=== PATIENT | male | born 1965 ===

== ENCOUNTER 2020-07-20 08:52 | Emergency (ER) | payer OTHER, SELFPAY ==
[2020-07-20 09:01] VITALS: BP 151/71; PULSE 101; RESP 20; TEMP 36.9; O2SAT 97; BMI 28.8
--- NOTE | 2020-07-20 09:21 | CT_ITS ---
EXAMINATION: CT ABDOMEN AND PELVIS WITHOUT CONTRAST CLINICAL INFORMATION: Hematuria. COMPARISON: None TECHNIQUE: Multidetector volumetric imaging was performed from the superior aspect of the liver through the pubic symphysis. Sagittal and coronal reformatted images were obtained on the technologist's workstation. This CT examination was performed using dose optimization techniques as appropriate, variously including the following: *Automated exposure control *Adjustment of mA and/or kV according to patient size (this includes techniques or standardized protocols for targeted exams where dose is matched to indication/reason for exam; i.e. extremities or head) *Use of iterative reconstruction technique DLP: 584 mGy-cm FINDINGS: LUNG BASES: There is patchy ill-defined density seen in left lung base likely atelectasis the heart size is normal. Suspect small hiatal hernia. LIVER, GALLBLADDER, AND BILIARY TREE: The liver is normal in size, shape, and attenuation. Linear calcification is seen in the right hepatic lobe. No focal hepatic lesion or biliary ductal dilatation is present. The gallbladder is unremarkable with no evidence of radiopaque gallstones, gallbladder wall thickening, or obvious pericholecystic inflammatory changes. PANCREAS: Unremarkable. SPLEEN: Unremarkable. ADRENAL GLANDS: Unremarkable. KIDNEYS AND URETERS: The kidneys are normal in size, shape, and attenuation. There is a 7 mm nonobstructive radiopaque calculi lower pole calyx right kidney. There is a tumor punctate calculi upper pole calyx right kidney. No caliectasis or hydronephrosis seen on either side. There are vascular calcifications in renal hilum bilaterally. Mild bilateral perinephric stranding is noted. BLADDER: There is a high attenuation dependent, likely hemorrhage best visualized on axial image 68/3 and sagittal image 55/103. There is no bladder wall thickening. In absence of IV contrast a mass cannot be excluded. However no obvious mass seen on this exam GASTROINTESTINAL TRACT: There is scattered stool, diverticuli and gas seen throughout the colon without any diverticulitis or colonic distention. The small bowel loops unremarkable. Appendix is not visualized with certainty. The stomach is nondistended and appears unremarkable. ABDOMINAL WALL: There are bilateral prominent inguinal hernia containing fat right greater than left. No significant hernia is appreciated. LYMPH NODES: Normal. VASCULAR: Unremarkable. PELVIC VISCERA: There is no pelvic mass, abnormal lymph nodes. OSSEOUS STRUCTURES: Unremarkable. CT/CT abdomen pelvis wo con IMPRESSION: Nonobstructive 7 mm radiopaque calculi lower pole calyx right kidney. No hydronephrosis on either side. Likely hemorrhage in the dependent portion of the bladder. No bladder wall thickening or obvious mass seen. A bladder mass cannot be excluded. Consider cystoscopy.
[2020-07-20 09:36] LABS: MANUAL DIFF FLAG NO
[2020-07-20 09:41] LABS: Basophils Absolute Auto 0.1 X10*3/uL (0.0-0.2); Basophils Percent Auto 0.9 % (0-2); Eosinophils Absolute Auto 0.1 X10*3/uL (0.0-0.4); Eosinophils Percent Auto 1.7 % (0-4); Hematocrit 43.3 % (42-52); Hemoglobin 13.7 g/dl (14.0-18.0); Imm Gran Abs Auto 0.04 X10*3/uL (0.00-0.03); Imm Gran Pct Auto 0.5 % (0.0-0.4); Lymphocytes Absolute Auto 2.2 X10*3/uL (1.2-4.9); Lymphocytes Percent Auto 27.9 % (20-40); Mean Corpuscular HGB Conc 31.6 g/dl (31.0-36.0); Mean Corpuscular Hemoglobin 25.7 pg (27.0-33.0); Mean Corpuscular Volume 81.2 fL (80-98); Mean Platelet Volume 10.1 fL (9.4-12.4); Monocytes Absolute Auto 0.6 X10*3/uL (0.1-1.2); Monocytes Percent Auto 7.3 % (2-11); Neutrophils Absolute Auto 4.8 X10*3/uL (2.0-8.3); Neutrophils Percent Auto 61.7 % (45-73); Platelet Count 408 X10*3/uL (160-400); Red Blood Count 5.33 X10*6/uL (4.60-5.80); White Blood Count 7.8 X10*3/uL (4.8-10.8)
[2020-07-20 09:44] LABS: Glucose Urine UA 250 MG/DL (NEG); Leukocyte Esterase Urine NEG (NEG); Nitrite Urine NEG (NEG); Specific Gravity - Urine >= 1.030 (1.005-1.025); Urine Blood 3+ (NEG); Urine Ketones NEG (NEG); Urine Protein 2+ MG/DL (NEG-TRACE)
[2020-07-20 09:45] LABS: INTERNATIONAL NORM RATIO 1.2 (0.9-1.1); Prothrombin Time 14.3 SEC (10.8-13.0)
[2020-07-20 09:49] LABS: Appearance Urine CLOUDY; Color Urine AMBER
[2020-07-20 09:56] LABS: WBC Urine 0 /HPF (0-4)
[2020-07-20 09:57] LABS: Amorphous Sediment Urine 3+ /LPF; Squamous Epithelial Cell Urine TRACE /LPF
[2020-07-20 10:01] LABS: Magnesium 1.7 mg/dL (1.6-2.6)
[2020-07-20 10:02] LABS: Alanine Aminotransferase 13 U/L (0-40); Albumin Level 4.4 g/dL (3.5-5.0); Alkaline Phosphatase 75 U/L (39-117); Anion Gap 14 (12-20); Aspartate Amino Transferase 15 U/L (5-37); Bilirubin Direct < 0.2 mg/dL (0.0-0.5); Bilirubin Total 0.3 mg/dL (0.0-1.0); Blood Urea Nitrogen 10 mg/dL (9-16); Calcium 9.2 mg/dL (8.4-10.2); Carbon Dioxide 21 mmol/L (22-29); Chloride 100 mmol/L (96-108); Creatinine Clr Calc Pharmacy 87.5; Estimated Glomerular Filt Rate > 60; Glucose Random 210 mg/dL (60-115); Potassium 5.1 mmol/l (3.3-5.1); Sodium 130 mmol/L (135-145); Total Protein 7.6 g/dL (6.5-8.0)
[2020-07-20] MEDS: 0.9 % Sodium Chloride 1,000 ML 999 ML IVCONT (11:05)
[2020-07-20 12:26] VITALS: BP 113/63; PULSE 100; RESP 18; TEMP 36.8; O2SAT 97
--- NOTE | 2020-07-20 12:26 | ED.MALEGU ---
HPI - Male Genitourinary General Chief complaint: Urogenital-Male Stated complaint: blood in urine Time Seen by Provider: 07/20/20 09:15 Source: patient Mode of arrival: ambulatory Limitations: no limitations History of Present Illness HPI Narrative: 54yoM c PMHx of Myocardial infarction, CVA, hypertension, hyperlipidemia and diabetes presenting to the ED with complaints of hematuria cristopher colored urine since Saturday has been improving. Denies any other associated symptoms related to this. Related Data Previous Rx's Medication Instructions Recorded isosorbide mononitrate 30 mg 30 mg PO DAILY 90 Days #90 tab 07/14/20 tablet,extended release 24 hr Allergies Allergy/AdvReac Type Severity Reaction Status Date / Time No Known Allergies Allergy Unverified 05/12/20 15:47 [No Known Allergies*] Review of Systems Review of Systems: Constitutional : No Weight loss, No Fever, No Chills, No Night Sweats, No Fatigue, No Malaise Cardiovascular : No Chest Pain, No SOB= Respiratory : No Cough, No Sputum Gastrointestinal : No Nausea, No Vomiting, No Diarrhea, No abdominal Pain, No Hematochezia, No Melena Genitourinary : No Dysuria, No Urinary Frequency, + Hematuria,No Urinary Incontinence, No Urgency, No Flank Pain Musculoskeletal : No joint pain, No Myalgias, No Joint Swelling Skin : No Skin Lesions, No rash Neuro : No Weakness, No Numbness, No Paresthesias, No Loss of Consciousness, NoDizziness, No Headache Psych : No Social Issues, Heme/Lymph: No Bruising, No Bleeding,No Lymphadenopathy Endocrine : No Polyuria, No Polydipsia, No Temperature Intolerance Yes all other systems are reviewed and are negative FORMERLY [facility] Past Medical History Attestation statement: The following information was validated with the patient. Medical History CVA (cerebral vascular accident) Diabetes mellitus, type 2 Hypercholesteremia Hypertension Myocardial infarction Surgical History H/O coronary artery bypass surgery Social History Social History Smoked in Last 30 Days: No Use of substances other than those prescribed or required for medical reasons: No Advance Directives: No Advance Directives Information Provided: No Physical Exam Vital Signs: Vital Signs: Last Vital Signs Temp 98.5 F 07/20/20 09:01 Pulse 101 H 07/20/20 09:01 Resp 20 07/20/20 09:01 BP 151/71 H 07/20/20 09:01 Pulse Ox 97 07/20/20 09:01 Body Mass Index 28.8 vital signs have been reviewed as normal and appeared to be correct. Blood pressure normal. Heart rate normal. Respiration rate normal. Temperature normal. Oxygen saturation normal. Appearance: Alert. Oriented X3. No acute distress. Head: Normal external exam. Normocephalic. Eyes: PERRLA. EOMI. Conjunctiva and sclera normal. Eyelids normal. ENT: Pharynx normal. Uvula midline. Moist mucous membranes. No trismus noted. No drooling noted. No muffled voice noted. Neck: Normal inspection. Neck supple. FROM. No adenopathy. Thyroid Normal. No meningeal signs. No neck mass noted. CVS: Normal heart rate and rhythm. Heart sound normal. No murmurs noted. Pulses normal throughout. Respiratory: No respiratory distress. Painless inspiration. Breath sounds normal. No wheezes/rales/rhonchi noted. Chest nontender. No accessory muscle usage noted or decreased air movement noted. Abdomen: Soft and nontender. Bowel sounds normal in all 4 quadrants. No distention noted. No organomegaly noted. No visible injury noted. Back: No CVA tenderness. Full range of motion noted. Skin: Skin warm and dry. Normal skin color. Normal skin turgor. No rashes/lesions/lacerations noted. Extremities: Extremities exhibit normal range of motion. Extremities nontender. Neuro: Oriented X 3. No motor deficit. No sensory deficit. Reflexes normal. Course Course Course Narrative: - 54yoM c PMHx of Myocardial infarction, CVA, hypertension, hyperlipidemia and diabetes presenting to the ED with complaints of hematuria cristopher colored urine since Saturday has been improving. Denies any other associated symptoms related to this - Labs obtained and sodium at 130. Otherwise all other labs are within normal limits. UA revealed cristopher colored urine with blood in the urine otherwise no evidence of UTI. All other labs are within normal limits. CT scan of abdomen and pelvis without contrast revealed Nonobstructive 7 mm radiopaque calculi lower pole calyx right kidney. No hydronephrosis on either side. Likely hemorrhage in the dependent portion of the bladder. No bladder wall thickening or obvious mass seen. A bladder mass cannot be excluded. Consider cystoscopy. - therefore consulted with Dr. Jefferson the urologist and he recommended outpatient follow-up. No Vaughan to be placed at this time due to patient's urine is cristopher colored and he is able to urinate on his own without any difficulties. Therefore patient will be discharged at this time after 1 L of IV fluids was given and instructions to follow up with Urology and to return if he is unable to urinate or worsening symptoms. Patient understands agrees with this plan. MDM - Male Genitourinary Medical Records Attestation: I reviewed the patient's medical records. Lab Data Attestation: I reviewed the patient's lab results. Result diagrams: 07/20/20 09:33 07/20/20 09:33 Labs: Lab Results 07/20/20 07/20/20 07/20/20 Range/Units 09:16 09:33 09:33 WBC 7.8 (4.8-10.8) X10*3/uL RBC 5.33 (4.60-5.80) X10*6/uL Hgb 13.7 L (14.0-18.0) g/dl Hct 43.3 (42-52) % MCV 81.2 (80-98) fL MCH 25.7 L (27.0-33.0) pg MCHC 31.6 (31.0-36.0) g/dl RDW 15.0 (11.0-16.0) % Plt Count 408 H (160-400) X10*3/uL MPV 10.1 (9.4-12.4) fL Immature Gran % (Auto) 0.5 H (0.0-0.4) % Neut % (Auto) 61.7 (45-73) % Lymph % (Auto) 27.9 (20-40) % [place] % (Auto) 7.3 (2-11) % Eos % (Auto) 1.7 (0-4) % Baso % (Auto) 0.9 (0-2) % Lymph # (Auto) 2.2 (1.2-4.9) X10*3/uL [place] # (Auto) 0.6 (0.1-1.2) X10*3/uL Eos # (Auto) 0.1 (0.0-0.4) X10*3/uL Baso # (Auto) 0.1 (0.0-0.2) X10*3/uL Abs Immat Gran (auto) 0.04 H (0.00-0.03) X10*3/uL Absolute Neuts (auto) 4.8 (2.0-8.3) X10*3/uL Absolute Nucleated RBC 0.000 (0.0-0.012) X10*3/uL Nucleated RBC % (auto) 0.0 (0.0-0.2) /100WBC PT 14.3 H (10.8-13.0) SEC INR 1.2 H (0.9-1.1) Sodium (135-145) mmol/L Potassium (3.3-5.1) mmol/l Chloride (96-108) mmol/L Carbon Dioxide (22-29) mmol/L Anion Gap (12-20) BUN (9-16) mg/dL Creatinine (0.5-1.4) mg/dL Estim Creat Clear Calc Estimated GFR Random Glucose (60-115) mg/dL Calcium (8.4-10.2) mg/dL Magnesium (1.6-2.6) mg/dL Total Bilirubin (0.0-1.0) mg/dL Direct Bilirubin (0.0-0.5) mg/dL AST (5-37) U/L ALT (0-40) U/L Alkaline Phosphatase (39-117) U/L Total Protein (6.5-8.0) g/dL Albumin (3.5-5.0) g/dL Urine Color CRISTOPHER Urine Appearance CLOUDY Urine pH 5.0 (5.0-8.0) Ur Specific [place] >= 1.030 H (1.005-1.025) Urine Protein 2+ H (NEG-TRACE) MG/DL Urine Glucose (UA) 250 H (NEG) MG/DL Urine Ketones NEG (NEG) MG/DL Urine Blood 3+ H (NEG) Urine Nitrite NEG (NEG) Ur Leukocyte Esterase NEG (NEG) Urine RBC 76-150 H (0) /HPF Urine WBC 0 (0-4) /HPF Ur Squamous Epith Cells TRACE /LPF Amorphous Sediment 3+ /LPF Urine Bacteria NONE /LPF 07/20/20 07/20/20 Range/Units 09:33 09:33 WBC (4.8-10.8) X10*3/uL RBC (4.60-5.80) X10*6/uL Hgb (14.0-18.0) g/dl Hct (42-52) % MCV (80-98) fL MCH (27.0-33.0) pg MCHC (31.0-36.0) g/dl RDW (11.0-16.0) % Plt Count (160-400) X10*3/uL MPV (9.4-12.4) fL Immature Gran % (Auto) (0.0-0.4) % Neut % (Auto) (45-73) % Lymph % (Auto) (20-40) % [place] % (Auto) (2-11) % Eos % (Auto) (0-4) % Baso % (Auto) (0-2) % Lymph # (Auto) (1.2-4.9) X10*3/uL [place] # (Auto) (0.1-1.2) X10*3/uL Eos # (Auto) (0.0-0.4) X10*3/uL Baso # (Auto) (0.0-0.2) X10*3/uL Abs Immat Gran (auto) (0.00-0.03) X10*3/uL Absolute Neuts (auto) (2.0-8.3) X10*3/uL Absolute Nucleated RBC (0.0-0.012) X10*3/uL Nucleated RBC % (auto) (0.0-0.2) /100WBC PT (10.8-13.0) SEC INR (0.9-1.1) Sodium 130 L (135-145) mmol/L Potassium 5.1 (3.3-5.1) mmol/l Chloride 100 (96-108) mmol/L Carbon Dioxide 21 L (22-29) mmol/L Anion Gap 14 (12-20) BUN 10 (9-16) mg/dL Creatinine 0.91 (0.5-1.4) mg/dL Estim Creat Clear Calc 87.5 Estimated GFR > 60 Random Glucose 210 H (60-115) mg/dL Calcium 9.2 (8.4-10.2) mg/dL Magnesium 1.7 (1.6-2.6) mg/dL Total Bilirubin 0.3 (0.0-1.0) mg/dL Direct Bilirubin < 0.2 (0.0-0.5) mg/dL AST 15 (5-37) U/L ALT 13 (0-40) U/L Alkaline Phosphatase 75 (39-117) U/L Total Protein 7.6 (6.5-8.0) g/dL Albumin 4.4 (3.5-5.0) g/dL Urine Color Urine Appearance Urine pH (5.0-8.0) Ur Specific [place] (1.005-1.025) Urine Protein (NEG-TRACE) MG/DL Urine Glucose (UA) (NEG) MG/DL Urine Ketones (NEG) MG/DL Urine Blood (NEG) Urine Nitrite (NEG) Ur Leukocyte Esterase (NEG) Urine RBC (0) /HPF Urine WBC (0-4) /HPF Ur Squamous Epith Cells /LPF Amorphous Sediment /LPF Urine Bacteria /LPF Imaging Data CT scan - abdomen: Attestation: I personally reviewed and interpreted this imaging study as follows: Radiologist's impression: Nonobstructive 7 mm radiopaque calculi lower pole calyx right kidney. No hydronephrosis on either side. Likely hemorrhage in the dependent portion of the bladder. No bladder wall thickening or obvious mass seen. A bladder mass cannot be excluded. Consider cystoscopy. Discharge Plan Discharge Clinical Impression: Hematuria, Hyponatremia Patient Disposition: Home, Self-Care Instructions: Hyponatremia (ED), Hematuria (ED) Prescriptions: No Action isosorbide mononitrate 30 mg tablet extended release 24 hr 30 mg PO DAILY 90 Days Qty: 90 RF: 1 Referrals: Alirio Luther III, MD [Physician] - 2 days ( for hematuria) Print Language: Bolivian
--- NOTE | 2020-07-20 12:28 | PC.NURSE ---
patient a&ox3, patient ambulating with steady gait with cane, iv fluids completed, vss, pt wanting to discharge and asking for iv to be removed, will speak with provider.
== END 2020-07-20 13:00 | disposition home or self-care (01) ==
PROVIDERS: Physician Assistant Medical; Emergency Provider Internal Medicine; PCP Internal Medicine
DX: R31.9 Hematuria, unspecified (principal); E87.1 Hypo-osmolality and hyponatremia; I10 Essential (primary) hypertension; Z79.899 Other long term (current) drug therapy
CPT/HCPCS: 36415; 74176; 80048; 80076; 81001; 83735; 85025; 85610; 96360; 99284

== ENCOUNTER → 2020-07-25 09:30 | Outpatient (REF) | payer OTHER, SELFPAY ==
--- NOTE | 2020-07-25 09:30 | CA_ITS ---
Transthoracic Echocardiogram Patient (Last, First, Middle): Cam Vera, Gender: Male Date of : 1965 Age: 54 Procedure Date: 07/25/2020 Procedure Type: Transthoracic Echocardiogram Location: OP Height: 165.1 cm Weight: 78.47 kg BSA: 1.86 m2 Heart Rate: bpm BP: 134 / 80 mmHg Certified Pediatric Nurse Practitioner: INOCENCIO Referring MD: Moses Grove MD Ski Patrol: Roman Escobedo MD Symptoms: I25.5 ISCHEMIC CARDIOMYOPATHY Study Quality: Fair ECG Rhythm: Sinus Conclusions: - 1. Moderate LV systolic dysfunction with RWMA c/w ischemic cardiomyopathy with impaired relaxation pattern 2.Normal cardiac valvular Doppler 3. Normal RVSP 4. No pericardial effusion Findings Left Ventricle Normal left ventricular cavity size. There is normal left ventricular wall thickness. The left ventricular systolic function is moderately decreased. The visually estimated ejection fraction is between 35-40%. There is evidence of regional wall motion abnormalities. Spectral Doppler is indicative of an impaired relaxation filling pattern. E/E prime ratio is between 8 and 15 consistent with indeterminate filling pressures. Wall Motion Rest Echo Findings The inferoseptal wall, the basal inferior, mid inferior, and mid anteroseptal segments are akinetic. All other scored wall segments showed normal motion. Right Ventricle Normal right ventricular cavity size and systolic function. Atria The left atrium is likely dilated. There is no evidence of interatrial shunt. The right atrium is normal in size. Aortic Valve Normal aortic valve structure and function. There is no aortic valve stenosis. There is mild aortic valve regurgitation. Mitral Valve There is mild anterior and posterior mitral leaflet thickening. There is mild mitral annular calcification. There is trace mitral valve regurgitation. There is no mitral valve stenosis. Pulmonic Valve The pulmonic valve was not well visualized. Tricuspid Valve Likely normal tricuspid valve structure and function. There is mild tricuspid valve regurgitation. The right ventricular systolic pressure is normal. Normal right atrial pressure. There is no evidence of pulmonary hypertension. Great Vessels All visible segments of the aorta are normal in size. The pulmonary artery was not well visualized. Venous The inferior vena cava is normal in size and collapses greater than 50% with inspiration. Pericardium/Pleural There is no evidence of pericardial effusion. Prior Study Comparison Significant changes compared to prior study dated: 10/28/2019. Moderate LV systolic dysfunction with new RWMA noted Measurements 2D Linear Measurements IVSd: 1.05 0.6-0.9/0.6-1.0 cm LVIDd: 5.40 3.9-5.3/4.2-5.9 cm LVIDd Index: 2.90 2.4-3.2/2.2-3.1 cm/m2 LVIDs: 4.16 2.0-3.6 cm LVPWd: 1.06 0.7-1.1 cm LA Diam: 4.00 2.7-3.8/3.0-4.0 cm LAIDs Index: 2.15 1.5-2.3 cm/m2 LV Mass: 276.74 67-162/88-224 g LV Mass Index: 148.79 43-95/49-115 g/m2 LVOT Diam: 2.00 3.0+(-)1.3 cm 2D Systolic Function EF 4C: 39.90 >55% EF 2C: 36.00 >55% EF BiP: 38.20 >55% Mitral Valve MV Pk E: 0.92 MV PK A: 1.20 MV Decel Time: 92.00 E/A: 0.80 E'Lateral: 9.28 E'Medial: 8.03 E/E' Med: 11.50 E/E' Lat: 9.90 PHT: 27.00 MVA PHT: 8.15 Decel [place]: 10.07 Aortic Valve AoV Pk Bruno: 1.57 AoV Mn Bruno: 1.23 AoV VTI: 0.34 AoV Pk Grad: 10.00 Aov Mn Grad: 7.00 BILL Cont.VTI: 1.64 LVOT LVOT Pk Bruno: 0.90 LVOT Mn Bruno: 0.65 LVOT VTI: 0.18 LVOT Pk Grad: 3.00 LVOT Mn Grad: 2.00 LVOT Diam: 2.00 LVOT Area: 3.14 Diastolic Function MV Pk E: 0.92 MV Pk A: 1.20 E/A: 0.80 E'Medial: 8.03 E/E' Med: 11.50 E' Laterial: 9.28 E/E' Lat: 9.90 Tricuspid Valve TR Pk Bruno: 2.11 TR Pk Grad: 18.00 RA Press: 3.00 RVSP: 31.00 Pulmonary Valve PV Pk Bruno: 0.99 Peak PV Grad: 4.00 Updated in Other Vendor System with Status of Final Roman Escobedo MD electronically signed on 07/26/2020 12:44:51 PM with status of Final
== END ==
LOC: HO.CARD 09:30
PROVIDERS: PCP Internal Medicine; Visit Provider Internal Medicine
DX: I25.5 Ischemic cardiomyopathy (principal)
CPT/HCPCS: 93306

== ENCOUNTER 2020-08-02 08:50 | Outpatient (REF) | payer OTHER, SELFPAY ==
[2020-08-02 14:16] LABS: Urine Cytology See Pathology rpt
== END 2020-08-02 08:51 | disposition home or self-care (01) ==
LOC: HO.LNP 08:50
PROVIDERS: PCP Internal Medicine; Visit Provider Urology
DX: R31.29 Other microscopic hematuria (principal); R35.1 Nocturia; N32.0 Bladder-neck obstruction
CPT/HCPCS: 81002; 88112; 99202

== ENCOUNTER → 2020-08-10 08:58 | Outpatient (BNVA) | payer OTHER, SELFPAY | PROVIDERS: PCP Internal Medicine; Visit Provider Internal Medicine | DX: I25.10 Atherosclerotic heart disease of native coronary artery without angina pectoris (principal); I25.5 Ischemic cardiomyopathy; I48.0 Paroxysmal atrial fibrillation; I63.9 Cerebral infarction, unspecified; E78.5 Hyperlipidemia, unspecified | CPT/HCPCS: 99212 ==

== ENCOUNTER 2020-08-30 08:28 | Outpatient (REF) | payer OTHER, SELFPAY ==
[2020-08-30 11:21] LABS: Prostate Specific Antigen 9.18 ng/mL (<0.05-4.0)
== END 2020-08-30 08:29 | disposition home or self-care (01) ==
LOC: HO.10HDL 08:28
PROVIDERS: Visit Provider Urology
DX: N32.0 Bladder-neck obstruction (principal); Z12.5 Encounter for screening for malignant neoplasm of prostate
CPT/HCPCS: 36415; 84153

== ENCOUNTER → 2020-09-07 08:52 | Outpatient (BNVA) | payer OTHER, SELFPAY | PROVIDERS: PCP Internal Medicine; Visit Provider Urology | DX: N40.1 Benign prostatic hyperplasia with lower urinary tract symptoms (principal); N13.8 Other obstructive and reflux uropathy; R97.20 Elevated prostate specific antigen [PSA] | CPT/HCPCS: 52000; 81002; 99212 ==

== ENCOUNTER → 2020-10-27 09:19 | Outpatient (REF) | payer OTHER, SELFPAY ==
--- NOTE | 2020-10-27 09:22 | CA_ITS ---
Transthoracic Echocardiogram Patient (Last, First, Middle): Cam Vera, Gender: Male Date of : 1965 Age: 54 Procedure Date: 10/27/2020 Procedure Type: Transthoracic Echocardiogram Location: OP Height: 165.1 cm Weight: 83.01 kg BSA: 1.90 m2 Heart Rate: bpm BP: 144 / 75 mmHg Director Of Critical Care: KIRAN Referring MD: Moses Grove MD Symptoms: I25.5 - Ischemic cardiomyopathy Study Quality: Fair ECG Rhythm: Sinus Conclusions: - The left ventricular systolic function is moderately decreased. The visually estimated ejection fraction is between 35-40%. - The mid inferior and mid inferoseptal segments are akinetic. Findings Left Ventricle Normal left ventricular cavity size. There is normal left ventricular wall thickness. The left ventricular systolic function is moderately decreased. The visually estimated ejection fraction is between 35-40%. There is evidence of regional wall motion abnormalities. There is moderate global hypokinesis. E/E prime ratio is >15, consistent with elevated filling pressures. Evidence suggests grade I (mild) diastolic dysfunction. Wall Motion Rest Echo Findings The mid inferior and mid inferoseptal segments are akinetic. Right Ventricle Normal right ventricular cavity size. There is mildly decreased right ventricular systolic function. Tricuspid Valve Normal tricuspid valve structure. Venous The inferior vena cava is normal in size and collapses greater than 50% with inspiration. Prior Study Comparison No significant change compared to prior study dated: 07/25/2020. Measurements 2D Linear Measurements IVSd: 0.76 0.6-0.9/0.6-1.0 cm LVIDd: 5.14 3.9-5.3/4.2-5.9 cm LVIDd Index: 2.71 2.4-3.2/2.2-3.1 cm/m2 LVIDs: 4.08 2.0-3.6 cm LVPWd: 1.27 0.7-1.1 cm LV Mass: 242.60 67-162/88-224 g LV Mass Index: 127.68 43-95/49-115 g/m2 2D Systolic Function EF 4C: 44.00 >55% EF 2C: 44.60 >55% EF BiP: 43.60 >55% Mitral Valve MV Pk E: 1.07 MV PK A: 1.22 MV Decel Time: 151.00 E/A: 0.90 E'Lateral: 6.96 E'Medial: 5.87 E/E' Med: 18.20 E/E' Lat: 15.40 PHT: 44.00 MVA PHT: 5.00 Decel [place]: 7.08 Diastolic Function MV Pk E: 1.07 MV Pk A: 1.22 E/A: 0.90 E'Medial: 5.87 E/E' Med: 18.20 E' Laterial: 6.96 E/E' Lat: 15.40 Tricuspid Valve TR Pk Bruno: 2.69 TR Pk Grad: 29.00 RA Press: 3.00 RVSP: 32.00 Updated in Other Vendor System with Status of Final Moses Grove MD electronically signed on 10/29/2020 11:46:27 AM with status of Final
== END ==
LOC: HO.CARD 09:19
PROVIDERS: PCP Internal Medicine; Visit Provider Internal Medicine
DX: I25.5 Ischemic cardiomyopathy (principal)
CPT/HCPCS: 93308

== ENCOUNTER 2020-11-21 10:35 | Outpatient (REF) | payer OTHER, SELFPAY ==
[2020-11-21 12:37] LABS: Alanine Aminotransferase 23 U/L (0-40); Albumin Level 4.9 g/dL (3.5-5.0); Alkaline Phosphatase 67 U/L (39-117); Aspartate Amino Transferase 17 U/L (5-37); Bilirubin Direct 0.2 mg/dL (0.0-0.5); Bilirubin Total 0.3 mg/dL (0.0-1.0); Cholesterol 163 mg/dL; HDL Cholesterol 39 mg/dL; LDL Cholesterol Calculated 93 mg/dl; Total Protein 8.2 g/dL (6.5-8.0); Triglycerides 159 mg/dL
== END 2020-11-21 10:36 | disposition home or self-care (01) ==
LOC: HO.LAB 10:35
PROVIDERS: PCP Internal Medicine; Visit Provider Internal Medicine
DX: I25.10 Atherosclerotic heart disease of native coronary artery without angina pectoris (principal); I25.5 Ischemic cardiomyopathy; I48.0 Paroxysmal atrial fibrillation; E78.5 Hyperlipidemia, unspecified; Z79.899 Other long term (current) drug therapy
CPT/HCPCS: 36415; 80061; 80076; 99212

== ENCOUNTER 2020-12-28 07:52 | Inpatient (IN) | payer OTHER, SELFPAY ==
[2020-12-28] VITALS (8 sets, daily range): BP systolic 107–153; BP diastolic 40–89; PULSE 78–128; RESP 16–23; TEMP 35.9–36.9; O2SAT 95–100; BMI 29.3
--- NOTE | ~2020-12-28 | XR_ITS ---
EXAMINATION: XR CHEST CLINICAL INFORMATION: Chest pain COMPARISON: Previous chest x-ray most recent March 2020 TECHNIQUE: Frontal view of the chest was obtained. FINDINGS: The cardiac silhouette does not appear enlarged. There are new post-CABG changes. Hilar and mediastinal contours are unremarkable. The lungs are clear. There is no pleural effusion or pneumothorax. There are degenerative changes of the spine. XR/XR chest 1V IMPRESSION: Post-CABG changes. No evidence for acute disease in the chest.
--- NOTE | 2020-12-28 08:03 | ED.CHESTPAIN ---
HPI - Chest Pain General Chief Complaint: Chest Pain Stated Complaint: chest pain Time Seen by Provider: 12/28/20 08:03 Source: patient Mode of arrival: ambulatory Limitations: no limitations History of Present Illness HPI narrative: patient came to the ED because he is having a harder time breathing MD complaint: chest pain Pertinent past history: coronary artery disease, prior MT and CABG Onset (ago): week(s) Timing of current episode: episodic Prior episodes: Yes Onset: during exertion Pain location: left chest Severity: moderate Quality: heaviness Exacerbating factors: exertion Risk Factors Coronary artery disease risk factors: diabetes, hyperlipidemia, hypertension and family history of CAD before age 50 Related Data Home Medications Medication Instructions Recorded Confirmed clopidogrel 75 mg tablet 75 mg PO DAILY 08/02/20 12/28/20 fenofibrate 54 mg tablet 54 mg PO DAILY 08/02/20 12/28/20 insulin glargine 100 unit/mL (3 22 unit SUBCUT BEDTIME 08/02/20 12/28/20 mL) subcutaneous pen lancets 28 gauge #100 ea 08/02/20 11/21/20 lisinopril 30 mg tablet 30 mg PO DAILY 08/02/20 12/28/20 metoprolol succinate 25 mg 25 mg PO DAILY 08/02/20 12/28/20 tablet,extended release 24 hr omega-3 fatty acids-fish oil 340 1 cap PO TID 08/02/20 12/28/20 mg-1,000 mg capsule aspirin 81 mg tablet,delayed 81 mg PO DAILY 08/10/20 12/28/20 release metformin 1,000 mg tablet 1,000 mg PO BID 11/21/20 12/28/20 atorvastatin 80 mg PO BEDTIME 12/28/20 12/28/20 furosemide 40 mg PO DAILY 12/28/20 12/28/20 insulin lispro [Admelog SoloStar 2 unit SUBCUT DAILY 12/28/20 12/28/20 U-100 Insulin] insulin lispro [Admelog SoloStar 4 unit SUBCUT DAILY@1200 12/28/20 12/28/20 U-100 Insulin] insulin lispro [Admelog SoloStar 6 unit SUBCUT DAILY@1800 12/28/20 12/28/20 U-100 Insulin] Previous Rx's Medication Instructions Recorded isosorbide mononitrate 30 mg 30 mg PO DAILY 90 Days #90 tab 07/14/20 tablet,extended release 24 hr finasteride 5 mg tablet 5 mg PO DAILY 90 Days #90 tab 08/02/20 tamsulosin 0.4 mg capsule 0.4 mg PO DAILY #90 cap 09/07/20 Allergies Allergy/AdvReac Type Severity Reaction Status Date / Time No Known Allergies Allergy Verified 11/21/20 10:46 [No Known Allergies*] Review of Systems Constitutional: Constitutional: Reports no additional constitutional complaints Eyes: Eyes: Reports no additional eye complaints ENT: Denies dizziness Cardiovascular: Cardiovascular: Reports no additional cardiovascular complaints Respiratory: Respiratory: Reports as per HPI Gastrointestinal: Gastrointestinal: Reports no additional gastrointestinal complaints Musculoskeletal: Musculoskeletal: Reports no additional musculoskeletal complaints Integumentary/Breasts: Skin/Breast: Denies rash Neurologic: Reports system reviewed and no additional complaints, except as documented, Denies dizziness and Denies Sensory deficit (Neuro) Psychiatric: Psychiatric: Denies anxiety [facility] Past Medical History Medical History Atherosclerotic cardiovascular disease CVA (cerebral vascular accident) Diabetes mellitus, type 2 Hypercholesteremia Hypertension Ischemic cardiomyopathy Myocardial infarction PAF (paroxysmal atrial fibrillation) Surgical History H/O coronary artery bypass surgery (~04/27/20) Family History Family History Father No problems noted. Mother No problems noted. Social History Social History Smoking Status: Former smoker Use of substances other than those prescribed or required for medical reasons: No Advance Directives: No Advance Directives Information Provided: No Physical Exam Vital Signs: Vital Signs: Last Vital Signs Temp 98.4 F 12/28/20 13:20 Pulse 86 12/28/20 15:11 Resp 16 12/28/20 15:11 BP 107/57 L 12/28/20 15:11 Pulse Ox 98 12/28/20 15:11 Body Mass Index 29.3 Const: Other: male looking older than stated age Nutritional Appearance: average body habitus Orientation/consciousness: oriented to person and patient oriented x3 Limitations: no limitations HENMT: Head: Yes normal to inspection Ears: external ears normal General nose exam: Normal external nose present Mouth: Normal oral and palatal mucosa present and oropharynx normal Throat: Yes posterior oropharynx normal Eyes: General: appearance normal, both eyes and all related structures Neck: Other: supple Neck: Yes normal visual inspection Chest: Chest palpation & inspection: normal inspection of the chest Resp: Auscultation: clear to auscultation bilaterally Cardio: Other: 3/6 NIKA Jugular venous distension: no JVD Rate: tachycardic Rhythm: regular rhythm Heart sounds: S1 normal heart sound present and S2 normal heart sound present GI: Inspection: Yes normal to inspection Palpation (GI): Soft to palpation, nontender and No hepatosplenomegaly present Auscultation: normal bowel sounds : General: Yes no CVA tenderness Back/Spine/Pelvis: Back: no CVA tenderness Skin: General skin exam: no rashes or lesions noted Neuro: Other: old right hemiparesis General: oriented to person and patient oriented x3 Cranial nerves: Yes CN's II-XII intact bilaterally Sensory Exam: No Sensory deficit (Neuro) Extrem: General: Yes normal to inspection Psych: Appearance: grossly normal Course Course Course Narrative: Discussed with Dr. Grove Reevaluation(s) Reevaluation #1: Because of tachycardia, Dr. Grove would like patient admitted MDM - Chest Pain MDM Narrative Medical decision making narrative: patient with new LBBB since his bypass in March, rhythm slowed down with lopressor, troponin is flat dicussed with Dr. Lakeshia sandhu Lab Data Result diagrams: 12/28/20 08:32 12/28/20 08:32 Labs: Lab Results 12/28/20 12/28/20 12/28/20 Range/Units 08:32 08:32 08:32 WBC 7.6 (4.8-10.8) X10*3/uL RBC 5.21 (4.60-5.80) X10*6/uL Hgb 14.9 (14.0-18.0) g/dl Hct 44.0 (42-52) % MCV 84.5 (80-98) fL MCH 28.6 (27.0-33.0) pg MCHC 33.9 (31.0-36.0) g/dl RDW 12.4 (11.0-16.0) % Plt Count 360 (160-400) X10*3/uL MPV 11.1 (9.4-12.4) fL Immature Gran % (Auto) 0.4 (0.0-0.4) % Neut % (Auto) 59.2 (45-73) % Lymph % (Auto) 32.4 (20-40) % [place] % (Auto) 6.3 (2-11) % Eos % (Auto) 0.9 (0-4) % Baso % (Auto) 0.8 (0-2) % Lymph # (Auto) 2.5 (1.2-4.9) X10*3/uL [place] # (Auto) 0.5 (0.1-1.2) X10*3/uL Eos # (Auto) 0.1 (0.0-0.4) X10*3/uL Baso # (Auto) 0.1 (0.0-0.2) X10*3/uL Abs Immat Gran (auto) 0.03 (0.00-0.03) X10*3/uL Absolute Neuts (auto) 4.5 (2.0-8.3) X10*3/uL Absolute Nucleated RBC 0.000 (0.0-0.012) X10*3/uL Nucleated RBC % (auto) 0.0 (0.0-0.2) /100WBC Sodium 133 L (135-145) mmol/L Potassium 4.5 (3.3-5.1) mmol/L Chloride 99 (96-108) mmol/L Carbon Dioxide 22 (22-29) mmol/L Anion Gap 17 (12-20) BUN 22 H D (9-16) mg/dL Creatinine 1.03 (0.5-1.4) mg/dL Estim Creat Clear Calc 77.1 Estimated GFR > 60 Random Glucose 183 H (60-115) mg/dL Calcium 9.7 (8.4-10.2) mg/dL Troponin I High Sens 30.0 (<3.5-35.0) ng/L B-Natriuretic Peptide 59 (<100) pg/mL 12/28/20 Range/Units 12:17 WBC (4.8-10.8) X10*3/uL RBC (4.60-5.80) X10*6/uL Hgb (14.0-18.0) g/dl Hct (42-52) % MCV (80-98) fL MCH (27.0-33.0) pg MCHC (31.0-36.0) g/dl RDW (11.0-16.0) % Plt Count (160-400) X10*3/uL MPV (9.4-12.4) fL Immature Gran % (Auto) (0.0-0.4) % Neut % (Auto) (45-73) % Lymph % (Auto) (20-40) % [place] % (Auto) (2-11) % Eos % (Auto) (0-4) % Baso % (Auto) (0-2) % Lymph # (Auto) (1.2-4.9) X10*3/uL [place] # (Auto) (0.1-1.2) X10*3/uL Eos # (Auto) (0.0-0.4) X10*3/uL Baso # (Auto) (0.0-0.2) X10*3/uL Abs Immat Gran (auto) (0.00-0.03) X10*3/uL Absolute Neuts (auto) (2.0-8.3) X10*3/uL Absolute Nucleated RBC (0.0-0.012) X10*3/uL Nucleated RBC % (auto) (0.0-0.2) /100WBC Sodium (135-145) mmol/L Potassium (3.3-5.1) mmol/L Chloride (96-108) mmol/L Carbon Dioxide (22-29) mmol/L Anion Gap (12-20) BUN (9-16) mg/dL Creatinine (0.5-1.4) mg/dL Estim Creat Clear Calc Estimated GFR Random Glucose (60-115) mg/dL Calcium (8.4-10.2) mg/dL Troponin I High Sens 32.8 (<3.5-35.0) ng/L B-Natriuretic Peptide (<100) pg/mL ECG Data ECG #1: Attestation: I personally reviewed and interpreted this ECG as follows: Interpretation: sinus tachycardia, LBBB, no acute changes ECG #2: Attestation: I personally reviewed and interpreted this ECG as follows: Interpretation: sinus 92, LBBB no new ischemia Critical Care Time Critical Care Time Attestation: I spent 40 minutes of critical care, with interventions, assessments, speaking to patient, consultants, and family. Discharge Plan Discharge Clinical Impression: Ischemic cardiomyopathy, Atrial tachycardia, paroxysmal Patient Disposition: Admitted As Inpatient
--- NOTE | 2020-12-28 08:12 | ECG_ITS ---
Test Reason : CHEST PAIN Blood Pressure : / mmHG Vent. Rate : 121 BPM Atrial Rate : 121 BPM P-R Int : 166 ms QRS Dur : 158 ms QT Int : 304 ms P-R-T Axes : 052 030 224 degrees QTc Int : 431 ms Sinus tachycardia Possible Left atrial enlargement Left bundle branch block Abnormal ECG When compared with ECG of 22-APR-2020 09:42, Left bundle branch block is now Present Referred By: Marcelo Quick Electronically Signed By:JUJU WAYNE
[2020-12-28 08:38] LABS: MANUAL DIFF FLAG NO
[2020-12-28 08:41] LABS: Basophils Absolute Auto 0.1 X10*3/uL (0.0-0.2); Basophils Percent Auto 0.8 % (0-2); Eosinophils Absolute Auto 0.1 X10*3/uL (0.0-0.4); Eosinophils Percent Auto 0.9 % (0-4); Hemoglobin 14.9 g/dl (14.0-18.0); Imm Gran Abs Auto 0.03 X10*3/uL (0.00-0.03); Imm Gran Pct Auto 0.4 % (0.0-0.4); Lymphocytes Absolute Auto 2.5 X10*3/uL (1.2-4.9); Lymphocytes Percent Auto 32.4 % (20-40); Mean Corpuscular HGB Conc 33.9 g/dl (31.0-36.0); Mean Corpuscular Hemoglobin 28.6 pg (27.0-33.0); Mean Corpuscular Volume 84.5 fL (80-98); Mean Platelet Volume 11.1 fL (9.4-12.4); Monocytes Absolute Auto 0.5 X10*3/uL (0.1-1.2); Monocytes Percent Auto 6.3 % (2-11); Neutrophils Absolute Auto 4.5 X10*3/uL (2.0-8.3); Neutrophils Percent Auto 59.2 % (45-73); Platelet Count 360 X10*3/uL (160-400); Red Blood Count 5.21 X10*6/uL (4.60-5.80); Red Cell Distribution Width 12.4 % (11.0-16.0); White Blood Count 7.6 X10*3/uL (4.8-10.8)
[2020-12-28] MEDS: Nitroglycerin 2 % Oint 1 GM Packet 1 INCH TRANSDERMA (08:51)
[2020-12-28] MEDS: Metoprolol Tartrate 5 MG/5 ML VIAL IVPUSH ×2 (08:52→12:00)
[2020-12-28 09:04] LABS: Anion Gap 17 (12-20); Blood Urea Nitrogen 22 mg/dL (9-16); Calcium 9.7 mg/dL (8.4-10.2); Carbon Dioxide 22 mmol/L (22-29); Chloride 99 mmol/L (96-108); Creatinine Clr Calc Pharmacy 77.1; Estimated Glomerular Filt Rate > 60; Glucose Random 183 mg/dL (60-115); Potassium 4.5 mmol/L (3.3-5.1); Sodium 133 mmol/L (135-145)
[2020-12-28 09:12] LABS: B Type Natriuretic Peptide 59 pg/mL (<100)
--- NOTE | 2020-12-28 10:16 | ECG_ITS ---
Test Reason : REPEAT Blood Pressure : / mmHG Vent. Rate : 092 BPM Atrial Rate : 092 BPM P-R Int : 186 ms QRS Dur : 170 ms QT Int : 412 ms P-R-T Axes : 049 016 207 degrees QTc Int : 509 ms Normal sinus rhythm Left bundle branch block Abnormal ECG When compared with ECG of 28-DEC-2020 08:09, No significant change was found Referred By: Marcelo Quick Electronically Signed By:JUJU WAYNE
[2020-12-28 13:01] LABS: Troponin-I High Sensitivity 32.8 ng/L (<3.5-35.0)
--- NOTE | 2020-12-28 15:16 | PC.NURSE ---
PT REPORTS CP NOW MOSTLY , RATED AT 1 OR 2. SLIGHTLY SOB, PTS BASELINE. SKIN COLOUR [place] FOR ETHNICITY, WARM. PT IS AWARE OF PLAN FOR ADMISSION, TO BE SEEN BY CARDIOLOGY TOMORROW.
[2020-12-28 16:34] LABS: IDNOW Serial# 08D9AD1C
[2020-12-28 16:35] LABS: COVID-19 Test Negative (Negative)
--- NOTE | 2020-12-28 17:19 | HP_ITS ---
DATE OF SERVICE: 12/28/2020 CHIEF COMPLAINT: Chest pain. HISTORY OF PRESENT ILLNESS: This is a 55-year-old gentleman with past medical history significant for coronary artery disease, status post CABG with severe ischemic cardiomyopathy. His EF improved from 20% to 25% to the most recent echocardiogram, October of 2020 showing improvement to 35% to 40% with global hypokinesis. The patient also has history of right-sided hemiparesis due to prior stroke. The patient presented to [facility] today due to symptoms of chest pain. The patient is a very poor historian who complains of chest pain that last couple of hours, can occur any time while he was sitting or sometimes after doing activity. The pain is associated with shortness of breath. No sweating. The pain resolves by itself. Denies any heavy lifting, pushing, or pulling. He felt that his chest pain is similar to his prior chest pain therefore came to the emergency room. In the ER, he was noticed to have sinus tachycardia with new left bundle-branch block. The patient was treated in the emergency room with metoprolol 5 mg IV push x2 and transdermal nitroglycerin. The patient's tachycardia improved. EKG shows left bundle-branch block with sinus rhythm. The patient's 2 sets of troponin remains flat. BNP is 59. As per patient, he is compliant with his home medication and has follow up with his gear coding machine operator Dr. Grove on a regular basis. His last followup was November 21. Due to multiple vascular risk factors the patient is being admitted to [facility] for close monitoring and treatment. PAST MEDICAL HISTORY: Significant for 1. Atherosclerotic cardiovascular disease, status post recent cardiac cath with severe multivessel disease, status post CABG. 2. History of ischemic cardiomyopathy, current EF 35% to 40% with wall motion abnormalities. 3. History of paroxysmal atrial fibrillation, not on anticoagulation. 4. History of CVA with residual right hemiparesis. 5. History of hyperlipidemia. SOCIAL HISTORY: The patient is a former smoker, quit 2-3 years ago. Denies alcohol abuse or illicit drug use. Previously was abusing cocaine. The patient lives alone and has a right foot orthosis for ambulation. FAMILY HISTORY: Parents are . Father of questionable throat cancer. Mother had lung problems. ALLERGIES: HE HAS NO KNOWN DRUG ALLERGIES. MEDICATION: He is on aspirin 81 mg daily, Lipitor 80 mg at bedtime, Plavix 75 mg daily, Duloxetine 60 mg daily, fenofibrate 54 mg daily, finasteride 5 mg daily, Lantus insulin, insulin lispro dosage unknown, isosorbide 30 mg daily, lisinopril 30 mg daily, metformin 1000 b.i.d., metoprolol 25 daily, omega-3 fatty acid, Flomax 0.4 mg daily. Med reconciliation needs to be done. PHYSICAL EXAMINATION: GENERAL: The patient is resting comfortably, does not appear to be in acute distress, complaining of persistent left upper chest close to shoulder discomfort. NECK: Supple. No JVD. LUNGS: Clear to auscultation bilaterally. HEART: Regular rate and rhythm. There is tenderness to palpation, left upper chest when patient's left arm is stretched. There is no redness or swelling noted. ABDOMEN: Soft, nontender. Bowel sounds are audible. EXTREMITIES: Without clubbing, cyanosis, or edema. The patient has right upper hand contraction deformity and weakness. Also weakness of the right lower extremity. PSYCH: Appropriate affect. LABORATORY DATA: Showed a hemoglobin 14.9, hematocrit 44, platelet of 360. Sodium 133, BUN 22; creatinine of 1, blood sugar 183. Troponin 30, repeat troponin 32.8. BNP 59. Chest x-ray showed no evidence of acute disease in the chest. Post-CABG changes were noted. Next, EKG showed left bundle branch block. ASSESSMENT AND PLAN: This is a 55-year-old gentleman with multiple medical issues, history of coronary artery disease, status post CABG; ischemic cardiomyopathy, EF 35% to 40%; status post cerebrovascular accident with right residual weakness, presented to [facility] due to intermittent chest discomfort. The patient's chest pain is atypical, but due to multiple risk factors and prior history of coronary artery disease will admit for continued monitoring and treatment. PROBLEM LIST: 1. Chest pain. persistent mild reproducible chest pain, at present he is hemodynamically stable with normal troponin and BNP,likley musculoskeletal chest pain, will continue home medications including metoprolol, statins, aspirin and Plavix. We will obtain Cardiology consultation. The patient recently had an echo in October. Therefore, hold off on repeat echo study. 2. History of diabetes mellitus. Blood sugars are 183,will place him on diabetic diet and continue home medication. 3. History of hyperlipidemia. Continue Lipitor and follow lipid profile. 4. Code status; full code. 5. Deep vein thrombosis prophylaxis. will be placed on Lovenox. In regard to chronic other medical issues including cerebrovascular accident patient will be continued on all home medications. MD LORRI Horton/ALEXIA / [phone] MTDD
[2020-12-28] MEDS: 0.9 % Sodium Chloride Flush 3 ML SYRINGE IVFLUSH ×2 (17:21→23:13)
[2020-12-28] MEDS: Enoxaparin Sodium 40 MG/0.4 ML SYRINGE SUBCUT (17:28)
--- NOTE | 2020-12-28 18:00 | CA_ITS ---
Transthoracic Echocardiogram Patient (Last, First, Middle): Cam Vera, Gender: Male Date of : 1965 Age: 55 Procedure Date: 12/28/2020 Procedure Type: Transthoracic Echocardiogram Location: ER Height: 165.1 cm Weight: 79.83 kg BSA: 1.87 m2 Heart Rate: bpm BP: 107 / 52 mmHg [place] Mixer Operator: Referring MD: Moses Grove MD Symptoms: LBBB, chest pain Study Quality: Fair ECG Rhythm: Sinus Conclusions: - The left ventricular systolic function is severely decreased. The visually estimated ejection fraction is between 25-30%. Findings Left Ventricle Normal left ventricular cavity size. There is mildly increased left ventricular wall thickness. The left ventricular systolic function is severely decreased. The visually estimated ejection fraction is between 25 30%. There is severe global hypokinesis. There is paradoxical septal motion consistent with a left bundle branch block. Wall Motion Rest Echo Findings The basal inferior and mid inferior segments are akinetic. Right Ventricle Normal right ventricular cavity size and systolic function. Venous The inferior vena cava is normal in size and collapses greater than 50% with inspiration. Prior Study Comparison Changes noted compared to prior study dated: 10/27/2020. LVEF is lower than prior study, but due to image quality, difficult to compare. Measurements 2D Linear Measurements IVSd: 1.24 0.6-0.9/0.6-1.0 cm LVIDd: 4.58 3.9-5.3/4.2-5.9 cm LVIDd Index: 2.45 2.4-3.2/2.2-3.1 cm/m2 LVIDs: 3.99 2.0-3.6 cm LVPWd: 1.25 0.7-1.1 cm LV Mass: 267.61 67-162/88-224 g LV Mass Index: 143.11 43-95/49-115 g/m2 2D Systolic Function EF 4C: 23.00 >55% EF 2C: 29.40 >55% EF BiP: 22.40 >55% Mitral Valve MV Pk E: 0.86 MV PK A: 1.16 MV Decel Time: 144.00 E/A: 0.70 E'Lateral: 9.86 E'Medial: 6.00 E/E' Med: 14.30 E/E' Lat: 8.70 PHT: 42.00 MVA PHT: 5.24 Decel Garrett: 5.95 Diastolic Function MV Pk E: 0.86 MV Pk A: 1.16 E/A: 0.70 E'Medial: 6.00 E/E' Med: 14.30 E' Laterial: 9.86 E/E' Lat: 8.70 Tricuspid Valve TR Pk Bruno: 2.34 TR Pk Grad: 22.00 Updated in Other Vendor System with Status of Final Moses Grove MD electronically signed on 12/28/2020 4:23:53 PM with status of Final
[2020-12-28 20:53] LABS: Glucose, Whole Blood 185 mg/dL (60-115)
[2020-12-28] MEDS: Insulin Glargine,Hum.rec.anlog 100 UNIT/ML 10 ML VIAL 22 UNIT SUBCUT (21:40)
[2020-12-28] MEDS: Insulin Lispro 100 UNIT/ML 3 ML VIAL SUBCUT (21:40)
[2020-12-28] MEDS: Atorvastatin Calcium 80 MG TABLET PO (21:40)
[2020-12-29 03:24] VITALS: BP 114/59; PULSE 77; RESP 18; TEMP 36.6; O2SAT 97
[2020-12-29 07:23] LABS: Glucose, Whole Blood 114 mg/dL (60-115)
[2020-12-29 07:35] VITALS: BP 126/68; PULSE 94; RESP 20; TEMP 36.2; O2SAT 97
[2020-12-29] MEDS: 0.9 % Sodium Chloride Flush 3 ML SYRINGE IVFLUSH ×2 (09:17→15:55)
[2020-12-29] MEDS: Finasteride 5 MG TABLET PO (09:17)
[2020-12-29] MEDS: Insulin Lispro 100 UNIT/ML 3 ML VIAL SUBCUT ×3 (09:17→12:00)
[2020-12-29 09:18] VITALS: BP 126/68; PULSE 99
[2020-12-29] MEDS: Fenofibrate 54 MG TABLET PO (09:18)
[2020-12-29] MEDS: Isosorbide Mononitrate 30 MG TAB.ER.24H PO (09:18)
[2020-12-29] MEDS: lisinopriL 10 MG TABLET 30 MG PO (09:18)
[2020-12-29] MEDS: Metoprolol Succinate ER 25 MG TAB.ER.24H PO (09:18)
[2020-12-29] MEDS: Clopidogrel Bisulfate 75 MG TABLET PO (09:19)
[2020-12-29] MEDS: Furosemide 40 MG TABLET PO (09:19)
[2020-12-29] MEDS: Tamsulosin HCL 0.4 MG CAPSULE PO (09:19)
[2020-12-29] MEDS: Aspirin Enteric Coated 81 MG TABLET.DR PO (09:19)
[2020-12-29 10:26] LABS: D Dimer < 200 NG/ML
--- NOTE | 2020-12-29 10:46 | PM.CNCAR ---
History of Present Illness History of Present Illness Date of Service: 12/29/20 Consult reason: chest pain Chief complaint: chest pain Narrative: This is a cardiology consultation regarding chest pain and cardiomyopathy. Patient is known to me and generally seen in our office. He states that for the last 3 weeks also, he has been having a discomfort in the left chest. He points to the upper part of the left chest. Intermittent pain that comes and goes with no specific reason. Overall, difficult to assess what this is. When he came to the ER yesterday, he was quite tachycardic in the 120s. Today, he continues to be in sinus tachycardia in 100-110/minute rates. Otherwise, he is not describing clear anginal-type its years but rather random pains for the last several weeks. He is also feeling short of breath with activity that could be a bit more chronic. Otherwise no dizzy spells or syncopal episodes. No infection type symptoms. Review of Systems Review of Systems: Yes all other systems are reviewed and are negative Cardiovascular: Cardiovascular: Reports as per HPI, Reports no additional cardiovascular complaints, Denies acrocyanosis, Denies cool extremities, Denies painful fingertips, Reports chest pain, Reports chest pain at rest, Denies diaphoresis, Denies syncope, Denies irregular heart rhythm, Denies claudication, Denies leg edema, Denies lightheadedness, Denies palpitations and Reports dyspnea Respiratory: Respiratory: Reports dyspnea Neurologic: Denies syncope Endocrine: Endocrine: Denies palpitations PMFSH Past Medical History Medical History Atherosclerotic cardiovascular disease CVA (cerebral vascular accident) Diabetes mellitus, type 2 Hypercholesteremia Hypertension Ischemic cardiomyopathy Myocardial infarction PAF (paroxysmal atrial fibrillation) Family History Family History Father No problems noted. Mother No problems noted. Surgical History Surgical History H/O coronary artery bypass surgery (~04/27/20) Social History Social History Household Members: None Housing: Apartment Smoking Status: Former smoker Meds Allergies Allergy/AdvReac Type Severity Reaction Status Date / Time No Known Allergies Allergy Verified 11/21/20 10:46 [No Known Allergies*] Active Medications: Current Medications Generic Name Dose Route Start Last Admin Trade Name Rom PRN Reason Stop Dose Admin Acetaminophen 650 mg 12/28/20 14:30 Acetaminophen 325 Mg Tablet PO Q6H PRN Pain, Mild (Pain Scale 1-3) Aspirin 81 mg 12/29/20 09:00 12/29/20 09:19 Aspirin Enteric Coated 81 Mg Tablet.Dr PO 81 mg DAILY PRABHA Administration Atorvastatin Calcium 80 mg 12/28/20 21:00 12/28/20 21:40 Atorvastatin Calcium 80 Mg Tablet PO 80 mg BEDTIME PRABHA Administration Clopidogrel Bisulfate 75 mg 12/29/20 09:00 12/29/20 09:19 Clopidogrel Bisulfate 75 Mg Tablet PO 75 mg DAILY PRABHA Administration Enoxaparin Sodium 40 mg 12/28/20 14:30 12/28/20 17:28 Enoxaparin Sodium 40 Mg/0.4 Ml Syringe SUBCUT 40 mg Q24H PRABHA Administration Fenofibrate 54 mg 12/29/20 09:00 12/29/20 09:18 Fenofibrate 54 Mg Tablet PO 54 mg DAILY PRABHA Administration Finasteride 5 mg 12/29/20 09:00 12/29/20 09:17 Finasteride 5 Mg Tablet PO 5 mg DAILY PRABHA Administration Furosemide 40 mg 12/29/20 09:00 12/29/20 09:19 Furosemide 40 Mg Tablet PO 40 mg DAILY [facility] Administration Protocol Insulin Glargine 22 unit 12/28/20 21:00 12/28/20 21:40 Insulin Glargine,Hum.Rec.Anlog 100 Unit/Ml 10 Ml Vial SUBCUT 22 unit BEDTIME [facility] Administration Insulin Human Lispro 0 unit 12/28/20 21:00 12/29/20 07:26 Insulin Lispro 100 Unit/Ml 3 Ml Vial SUBCUT Not Given QIDACHS [facility] Protocol Insulin Human Lispro 2 unit 12/29/20 09:00 12/29/20 09:17 Insulin Lispro 100 Unit/Ml 3 Ml Vial SUBCUT 2 unit DAILY PRABHA Administration Insulin Human Lispro 6 unit 12/29/20 18:00 Insulin Lispro 100 Unit/Ml 3 Ml Vial SUBCUT DAILY@1800 [facility] Insulin Human Lispro 4 unit 12/29/20 12:00 Insulin Lispro 100 Unit/Ml 3 Ml Vial SUBCUT DAILY@1200 [facility] Isosorbide Mononitrate 30 mg 12/29/20 09:00 12/29/20 09:18 Isosorbide Mononitrate 30 Mg Tab.Er.24h PO 30 mg DAILY [facility] Administration Protocol Lisinopril 30 mg 12/29/20 09:00 12/29/20 09:18 Lisinopril 10 Mg Tablet PO 30 mg DAILY [facility] Administration Protocol Metoprolol Succinate 25 mg 12/29/20 09:00 12/29/20 09:18 Metoprolol Succinate Er 25 Mg Tab.Er.24h PO 25 mg DAILY [facility] Administration Protocol Ondansetron HCl 4 mg 12/28/20 14:30 Ondansetron Hcl 4 Mg/2 Ml Vial IVPUSH Q8H PRN Nausea and Vomiting Sodium Chloride 3 ml 12/28/20 16:00 12/29/20 09:17 0.9 % Sodium Chloride Flush 3 Ml Syringe IVFLUSH 3 ml QSHIFT [facility] Administration Tamsulosin HCl 0.4 mg 12/29/20 09:00 12/29/20 09:19 Tamsulosin Hcl 0.4 Mg Capsule PO 0.4 mg DAILY [facility] Administration Home Medications Medication Instructions Recorded Confirmed Last Taken Type clopidogrel 75 mg tablet 75 mg PO DAILY 08/02/20 12/28/20 Unknown History fenofibrate 54 mg tablet 54 mg PO DAILY 08/02/20 12/28/20 Unknown History insulin glargine 100 unit/mL (3 22 unit SUBCUT BEDTIME 08/02/20 12/28/20 Unknown History mL) subcutaneous pen lancets 28 gauge #100 ea 08/02/20 11/21/20 Unknown History lisinopril 30 mg tablet 30 mg PO DAILY 08/02/20 12/28/20 Unknown History metoprolol succinate 25 mg 25 mg PO DAILY 08/02/20 12/28/20 Unknown History tablet,extended release 24 hr omega-3 fatty acids-fish oil 340 1 cap PO TID 08/02/20 12/28/20 Unknown History mg-1,000 mg capsule aspirin 81 mg tablet,delayed 81 mg PO DAILY 08/10/20 12/28/20 Unknown History release metformin 1,000 mg tablet 1,000 mg PO BID 11/21/20 12/28/20 Unknown History atorvastatin 80 mg PO BEDTIME 12/28/20 12/28/20 Unknown History furosemide 40 mg PO DAILY 12/28/20 12/28/20 Unknown History insulin lispro [Admelog SoloStar 2 unit SUBCUT DAILY 12/28/20 12/28/20 Unknown History U-100 Insulin] insulin lispro [Admelog SoloStar 4 unit SUBCUT DAILY@1200 12/28/20 12/28/20 Unknown History U-100 Insulin] insulin lispro [Admelog SoloStar 6 unit SUBCUT DAILY@1800 12/28/20 12/28/20 Unknown History U-100 Insulin] Physical Exam Vital Signs: Vital Signs: Last Vital Signs Temp 97.2 F 12/29/20 07:35 Pulse 99 12/29/20 09:18 Resp 20 12/29/20 07:35 BP 126/68 12/29/20 09:18 Pulse Ox 97 12/29/20 07:35 Body Mass Index 29.3 Const: General: cooperative, comfortable and no acute distress Orientation/consciousness: patient oriented x3 HENMT: Other: Unremarkable Neck: Neck: Yes normal visual inspection Chest: Chest palpation & inspection: normal inspection of the chest Resp: Auscultation: clear to auscultation bilaterally, no crackles and no wheezes Cardio: Jugular venous distension: no JVD Palpation: normal PMI Heart sounds: S1 normal heart sound present, S2 normal heart sound present, Gallop heart sound present S3 gallop, no murmurs and no rubs GI: Palpation (GI): Soft to palpation Back/Spine/Pelvis: Other: unremarkable Skin: General skin exam: no rashes or lesions noted Neuro: General: patient oriented x3 Extrem: General: Yes no clubbing, cyanosis or edema Psych: Mental Status: mental status grossly normal Results Labs and Meds Result diagrams: 12/28/20 08:32 12/28/20 08:32 Lab results: Laboratory Results - last 24 hr 12/28/20 12/28/20 12/28/20 12:17 16:08 20:43 D-Dimer POC Glucose 185 H Troponin I High Sens 32.8 COVID-19 ([facility]) Negative COVID-19 Clin Com See Note 12/29/20 12/29/20 07:09 09:54 D-Dimer < 200 POC Glucose 114 Troponin I High Sens COVID-19 ([facility]) COVID-19 Clin Com ECG Attestation: I personally reviewed and interpreted this ECG as follows: Interpretation: Admission EKG shows sinus tachycardia with a left bundle-branch block pattern which is new, as he previously had a right bundle-branch block pattern. Assessment and Plan (1) Precordial chest pain: Status: Acute (2) Ischemic cardiomyopathy: Status: Acute (3) Atherosclerotic cardiovascular disease: Status: Acute (4) Status post coronary artery bypass graft: Status: Acute (5) LBBB (left bundle branch block): Status: Acute Patient with known ischemic cardiomyopathy presenting with chest pain which is atypical for the last 3 weeks or so and new left bundle-branch block pattern on the EKG. Previous EKGs had shown right bundle-branch block. Troponins are in the high normal range. Cardiac BNP is 59. On auscultation, he seems to have a gallop but not clear if that is reverse split from the left bundle. His COVID test is negative. No other major lab abnormalities. D-dimer is also negative. In the repeat echocardiogram, LVEF is lower than previous study but due to image quality, very difficult to compare accurately. It is reasonable to pursue diagnostic catheterization in this gentleman to ensure there is no issue with his bypass grafts. Discussed about this with the patient and he understands and agrees. Hence we will transfer him to [facility] for further care. May remain on current medical therapy at this time.
[2020-12-29 11:06] LABS: Glucose, Whole Blood 221 mg/dL (60-115)
--- NOTE | 2020-12-29 11:10 | MHC.CM.PN ---
CM met with patient who reports he lives alone, amb with a cane and has 29 hrs of [employer] services. Patient does not have a HCP and declines filling one out after education given. Discussed discharge plan, patient will be transferred acutely to [facility] via BLS transport for further cardiac work up. CM will continue to follow for discharge needs.
[2020-12-29 11:15] VITALS: BP 106/57; PULSE 100; RESP 20; TEMP 36.4; O2SAT 97
--- NOTE | 2020-12-29 11:24 | PM.DS ---
DS: Providers Provider Date of Service: 12/29/20 Date of admission: 12/28/20 14:54 Primary care physician: Chika Padilla DO Consults: 12/29/20 08:40 Consult to Cardiology Routine Consulting Provider: Moses Grove Reason for consultation: chest pain Has provider been notified: Yes DS: Diagnosis Discharge Diagnosis (1) Precordial chest pain: Status: Acute (2) Ischemic cardiomyopathy: Status: Acute (3) Atherosclerotic cardiovascular disease: Status: Acute (4) Status post coronary artery bypass graft: Status: Acute (5) LBBB (left bundle branch block): Status: Acute DS: Medications Discharge Medications Home Medications: Home Medications Medication Instructions Recorded Confirmed clopidogrel 75 mg tablet 75 mg PO DAILY 08/02/20 12/28/20 fenofibrate 54 mg tablet 54 mg PO DAILY 08/02/20 12/28/20 insulin glargine 100 unit/mL (3 22 unit SUBCUT BEDTIME 08/02/20 12/28/20 mL) subcutaneous pen lancets 28 gauge #100 ea 08/02/20 11/21/20 lisinopril 30 mg tablet 30 mg PO DAILY 08/02/20 12/28/20 metoprolol succinate 25 mg 25 mg PO DAILY 08/02/20 12/28/20 tablet,extended release 24 hr omega-3 fatty acids-fish oil 340 1 cap PO TID 08/02/20 12/28/20 mg-1,000 mg capsule aspirin 81 mg tablet,delayed 81 mg PO DAILY 08/10/20 12/28/20 release atorvastatin 80 mg PO BEDTIME 12/28/20 12/28/20 furosemide 40 mg PO DAILY 12/28/20 12/28/20 insulin lispro [Admelog SoloStar 2 unit SUBCUT DAILY 12/28/20 12/28/20 U-100 Insulin] insulin lispro [Admelog SoloStar 4 unit SUBCUT DAILY@1200 12/28/20 12/28/20 U-100 Insulin] insulin lispro [Admelog SoloStar 6 unit SUBCUT DAILY@1800 12/28/20 12/28/20 U-100 Insulin] Previous Rx's Medication Instructions Recorded isosorbide mononitrate 30 mg 30 mg PO DAILY 90 Days #90 tab 07/14/20 tablet,extended release 24 hr finasteride 5 mg tablet 5 mg PO DAILY 90 Days #90 tab 08/02/20 tamsulosin 0.4 mg capsule 0.4 mg PO DAILY #90 cap 09/07/20 DS: Summary Hospital Course Hospital Course: History of presenting illness 55-year-old gentleman with past medical history significant for coronary artery disease, status post CABG with severe ischemic cardiomyopathy, EF improved from 20% to 25% to the most recent echocardiogram, October of 2020 showing improvement to 35% to 40% with global hypokinesis. 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 The patient presented to [facility] today due to symptoms of chest pain. The patient is a very poor historian who complains of chest pain that last couple of hours, can occur any time while resting or sometimes with activity, pain is associated with shortness of breath, No sweating,pain resolves by itself. Denies any heavy lifting, pushing, or pulling. He felt that his chest pain is similar to his prior chest pain therefore came to the emergency room. In the ER, he was noticed to have sinus tachycardia with left bundle-branch block. The patient was treated in the emergency room with metoprolol 5 mg IV push x2 and transdermal nitroglycerin, tachycardia improved. EKG shows left bundle-branch block with sinus rhythm.The patient's 2 sets of troponin remains flat but elevated, BNP is 59. due to patient, heis compliant with his home medication and has follow up with his cardiologistDr. Grove on a regular basis. His last followup was November 21. Due to multiple vascular risk factors the patient is being admitted to [facility] for close monitoring and treatment. Past medical history 1. Atherosclerotic cardiovascular disease, status post recent cardiac cath with severe multivessel disease, status post CABG. 2. History of ischemic cardiomyopathy, current EF 35% to 40% with wall motion abnormalities. 3. History of paroxysmal atrial fibrillation, not on anticoagulation. 4. History of CVA with residual right hemiparesis. 5. History of hyperlipidemia. Hospital course Patient admitted with Chest pain of 2-3 weeks duration, that is atypical,reproducible chest pain,but have new left bundle-branch block on the EKG. Previous EKGs had shown right bundle-branch block. Troponins are in the high normal range, BNP is 59. D-dimer is negative, repeat echocardiogram,showed LVEF is lower than previous study but due to image quality, very difficult to compare accurately Case discussed with Cardiology they recommend to pursue diagnostic catheterization to ensure there is no issue with his bypass grafts therefore he is being transferred to [facility] for cardiac catheterization, will continue all home medication, will hold metformin, patient currently is hemodynamically stable Diabetes mellitus. Blood sugars are stable will continue home medication except for metformin that is held due to further procedures History of hyperlipidemia. Continue Lipitor and follow lipid profile. Time Spent with Patient Time attestation: Total time spent providing and/or coordinating discharge services: Discharge coordination time: Greater than 30 minutes Physical Exam Vital Signs: Vital Signs: Last Vital Signs Temp 97.5 F 12/29/20 11:15 Pulse 100 12/29/20 11:15 Resp 20 12/29/20 11:15 BP 106/57 L 12/29/20 11:15 Pulse Ox 97 12/29/20 11:15 Body Mass Index 29.3 General resting comfortably in no acute distress. Neck no JVD. CVS regular rate rhythm, no murmur,S3 gallop Respiratory lungs clear to auscultation, no respiratory distress, no wheeze, no rhonchi. Gastrointestinal abdomen soft, nontender, bowel sounds audible, no guarding , no rigidity. Extremities no edema. Neuro right hemiparesis with contraction deformity right hand, speech clear. Skin no rash Psych appropriate DS: Data Data Completed and Pending Labs on day of discharge: Laboratory Results - last 24 hr 12/28/20 12/28/20 12/28/20 12:17 16:08 20:43 D-Dimer POC Glucose 185 H Troponin I High Sens 32.8 COVID-19 ([facility]) Negative COVID-19 Clin Com See Note 12/29/20 12/29/20 12/29/20 07:09 09:54 11:00 D-Dimer < 200 POC Glucose 114 221 H Troponin I High Sens COVID-19 ([facility]) COVID-19 Clin Com Discharge Plan Discharge Patient Disposition: Xfer Acute Care Hospital Discharge Diagnosis: Chest pain New left bundle branch block Referrals: Chika Dupree DO [Primary Care Provider] - 1 Week Discharge Medications: Continued isosorbide mononitrate 30 mg tablet extended release 24 hr 30 mg PO DAILY 90 Days Qty: 90 RF: 1 tamsulosin 0.4 mg capsule 0.4 mg PO DAILY Qty: 90 RF: 2 furosemide 40 mg tablet 40 mg PO DAILY RF: 0 atorvastatin 80 mg tablet 80 mg PO BEDTIME RF: 0 insulin lispro [Admelog SoloStar U-100 Insulin] 100 unit/mL Insulin Pen 2 unit SUBCUT DAILY RF: 0 insulin lispro [Admelog SoloStar U-100 Insulin] 100 unit/mL insulin pen 6 unit subcut DAILY@1800 RF: 0 insulin lispro [Admelog SoloStar U-100 Insulin] 100 unit/mL insulin pen 4 unit subcut DAILY@1200 RF: 0 aspirin 81 mg tablet,delayed release (DR/EC) 81 mg PO DAILY RF: 0 insulin glargine 100 unit/mL (3 mL) insulin pen 22 unit subcut BEDTIME RF: 0 omega-3 fatty acids-fish oil 340-1,000 mg capsule 1 cap PO TID RF: 0 clopidogrel 75 mg tablet 75 mg PO DAILY RF: 0 fenofibrate 54 mg tablet 54 mg PO DAILY RF: 0 metoprolol succinate 25 mg tablet extended release 24 hr 25 mg PO DAILY RF: 0 lisinopril 30 mg tablet 30 mg PO DAILY RF: 0 finasteride 5 mg tablet 5 mg PO DAILY 90 Days Qty: 90 RF: 1 Discontinued metformin 1,000 mg tablet 1,000 mg PO BID RF: 0 No Action (DME) lancets 28 gauge misc See Rx Instructions ea topical DIRECTED Qty: 100 RF: 0 Discharge Orders: Discharge Order (Routine); Ordered 12/29/20 Ordered By: Cheryl Camara Diet: diabetic diet and low fat, low cholesterol Activity on Discharge: bedrest Stand Alone Forms: Patient Portal Discharge page Care Plan Goals: Transferred to [facility] for cardiac catheterization Health Concerns: Recurrent chest pain Plan of Treatment: Close outpatient follow-up with Cardiology and primary care physician Assessment: As per discharge summary
--- NOTE | 2020-12-29 11:29 | MHC.CM.PN ---
Patient will be transferred to [facility] via BLS transport.
[2020-12-29 15:28] VITALS: BP 108/52; PULSE 88; RESP 20; TEMP 36.8; O2SAT 97
[2020-12-29 15:48] LABS: Glucose, Whole Blood 117 mg/dL (60-115)
[2020-12-29] MEDS: Enoxaparin Sodium 40 MG/0.4 ML SYRINGE SUBCUT (15:54)
== END 2020-12-29 19:30 | disposition short-term general hospital (02) | DRG 198 ==
LOC: HO.ED 13:31 → HO.EDOVER 14:58 → HO.IMC 17:18
PROVIDERS: Admitting Provider Hospitalist; Emergency Provider Emergency Medicine; PCP Internal Medicine; Visit Provider Hospitalist
DX: R07.2 Precordial pain (principal); I25.10 Atherosclerotic heart disease of native coronary artery without angina pectoris; I69.951 Hemiplegia and hemiparesis following unspecified cerebrovascular disease affecting right dominant side; I44.7 Left bundle-branch block, unspecified; Z95.1 Presence of aortocoronary bypass graft; E78.5 Hyperlipidemia, unspecified; I25.2 Old myocardial infarction; Z20.822 Contact with and (suspected) exposure to COVID-19; Z79.02 Long term (current) use of antithrombotics/antiplatelets; E11.9 Type 2 diabetes mellitus without complications; I25.5 Ischemic cardiomyopathy; Z79.4 Long term (current) use of insulin; Z87.891 Personal history of nicotine dependence; Z79.82 Long term (current) use of aspirin; Z79.899 Other long term (current) drug therapy
CPT/HCPCS: 36415; 71045; 80048; 82947; 83880; 84484; 85025; 85379; 87635; 93005; 93308; 96374; 96375; 99285; 99291; J1650

== ENCOUNTER → 2021-01-05 12:30 | Outpatient (BNVA) | payer OTHER, SELFPAY | PROVIDERS: PCP Internal Medicine; Referring Provider Internal Medicine; Visit Provider Internal Medicine | DX: I25.10 Atherosclerotic heart disease of native coronary artery without angina pectoris (principal); I25.5 Ischemic cardiomyopathy; I48.0 Paroxysmal atrial fibrillation; I63.89 Other cerebral infarction; E78.5 Hyperlipidemia, unspecified; I44.7 Left bundle-branch block, unspecified | CPT/HCPCS: 99212 ==

== ENCOUNTER 2021-02-18 10:12 | Emergency (ER) | payer OTHER, SELFPAY ==
--- NOTE | ~2021-02-18 | XR_ITS ---
EXAMINATION: XR CHEST CLINICAL INFORMATION: Chest pain COMPARISON: Chest 12/28/2020 TECHNIQUE: 2 views of the chest were obtained. FINDINGS: The lungs are well-expanded and clear. The heart size and pulmonary vascularity is normal. There are median sternotomy sutures from previous intervention. No gross bony abnormality seen. XR/XR chest 2V IMPRESSION: Unremarkable chest exam.
[2021-02-18 10:13] VITALS: BP 156/72; PULSE 135; RESP 18; TEMP 36.8; O2SAT 96; BMI 30.7
--- NOTE | 2021-02-18 10:28 | ECG_ITS ---
Test Reason : CP Blood Pressure : / mmHG Vent. Rate : 117 BPM Atrial Rate : 117 BPM P-R Int : 172 ms QRS Dur : 166 ms QT Int : 370 ms P-R-T Axes : 055 023 201 degrees QTc Int : 516 ms Sinus tachycardia Possible Left atrial enlargement Left bundle branch block Abnormal ECG When compared with ECG of 28-DEC-2020 12:07, No significant change was found Referred By: Dorothea Barboza Electronically Signed By:Juancarlos Rojo
--- NOTE | 2021-02-18 10:29 | ED_ITS ---
HPI - Chest Pain General Chief Complaint: Chest Pain Stated Complaint: chest pain Time Seen by Provider: 02/18/21 10:16 Source: patient Mode of arrival: ambulatory Limitations: no limitations History of Present Illness HPI narrative: 55-year-old male with a past medical history of arthrosclerotic cardiovascular disease, NV with CABG currently on Plavix, ischemic cardiomyopathy, paroxysmal atrial tachycardia, LBBB, HTN, HLD, DM, CVA with right-sided residual weakness and BPH with urinary obstruction/LUTS presenting to the ED with complaints of left-sided chest pain that he felt was muscular in nature that has been constant for over a month with associated shortness of breath and palpitations. Reports the pain is worse with movement of the left shoulder this is why he thought it was muscular. Denies any dizziness, lightheadedness, changes in vision, jaw pain, nausea/vomiting, radiation of the chest pain, dyspnea on exertion, orthopnea, back pain, paresthesias, abdominal pain, lower extremity edema or any other symptoms complaints or concerns at this time. MD complaint: chest pain Pertinent past history: prior NV and CABG Onset (ago): month(s) (Over a month) Timing of current episode: constant and still present Prior episodes: Yes Onset: other (Does not recall) Pain location: left chest Pain radiation: none Severity: moderate Quality: aching (Reports he thought it was muscular) Relieving factors: nothing Exacerbating factors: movement (Movement of the left shoulder joint) Associated symptoms: dyspnea and palpitations Treatment prior to arrival: none Risk Factors Coronary artery disease risk factors: diabetes, hyperlipidemia and hypertension Thoracic aortic dissection risk factors: none Related Data Home Medications Medication Instructions Recorded Confirmed clopidogrel 75 mg tablet 75 mg PO DAILY 08/02/20 01/05/21 fenofibrate 54 mg tablet 54 mg PO DAILY 08/02/20 01/05/21 insulin glargine 100 unit/mL (3 22 unit SUBCUT BEDTIME 08/02/20 01/05/21 mL) subcutaneous pen lancets 28 gauge #100 ea 08/02/20 01/05/21 lisinopril 30 mg tablet 30 mg PO DAILY 08/02/20 01/05/21 metoprolol succinate 25 mg 25 mg PO DAILY 08/02/20 01/05/21 tablet,extended release 24 hr omega-3 fatty acids-fish oil 340 1 cap PO TID 08/02/20 01/05/21 mg-1,000 mg capsule aspirin 81 mg tablet,delayed 81 mg PO DAILY 08/10/20 01/05/21 release atorvastatin 80 mg PO BEDTIME 12/28/20 01/05/21 furosemide 40 mg PO DAILY 12/28/20 01/05/21 insulin lispro [Admelog SoloStar 2 unit SUBCUT DAILY 12/28/20 01/05/21 U-100 Insulin] insulin lispro [Admelog SoloStar 4 unit SUBCUT DAILY@1200 12/28/20 01/05/21 U-100 Insulin] insulin lispro [Admelog SoloStar 6 unit SUBCUT DAILY@1800 12/28/20 01/05/21 U-100 Insulin] Previous Rx's Medication Instructions Recorded isosorbide mononitrate 30 mg 30 mg PO DAILY 90 Days #90 tab 07/14/20 tablet,extended release 24 hr finasteride 5 mg tablet 5 mg PO DAILY 90 Days #90 tab 08/02/20 tamsulosin 0.4 mg capsule 0.4 mg PO DAILY #90 cap 09/07/20 acetaminophen [Tylenol Extra 1,000 mg PO QID PRN #14 tab 02/18/21 Strength] diazepam [Valium] 5 mg PO TID PRN #14 tab 02/18/21 lidocaine HCl [Aspercreme 1 appl TOPICAL BID PRN #120 g 02/18/21 (lidocaine HCl)] Allergies Allergy/AdvReac Type Severity Reaction Status Date / Time No Known Allergies Allergy Verified 01/05/21 12:45 [No Known Allergies*] Review of Systems Review of Systems: Constitutional : No Weight loss, No Fever, No Chills, No Night Sweats, No Fatigue, No Malaise ENT/Mouth : No Hearing loss, No Ear Pain, No Nasal Congestion, No Sinus Pain, No Hoarseness, No sore throat, No Rhinorrhea, No Swallowing Difficulty Eyes: No Eye Pain, No Swelling, No Redness, No Foreign Body, No Discharge, No Vision Changes Cardiovascular : Positive Chest Pain, Positive SOB, Positive palpitations, no Dyspnea on Exertion, No Orthopnea, No Edema, No extremity swelling Respiratory : No Cough, No Sputum, No Wheezing Gastrointestinal : No Nausea, No Vomiting, No Diarrhea, No abdominal Pain, No Hematochezia, No Melena Genitourinary : No irregular bleeding, No Dysuria, No Urinary Frequency, No Hematuria, No Urinary Incontinence, No Urgency, No Flank Pain, No Urinary Flow Changes, No Hesitancy Musculoskeletal : No joint pain, No Myalgias, No Joint Swelling Skin : No Skin Lesions, No rash Neuro : No Weakness, No Numbness, No Paresthesias, No Loss of Consciousness, No Dizziness, No Headache Psych : No Anxiety/Panic, No Depression, No SI/HI/AH/VH Heme/Lymph: No Bruising, No Bleeding,No Lymphadenopathy Endocrine : No Polyuria, No Polydipsia, No Temperature Intolerance Yes all other systems are reviewed and are negative [facility] Past Medical History Attestation statement: The following information was validated with the patient. Medical History Atherosclerotic cardiovascular disease CVA (cerebral vascular accident) Diabetes mellitus, type 2 Hypercholesteremia Hypertension Ischemic cardiomyopathy Myocardial infarction PAF (paroxysmal atrial fibrillation) Surgical History H/O coronary artery bypass surgery (~04/27/20) Family History Family History Father No problems noted. Mother No problems noted. Social History Social History Household Members: None Housing: Apartment Do you presently have visiting nurse or other home services: Yes ([employer] daily) Advance Directives: No Advance Directives Information Provided: Yes service: No Current occupational status: unemployed Physical Exam Vital Signs: Vital Signs: Last Vital Signs Temp 98.5 F 02/18/21 13:43 Pulse 97 02/18/21 13:43 Resp 20 02/18/21 13:43 BP 102/57 L 02/18/21 13:43 Pulse Ox 97 02/18/21 13:43 Body Mass Index 30.7 vital signs have been reviewed as normal and appeared to be correct. Blood pressure hypertensive 156/72. Heart rate tachycardic 135. Respiration rate normal. Temperature normal. Oxygen saturation normal. Appearance: Alert. Oriented X3. No acute distress. Head: Normal external exam. Normocephalic. Atraumatic. Eyes: PERRLA. EOMI. Conjunctiva and sclera normal. Eyelids normal. ENT: Pharynx normal. Uvula midline. Moist mucous membranes. Neck: Normal inspection. Neck supple. FROM. No adenopathy. Thyroid Normal. No meningeal signs. No neck mass noted. CVS: Normal heart rate and rhythm. Heart sound normal. Pulses normal throughout. No murmurs/rales/gallops. Respiratory: No respiratory distress. Painless inspiration. Breath sounds normal. No wheezes/rales/rhonchi noted. Chest nontender. No accessory muscle usage noted or decreased air movement noted. Abdomen: Soft and nontender. Bowel sounds normal in all 4 quadrants. No distention noted. No organomegaly noted. No visible injury noted. Back: No CVA tenderness. Full range of motion noted. No rashes/lesion/induration/fluctuance or signs of infection noted. Skin: Skin warm and dry. Normal skin color. Normal skin turgor. No rashes/lesions/lacerations noted. Extremities: No lower extremity edema. No calf tenderness noted. Extremities exhibit normal range of motion. Extremities nontender. Neuro: Oriented X 3. Patient has baseline right-sided residual weakness otherwise no other acute motor deficit. No sensory deficit. Reflexes normal. Gait at baseline for patient. No new focal neuro deficits noted. Vascular: + radial pulses/+ 2 distal pedal pulses/+2 dorsalis pedis b/l. Normal cap refill. No cyanosis noted to upper extremity nails and lower extremity toes nails. Course Course Course Narrative: 10:30am - 55-year-old male with a past medical history of arthrosclerotic cardiovascular disease, NV with CABG currently on Plavix, ischemic cardiomyopathy, paroxysmal atrial tachycardia, LBBB, HTN, HLD, DM, CVA with right-sided residual weakness and BPH with urinary obstruction/LUTS presenting to the ED with complaints of left-sided chest pain that he felt was muscular in nature that has been constant for over a month with associated shortness of breath and palpitations. Reports the pain is worse with movement of the left shoulder this is why he thought it was muscular. Plan: Labs, CXR, EKG and re-evaluate Reevaluation(s) Reevaluation #1: - labs returned patient D-dimer negative. Sodium 133. random glucose 169. Magnesium 1.2. Troponin negative delta started at 37.9 3 hours later 47.3 this is why this is negative delta. All other labs including TSH level within normal limits. UA within normal limits no evidence of UTI. Chest x-ray within normal limits no acute processes were noted. EKG was sinus tachycardia with left bundle branch block which is similar when compared to prior EKGs no acute ischemic changes were noted. - Patient was given 2 g of IV magnesium to replace the low magnesium level. Patient reports moderate symptomatic relief after the Tylenol and Valium. Therefore patient most likely muscular strain. Will DC home with symptomatic treatment instructions return if any new or worsening symptoms to follow up with primary care provider. Patient understands agrees with this plan. Time: 14:56 MDM - Chest Pain Medical Records Data Attestation: I reviewed the patient's medical records. Lab Data Attestation: I reviewed the patient's lab results. Result diagrams: 02/18/21 10:44 02/18/21 12:11 Labs: Lab Results 02/18/21 02/18/21 02/18/21 Range/Units 10:26 10:44 10:44 WBC 8.1 (4.8-10.8) X10*3/uL RBC 5.16 (4.60-5.80) X10*6/uL Hgb 14.6 (14.0-18.0) g/dl Hct 44.1 (42-52) % MCV 85.5 (80-98) fL MCH 28.3 (27.0-33.0) pg MCHC 33.1 (31.0-36.0) g/dl RDW 13.2 (11.0-16.0) % Plt Count 370 (160-400) X10*3/uL MPV 10.8 (9.4-12.4) fL Immature Gran % (Auto) 0.4 (0.0-0.4) % Neut % (Auto) 60.7 (45-73) % Lymph % (Auto) 32.3 (20-40) % [place] % (Auto) 5.4 (2-11) % Eos % (Auto) 0.6 (0-4) % Baso % (Auto) 0.6 (0-2) % Lymph # (Auto) 2.6 (1.2-4.9) X10*3/uL [place] # (Auto) 0.4 (0.1-1.2) X10*3/uL Eos # (Auto) 0.1 (0.0-0.4) X10*3/uL Baso # (Auto) 0.1 (0.0-0.2) X10*3/uL Abs Immat Gran (auto) 0.03 (0.00-0.03) X10*3/uL Absolute Neuts (auto) 4.9 (2.0-8.3) X10*3/uL Absolute Nucleated RBC 0.000 (0.0-0.012) X10*3/uL Nucleated RBC % (auto) 0.0 (0.0-0.2) /100WBC PT 14.5 H (10.8-13.0) SEC INR 1.2 H (0.9-1.1) D-Dimer < 200 NG/ML Sodium (135-145) mmol/L Potassium (3.3-5.1) mmol/L Chloride (96-108) mmol/L Carbon Dioxide (22-29) mmol/L Anion Gap (12-20) BUN (9-16) mg/dL Creatinine (0.5-1.4) mg/dL Estim Creat Clear Calc Estimated GFR POC Glucose 188 H (60-115) mg/dL Random Glucose (60-115) mg/dL Calcium (8.4-10.2) mg/dL Magnesium (1.6-2.6) mg/dL Total Bilirubin (0.0-1.0) mg/dL AST (5-37) U/L ALT (0-40) U/L Alkaline Phosphatase (39-117) U/L Troponin I High Sens (<3.5-35.0) ng/L B-Natriuretic Peptide (<100) pg/mL Total Protein (6.5-8.0) g/dL Albumin (3.5-5.0) g/dL TSH (0.32-4.0) uIU/mL Urine Color Urine Appearance Urine pH (5.0-8.0) Ur Specific [place] (1.005-1.025) Urine Protein (NEG-TRACE) MG/DL Urine Glucose (UA) (NEG) MG/DL Urine Ketones (NEG) MG/DL Urine Blood (NEG) Urine Nitrite (NEG) Ur Leukocyte Esterase (NEG) Urine RBC (0) /HPF Urine WBC (0-4) /HPF Ur Squamous Epith Cells /LPF Urine Bacteria /LPF 02/18/21 02/18/21 02/18/21 Range/Units 10:44 11:02 12:11 WBC (4.8-10.8) X10*3/uL RBC (4.60-5.80) X10*6/uL Hgb (14.0-18.0) g/dl Hct (42-52) % MCV (80-98) fL MCH (27.0-33.0) pg MCHC (31.0-36.0) g/dl RDW (11.0-16.0) % Plt Count (160-400) X10*3/uL MPV (9.4-12.4) fL Immature Gran % (Auto) (0.0-0.4) % Neut % (Auto) (45-73) % Lymph % (Auto) (20-40) % [place] % (Auto) (2-11) % Eos % (Auto) (0-4) % Baso % (Auto) (0-2) % Lymph # (Auto) (1.2-4.9) X10*3/uL [place] # (Auto) (0.1-1.2) X10*3/uL Eos # (Auto) (0.0-0.4) X10*3/uL Baso # (Auto) (0.0-0.2) X10*3/uL Abs Immat Gran (auto) (0.00-0.03) X10*3/uL Absolute Neuts (auto) (2.0-8.3) X10*3/uL Absolute Nucleated RBC (0.0-0.012) X10*3/uL Nucleated RBC % (auto) (0.0-0.2) /100WBC PT (10.8-13.0) SEC INR (0.9-1.1) D-Dimer NG/ML Sodium 133 L (135-145) mmol/L Potassium 4.7 (3.3-5.1) mmol/L Chloride 101 (96-108) mmol/L Carbon Dioxide 19 L (22-29) mmol/L Anion Gap 18 (12-20) BUN 13 (9-16) mg/dL Creatinine 0.95 (0.5-1.4) mg/dL Estim Creat Clear Calc 85.5 Estimated GFR > 60 POC Glucose (60-115) mg/dL Random Glucose 169 H (60-115) mg/dL Calcium 9.8 (8.4-10.2) mg/dL Magnesium 1.2 L* (1.6-2.6) mg/dL Total Bilirubin 0.5 (0.0-1.0) mg/dL AST 19 (5-37) U/L ALT 18 (0-40) U/L Alkaline Phosphatase 54 (39-117) U/L Troponin I High Sens 37.9 H* (<3.5-35.0) ng/L B-Natriuretic Peptide 77 (<100) pg/mL Total Protein 7.7 (6.5-8.0) g/dL Albumin 4.7 (3.5-5.0) g/dL TSH 0.54 (0.32-4.0) uIU/mL Urine Color STRAW Urine Appearance CLEAR Urine pH 5.5 (5.0-8.0) Ur Specific [place] 1.010 (1.005-1.025) Urine Protein NEG (NEG-TRACE) MG/DL Urine Glucose (UA) NEG (NEG) MG/DL Urine Ketones NEG (NEG) MG/DL Urine Blood TRACE (NEG) Urine Nitrite NEG (NEG) Ur Leukocyte Esterase NEG (NEG) Urine RBC 0-2 (0) /HPF Urine WBC 0 (0-4) /HPF Ur Squamous Epith Cells TRACE /LPF Urine Bacteria NONE /LPF 02/18/21 Range/Units 13:35 WBC (4.8-10.8) X10*3/uL RBC (4.60-5.80) X10*6/uL Hgb (14.0-18.0) g/dl Hct (42-52) % MCV (80-98) fL MCH (27.0-33.0) pg MCHC (31.0-36.0) g/dl RDW (11.0-16.0) % Plt Count (160-400) X10*3/uL MPV (9.4-12.4) fL Immature Gran % (Auto) (0.0-0.4) % Neut % (Auto) (45-73) % Lymph % (Auto) (20-40) % [place] % (Auto) (2-11) % Eos % (Auto) (0-4) % Baso % (Auto) (0-2) % Lymph # (Auto) (1.2-4.9) X10*3/uL [place] # (Auto) (0.1-1.2) X10*3/uL Eos # (Auto) (0.0-0.4) X10*3/uL Baso # (Auto) (0.0-0.2) X10*3/uL Abs Immat Gran (auto) (0.00-0.03) X10*3/uL Absolute Neuts (auto) (2.0-8.3) X10*3/uL Absolute Nucleated RBC (0.0-0.012) X10*3/uL Nucleated RBC % (auto) (0.0-0.2) /100WBC PT (10.8-13.0) SEC INR (0.9-1.1) D-Dimer NG/ML Sodium (135-145) mmol/L Potassium (3.3-5.1) mmol/L Chloride (96-108) mmol/L Carbon Dioxide (22-29) mmol/L Anion Gap (12-20) BUN (9-16) mg/dL Creatinine (0.5-1.4) mg/dL Estim Creat Clear Calc Estimated GFR POC Glucose (60-115) mg/dL Random Glucose (60-115) mg/dL Calcium (8.4-10.2) mg/dL Magnesium (1.6-2.6) mg/dL Total Bilirubin (0.0-1.0) mg/dL AST (5-37) U/L ALT (0-40) U/L Alkaline Phosphatase (39-117) U/L Troponin I High Sens 47.3 H* (<3.5-35.0) ng/L B-Natriuretic Peptide (<100) pg/mL Total Protein (6.5-8.0) g/dL Albumin (3.5-5.0) g/dL TSH (0.32-4.0) uIU/mL Urine Color Urine Appearance Urine pH (5.0-8.0) Ur Specific [place] (1.005-1.025) Urine Protein (NEG-TRACE) MG/DL Urine Glucose (UA) (NEG) MG/DL Urine Ketones (NEG) MG/DL Urine Blood (NEG) Urine Nitrite (NEG) Ur Leukocyte Esterase (NEG) Urine RBC (0) /HPF Urine WBC (0-4) /HPF Ur Squamous Epith Cells /LPF Urine Bacteria /LPF Imaging Data Chest x-ray: Attestation: I personally reviewed and interpreted this imaging study as follows: Radiologist's impression: FINDINGS: The lungs are well-expanded and clear. The heart size and pulmonary vascularity is normal. There are median sternotomy sutures from previous intervention. No gross bony abnormality seen. XR/XR chest 2V IMPRESSION: Unremarkable chest exam. ECG Data ECG #1: Attestation: I personally reviewed and interpreted this ECG as follows: ECG interpretation date: 02/18/21 ECG interpretation time: 10:23 Interpretation: Sinus tachycardia with with ventricular rate of 117 with left atrial enlargement with left bundle branch block similar when compared to prior EKGs on 12/28/2020 no acute ischemic changes are noted today Critical Care Time Critical Care Time Critical Care Time: Yes Total Critical Care Time: 60 Attestation: I personally attest to this time spent taking care of the patient Discharge Plan Discharge Clinical Impression: Atypical chest pain, Chest wall muscle strain Patient Disposition: Home, Self-Care Instructions: Muscle Strain (ED) Prescriptions: New acetaminophen [Tylenol Extra Strength] 500 mg tablet 1,000 mg PO QID PRN (Reason: fever or pain) Qty: 14 RF: 0 diazepam [Valium] 5 mg tablet 5 mg PO TID PRN (Reason: muscle spasm) Qty: 14 RF: 0 lidocaine HCl [Aspercreme (lidocaine HCl)] 4 % cream 1 appl topical BID PRN (Reason: pain) Qty: 120 RF: 0 No Action isosorbide mononitrate 30 mg tablet extended release 24 hr 30 mg PO DAILY 90 Days Qty: 90 RF: 1 tamsulosin 0.4 mg capsule 0.4 mg PO DAILY Qty: 90 RF: 2 furosemide 40 mg tablet 40 mg PO DAILY RF: 0 atorvastatin 80 mg tablet 80 mg PO BEDTIME RF: 0 insulin lispro [Admelog SoloStar U-100 Insulin] 100 unit/mL Insulin Pen 2 unit SUBCUT DAILY RF: 0 insulin lispro [Admelog SoloStar U-100 Insulin] 100 unit/mL insulin pen 6 unit subcut DAILY@1800 RF: 0 insulin lispro [Admelog SoloStar U-100 Insulin] 100 unit/mL insulin pen 4 unit subcut DAILY@1200 RF: 0 aspirin 81 mg tablet,delayed release (DR/EC) 81 mg PO DAILY RF: 0 insulin glargine 100 unit/mL (3 mL) insulin pen 22 unit subcut BEDTIME RF: 0 omega-3 fatty acids-fish oil 340-1,000 mg capsule 1 cap PO TID RF: 0 (DME) lancets 28 gauge misc See Rx Instructions ea topical DIRECTED Qty: 100 RF: 0 clopidogrel 75 mg tablet 75 mg PO DAILY RF: 0 fenofibrate 54 mg tablet 54 mg PO DAILY RF: 0 metoprolol succinate 25 mg tablet extended release 24 hr 25 mg PO DAILY RF: 0 lisinopril 30 mg tablet 30 mg PO DAILY RF: 0 finasteride 5 mg tablet 5 mg PO DAILY 90 Days Qty: 90 RF: 1 Referrals: Chika Dupree DO [Primary Care Provider] - 2 days Print Language: Kiswahili
[2021-02-18 10:31] LABS: Glucose, Whole Blood 188 mg/dL (60-115)
[2021-02-18 11:04] VITALS: BP 124/62; PULSE 107; RESP 16; TEMP 37.1; O2SAT 97
[2021-02-18 11:09] LABS: MANUAL DIFF FLAG NO
[2021-02-18 11:09] LABS: Appearance Urine CLEAR; Color Urine STRAW; Glucose Urine UA NEG (NEG); Leukocyte Esterase Urine NEG (NEG); Nitrite Urine NEG (NEG); PH 5.5 (5.0-8.0); Urine Blood TRACE (NEG); Urine Ketones NEG (NEG); Urine Protein NEG (NEG-TRACE)
[2021-02-18 11:10] LABS: Basophils Absolute Auto 0.1 X10*3/uL (0.0-0.2); Basophils Percent Auto 0.6 % (0-2); Eosinophils Absolute Auto 0.1 X10*3/uL (0.0-0.4); Eosinophils Percent Auto 0.6 % (0-4); Hematocrit 44.1 % (42-52); Hemoglobin 14.6 g/dl (14.0-18.0); Imm Gran Abs Auto 0.03 X10*3/uL (0.00-0.03); Imm Gran Pct Auto 0.4 % (0.0-0.4); Lymphocytes Absolute Auto 2.6 X10*3/uL (1.2-4.9); Lymphocytes Percent Auto 32.3 % (20-40); Mean Corpuscular HGB Conc 33.1 g/dl (31.0-36.0); Mean Corpuscular Hemoglobin 28.3 pg (27.0-33.0); Mean Corpuscular Volume 85.5 fL (80-98); Mean Platelet Volume 10.8 fL (9.4-12.4); Monocytes Absolute Auto 0.4 X10*3/uL (0.1-1.2); Monocytes Percent Auto 5.4 % (2-11); Neutrophils Absolute Auto 4.9 X10*3/uL (2.0-8.3); Neutrophils Percent Auto 60.7 % (45-73); Platelet Count 370 X10*3/uL (160-400); Red Blood Count 5.16 X10*6/uL (4.60-5.80); Red Cell Distribution Width 13.2 % (11.0-16.0); White Blood Count 8.1 X10*3/uL (4.8-10.8)
[2021-02-18 11:16] LABS: INTERNATIONAL NORM RATIO 1.2 (0.9-1.1); Prothrombin Time 14.5 SEC (10.8-13.0)
[2021-02-18 11:18] LABS: RBC Urine 0-2 /HPF (0); Squamous Epithelial Cell Urine TRACE /LPF; WBC Urine 0 /HPF (0-4)
[2021-02-18 11:19] LABS: D Dimer < 200 NG/ML
[2021-02-18 11:51] LABS: B Type Natriuretic Peptide 77 pg/mL (<100)
[2021-02-18 12:00] LABS: Troponin-I High Sensitivity 37.9 ng/L (<3.5-35.0)
[2021-02-18 12:03] VITALS: BP 95/57; PULSE 103; RESP 18; TEMP 36.9; O2SAT 97
[2021-02-18] MEDS: diazePAM 5 MG TABLET PO (12:03)
[2021-02-18] MEDS: Acetaminophen 325 MG TABLET 650 MG PO (12:03)
[2021-02-18 13:43] VITALS: BP 102/57; PULSE 97; RESP 20; TEMP 36.9; O2SAT 97
[2021-02-18 13:47] LABS: Alanine Aminotransferase 18 U/L (0-40); Albumin Level 4.7 g/dL (3.5-5.0); Alkaline Phosphatase 54 U/L (39-117); Anion Gap 18 (12-20); Aspartate Amino Transferase 19 U/L (5-37); Bilirubin Total 0.5 mg/dL (0.0-1.0); Blood Urea Nitrogen 13 mg/dL (9-16); Calcium 9.8 mg/dL (8.4-10.2); Carbon Dioxide 19 mmol/L (22-29); Chloride 101 mmol/L (96-108); Creatinine Clr Calc Pharmacy 85.5; Estimated Glomerular Filt Rate > 60; Glucose Random 169 mg/dL (60-115); Magnesium 1.2 mg/dL (1.6-2.6); Potassium 4.7 mmol/L (3.3-5.1); Sodium 133 mmol/L (135-145); Total Protein 7.7 g/dL (6.5-8.0)
[2021-02-18] MEDS: Magnesium Sulfate/H2O 2 GM/50 ML PIGGYBACK IV (13:58)
[2021-02-18 14:15] LABS: Troponin-I High Sensitivity 47.3 ng/L (<3.5-35.0)
[2021-02-18 14:55] LABS: TSH reflex Free T4 0.54 uIU/mL (0.32-4.0)
== END 2021-02-18 15:30 | disposition home or self-care (01) ==
PROVIDERS: Physician Assistant Medical; Emergency Provider Emergency Medicine; PCP Internal Medicine
DX: S29.011A Strain of muscle and tendon of front wall of thorax, initial encounter (principal); I25.10 Atherosclerotic heart disease of native coronary artery without angina pectoris; I25.5 Ischemic cardiomyopathy; I44.7 Left bundle-branch block, unspecified; I47.1 Supraventricular tachycardia; E11.9 Type 2 diabetes mellitus without complications; I25.2 Old myocardial infarction; Z79.02 Long term (current) use of antithrombotics/antiplatelets; Z79.4 Long term (current) use of insulin; Z79.899 Other long term (current) drug therapy; Z86.73 Personal history of transient ischemic attack (TIA), and cerebral infarction without residual deficits; Z95.1 Presence of aortocoronary bypass graft; X58.XXXA Exposure to other specified factors, initial encounter; Y93.9 Activity, unspecified; Y92.9 Unspecified place or not applicable; Y99.9 Unspecified external cause status
CPT/HCPCS: 36415; 71046; 80053; 81001; 82947; 83735; 83880; 84443; 84484; 85025; 85379; 85610; 93005; 96365; 96366; 99284; 99285; J3475

== ENCOUNTER 2021-03-11 12:25 | Emergency (ER) | payer OTHER, SELFPAY ==
--- NOTE | ~2021-03-11 | XR_ITS ---
EXAMINATION: XR CHEST CLINICAL INFORMATION: Chest pain COMPARISON: 02/18/2021 TECHNIQUE: Frontal view of the chest was obtained. FINDINGS: Normal symmetric lung volumes. No parenchymal consolidation. No pleural effusion. No pneumothorax. Cardiomediastinal silhouette and pulmonary vascularity are within normal limits. The aorta is atherosclerotic. No acute osseous abnormalities. XR/XR chest 1V IMPRESSION: No acute findings
--- NOTE | ~2021-03-11 | CT_ITS ---
EXAMINATION: CT ANGIOGRAM OF THE CHEST WITH AND WITHOUT CONTRAST (CT PULMONARY ANGIOGRAM FOR PE) CLINICAL INFORMATION: Tachycardia. Elevated d-dimer. Evaluate for pulmonary embolism. COMPARISON: Multiple priors, most recent chest radiograph done earlier the same day. TECHNIQUE: Prior to contrast administration, noncontrast localization images were obtained. Subsequently, multidetector volumetric imaging was performed from the thoracic inlet to below the diaphragms following the administration of 95 mL Omnipaque 350 intravenous contrast. No contrast reaction reported Sagittal, coronal, and MIP oblique sagittal reformatted images were obtained on the CT workstation, uploaded to PACS, and reviewed. This CT examination was performed using dose optimization techniques as appropriate, variously including the following: *Automated exposure control *Adjustment of mA and/or kV according to patient size (this includes techniques or standardized protocols for targeted exams where dose is matched to indication/reason for exam; i.e. extremities or head) *Use of iterative reconstruction technique Total exam dose-length product 911 mGy-cm FINDINGS: QUALITY OF STUDY/CONTRAST BOLUS: Satisfactory. PULMONARY ARTERIES: No central or segmental pulmonary emboli. THORACIC AORTA: No thoracic aortic dilatation or dissection. Scattered atherosclerotic calcifications. LUNG: Right lower lobe subpleural 0.5 cm nodule (axial image [id number]). Small bilateral calcified granulomas. No large pulmonary mass or confluent airspace consolidation. PLEURA: No pleural effusion or pneumothorax. MEDIASTINUM: Postsurgical changes consistent with prior CABG. No cardiomegaly. No pericardial effusion. No significant superior mediastinal or hilar lymphadenopathy. Partially visualized and unremarkable thyroid. No evidence of septal bowing or right heart strain. CHEST WALL/AXILLA: No axillary or internal mammary lymphadenopathy. OSSEOUS STRUCTURES: No acute or suspicious osseous abnormality. UPPER ABDOMEN: Unremarkable. No reflux of contrast into the hepatic veins to suggest elevated right heart pressures. CT/CT angio chest PE protocol IMPRESSION: 1. No central or segmental pulmonary embolism. 2. Subpleural 0.5 cm nodule along the right major fissure. Additional small calcified granulomas. According to the UPDATED 2017 Fleischner Society recommendations, the advised follow-up imaging for solid nodules < 6 mm is: LOW RISK PATIENT: No routine follow-up. HIGH RISK PATIENT: Optional CT at 12 months. 3. No large pulmonary mass or confluent airspace consolidation. 4. No significant lymphadenopathy. VTE: negative
[2021-03-11 12:27] VITALS: BP 172/71; PULSE 113; RESP 15; TEMP 37.5; O2SAT 98; BMI 29.9
--- NOTE | 2021-03-11 12:48 | ED_ITS ---
HPI - Chest Pain General Chief Complaint: Chest Pain Stated Complaint: Chest Pain/muscle spasm Time Seen by Provider: 03/11/21 12:44 Source: patient and old records reviewed Mode of arrival: ambulatory Limitations: no limitations History of Present Illness MD complaint: chest pain and other (rash on chest) Pertinent past history: coronary artery disease Onset (ago): week(s) (2) Timing of current episode: constant Prior episodes: Yes Onset: during rest Pain location: left chest Pain radiation: none Severity: moderate Quality: other (painful and itching patch of skin) Relieving factors: nothing Exacerbating factors: nothing Context: other (rash on skin) Treatment prior to arrival: aspirin Related Data Home Medications Medication Instructions Recorded Confirmed clopidogrel 75 mg tablet 75 mg PO DAILY 08/02/20 01/05/21 fenofibrate 54 mg tablet 54 mg PO DAILY 08/02/20 01/05/21 insulin glargine 100 unit/mL (3 22 unit SUBCUT BEDTIME 08/02/20 01/05/21 mL) subcutaneous pen lancets 28 gauge #100 ea 08/02/20 01/05/21 lisinopril 30 mg tablet 30 mg PO DAILY 08/02/20 01/05/21 metoprolol succinate 25 mg 25 mg PO DAILY 08/02/20 01/05/21 tablet,extended release 24 hr omega-3 fatty acids-fish oil 340 1 cap PO TID 08/02/20 01/05/21 mg-1,000 mg capsule aspirin 81 mg tablet,delayed 81 mg PO DAILY 08/10/20 01/05/21 release atorvastatin 80 mg PO BEDTIME 12/28/20 01/05/21 furosemide 40 mg PO DAILY 12/28/20 01/05/21 insulin lispro [Admelog SoloStar 2 unit SUBCUT DAILY 12/28/20 01/05/21 U-100 Insulin] insulin lispro [Admelog SoloStar 4 unit SUBCUT DAILY@1200 12/28/20 01/05/21 U-100 Insulin] insulin lispro [Admelog SoloStar 6 unit SUBCUT DAILY@1800 12/28/20 01/05/21 U-100 Insulin] Previous Rx's Medication Instructions Recorded isosorbide mononitrate 30 mg 30 mg PO DAILY 90 Days #90 tab 07/14/20 tablet,extended release 24 hr finasteride 5 mg tablet 5 mg PO DAILY 90 Days #90 tab 08/02/20 tamsulosin 0.4 mg capsule 0.4 mg PO DAILY #90 cap 09/07/20 acetaminophen [Tylenol Extra 1,000 mg PO QID PRN #14 tab 02/18/21 Strength] diazepam [Valium] 5 mg PO TID PRN #14 tab 02/18/21 lidocaine HCl [Aspercreme 1 appl TOPICAL BID PRN #120 g 02/18/21 (lidocaine HCl)] betamethasone dipropionate 1 appl TOPICAL BID 10 Days #15 g 03/11/21 Allergies Allergy/AdvReac Type Severity Reaction Status Date / Time No Known Allergies Allergy Verified 03/11/21 12:27 [No Known Allergies*] Review of Systems Review of Systems: Constitutional : No Weight loss, No Fever, No Chills ENT/Mouth : No sore throat, No Rhinorrhea Eyes: No Eye Pain, No Swelling Cardiovascular : pos Chest Pain, no SOB, no Dyspnea on Exertion, No Orthopnea, No Edema, No Palpitations Respiratory : No Cough, No Sputum Gastrointestinal : no Nausea, No Vomiting, No Diarrhea, No abdominal Pain, No Hematochezia, No Melena Genitourinary : No Dysuria, No Urinary Frequency Musculoskeletal : No joint pain, No Myalgias, No Joint Swelling Skin : No Skin Lesions, pos rash Neuro : No Weakness, No Numbness, No Dizziness, No Headache Psych : No Anxiety/Panic, No Depression Heme/Lymph: No Bruising, No Lymphadenopathy Endocrine : No Polyuria, No Polydipsia All other systems reviewed and are negative [facility] Past Medical History Attestation statement: The following information was validated with the patient. Medical History Atherosclerotic cardiovascular disease CVA (cerebral vascular accident) Diabetes mellitus, type 2 Hypercholesteremia Hypertension Ischemic cardiomyopathy Myocardial infarction PAF (paroxysmal atrial fibrillation) Surgical History H/O coronary artery bypass surgery (~04/27/20) Family History Family History Father No problems noted. Mother No problems noted. Social History Social History (Updated 03/11/21 @ 13:42 by Margarita Melgoza DO) Household Members: None Housing: Apartment Do you presently have visiting nurse or other home services: Yes ([employer] daily) Alcohol intake: current Alcohol intake frequency: 0-2 drinks per day Patient Tobacco Use Status: Former Tobacco user Use of substances other than those prescribed or required for medical reasons: No Advance Directives: No Advance Directives Information Provided: Yes service: No Current occupational status: unemployed Physical Exam Vital Signs: Vital Signs: Last Vital Signs Temp 99.5 F 03/11/21 12:27 Pulse 104 H 03/11/21 14:43 Resp 20 03/11/21 14:43 BP 140/72 H 03/11/21 14:43 Pulse Ox 96 03/11/21 14:43 Body Mass Index 29.9 Appearance: Alert. Oriented X3. No acute distress. Eyes: Pupils equal, round and reactive to light. ENT: Pharynx normal. Neck: Normal inspection. Neck supple. CVS: tachycardic heart rate and rhythm. Pulses normal. Chest: ttp along L chest - no vesicles noted flat red patch that is scaly with some excoration centrally no signs of cellulitis no abscess or fluctuance felt Respiratory: No respiratory distress. Breath sounds normal. Abdomen: Soft and nontender. Skin: Skin warm and dry. Normal skin color. Normal skin turgor. Extremities: No lower extremity edema. No calf ttp Neuro: Oriented X 3. No motor deficit. No sensory deficit. 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, PAF on aspirin and plavix comes in with c/o L chest rash that is pruritic causing him pleuritic chest pain at this time will need labs, troponin x 1, CXR, betamethasone for treatment - has hx of psoriasis in the past, seems atypical for ACS/PE Lab Data Result diagrams: 03/11/21 13:17 03/11/21 13:17 Labs: Lab Results 03/11/21 03/11/21 03/11/21 Range/Units 13:17 13:17 13:17 WBC 7.8 (4.8-10.8) X10*3/uL RBC 4.68 (4.60-5.80) X10*6/uL Hgb 13.3 L (14.0-18.0) g/dl Hct 40.4 L (42-52) % MCV 86.3 (80-98) fL MCH 28.4 (27.0-33.0) pg MCHC 32.9 (31.0-36.0) g/dl RDW 13.2 (11.0-16.0) % Plt Count 392 (160-400) X10*3/uL MPV 10.7 (9.4-12.4) fL Immature Gran % (Auto) 0.3 (0.0-0.4) % Neut % (Auto) 62.9 (45-73) % Lymph % (Auto) 30.2 (20-40) % [place] % (Auto) 4.9 (2-11) % Eos % (Auto) 0.8 (0-4) % Baso % (Auto) 0.9 (0-2) % Lymph # (Auto) 2.4 (1.2-4.9) X10*3/uL [place] # (Auto) 0.4 (0.1-1.2) X10*3/uL Eos # (Auto) 0.1 (0.0-0.4) X10*3/uL Baso # (Auto) 0.1 (0.0-0.2) X10*3/uL Abs Immat Gran (auto) 0.02 (0.00-0.03) X10*3/uL Absolute Neuts (auto) 4.9 (2.0-8.3) X10*3/uL Absolute Nucleated RBC 0.000 (0.0-0.012) X10*3/uL Nucleated RBC % (auto) 0.0 (0.0-0.2) /100WBC PT 14.4 H (9.9-13.0) SEC INR 1.3 H (0.9-1.1) APTT 34.0 (24.1-38.0) SEC D-Dimer 254 NG/ML Sodium Cancelled Potassium Cancelled Chloride Cancelled Carbon Dioxide Cancelled Anion Gap Cancelled BUN Cancelled Creatinine Cancelled Estim Creat Clear Calc Cancelled Estimated GFR Cancelled Random Glucose Cancelled Calcium Cancelled Magnesium (1.6-2.6) mg/dL Total Bilirubin (0.0-1.0) mg/dL Direct Bilirubin (0.0-0.5) mg/dL AST (5-37) U/L ALT (0-40) U/L Alkaline Phosphatase (39-117) U/L Troponin I High Sens (<3.5-35.0) ng/L Total Protein (6.5-8.0) g/dL Albumin (3.5-5.0) g/dL Lipase (8-78) U/L 03/11/21 03/11/21 Range/Units 13:17 13:17 WBC (4.8-10.8) X10*3/uL RBC (4.60-5.80) X10*6/uL Hgb (14.0-18.0) g/dl Hct (42-52) % MCV (80-98) fL MCH (27.0-33.0) pg MCHC (31.0-36.0) g/dl RDW (11.0-16.0) % Plt Count (160-400) X10*3/uL MPV (9.4-12.4) fL Immature Gran % (Auto) (0.0-0.4) % Neut % (Auto) (45-73) % Lymph % (Auto) (20-40) % [place] % (Auto) (2-11) % Eos % (Auto) (0-4) % Baso % (Auto) (0-2) % Lymph # (Auto) (1.2-4.9) X10*3/uL [place] # (Auto) (0.1-1.2) X10*3/uL Eos # (Auto) (0.0-0.4) X10*3/uL Baso # (Auto) (0.0-0.2) X10*3/uL Abs Immat Gran (auto) (0.00-0.03) X10*3/uL Absolute Neuts (auto) (2.0-8.3) X10*3/uL Absolute Nucleated RBC (0.0-0.012) X10*3/uL Nucleated RBC % (auto) (0.0-0.2) /100WBC PT (9.9-13.0) SEC INR (0.9-1.1) APTT (24.1-38.0) SEC D-Dimer NG/ML Sodium 135 Potassium 4.7 Chloride 100 Carbon Dioxide 24 Anion Gap 16 BUN 19 H Creatinine 1.38 Estim Creat Clear Calc 58.1 Estimated GFR 53 Random Glucose 194 H Calcium 10.6 H D Magnesium 1.4 L* (1.6-2.6) mg/dL Total Bilirubin 0.8 (0.0-1.0) mg/dL Direct Bilirubin 0.3 (0.0-0.5) mg/dL AST 17 (5-37) U/L ALT 17 (0-40) U/L Alkaline Phosphatase 49 (39-117) U/L Troponin I High Sens 20.8 D (<3.5-35.0) ng/L Total Protein 8.4 H (6.5-8.0) g/dL Albumin 5.0 (3.5-5.0) g/dL Lipase 34 (8-78) U/L ECG Data ECG #1: Attestation: I personally reviewed and interpreted this ECG as follows: ECG interpretation date: 03/11/21 ECG interpretation time: 13:39 Interpretation: Rate: 104 Rhythm: sinus tachycardia with 1st degree AVB [place]: left LVH Normal P waves. 1st degree AVB. Normal QRS complex. ST T wave : no MOISES, inverted in I and aVLF (LVH) qTC: normal prior studies: no acute ischemia The study has been interpreted contemporaneously by me. . Discharge Plan Discharge Clinical Impression: Atypical chest pain, Psoriasis Instructions: Chest Pain (ED), Psoriasis (ED) Additional Instructions: return to ED for any worsening symptoms or concerns Prescriptions: New betamethasone dipropionate 0.05 % ointment 1 appl topical BID 10 Days Qty: 15 RF: 0 No Action isosorbide mononitrate 30 mg tablet extended release 24 hr 30 mg PO DAILY 90 Days Qty: 90 RF: 1 tamsulosin 0.4 mg capsule 0.4 mg PO DAILY Qty: 90 RF: 2 furosemide 40 mg tablet 40 mg PO DAILY RF: 0 atorvastatin 80 mg tablet 80 mg PO BEDTIME RF: 0 insulin lispro [Admelog SoloStar U-100 Insulin] 100 unit/mL Insulin Pen 2 unit SUBCUT DAILY RF: 0 insulin lispro [Admelog SoloStar U-100 Insulin] 100 unit/mL insulin pen 6 unit subcut DAILY@1800 RF: 0 insulin lispro [Admelog SoloStar U-100 Insulin] 100 unit/mL insulin pen 4 unit subcut DAILY@1200 RF: 0 acetaminophen [Tylenol Extra Strength] 500 mg tablet 1,000 mg PO QID PRN (Reason: fever or pain) Qty: 14 RF: 0 diazepam [Valium] 5 mg tablet 5 mg PO TID PRN (Reason: muscle spasm) Qty: 14 RF: 0 lidocaine HCl [Aspercreme (lidocaine HCl)] 4 % cream 1 appl topical BID PRN (Reason: pain) Qty: 120 RF: 0 aspirin 81 mg tablet,delayed release (DR/EC) 81 mg PO DAILY RF: 0 insulin glargine 100 unit/mL (3 mL) insulin pen 22 unit subcut BEDTIME RF: 0 omega-3 fatty acids-fish oil 340-1,000 mg capsule 1 cap PO TID RF: 0 (DME) lancets 28 gauge misc See Rx Instructions ea topical DIRECTED Qty: 100 RF: 0 clopidogrel 75 mg tablet 75 mg PO DAILY RF: 0 fenofibrate 54 mg tablet 54 mg PO DAILY RF: 0 metoprolol succinate 25 mg tablet extended release 24 hr 25 mg PO DAILY RF: 0 lisinopril 30 mg tablet 30 mg PO DAILY RF: 0 finasteride 5 mg tablet 5 mg PO DAILY 90 Days Qty: 90 RF: 1 Referrals: Physician,Unknown [Primary Care Provider] - 2 days
--- NOTE | 2021-03-11 13:19 | ECG_ITS ---
Test Reason : CHEST PAIN Blood Pressure : / mmHG Vent. Rate : 104 BPM Atrial Rate : 104 BPM P-R Int : 212 ms QRS Dur : 092 ms QT Int : 326 ms P-R-T Axes : 051 -42 089 degrees QTc Int : 428 ms Sinus tachycardia with 1st degree A-V block Left axis deviation Left ventricular hypertrophy with repolarization abnormality Inferior infarct , age undetermined Abnormal ECG When compared with ECG of 18-FEB-2021 10:23, SC interval has increased Left bundle branch block is no longer Present Inferior infarct is now Present Referred By: Margarita Melgoza Electronically Signed By:Juancarlos Rojo
[2021-03-11 13:23] LABS: Basophils Absolute Auto 0.1 X10*3/uL (0.0-0.2); Basophils Percent Auto 0.9 % (0-2); Eosinophils Absolute Auto 0.1 X10*3/uL (0.0-0.4); Eosinophils Percent Auto 0.8 % (0-4); Hematocrit 40.4 % (42-52); Hemoglobin 13.3 g/dl (14.0-18.0); Imm Gran Abs Auto 0.02 X10*3/uL (0.00-0.03); Imm Gran Pct Auto 0.3 % (0.0-0.4); Lymphocytes Absolute Auto 2.4 X10*3/uL (1.2-4.9); Lymphocytes Percent Auto 30.2 % (20-40); MANUAL DIFF FLAG NO; Mean Corpuscular HGB Conc 32.9 g/dl (31.0-36.0); Mean Corpuscular Hemoglobin 28.4 pg (27.0-33.0); Mean Corpuscular Volume 86.3 fL (80-98); Mean Platelet Volume 10.7 fL (9.4-12.4); Monocytes Absolute Auto 0.4 X10*3/uL (0.1-1.2); Monocytes Percent Auto 4.9 % (2-11); Neutrophils Absolute Auto 4.9 X10*3/uL (2.0-8.3); Neutrophils Percent Auto 62.9 % (45-73); Platelet Count 392 X10*3/uL (160-400); Red Blood Count 4.68 X10*6/uL (4.60-5.80); Red Cell Distribution Width 13.2 % (11.0-16.0); White Blood Count 7.8 X10*3/uL (4.8-10.8)
[2021-03-11 13:36] LABS: INTERNATIONAL NORM RATIO 1.3 (0.9-1.1); Prothrombin Time 14.4 SEC (9.9-13.0)
[2021-03-11 13:48] LABS: Troponin-I High Sensitivity 20.8 ng/L (<3.5-35.0)
[2021-03-11 14:17] LABS: Alanine Aminotransferase 17 U/L (0-40); Alkaline Phosphatase 49 U/L (39-117); Anion Gap 16 (12-20); Aspartate Amino Transferase 17 U/L (5-37); Bilirubin Direct 0.3 mg/dL (0.0-0.5); Bilirubin Total 0.8 mg/dL (0.0-1.0); Blood Urea Nitrogen 19 mg/dL (9-16); Calcium 10.6 mg/dL (8.4-10.2); Carbon Dioxide 24 mmol/L (22-29); Chloride 100 mmol/L (96-108); Creatinine Clr Calc Pharmacy 58.1; Estimated Glomerular Filt Rate 53; Glucose Random 194 mg/dL (60-115); Lipase 34 U/L (8-78); Magnesium 1.4 mg/dL (1.6-2.6); Potassium 4.7 mmol/L (3.3-5.1); Sodium 135 mmol/L (135-145); Total Protein 8.4 g/dL (6.5-8.0)
[2021-03-11 14:30] LABS: D Dimer 254 NG/ML
[2021-03-11 14:43] VITALS: BP 140/72; PULSE 104; RESP 20; O2SAT 96
[2021-03-11] MEDS: Acetaminophen 325 MG TABLET 650 MG PO (14:51)
[2021-03-11] MEDS: Magnesium Sulfate/H2O 2 GM/50 ML PIGGYBACK IV (14:51)
[2021-03-11] MEDS: iohexoL 350 MG/ML 100 ML INFUS..BTL IV (16:37)
[2021-03-11 17:15] VITALS: BP 102/63; PULSE 96; RESP 21
== END 2021-03-11 18:51 | disposition home or self-care (01) ==
PROVIDERS: Emergency Provider Emergency Medicine
DX: R07.89 Other chest pain (principal); L40.9 Psoriasis, unspecified; I10 Essential (primary) hypertension; E11.9 Type 2 diabetes mellitus without complications; I48.0 Paroxysmal atrial fibrillation; Z86.73 Personal history of transient ischemic attack (TIA), and cerebral infarction without residual deficits; I25.2 Old myocardial infarction; Z79.4 Long term (current) use of insulin; Z79.82 Long term (current) use of aspirin; Z79.899 Other long term (current) drug therapy
CPT/HCPCS: 36415; 71045; 71275; 80048; 80076; 83690; 83735; 84484; 85025; 85379; 85610; 85730; 93005; 96365; 96366; 99285; J3475; Q9967

== ENCOUNTER 2021-03-14 08:18 | Emergency (ER) | payer OTHER, SELFPAY ==
--- NOTE | ~2021-03-14 | XR_ITS ---
EXAMINATION: XR CHEST CLINICAL INFORMATION: Chest pain, arm pain. COMPARISON: Chest radiographs 03/11/2021, 02/18/2021; CTA chest 03/11/2021. TECHNIQUE: 2 views of the chest were obtained. FINDINGS: There are postsurgical changes with mediastinal clips and sternotomy wires. The heart is normal in size. The vascularity is normal. The lungs are clear. There is no vascular congestion, pneumothorax, infiltrate, or effusion. No pleural reaction. The costophrenic sulci are clear. The hilar and mediastinal contours are unremarkable. No visible acute bony abnormality. XR/XR chest 2V IMPRESSION: Unremarkable examination.
[2021-03-14 08:27] VITALS: BP 153/65; PULSE 109; RESP 18; TEMP 36.6; O2SAT 98; BMI 28.9
--- NOTE | 2021-03-14 08:48 | ECG_ITS ---
Test Reason : CHEST PAIN Blood Pressure : / mmHG Vent. Rate : 099 BPM Atrial Rate : 099 BPM P-R Int : 212 ms QRS Dur : 122 ms QT Int : 358 ms P-R-T Axes : 058 -23 166 degrees QTc Int : 459 ms Sinus rhythm with 1st degree A-V block Left ventricular hypertrophy with QRS widening and repolarization abnormality Abnormal ECG When compared with ECG of 11-MAR-2021 12:39, QRS duration has increased Criteria for Inferior infarct are no longer Present ST no longer elevated in Inferior leads T wave inversion more evident in Lateral leads Referred By: Kindra Lindsey Electronically Signed By:DEE LOVE MD
[2021-03-14 08:53] VITALS: BP 120/60; PULSE 107; RESP 17; TEMP 36.9; O2SAT 97
[2021-03-14 09:10] LABS: MANUAL DIFF FLAG NO
[2021-03-14 09:14] LABS: Basophils Absolute Auto 0.1 X10*3/uL (0.0-0.2); Basophils Percent Auto 0.7 % (0-2); Eosinophils Absolute Auto 0.1 X10*3/uL (0.0-0.4); Eosinophils Percent Auto 1.3 % (0-4); Hematocrit 40.5 % (42-52); Hemoglobin 13.5 g/dl (14.0-18.0); Imm Gran Abs Auto 0.02 X10*3/uL (0.00-0.03); Imm Gran Pct Auto 0.3 % (0.0-0.4); Lymphocytes Absolute Auto 1.9 X10*3/uL (1.2-4.9); Mean Corpuscular HGB Conc 33.3 g/dl (31.0-36.0); Mean Corpuscular Hemoglobin 28.5 pg (27.0-33.0); Mean Corpuscular Volume 85.6 fL (80-98); Mean Platelet Volume 10.8 fL (9.4-12.4); Monocytes Absolute Auto 0.4 X10*3/uL (0.1-1.2); Monocytes Percent Auto 5.1 % (2-11); Neutrophils Absolute Auto 5.1 X10*3/uL (2.0-8.3); Neutrophils Percent Auto 67.6 % (45-73); Platelet Count 366 X10*3/uL (160-400); Red Blood Count 4.73 X10*6/uL (4.60-5.80); Red Cell Distribution Width 13.2 % (11.0-16.0); White Blood Count 7.5 X10*3/uL (4.8-10.8)
--- NOTE | 2021-03-14 09:21 | ED_ITS ---
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 Seen here on March 11 and had cardiac workup including CTA which was negative for PE. He tells me he has had continued rash although it is less painful and itchy using the betamethasone topical. He is also complaining of upper back discomfort bilaterally and right shoulder pain. He is unable to explain to me how long the symptoms have been occurring. He denies any shortness of breath, cough, fevers, chills, leg swelling or pain. He tells me he feels like he needs to stay in the hospital because it was too difficult to care for himself at home at this point. Related Data Home Medications Medication Instructions Recorded Confirmed clopidogrel 75 mg tablet 75 mg PO DAILY 08/02/20 03/14/21 fenofibrate 54 mg tablet 54 mg PO DAILY 08/02/20 03/14/21 insulin glargine 100 unit/mL (3 22 unit SUBCUT BEDTIME 08/02/20 03/14/21 mL) subcutaneous pen lancets 28 gauge #100 ea 08/02/20 01/05/21 lisinopril 30 mg tablet 30 mg PO DAILY 08/02/20 03/14/21 metoprolol succinate 25 mg 25 mg PO DAILY 08/02/20 03/14/21 tablet,extended release 24 hr omega-3 fatty acids-fish oil 340 1 cap PO TID 08/02/20 03/14/21 mg-1,000 mg capsule aspirin 81 mg tablet,delayed 81 mg PO DAILY 08/10/20 03/14/21 release furosemide 40 mg PO DAILY 12/28/20 03/14/21 insulin lispro [Admelog SoloStar 2 unit SUBCUT DAILY 12/28/20 03/14/21 U-100 Insulin] insulin lispro [Admelog SoloStar 4 unit SUBCUT DAILY@1200 12/28/20 03/14/21 U-100 Insulin] insulin lispro [Admelog SoloStar 6 unit SUBCUT DAILY@1800 12/28/20 03/14/21 U-100 Insulin] atorvastatin 20 mg PO DAILY 03/14/21 03/14/21 metformin 1 tab PO BID 03/14/21 03/14/21 Previous Rx's Medication Instructions Recorded isosorbide mononitrate 30 mg 30 mg PO DAILY 90 Days #90 tab 07/14/20 tablet,extended release 24 hr finasteride 5 mg tablet 5 mg PO DAILY 90 Days #90 tab 08/02/20 tamsulosin 0.4 mg capsule 0.4 mg PO DAILY #90 cap 09/07/20 acetaminophen [Tylenol Extra 1,000 mg PO QID PRN #14 tab 02/18/21 Strength] lidocaine HCl [Aspercreme 1 appl TOPICAL BID PRN #120 g 02/18/21 (lidocaine HCl)] cyclobenzaprine 5 mg PO TID PRN #8 tab 03/14/21 Allergies Allergy/AdvReac Type Severity Reaction Status Date / Time No Known Allergies Allergy Verified 03/11/21 12:27 [No Known Allergies*] Review of Systems Review of Systems: Yes all other systems are reviewed and are negative Constitutional: Constitutional: Reports no additional constitutional complaints, Denies body ache(s), Denies chills, Denies fever(s), Denies headache(s) and Denies weakness Eyes: Eyes: Reports no additional eye complaints and Denies change in vision ENT: Reports system reviewed and no additional complaints, except as documented, Denies dizziness, Denies headache(s), Denies nasal congestion, Denies nasal discharge and Denies neck pain Cardiovascular: Cardiovascular: Reports no additional cardiovascular compla ints, Denies chest pain, Denies leg edema and Denies dyspnea Respiratory: Respiratory: Reports no additional respiratory complaints, Denies cough and Denies dyspnea Gastrointestinal: Gastrointestinal: Reports no additional gastrointestinal complaints, Denies abdominal pain, Denies diarrhea, Denies nausea and Denies vomiting Genitourinary: Genitourinary: Denies urinary incontinence Musculoskeletal: Musculoskeletal: Reports no additional musculoskeletal complaints, Reports back pain, Denies arthralgias, Denies joint swelling, Denies neck pain, Denies numbness and Denies tingling Integumentary/Breasts: Skin/Breast: Reports system reviewed and no additional complaints, except as docu and Reports rash Neurologic: Reports system reviewed and no additional complaints, except as documented, Denies Abnormal speech present, Denies dizziness, Denies headache(s), Denies numbness, Denies tingling and Denies weakness PMFSH Past Medical History Attestation statement: The following information was validated with the patient. Source: old records reviewed and nursing notes reviewed Medical History Atherosclerotic cardiovascular disease CVA (cerebral vascular accident) Diabetes mellitus, type 2 Hypercholesteremia Hypertension Ischemic cardiomyopathy Myocardial infarction PAF (paroxysmal atrial fibrillation) Surgical History H/O coronary artery bypass surgery (~04/27/20) Family History Family History Father No problems noted. Mother No problems noted. Social History Social History Household Members: None Housing: Apartment Do you presently have visiting nurse or other home services: Yes ([employer]GER daily) Alcohol intake: never Patient Tobacco Use Status: Former Tobacco user service: No Current occupational status: unemployed Physical Exam Vital Signs: Vital Signs: Last Vital Signs Temp 98.7 F 03/14/21 12:32 Pulse 92 03/14/21 13:28 Resp 20 03/14/21 12:32 BP 123/66 03/14/21 13:28 Pulse Ox 99 03/14/21 13:28 Body Mass Index 28.9 Const: General: cooperative, healthy appearing, comfortable and no acute distress Orientation/consciousness: patient oriented x3 Limitations: no limitations HENMT: Head: Yes normal to inspection Ears: hearing grossly normal bilaterally General nose exam: Normal external nose present Face and sinus: Yes normal facial exam Mouth: Normal oral and palatal mucosa present Throat: Yes posterior oropharynx normal Eyes: General: appearance normal, both eyes and all related structures Pupils: Equal, round and reactive pupils present Neck: Neck: Yes normal visual inspection Chest: Other: ttp along L chest - no vesicles noted flat red patch that is scaly with some excoration centrally no signs of cellulitis no abscess or fluctuance felt Chest palpation & inspection: normal inspection of the chest Resp: Effort & Inspection: normal respiratory effort Auscultation: clear to auscultation bilaterally Cardio: Rate: regular rate Rhythm: regular rhythm Peripheral pulses: Peripheral pulses 2+ throughout GI: Inspection: Yes normal to inspection Palpation (GI): Soft to palpation and nontender Auscultation: normal bowel sounds Back/Spine/Pelvis: Thoracic/Lumbar Spine: thoracic and lumbar spine normal to inspection Skin: General skin exam: no rashes or lesions noted Neuro: Other: Right sided weakness at baseline General: patient oriented x3 and normal sensation to monofilament Cranial nerves: Yes Equal, round and reactive pupils present Cognition (Neuro): normal cognition Speech: No Abnormal speech present Extrem: General: Yes normal to inspection, Yes no pedal edema and Yes no calf tenderness Course Course Course Narrative: 55-year-old male here with complaints of some upper back pain, right shoulder discomfort, continued left-sided itching and painful rash. His primary concern however is that he needs more assistance at home and is requesting admission to the hospital. Of note, workup including cardiac workup and CT a on March 11 all negative with presentation that is similar to today. Will check EKG, chest x-ray, labs. If all normal will involve Case Management and Physical therapy. 0945-mild GUNJAN. Troponin mildly elevated but likely chronic. Atypical chest juan n less likely ACS. Will give normal saline bolus and re-check troponin/bmp post fluids. 1145-Patient requesting additional services at home. Will place PT consult, involve CM. Repeat labs show improved BMP, troponin delta. 1430-patient cleared by Physical therapy. He did not want a wait to speak to case management will follow-up with him via phone. Reviewed worrisome signs and symptoms of when to return to the emergency department. Comfortable discharge home. 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 Lab Data Lab results reviewed: Yes I reviewed the patient's lab results. Result diagrams: 03/14/21 09:06 03/14/21 11:21 Labs: Lab Results 03/14/21 03/14/21 03/14/21 Range/Units 09:06 09:06 09:06 WBC 7.5 (4.8-10.8) X10*3/uL RBC 4.73 (4.60-5.80) X10*6/uL Hgb 13.5 L (14.0-18.0) g/dl Hct 40.5 L (42-52) % MCV 85.6 (80-98) fL MCH 28.5 (27.0-33.0) pg MCHC 33.3 (31.0-36.0) g/dl RDW 13.2 (11.0-16.0) % Plt Count 366 (160-400) X10*3/uL MPV 10.8 (9.4-12.4) fL Immature Gran % (Auto) 0.3 (0.0-0.4) % Neut % (Auto) 67.6 (45-73) % Lymph % (Auto) 25.0 (20-40) % [place] % (Auto) 5.1 (2-11) % Eos % (Auto) 1.3 (0-4) % Baso % (Auto) 0.7 (0-2) % Lymph # (Auto) 1.9 (1.2-4.9) X10*3/uL [place] # (Auto) 0.4 (0.1-1.2) X10*3/uL Eos # (Auto) 0.1 (0.0-0.4) X10*3/uL Baso # (Auto) 0.1 (0.0-0.2) X10*3/uL Abs Immat Gran (auto) 0.02 (0.00-0.03) X10*3/uL Absolute Neuts (auto) 5.1 (2.0-8.3) X10*3/uL Absolute Nucleated RBC 0.000 (0.0-0.012) X10*3/uL Nucleated RBC % (auto) 0.0 (0.0-0.2) /100WBC Sodium 135 (135-145) mmol/L Potassium 4.7 (3.3-5.1) mmol/L Chloride 100 (96-108) mmol/L Carbon Dioxide 23 (22-29) mmol/L Anion Gap 17 (12-20) BUN 31 H D (9-16) mg/dL Creatinine 1.52 H (0.5-1.4) mg/dL Estim Creat Clear Calc 51.9 Estimated GFR 48 Random Glucose 233 H (60-115) mg/dL Calcium 9.9 D (8.4-10.2) mg/dL Troponin I High Sens 20.8 (<3.5-35.0) ng/L Urine Color Urine Appearance Urine pH (5.0-8.0) Ur Specific [place] (1.005-1.025) Urine Protein (NEG-TRACE) MG/DL Urine Glucose (UA) (NEG) MG/DL Urine Ketones (NEG) MG/DL Urine Blood (NEG) Urine Nitrite (NEG) Ur Leukocyte Esterase (NEG) 03/14/21 03/14/21 03/14/21 Range/Units 09:56 11:21 11:21 WBC (4.8-10.8) X10*3/uL RBC (4.60-5.80) X10*6/uL Hgb (14.0-18.0) g/dl Hct (42-52) % MCV (80-98) fL MCH (27.0-33.0) pg MCHC (31.0-36.0) g/dl RDW (11.0-16.0) % Plt Count (160-400) X10*3/uL MPV (9.4-12.4) fL Immature Gran % (Auto) (0.0-0.4) % Neut % (Auto) (45-73) % Lymph % (Auto) (20-40) % [place] % (Auto) (2-11) % Eos % (Auto) (0-4) % Baso % (Auto) (0-2) % Lymph # (Auto) (1.2-4.9) X10*3/uL [place] # (Auto) (0.1-1.2) X10*3/uL Eos # (Auto) (0.0-0.4) X10*3/uL Baso # (Auto) (0.0-0.2) X10*3/uL Abs Immat Gran (auto) (0.00-0.03) X10*3/uL Absolute Neuts (auto) (2.0-8.3) X10*3/uL Absolute Nucleated RBC (0.0-0.012) X10*3/uL Nucleated RBC % (auto) (0.0-0.2) /100WBC Sodium 135 (135-145) mmol/L Potassium 4.5 (3.3-5.1) mmol/L Chloride 105 (96-108) mmol/L Carbon Dioxide 22 (22-29) mmol/L Anion Gap 13 (12-20) BUN 28 H (9-16) mg/dL Creatinine 1.37 (0.5-1.4) mg/dL Estim Creat Clear Calc 57.6 Estimated GFR 54 Random Glucose 146 H D (60-115) mg/dL Calcium 9.2 D (8.4-10.2) mg/dL Troponin I High Sens 23.9 (<3.5-35.0) ng/L Urine Color STRAW Urine Appearance CLEAR Urine pH 6.0 (5.0-8.0) Ur Specific [place] <= 1.005 (1.005-1.025) Urine Protein NEG (NEG-TRACE) MG/DL Urine Glucose (UA) 100 H (NEG) MG/DL Urine Ketones NEG (NEG) MG/DL Urine Blood NEG (NEG) Urine Nitrite NEG (NEG) Ur Leukocyte Esterase NEG (NEG) Imaging Data Chest x-ray: Attestation: I personally reviewed and interpreted this imaging study as follows: Radiologist's impression: FINDINGS: There are postsurgical changes with mediastinal clips and sternotomy wires. The heart is normal in size. The vascularity is normal. The lungs are clear. There is no vascular congestion, pneumothorax, infiltrate, or effusion. No pleural reaction. The costophrenic sulci are clear. The hilar and mediastinal contours are unremarkable. No visible acute bony abnormality. XR/XR chest 2V IMPRESSION: Unremarkable examination. ECG Data Attestation: I personally reviewed and interpreted this ECG as follows: Interpretation: Sinus rhythm with rate of 99, normal IN, left bundle branch block, normal QTC. EKG unchanged from previous 03/11/2021 Discharge Plan Discharge Clinical Impression: Chest wall pain Patient Disposition: Home, Self-Care Instructions: Chest Wall Pain (ED) Additional Instructions: Continue your topical medication to the rash on your chest Follow-up with your primary care doctor for multiple complaints The case management team will follow up with you via phone Prescriptions: New cyclobenzaprine 5 mg tablet 5 mg PO TID PRN (Reason: muscle spasm) Qty: 8 RF: 0 No Action isosorbide mononitrate 30 mg tablet extended release 24 hr 30 mg PO DAILY 90 Days Qty: 90 RF: 1 tamsulosin 0.4 mg capsule 0.4 mg PO DAILY Qty: 90 RF: 2 furosemide 40 mg tablet 40 mg PO DAILY RF: 0 insulin lispro [Admelog SoloStar U-100 Insulin] 100 unit/mL Insulin Pen 2 unit SUBCUT DAILY RF: 0 insulin lispro [Admelog SoloStar U-100 Insulin] 100 unit/mL insulin pen 6 unit subcut DAILY@1800 RF: 0 insulin lispro [Admelog SoloStar U-100 Insulin] 100 unit/mL insulin pen 4 unit subcut DAILY@1200 RF: 0 acetaminophen [Tylenol Extra Strength] 500 mg tablet 1,000 mg PO QID PRN (Reason: fever or pain) Qty: 14 RF: 0 lidocaine HCl [Aspercreme (lidocaine HCl)] 4 % cream 1 appl topical BID PRN (Reason: pain) Qty: 120 RF: 0 atorvastatin 20 mg tablet 20 mg PO DAILY RF: 0 metformin 1,000 mg tablet 1 tab PO BID RF: 0 aspirin 81 mg tablet,delayed release (DR/EC) 81 mg PO DAILY RF: 0 insulin glargine 100 unit/mL (3 mL) insulin pen 22 unit subcut BEDTIME RF: 0 omega-3 fatty acids-fish oil 340-1,000 mg capsule 1 cap PO TID RF: 0 (DME) lancets 28 gauge misc See Rx Instructions ea topical DIRECTED Qty: 100 RF: 0 clopidogrel 75 mg tablet 75 mg PO DAILY RF: 0 fenofibrate 54 mg tablet 54 mg PO DAILY RF: 0 metoprolol succinate 25 mg tablet extended release 24 hr 25 mg PO DAILY RF: 0 lisinopril 30 mg tablet 30 mg PO DAILY RF: 0 finasteride 5 mg tablet 5 mg PO DAILY 90 Days Qty: 90 RF: 1 Referrals: Chika Dupree DO [Primary Care Provider] - 2 days Interventions: ED Discharge Assessment Last Done: 03/14/21 14:41 Discharge Date/Time: 03/14/21 14:41
[2021-03-14 09:38] LABS: Anion Gap 17 (12-20); Blood Urea Nitrogen 31 mg/dL (9-16); Calcium 9.9 mg/dL (8.4-10.2); Carbon Dioxide 23 mmol/L (22-29); Chloride 100 mmol/L (96-108); Creatinine Clr Calc Pharmacy 51.9; Estimated Glomerular Filt Rate 48; Glucose Random 233 mg/dL (60-115); Potassium 4.7 mmol/L (3.3-5.1); Sodium 135 mmol/L (135-145)
[2021-03-14 09:44] LABS: Troponin-I High Sensitivity 20.8 ng/L (<3.5-35.0)
[2021-03-14] MEDS: Acetaminophen 325 MG TABLET 650 MG PO (09:47)
[2021-03-14] MEDS: Cyclobenzaprine HCl 10 MG TABLET PO (09:47)
[2021-03-14] MEDS: 0.9 % Sodium Chloride 1,000 ML 999 ML IV (09:54)
--- NOTE | 2021-03-14 09:55 | PC.NURSE ---
IV inserted. IVF administered. Plan for repeat labs after IVF. Pt aware of plan. Pharmacist in room to obtain a med-rec. Urine sample sent to lab.
[2021-03-14 10:03] LABS: Glucose Urine UA 100 MG/DL (NEG); Leukocyte Esterase Urine NEG (NEG); Nitrite Urine NEG (NEG); Specific Gravity - Urine <= 1.005 (1.005-1.025); Urine Blood NEG (NEG); Urine Ketones NEG (NEG); Urine Protein NEG (NEG-TRACE)
[2021-03-14 10:04] LABS: Appearance Urine CLEAR; Color Urine STRAW
--- NOTE | 2021-03-14 10:13 | PHA.MEDREC ---
Pharmacy Consult ? Medication Reconciliation Pharmacy has completed the medication reconciliation. There are no remarkaable issues for provider's attention. Patient reports he did not take metformin this morning because his BG was 80. Isabell Alvarez, PharmD
[2021-03-14 11:13] VITALS: BP 115/61; PULSE 85; RESP 19; TEMP 36.8; O2SAT 99
[2021-03-14 11:51] LABS: Anion Gap 13 (12-20); Blood Urea Nitrogen 28 mg/dL (9-16); Calcium 9.2 mg/dL (8.4-10.2); Carbon Dioxide 22 mmol/L (22-29); Chloride 105 mmol/L (96-108); Creatinine Clr Calc Pharmacy 57.6; Estimated Glomerular Filt Rate 54; Glucose Random 146 mg/dL (60-115); Potassium 4.5 mmol/L (3.3-5.1); Sodium 135 mmol/L (135-145)
[2021-03-14 11:53] LABS: Troponin-I High Sensitivity 23.9 ng/L (<3.5-35.0)
[2021-03-14 12:32] VITALS: BP 123/66; PULSE 92; RESP 20; TEMP 37.1; O2SAT 99
[2021-03-14 13:28] VITALS: BP 123/66; PULSE 92; O2SAT 99
--- NOTE | 2021-03-14 14:15 | PC.NURSE ---
Pt met w/ PT- cleared. Pt does not want to wait for case management eval in ED, plan per cm and [employer] picker to discharge home and cm f/u via phone.
== END 2021-03-14 14:41 | disposition home or self-care (01) ==
PROVIDERS: Nurse Practitioner Family; Emergency Provider Emergency Medicine; PCP Internal Medicine
DX: R07.89 Other chest pain (principal); R21 Rash and other nonspecific skin eruption; R53.1 Weakness; I48.0 Paroxysmal atrial fibrillation; I10 Essential (primary) hypertension; E11.9 Type 2 diabetes mellitus without complications; E78.00 Pure hypercholesterolemia, unspecified; I25.2 Old myocardial infarction; Z86.73 Personal history of transient ischemic attack (TIA), and cerebral infarction without residual deficits; Z79.4 Long term (current) use of insulin; Z79.82 Long term (current) use of aspirin; Z79.02 Long term (current) use of antithrombotics/antiplatelets; Z79.899 Other long term (current) drug therapy
CPT/HCPCS: 36415; 71046; 80048; 81003; 84484; 85025; 93005; 96360; 97161; 99285

== ENCOUNTER 2021-03-16 11:12 | Emergency (ER) | payer OTHER, SELFPAY ==
--- NOTE | 2021-03-16 | ECG_ITS ---
Test Reason : REPEAT Blood Pressure : / mmHG Vent. Rate : 106 BPM Atrial Rate : 106 BPM P-R Int : 210 ms QRS Dur : 130 ms QT Int : 352 ms P-R-T Axes : 048 -24 164 degrees QTc Int : 467 ms Sinus tachycardia with 1st degree A-V block Left ventricular hypertrophy with QRS widening and repolarization abnormality Cannot rule out Inferior infarct , age undetermined Abnormal ECG When compared with ECG of 16-MAR-2021 11:46, No significant change was found Referred By: Cathie Bell Electronically Signed By:DEE LOVE MD
--- NOTE | ~2021-03-16 | CT_ITS ---
EXAMINATION: CT HEAD WITHOUT CONTRAST (STROKE PROTOCOL) CLINICAL INFORMATION: Stroke protocol. COMPARISON: CT brain 12/06/2017 TECHNIQUE: Contiguous axial imaging was performed from the skull base to vertex without intravenous administration of contrast. This CT examination was performed using dose optimization techniques as appropriate, variously including the following: *Automated exposure control *Adjustment of mA and/or kV according to patient size (this includes techniques or standardized protocols for targeted exams where dose is matched to indication/reason for exam; i.e. extremities or head) *Use of iterative reconstruction technique DLP: 708 mGy-cm FINDINGS: There is no intracranial hemorrhage, hematoma, or extra-axial fluid collection. There is no acute infarction in evolution. There is lack infarction left basal ganglia. The ventricles are normal in size. There is no hydrocephalus, edema, or mass effect. The ferrera-white matter differentiation appears symmetric. There is no acute infarct or mass lesion. The calvarium appears intact. There is no pneumocephalus or orbital emphysema. The visualized sinuses and middle ears and mastoid air cells show no significant mucosal thickening. There are no air-fluid levels. CT/CT head for stroke IMPRESSION: No acute intracranial process seen. Lacunar infarction left basal ganglia. No change from 12/23/2017. 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 This critical result was discussed with Dr. Bell at 12:04 hours on 03/16/2021. It was ascertained that the content and urgency of the report was understood at the time of direct communication.
[2021-03-16 11:18] VITALS: BP 160/61; PULSE 120; RESP 18; TEMP 36.7; O2SAT 99; BMI 29.9
--- NOTE | 2021-03-16 11:28 | ECG_ITS ---
Test Reason : WEAKNESS Blood Pressure : / mmHG Vent. Rate : 106 BPM Atrial Rate : 106 BPM P-R Int : 210 ms QRS Dur : 126 ms QT Int : 352 ms P-R-T Axes : 049 -24 160 degrees QTc Int : 467 ms Sinus tachycardia with 1st degree A-V block Possible Left atrial enlargement Left ventricular hypertrophy with QRS widening and repolarization abnormality Abnormal ECG When compared with ECG of 14-MAR-2021 08:59, No significant change was found Referred By: Cathie Bell Electronically Signed By:DEE LOVE MD
--- NOTE | 2021-03-16 11:30 | ED.WEAKNESS ---
HPI - Weakness General Chief complaint: Weakness Stated complaint: ?stroke Time Seen by Provider: 03/16/21 11:27 History of Present Illness HPI Narrative: Patient is 55 years old history of diabetes, coronary artery disease, hypertension, high cholesterol, status post bypass history of left bundle-branch block history of CVA with right-sided weakness. Patient presented today with having increasing weakness to the right side. More than usual patient usually walks with a cane on the right side he is still able to do the same. Patient has a facial droop on the right. Last time he was noted to be normal was midnight last night. No coughing or congestion or upper respiratory symptoms. No fever no chills. No chest pain. Somewhat weak. No diaphoresis. Patient from home. Related Data Home Medications Medication Instructions Recorded Confirmed clopidogrel 75 mg tablet 75 mg PO DAILY 08/02/20 03/14/21 fenofibrate 54 mg tablet 54 mg PO DAILY 08/02/20 03/14/21 insulin glargine 100 unit/mL (3 22 unit SUBCUT BEDTIME 08/02/20 03/14/21 mL) subcutaneous pen lancets 28 gauge #100 ea 08/02/20 01/05/21 lisinopril 30 mg tablet 30 mg PO DAILY 08/02/20 03/14/21 metoprolol succinate 25 mg 25 mg PO DAILY 08/02/20 03/14/21 tablet,extended release 24 hr omega-3 fatty acids-fish oil 340 1 cap PO TID 08/02/20 03/14/21 mg-1,000 mg capsule aspirin 81 mg tablet,delayed 81 mg PO DAILY 08/10/20 03/14/21 release furosemide 40 mg PO DAILY 12/28/20 03/14/21 insulin lispro [Admelog SoloStar 2 unit SUBCUT DAILY 12/28/20 03/14/21 U-100 Insulin] insulin lispro [Admelog SoloStar 4 unit SUBCUT DAILY@1200 12/28/20 03/14/21 U-100 Insulin] insulin lispro [Admelog SoloStar 6 unit SUBCUT DAILY@1800 12/28/20 03/14/21 U-100 Insulin] atorvastatin 20 mg PO DAILY 03/14/21 03/14/21 metformin 1 tab PO BID 03/14/21 03/14/21 Previous Rx's Medication Instructions Recorded isosorbide mononitrate 30 mg 30 mg PO DAILY 90 Days #90 tab 07/14/20 tablet,extended release 24 hr finasteride 5 mg tablet 5 mg PO DAILY 90 Days #90 tab 08/02/20 tamsulosin 0.4 mg capsule 0.4 mg PO DAILY #90 cap 09/07/20 acetaminophen [Tylenol Extra 1,000 mg PO QID PRN #14 tab 02/18/21 Strength] lidocaine HCl [Aspercreme 1 appl TOPICAL BID PRN #120 g 02/18/21 (lidocaine HCl)] cyclobenzaprine 5 mg PO TID PRN #8 tab 03/14/21 Allergies Allergy/AdvReac Type Severity Reaction Status Date / Time No Known Allergies Allergy Verified 03/11/21 12:27 [No Known Allergies*] Review of Systems Review of Systems: Constitutional: No Weight loss, No Fever, No Chills, No Night Sweats, No Fatigue, No Malaise ENT/Mouth: No Hearing loss, No Ear Pain, No Nasal Congestion, No Sinus Pain, No Hoarseness, No sore throat, No Rhinorrhea, No Swallowing Difficulty Eyes: No Eye Pain, No Swelling, No Redness, No Foreign Body, No Discharge, No Vision Changes Cardiovascular: No Chest Pain, No SOB, No Dyspnea on Exertion, No Orthopnea, No Edema, No Palpitations Respiratory: No Cough, No Sputum, No Wheezing, No Smoke Exposure, No Dyspnea Gastrointestinal: No Nausea, No Vomiting, No Diarrhea, No Constipation, No abdominal Pain, No Hematochezia, No Melena Genitourinary: no irregular bleeding, No Dysuria, No Urinary Frequency, No Hematuria, No Urinary Incontinence, No Urgency, No Flank Pain, No Urinary Flow Changes, No Hesitancy Musculoskeletal: No joint pain, No Myalgias, No Joint Swelling Skin: No Skin Lesions, No rash Neuro: Positive Weakness, No Numbness, No Paresthesias, No Loss of Consciousness, No Dizziness, No Headache Psych: No Anxiety/Panic, No Depression, No SI/HI/AH/VH, No Social Issues, Heme/Lymph: No Bruising, No Bleeding,No Lymphadenopathy Endocrine: No Polyuria, No Polydipsia, No Temperature Intolerance [facility] Past Medical History Attestation statement: The following information was validated with the patient. Medical History Atherosclerotic cardiovascular disease CVA (cerebral vascular accident) Diabetes mellitus, type 2 Hypercholesteremia Hypertension Ischemic cardiomyopathy Myocardial infarction PAF (paroxysmal atrial fibrillation) Surgical History H/O coronary artery bypass surgery (~04/27/20) Family History Family History Father No problems noted. Mother No problems noted. Social History Social History Household Members: None Housing: Apartment Do you presently have visiting nurse or other home services: Yes ([employer] daily) Alcohol intake: never Patient Tobacco Use Status: Former Tobacco user Advance Directives: No Advance Directives Information Provided: Yes service: No Current occupational status: unemployed Physical Exam Vital Signs: Vital Signs: Last Vital Signs Temp 98.0 F 03/16/21 11:18 Pulse 107 H 03/16/21 12:11 Resp 17 03/16/21 12:11 BP 109/67 03/16/21 12:11 Pulse Ox 96 03/16/21 12:11 Body Mass Index 29.9 Appearance: Alert. Oriented X3. No acute distress. Eyes: Pupils equal, round and reactive to light. ENT: Pharynx normal. Neck: Normal inspection. Neck supple. No lymph nodes noted. No crepitus CVS: Normal heart rate and rhythm. Pulses normal. Normal S1 and S2 Respiratory: No respiratory distress. Breath sounds normal. No Wheezing. No rales Abdomen: Soft and nontender. No rigidity. No distention. good BS x4 Skin: Skin warm and dry. Normal skin color. Normal skin turgor. Extremities: No lower extremity edema. Positive right upper and lower extremity weakness. Positive right-sided facial weakness. No Lacerations. No Rash Neuro: Oriented X 3. No motor deficit. No sensory deficit. Moving all extermities. No slurred speech NIH Stroke Scale Internal: Initial- Upon Arrival Level of Consciousness: Alert Level of Consciousness Questions: Answers both questions correctly Level of Consciousness Commands: Performs both tasks correctly Best Gaze: Normal Visual: No visual loss Facial Palsy: Partial paralysis Motor Arm (Right): Some effort against gravity Motor Arm (Left): No drift Motor Leg (Right): Some effort against gravity Motor Leg (Left): No drift Limb Ataxia: Absent Sensory: Normal Best Language: No aphasia Dysarthia: Normal Extinction and Inattention: No abnormality Score: 6 MDM - Weakness MDM Narrative Medical decision making narrative: Patient's electrolytes are unremarkable. Troponins negative. EKG showed a sinus tachycardia with first-degree AV block. LVH unchanged from previous. Patient's urine not infected white count normal. CT scan of the head was no bleeding. Will discharge patient home. Symptoms exactly same as prior. Patient ambulated with cane which is baseline. In stable condition. Medical Records Attestation: I reviewed the patient's medical records. Lab Data Result diagrams: 03/16/21 11:34 03/16/21 11:34 Labs: Lab Results 03/16/21 03/16/21 03/16/21 Range/Units 11:34 11:34 11:34 WBC 7.7 (4.8-10.8) X10*3/uL RBC 4.74 (4.60-5.80) X10*6/uL Hgb 13.2 L (14.0-18.0) g/dl Hct 40.2 L (42-52) % MCV 84.8 (80-98) fL MCH 27.8 (27.0-33.0) pg MCHC 32.8 (31.0-36.0) g/dl RDW 13.0 (11.0-16.0) % Plt Count 384 (160-400) X10*3/uL MPV 10.6 (9.4-12.4) fL Immature Gran % (Auto) 0.3 (0.0-0.4) % Neut % (Auto) 57.9 (45-73) % Lymph % (Auto) 34.8 (20-40) % [place] % (Auto) 5.4 (2-11) % Eos % (Auto) 1.0 (0-4) % Baso % (Auto) 0.6 (0-2) % Lymph # (Auto) 2.7 (1.2-4.9) X10*3/uL Amite # (Auto) 0.4 (0.1-1.2) X10*3/uL Eos # (Auto) 0.1 (0.0-0.4) X10*3/uL Baso # (Auto) 0.1 (0.0-0.2) X10*3/uL Abs Immat Gran (auto) 0.02 (0.00-0.03) X10*3/uL Absolute Neuts (auto) 4.5 (2.0-8.3) X10*3/uL Absolute Nucleated RBC 0.000 (0.0-0.012) X10*3/uL Nucleated RBC % (auto) 0.0 (0.0-0.2) /100WBC Sodium 131 L (135-145) mmol/L Potassium 4.2 (3.3-5.1) mmol/L Chloride 100 (96-108) mmol/L Carbon Dioxide 21 L (22-29) mmol/L Anion Gap 14 (12-20) BUN 19 H (9-16) mg/dL Creatinine 1.21 (0.5-1.4) mg/dL Estim Creat Clear Calc 66.2 Estimated GFR > 60 Random Glucose 180 H (60-115) mg/dL Calcium 10.2 D (8.4-10.2) mg/dL Total Bilirubin 0.4 (0.0-1.0) mg/dL Direct Bilirubin 0.2 (0.0-0.5) mg/dL AST 16 (5-37) U/L ALT 15 (0-40) U/L Alkaline Phosphatase 45 (39-117) U/L Troponin I High Sens (<3.5-35.0) ng/L Total Protein 8.0 (6.5-8.0) g/dL Albumin 4.9 (3.5-5.0) g/dL Urine Color Urine Appearance Urine pH (5.0-8.0) Ur Specific [place] (1.005-1.025) Urine Protein (NEG-TRACE) MG/DL Urine Glucose (UA) (NEG) MG/DL Urine Ketones (NEG) MG/DL Urine Blood (NEG) Urine Nitrite (NEG) Ur Leukocyte Esterase (NEG) Urine RBC (0) /HPF Urine WBC (0-4) /HPF Ur Squamous Epith Cells /LPF Urine Bacteria /LPF 03/16/21 03/16/21 Range/Units 12:04 12:04 WBC (4.8-10.8) X10*3/uL RBC (4.60-5.80) X10*6/uL Hgb (14.0-18.0) g/dl Hct (42-52) % MCV (80-98) fL MCH (27.0-33.0) pg MCHC (31.0-36.0) g/dl RDW (11.0-16.0) % Plt Count (160-400) X10*3/uL MPV (9.4-12.4) fL Immature Gran % (Auto) (0.0-0.4) % Neut % (Auto) (45-73) % Lymph % (Auto) (20-40) % [place] % (Auto) (2-11) % Eos % (Auto) (0-4) % Baso % (Auto) (0-2) % Lymph # (Auto) (1.2-4.9) X10*3/uL [place] # (Auto) (0.1-1.2) X10*3/uL Eos # (Auto) (0.0-0.4) X10*3/uL Baso # (Auto) (0.0-0.2) X10*3/uL Abs Immat Gran (auto) (0.00-0.03) X10*3/uL Absolute Neuts (auto) (2.0-8.3) X10*3/uL Absolute Nucleated RBC (0.0-0.012) X10*3/uL Nucleated RBC % (auto) (0.0-0.2) /100WBC Sodium (135-145) mmol/L Potassium (3.3-5.1) mmol/L Chloride (96-108) mmol/L Carbon Dioxide (22-29) mmol/L Anion Gap (12-20) BUN (9-16) mg/dL Creatinine (0.5-1.4) mg/dL Estim Creat Clear Calc Estimated GFR Random Glucose (60-115) mg/dL Calcium (8.4-10.2) mg/dL Total Bilirubin (0.0-1.0) mg/dL Direct Bilirubin (0.0-0.5) mg/dL AST (5-37) U/L ALT (0-40) U/L Alkaline Phosphatase (39-117) U/L Troponin I High Sens 17.2 (<3.5-35.0) ng/L Total Protein (6.5-8.0) g/dL Albumin (3.5-5.0) g/dL Urine Color STRAW Urine Appearance CLEAR Urine pH 5.5 (5.0-8.0) Ur Specific [place] 1.010 (1.005-1.025) Urine Protein NEG (NEG-TRACE) MG/DL Urine Glucose (UA) 100 H (NEG) MG/DL Urine Ketones NEG (NEG) MG/DL Urine Blood TRACE (NEG) Urine Nitrite NEG (NEG) Ur Leukocyte Esterase NEG (NEG) Urine RBC 0-2 (0) /HPF Urine WBC 0 (0-4) /HPF Ur Squamous Epith Cells NONE /LPF Urine Bacteria NONE /LPF Discharge Plan Discharge Clinical Impression: CVA (cerebral vascular accident) Patient Disposition: Home, Self-Care Instructions: Ischemic Stroke (DC) Prescriptions: No Action isosorbide mononitrate 30 mg tablet extended release 24 hr 30 mg PO DAILY 90 Days Qty: 90 RF: 1 tamsulosin 0.4 mg capsule 0.4 mg PO DAILY Qty: 90 RF: 2 furosemide 40 mg tablet 40 mg PO DAILY RF: 0 insulin lispro [Admelog SoloStar U-100 Insulin] 100 unit/mL Insulin Pen 2 unit SUBCUT DAILY RF: 0 insulin lispro [Admelog SoloStar U-100 Insulin] 100 unit/mL insulin pen 6 unit subcut DAILY@1800 RF: 0 insulin lispro [Admelog SoloStar U-100 Insulin] 100 unit/mL insulin pen 4 unit subcut DAILY@1200 RF: 0 acetaminophen [Tylenol Extra Strength] 500 mg tablet 1,000 mg PO QID PRN (Reason: fever or pain) Qty: 14 RF: 0 lidocaine HCl [Aspercreme (lidocaine HCl)] 4 % cream 1 appl topical BID PRN (Reason: pain) Qty: 120 RF: 0 atorvastatin 20 mg tablet 20 mg PO DAILY RF: 0 metformin 1,000 mg tablet 1 tab PO BID RF: 0 cyclobenzaprine 5 mg tablet 5 mg PO TID PRN (Reason: muscle spasm) Qty: 8 RF: 0 aspirin 81 mg tablet,delayed release (DR/EC) 81 mg PO DAILY RF: 0 insulin glargine 100 unit/mL (3 mL) insulin pen 22 unit subcut BEDTIME RF: 0 omega-3 fatty acids-fish oil 340-1,000 mg capsule 1 cap PO TID RF: 0 (DME) lancets 28 gauge misc See Rx Instructions ea topical DIRECTED Qty: 100 RF: 0 clopidogrel 75 mg tablet 75 mg PO DAILY RF: 0 fenofibrate 54 mg tablet 54 mg PO DAILY RF: 0 metoprolol succinate 25 mg tablet extended release 24 hr 25 mg PO DAILY RF: 0 lisinopril 30 mg tablet 30 mg PO DAILY RF: 0 finasteride 5 mg tablet 5 mg PO DAILY 90 Days Qty: 90 RF: 1 Referrals: Physician,Unknown [Primary Care Provider] - 2 days
[2021-03-16 11:39] LABS: MANUAL DIFF FLAG NO
[2021-03-16 11:43] LABS: Basophils Absolute Auto 0.1 X10*3/uL (0.0-0.2); Basophils Percent Auto 0.6 % (0-2); Eosinophils Absolute Auto 0.1 X10*3/uL (0.0-0.4); Hematocrit 40.2 % (42-52); Hemoglobin 13.2 g/dl (14.0-18.0); Imm Gran Abs Auto 0.02 X10*3/uL (0.00-0.03); Imm Gran Pct Auto 0.3 % (0.0-0.4); Lymphocytes Absolute Auto 2.7 X10*3/uL (1.2-4.9); Lymphocytes Percent Auto 34.8 % (20-40); Mean Corpuscular HGB Conc 32.8 g/dl (31.0-36.0); Mean Corpuscular Hemoglobin 27.8 pg (27.0-33.0); Mean Corpuscular Volume 84.8 fL (80-98); Mean Platelet Volume 10.6 fL (9.4-12.4); Monocytes Absolute Auto 0.4 X10*3/uL (0.1-1.2); Monocytes Percent Auto 5.4 % (2-11); Neutrophils Absolute Auto 4.5 X10*3/uL (2.0-8.3); Neutrophils Percent Auto 57.9 % (45-73); Platelet Count 384 X10*3/uL (160-400); Red Blood Count 4.74 X10*6/uL (4.60-5.80); White Blood Count 7.7 X10*3/uL (4.8-10.8)
[2021-03-16 12:11] VITALS: BP 109/67; PULSE 107; RESP 17; O2SAT 96
[2021-03-16 12:12] LABS: Alanine Aminotransferase 15 U/L (0-40); Albumin Level 4.9 g/dL (3.5-5.0); Alkaline Phosphatase 45 U/L (39-117); Anion Gap 14 (12-20); Aspartate Amino Transferase 16 U/L (5-37); Bilirubin Direct 0.2 mg/dL (0.0-0.5); Bilirubin Total 0.4 mg/dL (0.0-1.0); Blood Urea Nitrogen 19 mg/dL (9-16); Calcium 10.2 mg/dL (8.4-10.2); Carbon Dioxide 21 mmol/L (22-29); Chloride 100 mmol/L (96-108); Creatinine Clr Calc Pharmacy 66.2; Estimated Glomerular Filt Rate > 60; Glucose Random 180 mg/dL (60-115); Potassium 4.2 mmol/L (3.3-5.1); Sodium 131 mmol/L (135-145)
[2021-03-16 12:16] LABS: Appearance Urine CLEAR; Color Urine STRAW; Glucose Urine UA 100 MG/DL (NEG); Leukocyte Esterase Urine NEG (NEG); Nitrite Urine NEG (NEG); PH 5.5 (5.0-8.0); Urine Blood TRACE (NEG); Urine Ketones NEG (NEG); Urine Protein NEG (NEG-TRACE)
[2021-03-16 12:23] LABS: RBC Urine 0-2 /HPF (0); WBC Urine 0 /HPF (0-4)
[2021-03-16 12:41] LABS: Troponin-I High Sensitivity 17.2 ng/L (<3.5-35.0)
[2021-03-16 13:17] VITALS: BP 96/42; PULSE 110; RESP 18; O2SAT 99
[2021-03-16 13:21] LABS: Glucose, Whole Blood 187 mg/dL (60-115)
== END 2021-03-16 13:33 | disposition home or self-care (01) ==
PROVIDERS: Emergency Provider Emergency Medicine Emergency Medical Services
DX: I69.351 Hemiplegia and hemiparesis following cerebral infarction affecting right dominant side (principal); I25.2 Old myocardial infarction; R29.706 NIHSS score 6; R00.0 Tachycardia, unspecified; I44.0 Atrioventricular block, first degree; E11.9 Type 2 diabetes mellitus without complications; I10 Essential (primary) hypertension; E78.00 Pure hypercholesterolemia, unspecified; I48.0 Paroxysmal atrial fibrillation; I25.10 Atherosclerotic heart disease of native coronary artery without angina pectoris; I25.5 Ischemic cardiomyopathy; Z95.1 Presence of aortocoronary bypass graft; Z79.4 Long term (current) use of insulin; Z79.82 Long term (current) use of aspirin; Z79.02 Long term (current) use of antithrombotics/antiplatelets; Z87.891 Personal history of nicotine dependence
CPT/HCPCS: 36415; 70450; 80048; 80076; 81001; 82947; 84484; 85025; 93005; 99284

== ENCOUNTER 2021-03-18 16:43 | Emergency (ER) | payer OTHER, SELFPAY ==
--- NOTE | ~2021-03-18 | XR_ITS ---
EXAMINATION: XR CHEST CLINICAL INFORMATION: Chest pain COMPARISON: 03/14/2021 TECHNIQUE: Frontal view of the chest was obtained. FINDINGS: Again seen are changes of median sternotomy. No other significant abnormality is noted involving the heart, lungs, mediastinum, bony thorax or soft tissues. XR/XR chest 1V IMPRESSION: No acute intrathoracic disease
[2021-03-18 16:50] VITALS: BP 107/55; PULSE 104; RESP 18; TEMP 36.8; O2SAT 98; BMI 28.6
--- NOTE | 2021-03-18 16:51 | ECG_ITS ---
Test Reason : CHEST PAIN Blood Pressure : / mmHG Vent. Rate : 103 BPM Atrial Rate : 103 BPM P-R Int : 186 ms QRS Dur : 118 ms QT Int : 352 ms P-R-T Axes : 055 -19 166 degrees QTc Int : 461 ms Sinus tachycardia Left ventricular hypertrophy with QRS widening and repolarization abnormality Abnormal ECG When compared with ECG of 16-MAR-2021 12:14, No significant change was found Referred By: Margarita Melgoza Electronically Signed By:DEE LOVE MD
--- NOTE | 2021-03-18 16:53 | ED.CHESTPAIN ---
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, PAF on aspirin and plavix comes in with c/o pleuritic chest pain and anxiety - had cath on 12/30 medical management, had CTA negative for PE on 03/11 - he has had this chest pain x 3 months with negative workup states he always has it but symptoms became worse at 11am - ASA with EMS, takes nitro without relief at home, feels he has anxiety and it is not controlled at this time MD complaint: chest pain Pertinent past history: coronary artery disease, prior MN and CABG Onset (ago): month(s) (3) Timing of current episode: constant Prior episodes: Yes Onset: during rest Pain location: substernal, left chest and right chest Pain radiation: right arm and left arm Severity: moderate Quality: sharp Relieving factors: nothing Exacerbating factors: inspiration, palpation, movement and stress Associated symptoms: dyspnea Treatment prior to arrival: aspirin and nitroglycerin Related Data Home Medications Medication Instructions Recorded Confirmed clopidogrel 75 mg tablet 75 mg PO DAILY 08/02/20 03/14/21 fenofibrate 54 mg tablet 54 mg PO DAILY 08/02/20 03/14/21 insulin glargine 100 unit/mL (3 22 unit SUBCUT BEDTIME 08/02/20 03/14/21 mL) subcutaneous pen lancets 28 gauge #100 ea 08/02/20 01/05/21 lisinopril 30 mg tablet 30 mg PO DAILY 08/02/20 03/14/21 metoprolol succinate 25 mg 25 mg PO DAILY 08/02/20 03/14/21 tablet,extended release 24 hr omega-3 fatty acids-fish oil 340 1 cap PO TID 08/02/20 03/14/21 mg-1,000 mg capsule aspirin 81 mg tablet,delayed 81 mg PO DAILY 08/10/20 03/14/21 release furosemide 40 mg PO DAILY 12/28/20 03/14/21 insulin lispro [Admelog SoloStar 2 unit SUBCUT DAILY 12/28/20 03/14/21 U-100 Insulin] insulin lispro [Admelog SoloStar 4 unit SUBCUT DAILY@1200 12/28/20 03/14/21 U-100 Insulin] insulin lispro [Admelog SoloStar 6 unit SUBCUT DAILY@1800 12/28/20 03/14/21 U-100 Insulin] atorvastatin 20 mg PO DAILY 03/14/21 03/14/21 metformin 1 tab PO BID 03/14/21 03/14/21 Previous Rx's Medication Instructions Recorded isosorbide mononitrate 30 mg 30 mg PO DAILY 90 Days #90 tab 07/14/20 tablet,extended release 24 hr finasteride 5 mg tablet 5 mg PO DAILY 90 Days #90 tab 08/02/20 tamsulosin 0.4 mg capsule 0.4 mg PO DAILY #90 cap 09/07/20 acetaminophen [Tylenol Extra 1,000 mg PO QID PRN #14 tab 02/18/21 Strength] lidocaine HCl [Aspercreme 1 appl TOPICAL BID PRN #120 g 02/18/21 (lidocaine HCl)] cyclobenzaprine 5 mg PO TID PRN #8 tab 03/14/21 lorazepam [Ativan] 0.5 mg PO DAILY PRN #10 tab 03/18/21 Allergies Allergy/AdvReac Type Severity Reaction Status Date / Time No Known Allergies Allergy Verified 03/11/21 12:27 [No Known Allergies*] Review of Systems Review of Systems: Constitutional : No Weight loss, No Fever, No Chills ENT/Mouth : No sore throat, No Rhinorrhea Eyes: No Eye Pain, No Swelling Cardiovascular : pos Chest Pain, pos SOB, no Dyspnea on Exertion, No Orthopnea, No Edema, No Palpitations Respiratory : No Cough, No Sputum Gastrointestinal : no Nausea, No Vomiting, No Diarrhea, No abdominal Pain, No Hematochezia, No Melena Genitourinary : No Dysuria, No Urinary Frequency Musculoskeletal : No joint pain, No Myalgias, No Joint Swelling Skin : No Skin Lesions, No rash Neuro : No Weakness, No Numbness, No Dizziness, No Headache Psych : pos Anxiety/Panic, No Depression Heme/Lymph: No Bruising, No Lymphadenopathy Endocrine : No Polyuria, No Polydipsia All other systems reviewed and are negative PMFSH Past Medical History Attestation statement: The following information was validated with the patient. Medical History Atherosclerotic cardiovascular disease CVA (cerebral vascular accident) Diabetes mellitus, type 2 Hypercholesteremia Hypertension Ischemic cardiomyopathy Myocardial infarction PAF (paroxysmal atrial fibrillation) Surgical History H/O coronary artery bypass surgery (~04/27/20) Family History Family History Father No problems noted. Mother No problems noted. Social History Social History Household Members: None Housing: Apartment Do you presently have visiting nurse or other home services: Yes ([employer] daily) Alcohol intake: never Patient Tobacco Use Status: Former Tobacco user Use of substances other than those prescribed or required for medical reasons: No Advance Directives: Yes Advance Directives on File: Yes Advance Directives Date on File: 03/14/21 service: No Current occupational status: unemployed Physical Exam Vital Signs: Vital Signs: Last Vital Signs Temp 98.3 F 03/18/21 16:50 Pulse 92 03/18/21 19:58 Resp 16 03/18/21 19:58 BP 95/39 L 03/18/21 19:58 Pulse Ox 99 03/18/21 19:58 Body Mass Index 28.6 Appearance: Alert. Oriented X3. Anxious mild acute distress. Eyes: Pupils equal, round and reactive to light. ENT: Pharynx normal. Neck: Normal inspection. Neck supple. CVS: tachcyardic heart rate and rhythm. Pulses normal. Chest: ttp along entire chest that reproduces pain Respiratory: No respiratory distress. Breath sounds normal. Abdomen: Soft and nontender. Skin: Skin warm and dry. Normal skin color. Normal skin turgor. Extremities: No lower extremity edema. No calf ttp Neuro: Oriented X 3. Residual chronic R sided weakness No sensory deficit. 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 Seems atypical for ACS and pain x 3 months on and off with negative PE workup and has been tachycardic on those visits as well, negative dissection workup 7 days ago. Lab Data Result diagrams: 03/18/21 17:24 03/18/21 17:24 Labs: Lab Results 03/18/21 03/18/21 03/18/21 Range/Units 17:24 17:24 17:24 WBC 11.0 H (4.8-10.8) X10*3/uL RBC 4.78 (4.60-5.80) X10*6/uL Hgb 13.5 L (14.0-18.0) g/dl Hct 40.8 L (42-52) % MCV 85.4 (80-98) fL MCH 28.2 (27.0-33.0) pg MCHC 33.1 (31.0-36.0) g/dl RDW 13.2 (11.0-16.0) % Plt Count 392 (160-400) X10*3/uL MPV 10.5 (9.4-12.4) fL Immature Gran % (Auto) 0.5 H (0.0-0.4) % Neut % (Auto) 58.7 (45-73) % Lymph % (Auto) 33.5 (20-40) % [place] % (Auto) 5.4 (2-11) % Eos % (Auto) 1.4 (0-4) % Baso % (Auto) 0.5 (0-2) % Lymph # (Auto) 3.7 (1.2-4.9) X10*3/uL [place] # (Auto) 0.6 (0.1-1.2) X10*3/uL Eos # (Auto) 0.2 (0.0-0.4) X10*3/uL Baso # (Auto) 0.1 (0.0-0.2) X10*3/uL Abs Immat Gran (auto) 0.05 H (0.00-0.03) X10*3/uL Absolute Neuts (auto) 6.5 (2.0-8.3) X10*3/uL Absolute Nucleated RBC 0.000 (0.0-0.012) X10*3/uL Nucleated RBC % (auto) 0.0 (0.0-0.2) /100WBC Sodium 134 L (135-145) mmol/L Potassium 4.6 (3.3-5.1) mmol/L Chloride 100 (96-108) mmol/L Carbon Dioxide 22 (22-29) mmol/L Anion Gap 17 (12-20) BUN 24 H (9-16) mg/dL Creatinine 1.31 (0.5-1.4) mg/dL Estim Creat Clear Calc 59.9 Estimated GFR 56 Random Glucose 112 D (60-115) mg/dL Calcium 10.6 H (8.4-10.2) mg/dL Magnesium 1.4 L* (1.6-2.6) mg/dL Troponin I High Sens 25.3 (<3.5-35.0) ng/L Lipase 42 (8-78) U/L 03/18/21 03/18/21 Range/Units 18:17 19:26 WBC (4.8-10.8) X10*3/uL RBC (4.60-5.80) X10*6/uL Hgb (14.0-18.0) g/dl Hct (42-52) % MCV (80-98) fL MCH (27.0-33.0) pg MCHC (31.0-36.0) g/dl RDW (11.0-16.0) % Plt Count (160-400) X10*3/uL MPV (9.4-12.4) fL Immature Gran % (Auto) (0.0-0.4) % Neut % (Auto) (45-73) % Lymph % (Auto) (20-40) % [place] % (Auto) (2-11) % Eos % (Auto) (0-4) % Baso % (Auto) (0-2) % Lymph # (Auto) (1.2-4.9) X10*3/uL [place] # (Auto) (0.1-1.2) X10*3/uL Eos # (Auto) (0.0-0.4) X10*3/uL Baso # (Auto) (0.0-0.2) X10*3/uL Abs Immat Gran (auto) (0.00-0.03) X10*3/uL Absolute Neuts (auto) (2.0-8.3) X10*3/uL Absolute Nucleated RBC (0.0-0.012) X10*3/uL Nucleated RBC % (auto) (0.0-0.2) /100WBC Sodium (135-145) mmol/L Potassium (3.3-5.1) mmol/L Chloride (96-108) mmol/L Carbon Dioxide (22-29) mmol/L Anion Gap (12-20) BUN (9-16) mg/dL Creatinine (0.5-1.4) mg/dL Estim Creat Clear Calc Estimated GFR Random Glucose (60-115) mg/dL Calcium (8.4-10.2) mg/dL Magnesium (1.6-2.6) mg/dL Troponin I High Sens 26.1 28.1 (<3.5-35.0) ng/L Lipase (8-78) U/L ECG Data ECG #1: Attestation: I personally reviewed and interpreted this ECG as follows: ECG interpretation date: 03/18/21 Interpretation: Rate: 103 Rhythm: sinus tachycardia with 1st degree AVB [place]: left Normal P waves. Normal TRISTEN. wide QRS complex ST T wave : inverted 1 and aVL, ST depressions II V5-V6 qTC: normal prior studies: no acute ischemia no changes from prior The study has been interpreted contemporaneously by me. . Discharge Plan Discharge Clinical Impression: Atypical chest pain, Hypomagnesemia Patient Disposition: Home, Self-Care Instructions: Chest Pain (ED), Hypomagnesemia (ED) Additional Instructions: return to ED for any worsening symptoms or concerns Prescriptions: New lorazepam [Ativan] 0.5 mg tablet 0.5 mg PO DAILY PRN (Reason: anxiety) Qty: 10 RF: 0 No Action isosorbide mononitrate 30 mg tablet extended release 24 hr 30 mg PO DAILY 90 Days Qty: 90 RF: 1 tamsulosin 0.4 mg capsule 0.4 mg PO DAILY Qty: 90 RF: 2 furosemide 40 mg tablet 40 mg PO DAILY RF: 0 insulin lispro [Admelog SoloStar U-100 Insulin] 100 unit/mL Insulin Pen 2 unit SUBCUT DAILY RF: 0 insulin lispro [Admelog SoloStar U-100 Insulin] 100 unit/mL insulin pen 6 unit subcut DAILY@1800 RF: 0 insulin lispro [Admelog SoloStar U-100 Insulin] 100 unit/mL insulin pen 4 unit subcut DAILY@1200 RF: 0 acetaminophen [Tylenol Extra Strength] 500 mg tablet 1,000 mg PO QID PRN (Reason: fever or pain) Qty: 14 RF: 0 lidocaine HCl [Aspercreme (lidocaine HCl)] 4 % cream 1 appl topical BID PRN (Reason: pain) Qty: 120 RF: 0 atorvastatin 20 mg tablet 20 mg PO DAILY RF: 0 metformin 1,000 mg tablet 1 tab PO BID RF: 0 cyclobenzaprine 5 mg tablet 5 mg PO TID PRN (Reason: muscle spasm) Qty: 8 RF: 0 aspirin 81 mg tablet,delayed release (DR/EC) 81 mg PO DAILY RF: 0 insulin glargine 100 unit/mL (3 mL) insulin pen 22 unit subcut BEDTIME RF: 0 omega-3 fatty acids-fish oil 340-1,000 mg capsule 1 cap PO TID RF: 0 (DME) lancets 28 gauge misc See Rx Instructions ea topical DIRECTED Qty: 100 RF: 0 clopidogrel 75 mg tablet 75 mg PO DAILY RF: 0 fenofibrate 54 mg tablet 54 mg PO DAILY RF: 0 metoprolol succinate 25 mg tablet extended release 24 hr 25 mg PO DAILY RF: 0 lisinopril 30 mg tablet 30 mg PO DAILY RF: 0 finasteride 5 mg tablet 5 mg PO DAILY 90 Days Qty: 90 RF: 1 Referrals: Physician,Unknown [Primary Care Provider] - 2 days Print Language: English
[2021-03-18 17:30] LABS: Basophils Absolute Auto 0.1 X10*3/uL (0.0-0.2); Basophils Percent Auto 0.5 % (0-2); Eosinophils Absolute Auto 0.2 X10*3/uL (0.0-0.4); Eosinophils Percent Auto 1.4 % (0-4); Hematocrit 40.8 % (42-52); Hemoglobin 13.5 g/dl (14.0-18.0); Imm Gran Abs Auto 0.05 X10*3/uL (0.00-0.03); Imm Gran Pct Auto 0.5 % (0.0-0.4); Lymphocytes Absolute Auto 3.7 X10*3/uL (1.2-4.9); Lymphocytes Percent Auto 33.5 % (20-40); MANUAL DIFF FLAG NO; Mean Corpuscular HGB Conc 33.1 g/dl (31.0-36.0); Mean Corpuscular Hemoglobin 28.2 pg (27.0-33.0); Mean Corpuscular Volume 85.4 fL (80-98); Mean Platelet Volume 10.5 fL (9.4-12.4); Monocytes Absolute Auto 0.6 X10*3/uL (0.1-1.2); Monocytes Percent Auto 5.4 % (2-11); Neutrophils Absolute Auto 6.5 X10*3/uL (2.0-8.3); Neutrophils Percent Auto 58.7 % (45-73); Platelet Count 392 X10*3/uL (160-400); Red Blood Count 4.78 X10*6/uL (4.60-5.80); Red Cell Distribution Width 13.2 % (11.0-16.0)
[2021-03-18 18:07] LABS: Anion Gap 17 (12-20); Blood Urea Nitrogen 24 mg/dL (9-16); Calcium 10.6 mg/dL (8.4-10.2); Carbon Dioxide 22 mmol/L (22-29); Chloride 100 mmol/L (96-108); Creatinine Clr Calc Pharmacy 59.9; Estimated Glomerular Filt Rate 56; Glucose Random 112 mg/dL (60-115); Lipase 42 U/L (8-78); Magnesium 1.4 mg/dL (1.6-2.6); Potassium 4.6 mmol/L (3.3-5.1); Sodium 134 mmol/L (135-145)
[2021-03-18 18:10] LABS: Troponin-I High Sensitivity 25.3 ng/L (<3.5-35.0)
[2021-03-18] MEDS: Magnesium Sulfate/H2O 2 GM/50 ML PIGGYBACK IV (18:28)
[2021-03-18 18:34] VITALS: PULSE 94
[2021-03-18 19:03] LABS: Troponin-I High Sensitivity 26.1 ng/L (<3.5-35.0)
[2021-03-18 19:58] VITALS: BP 95/39; PULSE 92; RESP 16; O2SAT 99
[2021-03-18 20:13] LABS: Troponin-I High Sensitivity 28.1 ng/L (<3.5-35.0)
[2021-03-18 20:43] VITALS: BP 112/60
[2021-03-18 20:49] VITALS: BP 112/60; PULSE 94; RESP 16; O2SAT 99
== END 2021-03-18 21:35 | disposition home or self-care (01) ==
PROVIDERS: Emergency Provider Emergency Medicine
DX: R07.89 Other chest pain (principal); E83.42 Hypomagnesemia; E11.9 Type 2 diabetes mellitus without complications; I10 Essential (primary) hypertension; E78.5 Hyperlipidemia, unspecified; I48.0 Paroxysmal atrial fibrillation; Z86.73 Personal history of transient ischemic attack (TIA), and cerebral infarction without residual deficits; Z95.1 Presence of aortocoronary bypass graft; Z79.01 Long term (current) use of anticoagulants; Z79.82 Long term (current) use of aspirin; Z79.4 Long term (current) use of insulin; Z79.899 Other long term (current) drug therapy
CPT/HCPCS: 36415; 71045; 80048; 83690; 83735; 84484; 85025; 93005; 96365; 96366; 99285; J3475

== ENCOUNTER → 2021-03-27 10:09 | Outpatient (REF) | payer OTHER, SELFPAY ==
--- NOTE | 2021-03-27 10:35 | CA_ITS ---
Transthoracic Echocardiogram Patient (Last, First, Middle): Cam Vera, Gender: Male Date of : 1965 Age: 55 Procedure Date: 03/27/2021 Procedure Type: Transthoracic Echocardiogram Location: OP Height: 165.1 cm Weight: 79.38 kg BSA: 1.87 m2 Heart Rate: bpm BP: 110 / 50 mmHg [facility] Coordinator: ANITA Calvillo MD: [place] MD Symptoms: I25.5 - Ischemic cardiomyopathy Study Quality: Fair ECG Rhythm: Sinus Conclusions: - The left ventricular systolic function is moderately decreased. The calculated ejection fraction is 34% by biplane method. There is evidence of regional wall motion abnormalities. Findings Procedure Information The patient receives contrast. Left Ventricle Normal left ventricular cavity size. The left ventricular systolic function is moderately decreased. The calculated ejection fraction is 34% by biplane method. There is evidence of regional wall motion abnormalities. Wall Motion Rest Echo Findings The basal inferior, mid inferior, apical septum, mid inferoseptal, mid anteroseptal, and mid inferolateral segments are akinetic. Prior Study Comparison No significant change compared to prior study dated: 12/28/2020. Measurements 2D Linear Measurements LVIDd: 5.69 3.9-5.3/4.2-5.9 cm LVIDd Index: 3.04 2.4-3.2/2.2-3.1 cm/m2 LVIDs: 5.43 2.0-3.6 cm LVPWd: 0.75 0.7-1.1 cm 2D Systolic Function EF 4C: 21.60 >55% EF 2C: 42.10 >55% EF BiP: 33.60 >55% Mitral Valve MV Pk E: 0.78 MV PK A: 1.13 MV Decel Time: 139.00 E/A: 0.70 E'Lateral: 12.60 E'Medial: 5.11 E/E' Med: 15.30 E/E' Lat: 6.20 Diastolic Function MV Pk E: 0.78 MV Pk A: 1.13 E/A: 0.70 E'Medial: 5.11 E/E' Med: 15.30 E' Laterial: 12.60 E/E' Lat: 6.20 Updated in Other Vendor System with Status of Final [place] MD electronically signed on 03/28/2021 12:33:44 PM with status of Final
== END ==
LOC: HO.CARD 10:09
PROVIDERS: PCP Internal Medicine; Visit Provider Internal Medicine
DX: I25.5 Ischemic cardiomyopathy (principal)
CPT/HCPCS: 93308; Q9957

== ENCOUNTER 2021-04-01 10:24 | Emergency (ER) | payer OTHER, SELFPAY ==
--- NOTE | 2021-04-01 | ECG_ITS ---
Test Reason : CP Blood Pressure : / mmHG Vent. Rate : 100 BPM Atrial Rate : 100 BPM P-R Int : 194 ms QRS Dur : 096 ms QT Int : 338 ms P-R-T Axes : 048 -58 076 degrees QTc Int : 436 ms Normal sinus rhythm Left axis deviation Left ventricular hypertrophy with repolarization abnormality Possible Lateral infarct , age undetermined Inferior-posterior infarct , age undetermined Abnormal ECG When compared with ECG of 18-MAR-2021 16:57, criteria for inferior and lateral infarct present. Referred By: Generic ED Physician Electronically Signed By:Juancarlos Rojo
[2021-04-01 10:32] VITALS: BP 141/74; PULSE 106; RESP 18; TEMP 36.3; O2SAT 99; BMI 29.1
--- NOTE | 2021-04-01 11:05 | ED_ITS ---
HPI - General Adult General Chief complaint: General Medical Stated complaint: Dental Pain; Chest Pain Time Seen by Provider: 04/01/21 10:52 Source: patient Mode of arrival: ambulatory Limitations: no limitations History of Present Illness HPI narrative: 55-year-old male who presents emergency department for evaluation of chest pain. The patient states that he has been having intermittent chest pain for the past 3 months. He points to his left anterior chest when asked to localize the pain. The pain is a sharp pain which she states is 8 out 10 at its worst. The pain is associated with nausea but no vomiting. He denies lightheadedness, dizziness, radiation of the pain to his neck, jaw, arms, nausea or diaphoresis associated with the chest pain. The patient states he has been in the emergency department multiple times over the past several months and they have not been able to determine the cause was pain. In reviewing the patient's ER visit, was last seen on 03/18/2021 with a negative workup. The patient was seen on 03/11/2021 with a negative CTA pulmonary angiogram. Related Data Home Medications Medication Instructions Recorded Confirmed clopidogrel 75 mg tablet 75 mg PO DAILY 08/02/20 03/14/21 fenofibrate 54 mg tablet 54 mg PO DAILY 08/02/20 03/14/21 insulin glargine 100 unit/mL (3 22 unit SUBCUT BEDTIME 08/02/20 03/14/21 mL) subcutaneous pen lancets 28 gauge #100 ea 08/02/20 01/05/21 lisinopril 30 mg tablet 30 mg PO DAILY 08/02/20 03/14/21 metoprolol succinate 25 mg 25 mg PO DAILY 08/02/20 03/14/21 tablet,extended release 24 hr omega-3 fatty acids-fish oil 340 1 cap PO TID 08/02/20 03/14/21 mg-1,000 mg capsule aspirin 81 mg tablet,delayed 81 mg PO DAILY 08/10/20 03/14/21 release furosemide 40 mg tablet 40 mg PO DAILY 12/28/20 03/14/21 insulin lispro 100 unit/mL 2 unit SUBCUT DAILY 12/28/20 03/14/21 subcutaneous pen (Admelog SoloStar U-100 Insulin lispro) insulin lispro 100 unit/mL 4 unit SUBCUT DAILY@1200 12/28/20 03/14/21 subcutaneous pen (Admelog SoloStar U-100 Insulin lispro) insulin lispro 100 unit/mL 6 unit SUBCUT DAILY@1800 12/28/20 03/14/21 subcutaneous pen (Admelog SoloStar U-100 Insulin lispro) atorvastatin 20 mg tablet 20 mg PO DAILY 03/14/21 03/14/21 metformin 1,000 mg tablet 1 tab PO BID 03/14/21 03/14/21 Previous Rx's Medication Instructions Recorded isosorbide mononitrate 30 mg 30 mg PO DAILY 90 Days #90 tab 07/14/20 tablet,extended release 24 hr finasteride 5 mg tablet 5 mg PO DAILY 90 Days #90 tab 08/02/20 tamsulosin 0.4 mg capsule 0.4 mg PO DAILY #90 cap 09/07/20 acetaminophen 500 mg tablet 1,000 mg PO QID PRN #14 tab 02/18/21 (Tylenol Extra Strength) lidocaine HCl 4 % topical cream 1 appl TOPICAL BID PRN #120 g 02/18/21 (Aspercreme (lidocaine HCl)) cyclobenzaprine 5 mg tablet 5 mg PO TID PRN #8 tab 03/14/21 lorazepam 0.5 mg tablet (Ativan) 0.5 mg PO DAILY PRN #10 tab 03/18/21 penicillin V potassium 500 mg 500 mg PO QID 7 Days #28 tab 04/01/21 tablet Allergies Allergy/AdvReac Type Severity Reaction Status Date / Time No Known Allergies Allergy Verified 03/11/21 12:27 [No Known Allergies*] Review of Systems Review of Systems: Yes all other systems are reviewed and are negative Neurologic: Reports Abnormal speech present [facility] Past Medical History [facility] Narrative: Social history: The patient denies tobacco, alcohol and drug use. Medical History Atherosclerotic cardiovascular disease CVA (cerebral vascular accident) Diabetes mellitus, type 2 Hypercholesteremia Hypertension Ischemic cardiomyopathy Myocardial infarction PAF (paroxysmal atrial fibrillation) Surgical History H/O coronary artery bypass surgery (~04/27/20) Family History Family History Father No problems noted. Mother No problems noted. Social History Social History Household Members: None Housing: Apartment Do you presently have visiting nurse or other home services: Yes ([employer] daily) Alcohol intake: never Patient Tobacco Use Status: Former Tobacco user Advance Directives: Yes Advance Directives on File: Yes Advance Directives Date on File: 03/14/21 service: No Current occupational status: unemployed Physical Exam Vital Signs: Vital Signs: Last Vital Signs Temp 97.3 F 04/01/21 10:32 Pulse 106 H 04/01/21 10:32 Resp 18 04/01/21 10:32 BP 141/74 H 04/01/21 10:32 Pulse Ox 99 04/01/21 10:32 Body Mass Index 29.1 Const: General: cooperative and healthy appearing Orientation/consciousness: oriented to person and oriented to place Limitations: no limitations HENMT: Head: Yes normal to inspection, Yes normocephalic and Yes atraumatic Ears: external ears normal General nose exam: Normal external nose present Face and sinus: Yes normal facial exam Mouth: Normal oral and palatal mucosa present Throat: Yes posterior oropharynx normal Eyes: Periorbital: periorbital findings normal Eyelids: Yes eyelids normal Conjunctivae: conjunctivae normal Sclerae: sclerae normal Corneas: corneas normal Pupils: Equal, round and reactive pupils present Direct Ophthalmoscopy: normal light reflex Neck: Neck: Yes full ROM, Yes no lymphadenopathy, Yes no meningeal signs, Yes trachea midline and Yes supple Chest: Chest palpation & inspection: normal inspection of the chest and tenderness (Left pectoralis muscle) Resp: Effort & Inspection: normal respiratory effort and able to speak in complete sentences Auscultation: clear to auscultation bilaterally Cardio: Rate: regular rate Rhythm: regular rhythm Heart sounds: S1 normal heart sound present, S2 normal heart sound present and no murmurs GI: Inspection: Yes normal to inspection Palpation (GI): Soft to palpation, nontender, no guarding, not rigid and No hepatosplenomegaly present : General: Yes no CVA tenderness Back/Spine/Pelvis: Back: no CVA tenderness Cervical Spine: normal cervical lordosis Thoracic/Lumbar Spine: thoracic and lumbar spine normal to inspection Skin: Lesions: no lesions Rashes: no rashes Wounds: no wounds Neuro: General: oriented to person, oriented to place and no meningeal signs Cranial nerves: Yes Equal, round and reactive pupils present Cognition (Neuro): normal cognition Speech: Abnormal speech present Motor exam (neuro): 5/5 motor strength present throughout Extrem: General: Yes normal to inspection and Yes full ROM Psych: Appearance: well kempt Mental Status: mental status grossly normal Speech and movement: Normal speech and movement present Affect: normal affect Attitude: cooperative Thought process: Normal thought process present Thought content: Normal thought content present Course Course Course Narrative: 55-year-old male who presents emergency department for evaluation of left-sided chest pain x3 months. This is the patient's 3rd ED visit in 1 month for similar pain with negative workups on the previous visits. Patient's physical examination did reveal left-sided chest wall tenderness. Given his history, I will do a cardiac workup on him to include EKG and laboratory evaluation. Patient was given Tylenol for his pain. 1408: The patient's laboratory evaluation did reveal a detectable but not elevated troponin of 19.5. The patient has had similar elevations in the past. Patient's 12 EKG was unremarkable. The patient did have significant left-sided chest tenderness aspect that his pain is caused by musculoskeletal pain. Was advised to take Tylenol for the pain. The patient is complaining of gum pain, he may have gingivitis therefore he will be started on penicillin 500 mg 4 times a day for 7 days. The patient was given verbal and printed instructions prior to discharge. The patient was advised to follow-up with his PCP in 2 days and to return to the emergency department if his symptoms get worse or if he develops any new symptoms that are concerning to him. Medical Decision Making Lab Data Result diagrams: 04/01/21 11:37 04/01/21 11:37 Labs: Lab Results 04/01/21 04/01/21 04/01/21 Range/Units 11:37 11:37 11:37 WBC 7.2 (4.8-10.8) X10*3/uL RBC 4.60 (4.60-5.80) X10*6/uL Hgb 13.3 L (14.0-18.0) g/dl Hct 39.7 L (42-52) % MCV 86.3 (80-98) fL MCH 28.9 (27.0-33.0) pg MCHC 33.5 (31.0-36.0) g/dl RDW 13.1 (11.0-16.0) % Plt Count 350 (160-400) X10*3/uL MPV 10.7 (9.4-12.4) fL Immature Gran % (Auto) 0.4 (0.0-0.4) % Neut % (Auto) 67.1 (45-73) % Lymph % (Auto) 26.7 (20-40) % [place] % (Auto) 4.6 (2-11) % Eos % (Auto) 0.6 (0-4) % Baso % (Auto) 0.6 (0-2) % Lymph # (Auto) 1.9 (1.2-4.9) X10*3/uL [place] # (Auto) 0.3 (0.1-1.2) X10*3/uL Eos # (Auto) 0.0 (0.0-0.4) X10*3/uL Baso # (Auto) 0.0 (0.0-0.2) X10*3/uL Abs Immat Gran (auto) 0.03 (0.00-0.03) X10*3/uL Absolute Neuts (auto) 4.8 (2.0-8.3) X10*3/uL Absolute Nucleated RBC 0.000 (0.0-0.012) X10*3/uL Nucleated RBC % (auto) 0.0 (0.0-0.2) /100WBC Sodium 133 L (135-145) mmol/L Potassium 4.6 (3.3-5.1) mmol/L Chloride 100 (96-108) mmol/L Carbon Dioxide 22 (22-29) mmol/L Anion Gap 16 (12-20) BUN 16 (9-16) mg/dL Creatinine 1.13 (0.5-1.4) mg/dL Estim Creat Clear Calc 70.0 Estimated GFR > 60 Random Glucose 182 H D (60-115) mg/dL Calcium 10.3 H (8.4-10.2) mg/dL Total Bilirubin 0.7 (0.0-1.0) mg/dL AST 16 (5-37) U/L ALT 17 (0-40) U/L Alkaline Phosphatase 42 (39-117) U/L Troponin I High Sens 19.5 (<3.5-35.0) ng/L Total Protein 7.7 (6.5-8.0) g/dL Albumin 4.7 (3.5-5.0) g/dL ECG Data Interpretation: 1040: Sinus tachycardia with a rate of 100, normal WA interval 194 milliseconds, normal QRS and QTC interval. Q-waves in 2, [address] segment elevation, no ST segment depression. No PACs, no PVCs. Discharge Plan Discharge Clinical Impression: Acute chest wall pain, Acute gingivitis Patient Disposition: Home, Self-Care Instructions: Gingivitis (ED), Costochondritis (ED) Additional Instructions: Your blood work was normal. Your chest pain is most likely caused by inflammation of the muscles and joints of your chest. Take Tylenol (acetaminophen) 500 mg pills, 2 pills every 4 to 6 hours as needed for pain. You may have an infection of your gums (gingivitis) that is causing your mouth pain. Take penicillin 500 mg pills, 1 pill 4 times a day for 7 days. Follow-up with your doctor in 2 days. Please return to the emergency department if your symptoms get worse or if you develop any symptoms that are concerning to you. Prescriptions: New penicillin V potassium 500 mg tablet 500 mg PO QID 7 Days Qty: 28 RF: 0 No Action isosorbide mononitrate 30 mg tablet extended release 24 hr 30 mg PO DAILY 90 Days Qty: 90 RF: 1 tamsulosin 0.4 mg capsule 0.4 mg PO DAILY Qty: 90 RF: 2 furosemide 40 mg tablet 40 mg PO DAILY RF: 0 insulin lispro [Admelog SoloStar U-100 Insulin] 100 unit/mL Insulin Pen 2 unit SUBCUT DAILY RF: 0 insulin lispro [Admelog SoloStar U-100 Insulin] 100 unit/mL insulin pen 6 unit subcut DAILY@1800 RF: 0 insulin lispro [Admelog SoloStar U-100 Insulin] 100 unit/mL insulin pen 4 unit subcut DAILY@1200 RF: 0 acetaminophen [Tylenol Extra Strength] 500 mg tablet 1,000 mg PO QID PRN (Reason: fever or pain) Qty: 14 RF: 0 lidocaine HCl [Aspercreme (lidocaine HCl)] 4 % cream 1 appl topical BID PRN (Reason: pain) Qty: 120 RF: 0 atorvastatin 20 mg tablet 20 mg PO DAILY RF: 0 metformin 1,000 mg tablet 1 tab PO BID RF: 0 cyclobenzaprine 5 mg tablet 5 mg PO TID PRN (Reason: muscle spasm) Qty: 8 RF: 0 lorazepam [Ativan] 0.5 mg tablet 0.5 mg PO DAILY PRN (Reason: anxiety) Qty: 10 RF: 0 aspirin 81 mg tablet,delayed release (DR/EC) 81 mg PO DAILY RF: 0 insulin glargine 100 unit/mL (3 mL) insulin pen 22 unit subcut BEDTIME RF: 0 omega-3 fatty acids-fish oil 340-1,000 mg capsule 1 cap PO TID RF: 0 (DME) lancets 28 gauge misc See Rx Instructions ea topical DIRECTED Qty: 100 RF: 0 clopidogrel 75 mg tablet 75 mg PO DAILY RF: 0 fenofibrate 54 mg tablet 54 mg PO DAILY RF: 0 metoprolol succinate 25 mg tablet extended release 24 hr 25 mg PO DAILY RF: 0 lisinopril 30 mg tablet 30 mg PO DAILY RF: 0 finasteride 5 mg tablet 5 mg PO DAILY 90 Days Qty: 90 RF: 1
[2021-04-01] MEDS: Acetaminophen 325 MG TABLET 975 MG PO (11:31)
[2021-04-01 11:44] LABS: MANUAL DIFF FLAG NO
[2021-04-01 11:47] LABS: Basophils Percent Auto 0.6 % (0-2); Eosinophils Percent Auto 0.6 % (0-4); Hematocrit 39.7 % (42-52); Hemoglobin 13.3 g/dl (14.0-18.0); Imm Gran Abs Auto 0.03 X10*3/uL (0.00-0.03); Imm Gran Pct Auto 0.4 % (0.0-0.4); Lymphocytes Absolute Auto 1.9 X10*3/uL (1.2-4.9); Lymphocytes Percent Auto 26.7 % (20-40); Mean Corpuscular HGB Conc 33.5 g/dl (31.0-36.0); Mean Corpuscular Hemoglobin 28.9 pg (27.0-33.0); Mean Corpuscular Volume 86.3 fL (80-98); Mean Platelet Volume 10.7 fL (9.4-12.4); Monocytes Absolute Auto 0.3 X10*3/uL (0.1-1.2); Monocytes Percent Auto 4.6 % (2-11); Neutrophils Absolute Auto 4.8 X10*3/uL (2.0-8.3); Neutrophils Percent Auto 67.1 % (45-73); Platelet Count 350 X10*3/uL (160-400); Red Cell Distribution Width 13.1 % (11.0-16.0); White Blood Count 7.2 X10*3/uL (4.8-10.8)
[2021-04-01 12:12] LABS: Alanine Aminotransferase 17 U/L (0-40); Albumin Level 4.7 g/dL (3.5-5.0); Alkaline Phosphatase 42 U/L (39-117); Anion Gap 16 (12-20); Aspartate Amino Transferase 16 U/L (5-37); Bilirubin Total 0.7 mg/dL (0.0-1.0); Blood Urea Nitrogen 16 mg/dL (9-16); Calcium 10.3 mg/dL (8.4-10.2); Carbon Dioxide 22 mmol/L (22-29); Chloride 100 mmol/L (96-108); Estimated Glomerular Filt Rate > 60; Glucose Random 182 mg/dL (60-115); Potassium 4.6 mmol/L (3.3-5.1); Sodium 133 mmol/L (135-145); Total Protein 7.7 g/dL (6.5-8.0)
[2021-04-01 12:16] LABS: Troponin-I High Sensitivity 19.5 ng/L (<3.5-35.0)
== END 2021-04-01 14:46 | disposition home or self-care (01) ==
PROVIDERS: Emergency Provider Emergency Medicine Emergency Medical Services
DX: R07.89 Other chest pain (principal); K05.00 Acute gingivitis, plaque induced; R00.0 Tachycardia, unspecified
CPT/HCPCS: 36415; 80053; 84484; 85025; 93005; 99284

== ENCOUNTER 2021-04-11 08:19 | Emergency (ER) | payer OTHER, SELFPAY ==
[2021-04-11 08:38] VITALS: BP 149/62; PULSE 88; RESP 16; TEMP 36.7; O2SAT 97; BMI 28.9
--- NOTE | 2021-04-11 09:46 | ED_ITS ---
HPI - General Adult General Chief complaint: Dental/Oral Stated complaint: sore throat Time Seen by Provider: 04/11/21 09:32 Source: patient Mode of arrival: ambulatory Limitations: no limitations History of Present Illness HPI narrative: Patient presents to ED for sore throat and tongeu pain with tingling. Patient denies any slurred speech, facial droop, itchy sensation in throat, coughing, fever, chest pain, paralysis of extremities, loss of vision, or chills. Related Data Home Medications Medication Instructions Recorded Confirmed clopidogrel 75 mg tablet 75 mg PO DAILY 08/02/20 03/14/21 fenofibrate 54 mg tablet 54 mg PO DAILY 08/02/20 03/14/21 insulin glargine 100 unit/mL (3 22 unit SUBCUT BEDTIME 08/02/20 03/14/21 mL) subcutaneous pen lancets 28 gauge #100 ea 08/02/20 01/05/21 lisinopril 30 mg tablet 30 mg PO DAILY 08/02/20 03/14/21 metoprolol succinate 25 mg 25 mg PO DAILY 08/02/20 03/14/21 tablet,extended release 24 hr omega-3 fatty acids-fish oil 340 1 cap PO TID 08/02/20 03/14/21 mg-1,000 mg capsule aspirin 81 mg tablet,delayed 81 mg PO DAILY 08/10/20 03/14/21 release furosemide 40 mg tablet 40 mg PO DAILY 12/28/20 03/14/21 insulin lispro 100 unit/mL 2 unit SUBCUT DAILY 12/28/20 03/14/21 subcutaneous pen (Admelog SoloStar U-100 Insulin lispro) insulin lispro 100 unit/mL 4 unit SUBCUT DAILY@1200 12/28/20 03/14/21 subcutaneous pen (Admelog SoloStar U-100 Insulin lispro) insulin lispro 100 unit/mL 6 unit SUBCUT DAILY@1800 12/28/20 03/14/21 subcutaneous pen (Admelog SoloStar U-100 Insulin lispro) atorvastatin 20 mg tablet 20 mg PO DAILY 03/14/21 03/14/21 metformin 1,000 mg tablet 1 tab PO BID 03/14/21 03/14/21 Previous Rx's Medication Instructions Recorded isosorbide mononitrate 30 mg 30 mg PO DAILY 90 Days #90 tab 07/14/20 tablet,extended release 24 hr finasteride 5 mg tablet 5 mg PO DAILY 90 Days #90 tab 08/02/20 tamsulosin 0.4 mg capsule 0.4 mg PO DAILY #90 cap 09/07/20 acetaminophen 500 mg tablet 1,000 mg PO QID PRN #14 tab 02/18/21 (Tylenol Extra Strength) lidocaine HCl 4 % topical cream 1 appl TOPICAL BID PRN #120 g 02/18/21 (Aspercreme (lidocaine HCl)) cyclobenzaprine 5 mg tablet 5 mg PO TID PRN #8 tab 03/14/21 lorazepam 0.5 mg tablet (Ativan) 0.5 mg PO DAILY PRN #10 tab 03/18/21 penicillin V potassium 500 mg 500 mg PO QID 7 Days #28 tab 04/01/21 tablet Allergies Allergy/AdvReac Type Severity Reaction Status Date / Time No Known Allergies Allergy Verified 03/11/21 12:27 [No Known Allergies*] Review of Systems Review of Systems: Yes all other systems are reviewed and are negative Constitutional: Constitutional: Reports as per HPI and Reports no additional constitutional complaints Eyes: Eyes: Reports as per HPI and Reports no additional eye complaints ENT: Reports system reviewed and no additional complaints, except as documented, Reports as per HPI and Reports sore throat Cardiovascular: Cardiovascular: Reports as per HPI and Reports no additional cardiovascular complaints Respiratory: Respiratory: Reports as per HPI and Reports no additional respiratory complaints Gastrointestinal: Gastrointestinal: Reports as per HPI and Reports no additional gastrointestinal complaints Musculoskeletal: Musculoskeletal: Reports no additional musculoskeletal complaints and Reports as per HPI Neurologic: Reports system reviewed and no additional complaints, except as documented and Reports as per HPI Psychiatric: Psychiatric: Reports no additional psychiatric complaints and Reports as per HPI [facility] Past Medical History Medical History Atherosclerotic cardiovascular disease CVA (cerebral vascular accident) Diabetes mellitus, type 2 Hypercholesteremia Hypertension Ischemic cardiomyopathy Myocardial infarction PAF (paroxysmal atrial fibrillation) Surgical History H/O coronary artery bypass surgery (~04/27/20) Family History Family History Father No problems noted. Mother No problems noted. Social History Social History Household Members: None Housing: Apartment Do you presently have visiting nurse or other home services: Yes ([employer] daily) Alcohol intake: current Alcohol intake frequency: a few times a month Patient Tobacco Use Status: Former Tobacco user Use of substances other than those prescribed or required for medical reasons: Yes Substance Use Type: Crack/Cocaine Advance Directives: Yes Advance Directives on File: Yes Advance Directives Date on File: 03/14/21 service: No Current occupational status: unemployed Physical Exam Vital Signs: Vital Signs: Last Vital Signs Temp 98.1 F 04/11/21 08:38 Pulse 82 04/11/21 11:02 Resp 16 04/11/21 08:38 BP 131/61 04/11/21 11:02 Pulse Ox 100 04/11/21 11:02 Body Mass Index 28.9 Const: General: cooperative, healthy appearing, comfortable, no acute distress, well developed, alert, awake and Physically active Orientation/consciousness: patient oriented x3 HENMT: Other: Patient has complete movement of tongue with feeling. Negative for tongue swelling, lip swelling, or uvula swelling. Head: Yes normal to inspection, Yes No palpable skull fracture present, Yes normocephalic and Yes atraumatic Throat: Yes posterior oropharynx normal, Yes tonsils normal and Yes uvula midline Eyes: General: appearance normal, both eyes and all related structures Neck: Neck: Yes normal visual inspection, Yes full ROM, Yes no lymphadenopathy, Yes no meningeal signs, Yes trachea midline, Yes supple and No tender Chest: Chest palpation & inspection: normal inspection of the chest Resp: Effort & Inspection: normal respiratory effort and able to speak in complete sentences Auscultation: clear to auscultation bilaterally Cardio: Jugular venous distension: no JVD Heart sounds: S1 normal heart sound present and S2 normal heart sound present GI: Inspection: Yes normal to inspection Palpation (GI): Soft to palpation, not firm, nontender, no guarding and not rigid : General: No CVA tenderness and Yes no CVA tenderness Back/Spine/Pelvis: Back: no CVA tenderness, No CVA tenderness and No back tenderness Skin: General skin exam: no rashes or lesions noted and elasticity normal Neuro: Other: Patient has chronic right-sided arm weakness and right leg weakness from stroke in 2012. Patient states right-sided weakness is dizzy him and has not worsened. Negative for facial droop. Negative for slurred speech. [id number] rapid eye movement intact. negative rhomberg General: patient oriented x3, gait normal, no meningeal signs and CN's II-XI intact bilaterally Cranial nerves: Yes CN's II-XII intact bilaterally Extrem: General: Yes normal to inspection and Yes full ROM Psych: Appearance: grossly normal, well kempt and not disheveled Course Course Course Narrative: Patient will have COVID swab and strep test Reevaluation(s) Reevaluation #1: Strep and covid swab came back negative. patient not in any resipatory distress. Patient is not drooling or have hoarse. patient is not having any itchenss, rash, or swelling of oral cavity to indicate allergic/anyphylaxis reaction. Not suspecting stroke. patient is not having cranial deficits or new neuro deficits. Diagnosis pharyngitis. Patient informed to stop taking lisinopril due to it being an teddy inhibitor. Time: 11:11 Medical Decision Making MDM Narrative Medical decision making narrative: Pharyngitis Lab Data Labs: Lab Results 04/11/21 04/11/21 Range/Units 09:47 09:47 COVID-19 ([facility]I) Negative (Negative) COVID-19 Clin Com See Note S. pyogenes GrpA [place] Negative (Negative) Discharge Plan Discharge Clinical Impression: Pharyngitis Patient Disposition: Home, Self-Care Instructions: Pharyngitis (ED) Additional Instructions: Patient return to the ED for swelling of tongue/lips/uvual, sensation of throat closing, fever, chills, hoarse voice, drooling, chest pain, shorntess of breath, or any other concerning symptoms. You can take motrin, alleve, or tyelnol for pain relief. Please follow up with PCP. Prescriptions: No Action isosorbide mononitrate 30 mg tablet extended release 24 hr 30 mg PO DAILY 90 Days Qty: 90 RF: 1 tamsulosin 0.4 mg capsule 0.4 mg PO DAILY Qty: 90 RF: 2 furosemide 40 mg tablet 40 mg PO DAILY RF: 0 insulin lispro [Admelog SoloStar U-100 Insulin] 100 unit/mL Insulin Pen 2 unit SUBCUT DAILY RF: 0 insulin lispro [Admelog SoloStar U-100 Insulin] 100 unit/mL insulin pen 6 unit subcut DAILY@1800 RF: 0 insulin lispro [Admelog SoloStar U-100 Insulin] 100 unit/mL insulin pen 4 unit subcut DAILY@1200 RF: 0 acetaminophen [Tylenol Extra Strength] 500 mg tablet 1,000 mg PO QID PRN (Reason: fever or pain) Qty: 14 RF: 0 lidocaine HCl [Aspercreme (lidocaine HCl)] 4 % cream 1 appl topical BID PRN (Reason: pain) Qty: 120 RF: 0 atorvastatin 20 mg tablet 20 mg PO DAILY RF: 0 metformin 1,000 mg tablet 1 tab PO BID RF: 0 cyclobenzaprine 5 mg tablet 5 mg PO TID PRN (Reason: muscle spasm) Qty: 8 RF: 0 penicillin V potassium 500 mg tablet 500 mg PO QID 7 Days Qty: 28 RF: 0 lorazepam [Ativan] 0.5 mg tablet 0.5 mg PO DAILY PRN (Reason: anxiety) Qty: 10 RF: 0 aspirin 81 mg tablet,delayed release (DR/EC) 81 mg PO DAILY RF: 0 insulin glargine 100 unit/mL (3 mL) insulin pen 22 unit subcut BEDTIME RF: 0 omega-3 fatty acids-fish oil 340-1,000 mg capsule 1 cap PO TID RF: 0 (DME) lancets 28 gauge misc See Rx Instructions ea topical DIRECTED Qty: 100 RF: 0 clopidogrel 75 mg tablet 75 mg PO DAILY RF: 0 fenofibrate 54 mg tablet 54 mg PO DAILY RF: 0 metoprolol succinate 25 mg tablet extended release 24 hr 25 mg PO DAILY RF: 0 lisinopril 30 mg tablet 30 mg PO DAILY RF: 0 finasteride 5 mg tablet 5 mg PO DAILY 90 Days Qty: 90 RF: 1 Referrals: Ruben Velazquez [Physician] - 2 days (Sore throat, throat pain) Interventions: ED Discharge Assessment Last Done: 04/11/21 11:52 Discharge Date/Time: 04/11/21 11:52 Print Language: Dominican
[2021-04-11 10:11] LABS: IDNOW Serial# 08D9AD1C; Strep A Nucleic Acid Negative (Negative)
[2021-04-11 10:12] LABS: COVID-19 Test Negative (Negative)
[2021-04-11 11:02] VITALS: BP 131/61; PULSE 82; O2SAT 100
== END 2021-04-11 11:52 | disposition home or self-care (01) ==
PROVIDERS: Physician Assistant; Emergency Provider Internal Medicine; PCP Internal Medicine
DX: J02.9 Acute pharyngitis, unspecified (principal); Z20.822 Contact with and (suspected) exposure to COVID-19; E11.9 Type 2 diabetes mellitus without complications; I10 Essential (primary) hypertension; E78.00 Pure hypercholesterolemia, unspecified; I48.0 Paroxysmal atrial fibrillation; Z86.73 Personal history of transient ischemic attack (TIA), and cerebral infarction without residual deficits; Z95.1 Presence of aortocoronary bypass graft; Z79.4 Long term (current) use of insulin; Z79.899 Other long term (current) drug therapy; Z79.82 Long term (current) use of aspirin; Z79.02 Long term (current) use of antithrombotics/antiplatelets
CPT/HCPCS: 36415; 87635; 87651; 99283; 99284

== ENCOUNTER 2021-05-02 07:35 | Emergency (ER) | payer OTHER, SELFPAY ==
--- NOTE | 2021-05-02 | ECG_ITS ---
Test Reason : CHEST PAIN Blood Pressure : / mmHG Vent. Rate : 089 BPM Atrial Rate : 089 BPM P-R Int : 200 ms QRS Dur : 140 ms QT Int : 382 ms P-R-T Axes : 048 -79 061 degrees QTc Int : 464 ms Normal sinus rhythm Left axis deviation Right bundle branch block Left ventricular hypertrophy with repolarization abnormality Possible Lateral infarct (cited on or before 01-APR-2021) Inferior infarct (cited on or before 01-APR-2021) Abnormal ECG When compared with ECG of 01-APR-2021 10:40, Right bundle branch block is now Present Questionable change in initial forces of Lateral leads Questionable change in initial forces of Posterior leads Referred By: Generic ED Physician Electronically Signed By:FORREST YAN
--- NOTE | ~2021-05-02 | XR_ITS ---
EXAMINATION: XR CHEST CLINICAL INFORMATION: Chest pain COMPARISON: Chest radiographs 03/18/2021, 03/14/2021 TECHNIQUE: Frontal view of the chest was obtained. FINDINGS: There has been prior median sternotomy. The heart is normal in size. The vascularity is normal. There is no pneumothorax, vascular congestion, infiltrate, or effusion. The hilar and mediastinal contours are unremarkable. No visible acute bony abnormality. XR/XR chest 1V IMPRESSION: Unremarkable examination.
[2021-05-02 08:24] VITALS: BP 149/68; PULSE 94; RESP 18; TEMP 36.6; O2SAT 98; BMI 28.6
[2021-05-02 09:24] LABS: MANUAL DIFF FLAG NO
[2021-05-02 09:26] LABS: Basophils Absolute Auto 0.1 X10*3/uL (0.0-0.2); Basophils Percent Auto 0.5 % (0-2); Eosinophils Absolute Auto 0.1 X10*3/uL (0.0-0.4); Eosinophils Percent Auto 0.6 % (0-4); Hematocrit 42.4 % (42-52); Hemoglobin 14.3 g/dl (14.0-18.0); Imm Gran Abs Auto 0.06 X10*3/uL (0.00-0.03); Imm Gran Pct Auto 0.6 % (0.0-0.4); Lymphocytes Absolute Auto 2.6 X10*3/uL (1.2-4.9); Lymphocytes Percent Auto 26.7 % (20-40); Mean Corpuscular HGB Conc 33.7 g/dl (31.0-36.0); Mean Corpuscular Hemoglobin 29.4 pg (27.0-33.0); Mean Corpuscular Volume 87.2 fL (80-98); Mean Platelet Volume 10.3 fL (9.4-12.4); Monocytes Absolute Auto 0.5 X10*3/uL (0.1-1.2); Monocytes Percent Auto 4.9 % (2-11); Neutrophils Absolute Auto 6.4 X10*3/uL (2.0-8.3); Neutrophils Percent Auto 66.7 % (45-73); Platelet Count 379 X10*3/uL (160-400); Red Blood Count 4.86 X10*6/uL (4.60-5.80); Red Cell Distribution Width 13.2 % (11.0-16.0); White Blood Count 9.6 X10*3/uL (4.8-10.8)
--- NOTE | 2021-05-02 09:45 | ED.CHESTPAIN ---
HPI - Chest Pain General Chief Complaint: Chest Pain Stated Complaint: chest pain Time Seen by Provider: 05/02/21 09:14 Source: patient Mode of arrival: ambulatory Limitations: no limitations History of Present Illness HPI narrative: Patient presents to the ED for left-sided chest pain that has been occurring for more than 3 months. Patient has presented to the ED multiple times for similar presentation. Patient states he missed his recent cardiology appointment is and is rescheduled for May. Patient denies any fever, chills, coughing up blood, swelling of lower extremities, recent long travel, surgery, shortness of breath or any chest trauma. MD complaint: chest pain Related Data Home Medications Medication Instructions Recorded Confirmed clopidogrel 75 mg tablet 75 mg PO DAILY 08/02/20 03/14/21 fenofibrate 54 mg tablet 54 mg PO DAILY 08/02/20 03/14/21 insulin glargine 100 unit/mL (3 22 unit SUBCUT BEDTIME 08/02/20 03/14/21 mL) subcutaneous pen lancets 28 gauge #100 ea 08/02/20 01/05/21 lisinopril 30 mg tablet 30 mg PO DAILY 08/02/20 03/14/21 metoprolol succinate 25 mg 25 mg PO DAILY 08/02/20 03/14/21 tablet,extended release 24 hr omega-3 fatty acids-fish oil 340 1 cap PO TID 08/02/20 03/14/21 mg-1,000 mg capsule aspirin 81 mg tablet,delayed 81 mg PO DAILY 08/10/20 03/14/21 release furosemide 40 mg tablet 40 mg PO DAILY 12/28/20 03/14/21 insulin lispro 100 unit/mL 2 unit SUBCUT DAILY 12/28/20 03/14/21 subcutaneous pen (Admelog SoloStar U-100 Insulin lispro) insulin lispro 100 unit/mL 4 unit SUBCUT DAILY@1200 12/28/20 03/14/21 subcutaneous pen (Admelog SoloStar U-100 Insulin lispro) insulin lispro 100 unit/mL 6 unit SUBCUT DAILY@1800 12/28/20 03/14/21 subcutaneous pen (Admelog SoloStar U-100 Insulin lispro) atorvastatin 20 mg tablet 20 mg PO DAILY 03/14/21 03/14/21 metformin 1,000 mg tablet 1 tab PO BID 03/14/21 03/14/21 Previous Rx's Medication Instructions Recorded isosorbide mononitrate 30 mg 30 mg PO DAILY 90 Days #90 tab 07/14/20 tablet,extended release 24 hr finasteride 5 mg tablet 5 mg PO DAILY 90 Days #90 tab 08/02/20 tamsulosin 0.4 mg capsule 0.4 mg PO DAILY #90 cap 09/07/20 acetaminophen 500 mg tablet 1,000 mg PO QID PRN #14 tab 02/18/21 (Tylenol Extra Strength) lidocaine HCl 4 % topical cream 1 appl TOPICAL BID PRN #120 g 02/18/21 (Aspercreme (lidocaine HCl)) cyclobenzaprine 5 mg tablet 5 mg PO TID PRN #8 tab 03/14/21 lorazepam 0.5 mg tablet (Ativan) 0.5 mg PO DAILY PRN #10 tab 03/18/21 penicillin V potassium 500 mg 500 mg PO QID 7 Days #28 tab 04/01/21 tablet hydroxyzine HCl 25 mg tablet 25 mg PO TID PRN #24 tab 05/02/21 Allergies Allergy/AdvReac Type Severity Reaction Status Date / Time No Known Allergies Allergy Verified 03/11/21 12:27 [No Known Allergies*] Review of Systems Review of Systems: Yes all other systems are reviewed and are negative Constitutional: Constitutional: Reports as per HPI and Reports no additional constitutional complaints Eyes: Eyes: Reports as per HPI and Reports no additional eye complaints ENT: Reports system reviewed and no additional complaints, except as documented and Reports as per HPI Cardiovascular: Cardiovascular: Reports as per HPI, Reports no additional cardiovascular complaints, Reports chest pain (More than 3 months) and Denies dyspnea Respiratory: Respiratory: Reports as per HPI, Reports no additional respiratory complaints and Denies dyspnea Gastrointestinal: Gastrointestinal: Reports as per HPI and Reports no additional gastrointestinal complaints Musculoskeletal: Musculoskeletal: Reports no additional musculoskeletal complaints and Reports as per HPI Neurologic: Reports system reviewed and no additional complaints, except as documented and Reports as per HPI Psychiatric: Psychiatric: Reports no additional psychiatric complaints and Reports as per HPI [facility] Past Medical History Medical History Atherosclerotic cardiovascular disease CVA (cerebral vascular accident) Diabetes mellitus, type 2 Hypercholesteremia Hypertension Ischemic cardiomyopathy Myocardial infarction PAF (paroxysmal atrial fibrillation) Surgical History H/O coronary artery bypass surgery (~04/27/20) Family History Family History Father No problems noted. Mother No problems noted. Social History Social History Household Members: None Housing: Apartment Do you presently have visiting nurse or other home services: Yes ([employer] daily) Alcohol intake: never Patient Tobacco Use Status: Former Tobacco user Use of substances other than those prescribed or required for medical reasons: No Substance Use Type: Crack/Cocaine Advance Directives: Yes Advance Directives on File: Yes Advance Directives Date on File: 03/14/21 service: No Current occupational status: unemployed Physical Exam Vital Signs: Vital Signs: Last Vital Signs Temp 97.9 F 05/02/21 08:24 Pulse 100 05/02/21 12:49 Resp 16 05/02/21 12:49 BP 106/61 05/02/21 12:49 Pulse Ox 98 05/02/21 12:49 Body Mass Index 28.6 Const: General: cooperative, healthy appearing, comfortable, no acute distress, well developed, alert, awake and Physically active Orientation/consciousness: patient oriented x3 HENMT: Head: Yes normal to inspection, Yes No palpable skull fracture present, Yes normocephalic, Yes atraumatic and No abrasion Eyes: General: appearance normal, both eyes and all related structures Neck: Neck: Yes normal visual inspection, Yes full ROM, Yes no lymphadenopathy, Yes no meningeal signs, Yes trachea midline, Yes supple and No tender Chest: Chest palpation & inspection: normal inspection of the chest Chest/axillae images: 1. Positive for left chest wall tenderness on palpation. Negative for rash Resp: Effort & Inspection: normal respiratory effort and able to speak in complete sentences Auscultation: clear to auscultation bilaterally Cardio: Jugular venous distension: no JVD Heart sounds: S1 normal heart sound present and S2 normal heart sound present GI: Inspection: Yes normal to inspection and No abdominal wall ecchymosis Palpation (GI): Soft to palpation, not firm, nontender, no guarding and not rigid : General: No CVA tenderness and Yes no CVA tenderness Back/Spine/Pelvis: Back: no CVA tenderness, No CVA tenderness, No mass, No erythema, No warmth, No sacral edema, No ecchymosis and No back tenderness Skin: General skin exam: no rashes or lesions noted and elasticity normal Neuro: General: patient oriented x3, gait normal, no meningeal signs and CN's II-XI intact bilaterally Cranial nerves: Yes CN's II-XII intact bilaterally Extrem: Other: Lower extremities negative for any swelling, pitting edema, or calf tenderness. General: Yes normal to inspection and Yes full ROM Psych: Appearance: grossly normal, well kempt and not disheveled Course Course Course Narrative: Due to past medical history patient will have a cardiac evaluation. Blood pressure monitor systolic of 111 will hold off on nitro. Will give aspirin and low-dose morphine. Reevaluation(s) Reevaluation #1: Patient initial troponin came back 26. Chest x-ray came back negative for pneumonia. BNP negative. COVID swab came back negative. D-dimer less than 230, which makes d-dimernegative. Wells criteria is 0. Patient had negative chest CTA for dissection or PE in February. Patient states chest pain resolved after given morphine and aspirin. Patient was not given nitro due to soft systolic. Return for 2nd troponin will consult Dr. Grove, Cardiology. Time: 09:20 Reevaluation #2: Patient's 2nd troponin came back negative. Presently patient is asymptomatic. Case was discussed with his gallery or museum guide Dr. Grove and he was informed patient's history, physical exam, and diagnostics. He was also given copy of patient EKG and lab reports. He was aware patient's heart score is a 4 and recommend patient to be discharged and will have early outpatient follow-up. Patient would like some anti anxiety medication. Time: 13:57 MDM - Chest Pain MDM Narrative Medical decision making narrative: Atypical chest pain Lab Data Result diagrams: 05/02/21 09:20 05/02/21 09:20 Labs: Lab Results 05/02/21 05/02/21 05/02/21 Range/Units 09:20 09:20 09:20 WBC 9.6 (4.8-10.8) X10*3/uL RBC 4.86 (4.60-5.80) X10*6/uL Hgb 14.3 (14.0-18.0) g/dl Hct 42.4 (42-52) % MCV 87.2 (80-98) fL MCH 29.4 (27.0-33.0) pg MCHC 33.7 (31.0-36.0) g/dl RDW 13.2 (11.0-16.0) % Plt Count 379 (160-400) X10*3/uL MPV 10.3 (9.4-12.4) fL Immature Gran % (Auto) 0.6 H (0.0-0.4) % Neut % (Auto) 66.7 (45-73) % Lymph % (Auto) 26.7 (20-40) % [place] % (Auto) 4.9 (2-11) % Eos % (Auto) 0.6 (0-4) % Baso % (Auto) 0.5 (0-2) % Lymph # (Auto) 2.6 (1.2-4.9) X10*3/uL [place] # (Auto) 0.5 (0.1-1.2) X10*3/uL Eos # (Auto) 0.1 (0.0-0.4) X10*3/uL Baso # (Auto) 0.1 (0.0-0.2) X10*3/uL Abs Immat Gran (auto) 0.06 H (0.00-0.03) X10*3/uL Absolute Neuts (auto) 6.4 (2.0-8.3) X10*3/uL Absolute Nucleated RBC 0.000 (0.0-0.012) X10*3/uL Nucleated RBC % (auto) 0.0 (0.0-0.2) /100WBC PT (9.9-13.0) SEC INR (0.9-1.1) APTT (24.1-38.0) SEC D-Dimer NG/ML Sodium 136 (135-145) mmol/L Potassium 4.7 (3.3-5.1) mmol/L Chloride 101 (96-108) mmol/L Carbon Dioxide 25 (22-29) mmol/L Anion Gap 15 (12-20) BUN 17 H (9-16) mg/dL Creatinine 1.14 (0.5-1.4) mg/dL Estim Creat Clear Calc 68.8 Estimated GFR > 60 Random Glucose 117 H D (60-115) mg/dL Calcium 10.5 H (8.4-10.2) mg/dL Troponin I High Sens 26.3 (<3.5-35.0) ng/L B-Natriuretic Peptide 46 (<100) pg/mL COVID-19 ([facility]) (Negative) COVID-19 Clin Com 05/02/21 05/02/21 05/02/21 Range/Units 09:56 09:59 09:59 WBC (4.8-10.8) X10*3/uL RBC (4.60-5.80) X10*6/uL Hgb (14.0-18.0) g/dl Hct (42-52) % MCV (80-98) fL MCH (27.0-33.0) pg MCHC (31.0-36.0) g/dl RDW (11.0-16.0) % Plt Count (160-400) X10*3/uL MPV (9.4-12.4) fL Immature Gran % (Auto) (0.0-0.4) % Neut % (Auto) (45-73) % Lymph % (Auto) (20-40) % [place] % (Auto) (2-11) % Eos % (Auto) (0-4) % Baso % (Auto) (0-2) % Lymph # (Auto) (1.2-4.9) X10*3/uL [place] # (Auto) (0.1-1.2) X10*3/uL Eos # (Auto) (0.0-0.4) X10*3/uL Baso # (Auto) (0.0-0.2) X10*3/uL Abs Immat Gran (auto) (0.00-0.03) X10*3/uL Absolute Neuts (auto) (2.0-8.3) X10*3/uL Absolute Nucleated RBC (0.0-0.012) X10*3/uL Nucleated RBC % (auto) (0.0-0.2) /100WBC PT 13.5 H (9.9-13.0) SEC INR 1.2 H (0.9-1.1) APTT 32.4 (24.1-38.0) SEC D-Dimer 222 NG/ML Sodium (135-145) mmol/L Potassium (3.3-5.1) mmol/L Chloride (96-108) mmol/L Carbon Dioxide (22-29) mmol/L Anion Gap (12-20) BUN (9-16) mg/dL Creatinine (0.5-1.4) mg/dL Estim Creat Clear Calc Estimated GFR Random Glucose (60-115) mg/dL Calcium (8.4-10.2) mg/dL Troponin I High Sens (<3.5-35.0) ng/L B-Natriuretic Peptide (<100) pg/mL COVID-19 ([facility]) Negative (Negative) COVID-19 Clin Com See Note 05/02/21 Range/Units 12:06 WBC (4.8-10.8) X10*3/uL RBC (4.60-5.80) X10*6/uL Hgb (14.0-18.0) g/dl Hct (42-52) % MCV (80-98) fL MCH (27.0-33.0) pg MCHC (31.0-36.0) g/dl RDW (11.0-16.0) % Plt Count (160-400) X10*3/uL MPV (9.4-12.4) fL Immature Gran % (Auto) (0.0-0.4) % Neut % (Auto) (45-73) % Lymph % (Auto) (20-40) % [place] % (Auto) (2-11) % Eos % (Auto) (0-4) % Baso % (Auto) (0-2) % Lymph # (Auto) (1.2-4.9) X10*3/uL [place] # (Auto) (0.1-1.2) X10*3/uL Eos # (Auto) (0.0-0.4) X10*3/uL Baso # (Auto) (0.0-0.2) X10*3/uL Abs Immat Gran (auto) (0.00-0.03) X10*3/uL Absolute Neuts (auto) (2.0-8.3) X10*3/uL Absolute Nucleated RBC (0.0-0.012) X10*3/uL Nucleated RBC % (auto) (0.0-0.2) /100WBC PT (9.9-13.0) SEC INR (0.9-1.1) APTT (24.1-38.0) SEC D-Dimer NG/ML Sodium (135-145) mmol/L Potassium (3.3-5.1) mmol/L Chloride (96-108) mmol/L Carbon Dioxide (22-29) mmol/L Anion Gap (12-20) BUN (9-16) mg/dL Creatinine (0.5-1.4) mg/dL Estim Creat Clear Calc Estimated GFR Random Glucose (60-115) mg/dL Calcium (8.4-10.2) mg/dL Troponin I High Sens 18.7 (<3.5-35.0) ng/L B-Natriuretic Peptide (<100) pg/mL COVID-19 ([facility]) (Negative) COVID-19 Clin Com ECG Data ECG #1: Interpretation: Normal sinus rhythm. Right bundle branch block. Ventricular rate 89. Pr interval 200. QRS 140. QTC 464. Negative STEMI Discharge Plan Discharge Clinical Impression: Atypical chest pain Patient Disposition: Home, Self-Care Instructions: Chest Pain (ED) Additional Instructions: Return to the ED immediately for worsening chest pain, shortness of breath, swelling of lower extremities, calf pain, coughing up blood, fever, chills, weakness, dizziness, diaphoresis, or any other concerning symptoms. Prescriptions: New hydroxyzine HCl 25 mg tablet 25 mg PO TID PRN (Reason: anixety) Qty: 24 RF: 0 No Action isosorbide mononitrate 30 mg tablet extended release 24 hr 30 mg PO DAILY 90 Days Qty: 90 RF: 1 tamsulosin 0.4 mg capsule 0.4 mg PO DAILY Qty: 90 RF: 2 furosemide 40 mg tablet 40 mg PO DAILY RF: 0 insulin lispro [Admelog SoloStar U-100 Insulin] 100 unit/mL Insulin Pen 2 unit SUBCUT DAILY RF: 0 insulin lispro [Admelog SoloStar U-100 Insulin] 100 unit/mL insulin pen 6 unit subcut DAILY@1800 RF: 0 insulin lispro [Admelog SoloStar U-100 Insulin] 100 unit/mL insulin pen 4 unit subcut DAILY@1200 RF: 0 acetaminophen [Tylenol Extra Strength] 500 mg tablet 1,000 mg PO QID PRN (Reason: fever or pain) Qty: 14 RF: 0 lidocaine HCl [Aspercreme (lidocaine HCl)] 4 % cream 1 appl topical BID PRN (Reason: pain) Qty: 120 RF: 0 atorvastatin 20 mg tablet 20 mg PO DAILY RF: 0 metformin 1,000 mg tablet 1 tab PO BID RF: 0 cyclobenzaprine 5 mg tablet 5 mg PO TID PRN (Reason: muscle spasm) Qty: 8 RF: 0 penicillin V potassium 500 mg tablet 500 mg PO QID 7 Days Qty: 28 RF: 0 lorazepam [Ativan] 0.5 mg tablet 0.5 mg PO DAILY PRN (Reason: anxiety) Qty: 10 RF: 0 aspirin 81 mg tablet,delayed release (DR/EC) 81 mg PO DAILY RF: 0 insulin glargine 100 unit/mL (3 mL) insulin pen 22 unit subcut BEDTIME RF: 0 omega-3 fatty acids-fish oil 340-1,000 mg capsule 1 cap PO TID RF: 0 (DME) lancets 28 gauge misc See Rx Instructions ea topical DIRECTED Qty: 100 RF: 0 clopidogrel 75 mg tablet 75 mg PO DAILY RF: 0 fenofibrate 54 mg tablet 54 mg PO DAILY RF: 0 metoprolol succinate 25 mg tablet extended release 24 hr 25 mg PO DAILY RF: 0 lisinopril 30 mg tablet 30 mg PO DAILY RF: 0 finasteride 5 mg tablet 5 mg PO DAILY 90 Days Qty: 90 RF: 1 Referrals: Moses Grove MD [Physician] - 2 days (atypical chronic chest pain for 3 months) Print Language: [place]
[2021-05-02 09:46] LABS: Anion Gap 15 (12-20); Blood Urea Nitrogen 17 mg/dL (9-16); Calcium 10.5 mg/dL (8.4-10.2); Carbon Dioxide 25 mmol/L (22-29); Chloride 101 mmol/L (96-108); Creatinine Clr Calc Pharmacy 68.8; Estimated Glomerular Filt Rate > 60; Glucose Random 117 mg/dL (60-115); Potassium 4.7 mmol/L (3.3-5.1); Sodium 136 mmol/L (135-145)
[2021-05-02 09:48] LABS: Troponin-I High Sensitivity 26.3 ng/L (<3.5-35.0)
[2021-05-02 09:55] LABS: B Type Natriuretic Peptide 46 pg/mL (<100)
[2021-05-02 10:06] VITALS: BP 121/60; PULSE 85; RESP 13; O2SAT 98
[2021-05-02] MEDS: Aspirin Enteric Coated 325 MG TABLET.DR PO (10:07)
[2021-05-02 10:08] VITALS: RESP 13
[2021-05-02] MEDS: Morphine Sulfate 2 MG/ML CARTRIDGE IVPUSH (10:08)
[2021-05-02 10:14] LABS: INTERNATIONAL NORM RATIO 1.2 (0.9-1.1); Prothrombin Time 13.5 SEC (9.9-13.0)
[2021-05-02 10:17] LABS: D Dimer 222 NG/ML; Partial Thromboplastin Time 32.4 SEC (24.1-38.0)
[2021-05-02 10:22] LABS: COVID-19 Test Negative (Negative)
[2021-05-02 10:53] VITALS: BP 108/56; PULSE 87; RESP 16; O2SAT 98
[2021-05-02 10:54] VITALS: BP 108/56; PULSE 87; RESP 165
[2021-05-02 12:32] LABS: Troponin-I High Sensitivity 18.7 ng/L (<3.5-35.0)
[2021-05-02 12:49] VITALS: BP 106/61; PULSE 100; RESP 16; O2SAT 98
--- NOTE | 2021-05-02 12:49 | PC.NURSE ---
SITTING ON EDGE OF STRETCHER, EATING LUNCH. AWAITING TROP LEVEL
== END 2021-05-02 14:21 | disposition home or self-care (01) ==
PROVIDERS: Physician Assistant; Emergency Provider Emergency Medicine; PCP Internal Medicine
DX: R07.89 Other chest pain (principal); Z20.822 Contact with and (suspected) exposure to COVID-19; I48.0 Paroxysmal atrial fibrillation; I10 Essential (primary) hypertension; E78.00 Pure hypercholesterolemia, unspecified; E11.9 Type 2 diabetes mellitus without complications; Z86.73 Personal history of transient ischemic attack (TIA), and cerebral infarction without residual deficits; Z95.1 Presence of aortocoronary bypass graft; Z79.4 Long term (current) use of insulin; Z79.82 Long term (current) use of aspirin; Z79.899 Other long term (current) drug therapy; Z79.02 Long term (current) use of antithrombotics/antiplatelets
CPT/HCPCS: 36415; 71045; 80048; 83880; 84484; 85025; 85379; 85610; 85730; 87635; 93005; 96374; 99284; J2270

== ENCOUNTER → 2021-05-09 07:55 | Outpatient (BNVA) | payer OTHER, SELFPAY | PROVIDERS: PCP Internal Medicine; Visit Provider Internal Medicine | DX: I25.10 Atherosclerotic heart disease of native coronary artery without angina pectoris (principal); I25.5 Ischemic cardiomyopathy; I48.0 Paroxysmal atrial fibrillation; I63.9 Cerebral infarction, unspecified; E78.5 Hyperlipidemia, unspecified | CPT/HCPCS: 99212 ==

== ENCOUNTER 2021-05-29 07:39 | Emergency (ER) | payer OTHER, SELFPAY ==
--- NOTE | ~2021-05-29 | CT_ITS ---
EXAMINATION: CT ABDOMEN AND PELVIS WITHOUT CONTRAST CLINICAL INFORMATION: Urinary retention COMPARISON: Previous CT of the abdomen and pelvis June 2020 TECHNIQUE: Multidetector volumetric imaging was performed from the superior aspect of the liver through the pubic symphysis. Sagittal and coronal reformatted images were obtained on the technologist's workstation. This CT examination was performed using dose optimization techniques as appropriate, variously including the following: *Automated exposure control *Adjustment of mA and/or kV according to patient size (this includes techniques or standardized protocols for targeted exams where dose is matched to indication/reason for exam; i.e. extremities or head) *Use of iterative reconstruction technique DLP: 588 mGy-cm FINDINGS: LUNG BASES: There is a 3 mm calcified left lower lobe nodule axial image 14 series 4. The lung bases are otherwise clear. LIVER, GALLBLADDER, AND BILIARY TREE: There is a linear calcification in the right lobe the liver that is stable. The liver is otherwise unremarkable. No focal liver lesion or biliary duct dilatation. The gallbladder is unremarkable with no evidence of radiopaque gallstones, gallbladder wall thickening, or obvious pericholecystic inflammatory changes. PANCREAS: Unremarkable. SPLEEN: Unremarkable. ADRENAL GLANDS: Unremarkable. KIDNEYS AND URETERS: There is a 5 x 7 mm stone in the midpole of the right kidney. There is question of a 3 mm stone versus vascular calcification in the upper pole of the right kidney. No hydronephrosis, ureteral dilatation or ureteral stone is seen. BLADDER: There is abnormal soft tissue at the base of the bladder. It is uncertain whether there this is related to the prostate gland or could represent a bladder lesion. The prostate gland is slightly enlarged and protrudes into the base of the bladder. Bladder does not appear distended. The bladder wall does not appear thickened. GASTROINTESTINAL TRACT: There is diverticulosis of the colon. The small and large bowel is otherwise unremarkable. The stomach is unremarkable. The appendix is not seen. ABDOMINAL WALL: There is a right inguinal hernia containing fat. LYMPH NODES: Normal. VASCULAR: There is evidence of atherosclerotic disease. No aneurysm is seen. PELVIC VISCERA: The prostate gland is slightly enlarged and measures 4 x 4 centimeters in AP and transverse dimension. The prostate gland protrudes into the base of the bladder. OSSEOUS STRUCTURES: There are mild degenerative changes of the spine. CT/CT abdomen pelvis wo con IMPRESSION: Abnormal soft tissue at the base of the bladder. It is uncertain whether this is related to the prostate gland. The prostate gland is slightly enlarged and protrudes into the base of the bladder. Right renal stones. No hydronephrosis. Diverticulosis of the colon.
[2021-05-29 07:49] VITALS: BP 162/32; PULSE 52; RESP 16; TEMP 35.8; O2SAT 97; BMI 28.6
--- NOTE | 2021-05-29 08:16 | ED_ITS ---
HPI - Male Genitourinary General Chief complaint: Urogenital-Male Stated complaint: difficulty urinating Time Seen by Provider: 05/29/21 08:16 Source: patient Mode of arrival: ambulatory Limitations: no limitations History of Present Illness Complaint: other (urinary retention and hesistancy) Onset (ago): day(s) (2) Duration: intermittent Severity: mild Quality: dull Relieving factors: urination Exacerbating factors: urination Context: other (hx of BPH) Associated symptoms: Reports other (notes he can't sleep because he feels like he has to pee then cannot completely empty) Related Data Home Medications Medication Instructions Recorded Confirmed clopidogrel 75 mg tablet 75 mg PO DAILY 08/02/20 05/09/21 fenofibrate 54 mg tablet 54 mg PO DAILY 08/02/20 05/09/21 insulin glargine 100 unit/mL (3 22 unit SUBCUT BEDTIME 08/02/20 05/09/21 mL) subcutaneous pen lancets 28 gauge #100 ea 08/02/20 05/09/21 lisinopril 30 mg tablet 30 mg PO DAILY 08/02/20 05/09/21 metoprolol succinate 25 mg 25 mg PO DAILY 08/02/20 05/09/21 tablet,extended release 24 hr omega-3 fatty acids-fish oil 340 1 cap PO TID 08/02/20 05/09/21 mg-1,000 mg capsule aspirin 81 mg tablet,delayed 81 mg PO DAILY 08/10/20 05/09/21 release furosemide 40 mg tablet 40 mg PO DAILY 12/28/20 05/09/21 insulin lispro 100 unit/mL 2 unit SUBCUT DAILY 12/28/20 05/09/21 subcutaneous pen (Admelog SoloStar U-100 Insulin lispro) insulin lispro 100 unit/mL 4 unit SUBCUT DAILY@1200 12/28/20 05/09/21 subcutaneous pen (Admelog SoloStar U-100 Insulin lispro) insulin lispro 100 unit/mL 6 unit SUBCUT DAILY@1800 12/28/20 05/09/21 subcutaneous pen (Admelog SoloStar U-100 Insulin lispro) metformin 1,000 mg tablet 1 tab PO BID 03/14/21 05/09/21 Previous Rx's Medication Instructions Recorded isosorbide mononitrate 30 mg 30 mg PO DAILY 90 Days #90 tab 07/14/20 tablet,extended release 24 hr finasteride 5 mg tablet 5 mg PO DAILY 90 Days #90 tab 08/02/20 tamsulosin 0.4 mg capsule 0.4 mg PO DAILY #90 cap 09/07/20 acetaminophen 500 mg tablet 1,000 mg PO QID PRN #14 tab 02/18/21 (Tylenol Extra Strength) lidocaine HCl 4 % topical cream 1 appl TOPICAL BID PRN #120 g 02/18/21 (Aspercreme (lidocaine HCl)) cyclobenzaprine 5 mg tablet 5 mg PO TID PRN #8 tab 03/14/21 lorazepam 0.5 mg tablet (Ativan) 0.5 mg PO DAILY PRN #10 tab 03/18/21 hydroxyzine HCl 25 mg tablet 25 mg PO TID PRN #24 tab 05/02/21 atorvastatin 80 mg tablet 80 mg PO DAILY 90 Days #90 tab 05/15/21 lorazepam 1 mg tablet (Ativan) 1 mg PO BEDTIME PRN #3 tab 05/29/21 phenazopyridine 100 mg tablet 100 mg PO TID PRN #6 tab 05/29/21 (Pyridium) Allergies Allergy/AdvReac Type Severity Reaction Status Date / Time No Known Allergies Allergy Verified 05/09/21 08:28 [No Known Allergies*] Review of Systems Review of Systems: Constitutional : No Weight loss, No Fever, No Chills, No Fatigue, No Malaise ENT/Mouth : No sore throat, No Rhinorrhea Eyes: No Eye Pain, No Swelling, No Redness Cardiovascular : No Chest Pain, No SOB, No Dyspnea on Exertion, No Orthopnea, No Edema, No Palpitations Respiratory : No Cough, No Sputum, No Wheezing Gastrointestinal : No Nausea, No Vomiting, No Diarrhea, No Constipation, No abdominal Pain, No Hematochezia, No Melena Genitourinary : No Dysuria, No Urinary Frequency, No Hematuria, pos hesitancy, pos retention Musculoskeletal : No joint pain, No Myalgias, No Joint Swelling Skin : No Skin Lesions, No rash Neuro : No Weakness, No Numbness, No Dizziness, No Headache All other systems reviewed and are negative PMFSH Past Medical History Attestation statement: The following information was validated with the patient. Medical History Atherosclerotic cardiovascular disease CVA (cerebral vascular accident) Diabetes mellitus, type 2 Hypercholesteremia Hypertension Ischemic cardiomyopathy Myocardial infarction PAF (paroxysmal atrial fibrillation) Surgical History H/O coronary artery bypass surgery (~04/27/20) Family History Family History Father No problems noted. Mother No problems noted. Social History Social History Household Members: None Housing: Apartment Do you presently have visiting nurse or other home services: Yes ([employer] daily) Alcohol intake: never Patient Tobacco Use Status: Former Tobacco user Use of substances other than those prescribed or required for medical reasons: No Substance Use Type: Crack/Cocaine Advance Directives: Yes Advance Directives on File: Yes Advance Directives Date on File: 03/14/21 service: No Current occupational status: unemployed Physical Exam Vital Signs: Vital Signs: Last Vital Signs Temp 98.8 F 05/29/21 09:42 Pulse 52 05/29/21 12:53 Resp 18 05/29/21 12:53 BP 124/38 L 05/29/21 13:08 Pulse Ox 97 05/29/21 12:53 Body Mass Index 28.6 Appearance: Alert. Oriented X3. No acute distress. Eyes: Pupils equal, round and reactive to light. ENT: Pharynx normal. Neck: Normal inspection. Neck supple. CVS: Normal heart rate and rhythm. Pulses normal. Respiratory: No respiratory distress. Breath sounds normal. Abdomen: Soft and nontender. : 285 in bladder on arrival Skin: Skin warm and dry. Normal skin color. Normal skin turgor. Extremities: No lower extremity edema. No calf ttp Neuro: Oriented X 3. baseline R sided hemiparesis. No sensory deficit. Course Course Course Narrative: IVF ordered but review of EMR shows chronically elevated lactic acidosis likely due to metformin use, repeat BMP for NA ordered as well, IVF ordered, CT scan for obstruction ordered lactic acidosis likely due to medications and not infection or severe sepsis 1035am patient reports drinking a half case of polan [employer]me water bottles yesterday to help him pee this is likely the cause of his low Na (fluids started after repeat testing at 125) - his baseline is low 130 and he is at 127 asymptomatic, no UTI, will start on pyridium and he is requesting a sleep aid for tonight lactic acidosis improved MDM - Male Genitourinary MDM Narrative Medical decision making narrative: 55 yo mle with hx of BPH, PAF, CABG, HTN, HLD, DM, CVA with R sided hemiparesis comes in with c/o urinary hesitancy, incomplete emptying since Saturday denies any other symptoms - at this time will obtain labs, UA and PVR. dispo per results and findings. Lab Data Result diagrams: 05/29/21 09:09 05/29/21 12:39 Labs: Lab Results 05/29/21 05/29/21 05/29/21 Range/Units 09:09 09:09 09:09 WBC 10.9 H (4.8-10.8) X10*3/uL RBC 4.45 L (4.60-5.80) X10*6/uL Hgb 13.1 L (14.0-18.0) g/dl Hct 37.7 L (42-52) % MCV 84.7 (80-98) fL MCH 29.4 (27.0-33.0) pg MCHC 34.7 (31.0-36.0) g/dl RDW 12.8 (11.0-16.0) % Plt Count 383 (160-400) X10*3/uL MPV 10.6 (9.4-12.4) fL Immature Gran % (Auto) 0.6 H (0.0-0.4) % Neut % (Auto) 72.4 (45-73) % Lymph % (Auto) 18.9 L (20-40) % [place] % (Auto) 7.7 (2-11) % Eos % (Auto) 0.2 (0-4) % Baso % (Auto) 0.2 (0-2) % Lymph # (Auto) 2.1 (1.2-4.9) X10*3/uL [place] # (Auto) 0.8 (0.1-1.2) X10*3/uL Eos # (Auto) 0.0 (0.0-0.4) X10*3/uL Baso # (Auto) 0.0 (0.0-0.2) X10*3/uL Abs Immat Gran (auto) 0.07 H (0.00-0.03) X10*3/uL Absolute Neuts (auto) 7.9 (2.0-8.3) X10*3/uL Absolute Nucleated RBC 0.000 (0.0-0.012) X10*3/uL Nucleated RBC % (auto) 0.0 (0.0-0.2) /100WBC VBG pH (7.32-7.43) VBG pCO2 mmHg VBG pO2 mmHg VBG HCO3 (22-26) mmol/L VBG O2 Saturation % VBG Base Excess mmol/L Sodium 123 L (135-145) mmol/L Potassium 4.4 (3.3-5.1) mmol/L Chloride 91 L (96-108) mmol/L Carbon Dioxide 14 L (22-29) mmol/L Anion Gap 22 H (12-20) BUN 8 L D (9-16) mg/dL Creatinine 0.94 (0.5-1.4) mg/dL Estim Creat Clear Calc 83.5 Estimated GFR > 60 Random Glucose 170 H D (60-115) mg/dL Lactic Acid (0.5-2.0) mmol/L Lactic Acid Fup @ 2Hr (0.5-2.0) mmol/L Calcium 9.8 D (8.4-10.2) mg/dL Urine Color Urine Appearance Urine pH (5.0-8.0) Ur Specific [place] (1.005-1.025) Urine Protein (NEG-TRACE) MG/DL Urine Glucose (UA) (NEG) MG/DL Urine Ketones (NEG) MG/DL Urine Blood (NEG) Urine Nitrite (NEG) Ur Leukocyte Esterase (NEG) Urine RBC (0) /HPF Urine WBC (0-4) /HPF Ur Squamous Epith Cells /LPF Urine Bacteria /LPF Urine Mucus /LPF Ethyl Alcohol mg/dL Chlam trachomat DNA PCR NOT DETECTED (Not Detect.) N.gonorrhoeae DNA (PCR) NOT DETECTED (Not Detect.) 05/29/21 05/29/21 05/29/21 Range/Units 09:40 10:02 10:02 WBC (4.8-10.8) X10*3/uL RBC (4.60-5.80) X10*6/uL Hgb (14.0-18.0) g/dl Hct (42-52) % MCV (80-98) fL MCH (27.0-33.0) pg MCHC (31.0-36.0) g/dl RDW (11.0-16.0) % Plt Count (160-400) X10*3/uL MPV (9.4-12.4) fL Immature Gran % (Auto) (0.0-0.4) % Neut % (Auto) (45-73) % Lymph % (Auto) (20-40) % [place] % (Auto) (2-11) % Eos % (Auto) (0-4) % Baso % (Auto) (0-2) % Lymph # (Auto) (1.2-4.9) X10*3/uL [place] # (Auto) (0.1-1.2) X10*3/uL Eos # (Auto) (0.0-0.4) X10*3/uL Baso # (Auto) (0.0-0.2) X10*3/uL Abs Immat Gran (auto) (0.00-0.03) X10*3/uL Absolute Neuts (auto) (2.0-8.3) X10*3/uL Absolute Nucleated RBC (0.0-0.012) X10*3/uL Nucleated RBC % (auto) (0.0-0.2) /100WBC VBG pH (7.32-7.43) VBG pCO2 mmHg VBG pO2 mmHg VBG HCO3 (22-26) mmol/L VBG O2 Saturation % VBG Base Excess mmol/L Sodium 125 L (135-145) mmol/L Potassium 4.4 (3.3-5.1) mmol/L Chloride 91 L (96-108) mmol/L Carbon Dioxide 19 L (22-29) mmol/L Anion Gap 19 (12-20) BUN 8 L (9-16) mg/dL Creatinine 0.91 (0.5-1.4) mg/dL Estim Creat Clear Calc 86.2 Estimated GFR > 60 Random Glucose 146 H (60-115) mg/dL Lactic Acid 4.1 H* (0.5-2.0) mmol/L Lactic Acid Fup @ 2Hr (0.5-2.0) mmol/L Calcium 9.5 (8.4-10.2) mg/dL Urine Color YELLOW Urine Appearance HAZY Urine pH 6.0 (5.0-8.0) Ur Specific [place] <= 1.005 (1.005-1.025) Urine Protein NEG (NEG-TRACE) MG/DL Urine Glucose (UA) NEG (NEG) MG/DL Urine Ketones NEG (NEG) MG/DL Urine Blood NEG (NEG) Urine Nitrite NEG (NEG) Ur Leukocyte Esterase NEG (NEG) Urine RBC 0-2 (0) /HPF Urine WBC 0-2 (0-4) /HPF Ur Squamous Epith Cells 1+ /LPF Urine Bacteria NONE /LPF Urine Mucus 1+ /LPF Ethyl Alcohol mg/dL Chlam trachomat DNA PCR (Not Detect.) N.gonorrhoeae DNA (PCR) (Not Detect.) 05/29/21 05/29/21 05/29/21 Range/Units 10:02 10:12 12:39 WBC (4.8-10.8) X10*3/uL RBC (4.60-5.80) X10*6/uL Hgb (14.0-18.0) g/dl Hct (42-52) % MCV (80-98) fL MCH (27.0-33.0) pg MCHC (31.0-36.0) g/dl RDW (11.0-16.0) % Plt Count (160-400) X10*3/uL MPV (9.4-12.4) fL Immature Gran % (Auto) (0.0-0.4) % Neut % (Auto) (45-73) % Lymph % (Auto) (20-40) % [place] % (Auto) (2-11) % Eos % (Auto) (0-4) % Baso % (Auto) (0-2) % Lymph # (Auto) (1.2-4.9) X10*3/uL [place] # (Auto) (0.1-1.2) X10*3/uL Eos # (Auto) (0.0-0.4) X10*3/uL Baso # (Auto) (0.0-0.2) X10*3/uL Abs Immat Gran (auto) (0.00-0.03) X10*3/uL Absolute Neuts (auto) (2.0-8.3) X10*3/uL Absolute Nucleated RBC (0.0-0.012) X10*3/uL Nucleated RBC % (auto) (0.0-0.2) /100WBC VBG pH 7.35 (7.32-7.43) VBG pCO2 33 mmHg VBG pO2 56 mmHg VBG HCO3 18 L (22-26) mmol/L VBG O2 Saturation 80.0 % VBG Base Excess -5.9 mmol/L Sodium 127 L (135-145) mmol/L Potassium 4.5 (3.3-5.1) mmol/L Chloride 95 L (96-108) mmol/L Carbon Dioxide 21 L (22-29) mmol/L Anion Gap 16 (12-20) BUN 8 L (9-16) mg/dL Creatinine 0.85 (0.5-1.4) mg/dL Estim Creat Clear Calc 92.3 Estimated GFR > 60 Random Glucose 116 H (60-115) mg/dL Lactic Acid (0.5-2.0) mmol/L Lactic Acid Fup @ 2Hr (0.5-2.0) mmol/L Calcium 8.9 D (8.4-10.2) mg/dL Urine Color Urine Appearance Urine pH (5.0-8.0) Ur Specific [place] (1.005-1.025) Urine Protein (NEG-TRACE) MG/DL Urine Glucose (UA) (NEG) MG/DL Urine Ketones (NEG) MG/DL Urine Blood (NEG) Urine Nitrite (NEG) Ur Leukocyte Esterase (NEG) Urine RBC (0) /HPF Urine WBC (0-4) /HPF Ur Squamous Epith Cells /LPF Urine Bacteria /LPF Urine Mucus /LPF Ethyl Alcohol < 10 mg/dL Chlam trachomat DNA PCR (Not Detect.) N.gonorrhoeae DNA (PCR) (Not Detect.) 05/29/21 Range/Units 12:39 WBC (4.8-10.8) X10*3/uL RBC (4.60-5.80) X10*6/uL Hgb (14.0-18.0) g/dl Hct (42-52) % MCV (80-98) fL MCH (27.0-33.0) pg MCHC (31.0-36.0) g/dl RDW (11.0-16.0) % Plt Count (160-400) X10*3/uL MPV (9.4-12.4) fL Immature Gran % (Auto) (0.0-0.4) % Neut % (Auto) (45-73) % Lymph % (Auto) (20-40) % [place] % (Auto) (2-11) % Eos % (Auto) (0-4) % Baso % (Auto) (0-2) % Lymph # (Auto) (1.2-4.9) X10*3/uL [place] # (Auto) (0.1-1.2) X10*3/uL Eos # (Auto) (0.0-0.4) X10*3/uL Baso # (Auto) (0.0-0.2) X10*3/uL Abs Immat Gran (auto) (0.00-0.03) X10*3/uL Absolute Neuts (auto) (2.0-8.3) X10*3/uL Absolute Nucleated RBC (0.0-0.012) X10*3/uL Nucleated RBC % (auto) (0.0-0.2) /100WBC VBG pH (7.32-7.43) VBG pCO2 mmHg VBG pO2 mmHg VBG HCO3 (22-26) mmol/L VBG O2 Saturation % VBG Base Excess mmol/L Sodium (135-145) mmol/L Potassium (3.3-5.1) mmol/L Chloride (96-108) mmol/L Carbon Dioxide (22-29) mmol/L Anion Gap (12-20) BUN (9-16) mg/dL Creatinine (0.5-1.4) mg/dL Estim Creat Clear Calc Estimated GFR Random Glucose (60-115) mg/dL Lactic Acid (0.5-2.0) mmol/L Lactic Acid Fup @ 2Hr 2.4 H* (0.5-2.0) mmol/L Calcium (8.4-10.2) mg/dL Urine Color Urine Appearance Urine pH (5.0-8.0) Ur Specific [place] (1.005-1.025) Urine Protein (NEG-TRACE) MG/DL Urine Glucose (UA) (NEG) MG/DL Urine Ketones (NEG) MG/DL Urine Blood (NEG) Urine Nitrite (NEG) Ur Leukocyte Esterase (NEG) Urine RBC (0) /HPF Urine WBC (0-4) /HPF Ur Squamous Epith Cells /LPF Urine Bacteria /LPF Urine Mucus /LPF Ethyl Alcohol mg/dL Chlam trachomat DNA PCR (Not Detect.) N.gonorrhoeae DNA (PCR) (Not Detect.) Discharge Plan Discharge Clinical Impression: Lower urinary obstructive symptom, Acute hyponatremia, BPH w urinary obs/LUTS Patient Disposition: Home, Self-Care Instructions: Enlarged Prostate (BPH) (ED), Hyponatremia (ED) Additional Instructions: no more than 40 ounces of water a day repeat sodium level in 2 days with your doctor please stop consuming so much water see your urologist Prescriptions: New phenazopyridine [Pyridium] 100 mg tablet 100 mg PO TID PRN (Reason: pain) Qty: 6 RF: 0 lorazepam [Ativan] 1 mg tablet 1 mg PO BEDTIME PRN (Reason: sleep) Qty: 3 RF: 0 No Action isosorbide mononitrate 30 mg tablet extended release 24 hr 30 mg PO DAILY 90 Days Qty: 90 RF: 1 tamsulosin 0.4 mg capsule 0.4 mg PO DAILY Qty: 90 RF: 2 atorvastatin 80 mg tablet 80 mg PO DAILY 90 Days Qty: 90 RF: 1 furosemide 40 mg tablet 40 mg PO DAILY RF: 0 insulin lispro [Admelog SoloStar U-100 Insulin] 100 unit/mL Insulin Pen 2 unit SUBCUT DAILY RF: 0 insulin lispro [Admelog SoloStar U-100 Insulin] 100 unit/mL insulin pen 6 unit subcut DAILY@1800 RF: 0 insulin lispro [Admelog SoloStar U-100 Insulin] 100 unit/mL insulin pen 4 unit subcut DAILY@1200 RF: 0 acetaminophen [Tylenol Extra Strength] 500 mg tablet 1,000 mg PO QID PRN (Reason: fever or pain) Qty: 14 RF: 0 lidocaine HCl [Aspercreme (lidocaine HCl)] 4 % cream 1 appl topical BID PRN (Reason: pain) Qty: 120 RF: 0 metformin 1,000 mg tablet 1 tab PO BID RF: 0 cyclobenzaprine 5 mg tablet 5 mg PO TID PRN (Reason: muscle spasm) Qty: 8 RF: 0 hydroxyzine HCl 25 mg tablet 25 mg PO TID PRN (Reason: anixety) Qty: 24 RF: 0 lorazepam [Ativan] 0.5 mg tablet 0.5 mg PO DAILY PRN (Reason: anxiety) Qty: 10 RF: 0 aspirin 81 mg tablet,delayed release (DR/EC) 81 mg PO DAILY RF: 0 insulin glargine 100 unit/mL (3 mL) insulin pen 22 unit subcut BEDTIME RF: 0 omega-3 fatty acids-fish oil 340-1,000 mg capsule 1 cap PO TID RF: 0 (DME) lancets 28 gauge misc See Rx Instructions ea topical DIRECTED Qty: 100 RF: 0 clopidogrel 75 mg tablet 75 mg PO DAILY RF: 0 fenofibrate 54 mg tablet 54 mg PO DAILY RF: 0 metoprolol succinate 25 mg tablet extended release 24 hr 25 mg PO DAILY RF: 0 lisinopril 30 mg tablet 30 mg PO DAILY RF: 0 finasteride 5 mg tablet 5 mg PO DAILY 90 Days Qty: 90 RF: 1
--- NOTE | 2021-05-29 08:37 | PC.NURSE ---
pt alert and oriented, skin appropriate for ethnicity, respirations even and unlabored, pt reports having difficulty urinating, no pain at this time.
[2021-05-29 09:16] LABS: MANUAL DIFF FLAG NO
[2021-05-29 09:18] LABS: Basophils Percent Auto 0.2 % (0-2); Eosinophils Percent Auto 0.2 % (0-4); Hematocrit 37.7 % (42-52); Hemoglobin 13.1 g/dl (14.0-18.0); Imm Gran Abs Auto 0.07 X10*3/uL (0.00-0.03); Imm Gran Pct Auto 0.6 % (0.0-0.4); Lymphocytes Absolute Auto 2.1 X10*3/uL (1.2-4.9); Lymphocytes Percent Auto 18.9 % (20-40); Mean Corpuscular HGB Conc 34.7 g/dl (31.0-36.0); Mean Corpuscular Hemoglobin 29.4 pg (27.0-33.0); Mean Corpuscular Volume 84.7 fL (80-98); Mean Platelet Volume 10.6 fL (9.4-12.4); Monocytes Absolute Auto 0.8 X10*3/uL (0.1-1.2); Monocytes Percent Auto 7.7 % (2-11); Neutrophils Absolute Auto 7.9 X10*3/uL (2.0-8.3); Neutrophils Percent Auto 72.4 % (45-73); Platelet Count 383 X10*3/uL (160-400); Red Blood Count 4.45 X10*6/uL (4.60-5.80); Red Cell Distribution Width 12.8 % (11.0-16.0); White Blood Count 10.9 X10*3/uL (4.8-10.8)
[2021-05-29 09:39] LABS: Anion Gap 22 (12-20); Blood Urea Nitrogen 8 mg/dL (9-16); Calcium 9.8 mg/dL (8.4-10.2); Carbon Dioxide 14 mmol/L (22-29); Chloride 91 mmol/L (96-108); Creatinine Clr Calc Pharmacy 83.5; Estimated Glomerular Filt Rate > 60; Glucose Random 170 mg/dL (60-115); Potassium 4.4 mmol/L (3.3-5.1); Sodium 123 mmol/L (135-145)
[2021-05-29 09:42] VITALS: BP 130/28; PULSE 46; RESP 18; TEMP 37.1; O2SAT 98
[2021-05-29 09:52] LABS: Appearance Urine HAZY; Color Urine YELLOW; Glucose Urine UA NEG (NEG); Leukocyte Esterase Urine NEG (NEG); Nitrite Urine NEG (NEG); Specific Gravity - Urine <= 1.005 (1.005-1.025); Urine Blood NEG (NEG); Urine Ketones NEG (NEG); Urine Protein NEG (NEG-TRACE)
[2021-05-29 09:58] LABS: Mucus Urine 1+ /LPF; RBC Urine 0-2 /HPF (0); Squamous Epithelial Cell Urine 1+ /LPF; WBC Urine 0-2 /HPF (0-4)
[2021-05-29 10:16] LABS: VBG Base Excess -5.9 mmol/L; VBG HCO3 18 mmol/L (22-26); VBG pCO2 33 mmHg; VBG pH 7.35 (7.32-7.43); VBG pO2 56 mmHg
[2021-05-29 10:16] LABS: Venous Blood Gas Refer to POC result
[2021-05-29 10:30] LABS: Ethanol < 10 mg/dL; Lactic Acid 4.1 mmol/L (0.5-2.0)
[2021-05-29 10:33] LABS: Anion Gap 19 (12-20); Blood Urea Nitrogen 8 mg/dL (9-16); Calcium 9.5 mg/dL (8.4-10.2); Carbon Dioxide 19 mmol/L (22-29); Chloride 91 mmol/L (96-108); Creatinine Clr Calc Pharmacy 86.2; Estimated Glomerular Filt Rate > 60; Glucose Random 146 mg/dL (60-115); Potassium 4.4 mmol/L (3.3-5.1); Sodium 125 mmol/L (135-145)
[2021-05-29 11:07] VITALS: BP 101/31; PULSE 45
[2021-05-29] MEDS: 0.9 % Sodium Chloride 1,000 ML 999 ML IV (11:16)
[2021-05-29 12:01] LABS: CT PCR NOT DETECTED (Not Detect.); NG PCR NOT DETECTED (Not Detect.)
[2021-05-29 12:09] LABS: Reflex Lactate? Lactic Acid Added
[2021-05-29 12:53] VITALS: BP 119/33; PULSE 52; RESP 18; O2SAT 97
--- NOTE | 2021-05-29 12:53 | PC.NURSE ---
pt resting in the stretcher, respirations even and unlabored, pt voided 500cc of yellow urine but still reports like he needs to void more but not able to due so
[2021-05-29 13:02] LABS: ~Lactic Acid-LAB USE ONLY 2.4 mmol/L (0.5-2.0)
[2021-05-29 13:08] VITALS: BP 124/38
[2021-05-29 13:08] LABS: Anion Gap 16 (12-20); Blood Urea Nitrogen 8 mg/dL (9-16); Calcium 8.9 mg/dL (8.4-10.2); Carbon Dioxide 21 mmol/L (22-29); Chloride 95 mmol/L (96-108); Creatinine Clr Calc Pharmacy 92.3; Estimated Glomerular Filt Rate > 60; Glucose Random 116 mg/dL (60-115); Potassium 4.5 mmol/L (3.3-5.1); Sodium 127 mmol/L (135-145)
[2021-05-29 13:32] VITALS: BP 122/48
[2021-05-29 14:45] LABS: Reflex Lactate? 2 Y
== END 2021-05-29 14:08 | disposition home or self-care (01) ==
PROVIDERS: Emergency Provider Emergency Medicine; PCP Internal Medicine
DX: N40.1 Benign prostatic hyperplasia with lower urinary tract symptoms (principal); R33.9 Retention of urine, unspecified; E87.1 Hypo-osmolality and hyponatremia; Z79.899 Other long term (current) drug therapy; F14.90 Cocaine use, unspecified, uncomplicated; Z87.891 Personal history of nicotine dependence
CPT/HCPCS: 36415; 51798; 74176; 80048; 81001; 82077; 82803; 83605; 85025; 87040; 87491; 87591; 96360; 99284; 99285

== ENCOUNTER 2021-05-31 08:37 | Outpatient (REF) | payer OTHER, SELFPAY ==
[2021-05-31 10:47] LABS: Prostate Specific Antigen 3.99 ng/mL (<0.05-4.0)
== END 2021-05-31 08:38 | disposition home or self-care (01) ==
LOC: HO.10HDL 08:37
PROVIDERS: Visit Provider Urology
DX: N40.1 Benign prostatic hyperplasia with lower urinary tract symptoms (principal); N13.8 Other obstructive and reflux uropathy; Z12.5 Encounter for screening for malignant neoplasm of prostate
CPT/HCPCS: 36415; 84153

== ENCOUNTER → 2021-06-06 08:41 | Outpatient (BNVA) | payer OTHER, SELFPAY | PROVIDERS: PCP Internal Medicine; Visit Provider Urology | DX: N40.1 Benign prostatic hyperplasia with lower urinary tract symptoms (principal); N13.8 Other obstructive and reflux uropathy | CPT/HCPCS: 51701; 51702; 51798; 99212 ==

== ENCOUNTER 2021-06-09 07:15 | Emergency (ER) | payer OTHER, SELFPAY ==
[2021-06-09 07:43] VITALS: BP 186/61; PULSE 51; RESP 16; TEMP 36.8; O2SAT 96; BMI 28.3
--- NOTE | 2021-06-09 07:55 | PC.NURSE ---
Addendum entered by Damian Farrar RN 06/09/21 08:02: pt also reports having blood in his catheter. Original Note: pt alert and oriented x4. pt states he has BPH and got a catheter placed on this past saturday to help him void, he reports that yesterday he started having pain with voiding and he voided less than usual throughout the day. he also reports he has the urge but nothing comes out. pt's b/p noted to be elevated during triage 186/61, he reports he is on blood pressure meds but did not take his meds yet this morning. denies sob/dizziness/headache. no other symptoms reported.
--- NOTE | 2021-06-09 08:09 | ED.MALEGU ---
HPI - Male Genitourinary General Chief complaint: Urogenital-Male Stated complaint: catheter issue Time Seen by Provider: 06/09/21 08:01 Source: patient Mode of arrival: ambulatory Limitations: no limitations History of Present Illness HPI Narrative: Patient comes emergency room concerned that his Vaughan catheter is not draining well. Patient has history of BPH, he is scheduled for a TURP. Two days ago he had his Vaughan catheter inserted by Dr. Jefferson. Patient complaining of localized discomfort. Patient denies flank pain, no fever chills. Related Data Home Medications Medication Instructions Recorded Confirmed clopidogrel 75 mg tablet 75 mg PO DAILY 08/02/20 05/09/21 fenofibrate 54 mg tablet 54 mg PO DAILY 08/02/20 05/09/21 insulin glargine 100 unit/mL (3 22 unit SUBCUT BEDTIME 08/02/20 05/09/21 mL) subcutaneous pen lancets 28 gauge #100 ea 08/02/20 05/09/21 lisinopril 30 mg tablet 30 mg PO DAILY 08/02/20 05/09/21 metoprolol succinate 25 mg 25 mg PO DAILY 08/02/20 05/09/21 tablet,extended release 24 hr omega-3 fatty acids-fish oil 340 1 cap PO TID 08/02/20 05/09/21 mg-1,000 mg capsule aspirin 81 mg tablet,delayed 81 mg PO DAILY 08/10/20 05/09/21 release furosemide 40 mg tablet 40 mg PO DAILY 12/28/20 05/09/21 insulin lispro 100 unit/mL 2 unit SUBCUT DAILY 12/28/20 05/09/21 subcutaneous pen (Admelog SoloStar U-100 Insulin lispro) insulin lispro 100 unit/mL 4 unit SUBCUT DAILY@1200 12/28/20 05/09/21 subcutaneous pen (Admelog SoloStar U-100 Insulin lispro) insulin lispro 100 unit/mL 6 unit SUBCUT DAILY@1800 12/28/20 05/09/21 subcutaneous pen (Admelog SoloStar U-100 Insulin lispro) metformin 1,000 mg tablet 1 tab PO BID 03/14/21 05/09/21 blood sugar diagnostic (FreeStyle #10 ea 06/06/21 Lite Strips) duloxetine 20 mg capsule,delayed 20 mg PO DAILY 06/06/21 release pen needle, diabetic 32 gauge x #50 ea 06/06/21 (BD Kelli 2nd Gen Pen Needle) Previous Rx's Medication Instructions Recorded isosorbide mononitrate 30 mg 30 mg PO DAILY 90 Days #90 tab 07/14/20 tablet,extended release 24 hr finasteride 5 mg tablet 5 mg PO DAILY 90 Days #90 tab 08/02/20 tamsulosin 0.4 mg capsule 0.4 mg PO DAILY #90 cap 09/07/20 acetaminophen 500 mg tablet 1,000 mg PO QID PRN #14 tab 02/18/21 (Tylenol Extra Strength) lidocaine HCl 4 % topical cream 1 appl TOPICAL BID PRN #120 g 02/18/21 (Aspercreme (lidocaine HCl)) cyclobenzaprine 5 mg tablet 5 mg PO TID PRN #8 tab 03/14/21 lorazepam 0.5 mg tablet (Ativan) 0.5 mg PO DAILY PRN #10 tab 03/18/21 hydroxyzine HCl 25 mg tablet 25 mg PO TID PRN #24 tab 05/02/21 atorvastatin 80 mg tablet 80 mg PO DAILY 90 Days #90 tab 05/15/21 lorazepam 1 mg tablet (Ativan) 1 mg PO BEDTIME PRN #3 tab 05/29/21 phenazopyridine 100 mg tablet 100 mg PO TID PRN #6 tab 05/29/21 (Pyridium) Allergies Allergy/AdvReac Type Severity Reaction Status Date / Time No Known Allergies Allergy Verified 06/06/21 08:44 [No Known Allergies*] Review of Systems Review of Systems: Constitutional : No Weight loss, No Fever, No Chills, No Night Sweats, No Fatigue, No Malaise ENT/Mouth : No Hearing loss, No Ear Pain, No Nasal Congestion, No Sinus Pain, No Hoarseness, No sore throat, No Rhinorrhea, No Swallowing Difficulty Eyes: No Eye Pain, No Swelling, No Redness, No Foreign Body, No Discharge, No Vision Changes Cardiovascular : No Chest Pain, No SOB, No Dyspnea on Exertion, No Orthopnea, No Edema, No Palpitations Respiratory : No Cough, No Sputum, No Wheezing, No Smoke Exposure, No Dyspnea Gastrointestinal : No Nausea, No Vomiting, No Diarrhea, No Constipation, No abdominal Pain, No Hematochezia, No Melena Genitourinary : Denies flank pain, complaining of slow urinary output through his Vaughan catheter, localized penile discomfort Musculoskeletal : No joint pain, No Myalgias, No Joint Swelling Skin : No Skin Lesions, No rash Neuro : No Weakness, No Numbness, No Paresthesias, No Loss of Consciousness, No Dizziness, No Headache Psych : No Anxiety/Panic, No Depression, No SI/HI/AH/VH, No Social Issues, Heme/Lymph: No Bruising, No Bleeding,No Lymphadenopathy Endocrine : No Polyuria, No Polydipsia, No Temperature Intolerance [facility] Past Medical History Medical History Atherosclerotic cardiovascular disease CVA (cerebral vascular accident) Diabetes mellitus, type 2 Hypercholesteremia Hypertension Ischemic cardiomyopathy Myocardial infarction PAF (paroxysmal atrial fibrillation) Surgical History H/O coronary artery bypass surgery (~04/27/20) Family History Family History Father No problems noted. Mother No problems noted. 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 Oriented X3. No acute distress. Eyes: Pupils equal, round and reactive to light. ENT: Pharynx normal. Neck: Normal inspection. Neck supple. No lymph nodes noted. No crepitus CVS: Normal heart rate and rhythm. Pulses normal. Normal S1 and S2 Respiratory: No respiratory distress. Breath sounds normal. No Wheezing. No rales Abdomen: Soft and nontender. No rigidity. No distention. No suprapubic distension, bedside bladder scan shows 22 mL of urine Skin: Skin warm and dry. Normal skin color. Normal skin turgor. Extremities: No lower extremity edema. No lower extremity edema. No Lacerations. No Rash Neuro: Oriented X 3. No motor deficit. No sensory deficit. Moving all extermities. No slurred speech. Course Course Course Narrative: I discussed the physical exam with the patient, patient's bladder is very much empty, the Vaughan catheter is draining appropriately, patient's catheter was repositioned. Patient states it feels better. Patient instructed to follow-up with Dr. Jefferson as scheduled. Discharge Plan Discharge Clinical Impression: Vaughan catheter in place Patient Disposition: Home, Self-Care Instructions: Vaughan Catheter Placement and Care (ED) Additional Instructions: Please follow-up with your primary care physician tomorrow. If you have any worsening or new symptoms, please return to the emergency room or call 911 Prescriptions: No Action isosorbide mononitrate 30 mg tablet extended release 24 hr 30 mg PO DAILY 90 Days Qty: 90 RF: 1 tamsulosin 0.4 mg capsule 0.4 mg PO DAILY Qty: 90 RF: 2 atorvastatin 80 mg tablet 80 mg PO DAILY 90 Days Qty: 90 RF: 1 furosemide 40 mg tablet 40 mg PO DAILY RF: 0 insulin lispro [Admelog SoloStar U-100 Insulin] 100 unit/mL Insulin Pen 2 unit SUBCUT DAILY RF: 0 insulin lispro [Admelog SoloStar U-100 Insulin] 100 unit/mL insulin pen 6 unit subcut DAILY@1800 RF: 0 insulin lispro [Admelog SoloStar U-100 Insulin] 100 unit/mL insulin pen 4 unit subcut DAILY@1200 RF: 0 acetaminophen [Tylenol Extra Strength] 500 mg tablet 1,000 mg PO QID PRN (Reason: fever or pain) Qty: 14 RF: 0 lidocaine HCl [Aspercreme (lidocaine HCl)] 4 % cream 1 appl topical BID PRN (Reason: pain) Qty: 120 RF: 0 metformin 1,000 mg tablet 1 tab PO BID RF: 0 cyclobenzaprine 5 mg tablet 5 mg PO TID PRN (Reason: muscle spasm) Qty: 8 RF: 0 hydroxyzine HCl 25 mg tablet 25 mg PO TID PRN (Reason: anixety) Qty: 24 RF: 0 lorazepam [Ativan] 0.5 mg tablet 0.5 mg PO DAILY PRN (Reason: anxiety) Qty: 10 RF: 0 phenazopyridine [Pyridium] 100 mg tablet 100 mg PO TID PRN (Reason: pain) Qty: 6 RF: 0 lorazepam [Ativan] 1 mg tablet 1 mg PO BEDTIME PRN (Reason: sleep) Qty: 3 RF: 0 aspirin 81 mg tablet,delayed release (DR/EC) 81 mg PO DAILY RF: 0 insulin glargine 100 unit/mL (3 mL) insulin pen 22 unit subcut BEDTIME RF: 0 omega-3 fatty acids-fish oil 340-1,000 mg capsule 1 cap PO TID RF: 0 (DME) lancets 28 gauge misc See Rx Instructions ea topical DIRECTED Qty: 100 RF: 0 clopidogrel 75 mg tablet 75 mg PO DAILY RF: 0 fenofibrate 54 mg tablet 54 mg PO DAILY RF: 0 metoprolol succinate 25 mg tablet extended release 24 hr 25 mg PO DAILY RF: 0 lisinopril 30 mg tablet 30 mg PO DAILY RF: 0 finasteride 5 mg tablet 5 mg PO DAILY 90 Days Qty: 90 RF: 1
[2021-06-09 08:31] VITALS: BP 184/57; PULSE 57; RESP 18
[2021-06-09 09:14] VITALS: BP 145/48; PULSE 46; RESP 18; O2SAT 95
== END 2021-06-09 09:19 | disposition home or self-care (01) ==
PROVIDERS: Emergency Provider Emergency Medicine
DX: R10.33 Periumbilical pain (principal); F14.90 Cocaine use, unspecified, uncomplicated; E11.9 Type 2 diabetes mellitus without complications; I25.10 Atherosclerotic heart disease of native coronary artery without angina pectoris; Z79.82 Long term (current) use of aspirin; Z79.4 Long term (current) use of insulin; Z79.899 Other long term (current) drug therapy
CPT/HCPCS: 99283; 99284

== ENCOUNTER 2021-07-10 09:03 | Day surgery (SDC) | payer OTHER, SELFPAY ==
[2021-07-07 09:25] VITALS: BMI 28.3
[2021-07-10] VITALS (7 sets, daily range): BP systolic 125–156; BP diastolic 69–86; PULSE 94–107; RESP 16–18; TEMP 36.4–36.8; O2SAT 95–98
[2021-07-10 10:01] LABS: Glucose, Whole Blood 131 mg/dL (60-115)
[2021-07-10] MEDS: Lactated Ringers 1,000 ML 50 ML IVCONT (10:12)
[2021-07-10] MEDS: levoFLOXacin/D5W 500 MG/100 ML PIGGYBACK 100 MG IV (10:12)
--- NOTE | 2021-07-10 10:36 | HO.ANESPROP2 ---
HPI - Anesthesia Eval Consult details Narrative: 55 yo male patient for laser ablation of the prostate with green light PMFSH Active Problems Active Problems: All Active Problems (Updated 06/10/21 @ 00:01 by Timi Lima) Precordial chest pain (Acute) LBBB (left bundle branch block) (Acute) Status post coronary artery bypass graft (Acute) Atrial tachycardia, paroxysmal (Acute) BPH w urinary obs/LUTS (Acute) Elevated PSA (Acute) Other and unspecified hyperlipidemia (Acute) PAF (paroxysmal atrial fibrillation) (Acute) Ischemic cardiomyopathy (Acute) Atherosclerotic cardiovascular disease (Acute) Nocturia more than twice per night (Acute) Bladder outlet obstruction (Acute) Microscopic hematuria (Acute) H/O coronary artery bypass surgery (Acute ~04/27/20) Myocardial infarction (Acute) Hypertension (Acute) Hypercholesteremia (Acute) Diabetes mellitus, type 2 (Acute) CVA (cerebral vascular accident) (Acute) with residual Right sided weakness. Ambulates with cane On plavix. Last dose 07/04/21 EKG sinus tachycardia today Past Medical History Medical History Atherosclerotic cardiovascular disease CVA (cerebral vascular accident) Diabetes mellitus, type 2 Hypercholesteremia Hypertension Ischemic cardiomyopathy Myocardial infarction PAF (paroxysmal atrial fibrillation) Family History Family History Father No problems noted. Mother No problems noted. 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) Alcohol intake: never Patient Tobacco Use Status: Former Tobacco user Quit Date: 2017 Substance Use Type: Crack/Cocaine Last Used Substance Other:: Years ago Are you DNR?: No Advance Directives: Yes Advance Directives Information Provided: No Advance Directives on File: Yes Advance Directives Date on File: 03/14/21 service: No Current occupational status: unemployed Meds Allergies Allergy/AdvReac Type Severity Reaction Status Date / Time No Known Allergies Allergy Verified 06/06/21 08:44 [No Known Allergies*] Active Medications: Current Medications Lactated Ringer's (Lr) 1,000 mls @ 50 mls/hr IVCONT .Q20H PRABHA Last Admin: 07/10/21 10:12 Dose: 50 mls/hr Documented by: Levofloxacin (Levaquin) 500 mg in 100 mls @ 100 mls/hr IV PREOP ONE Stop: 07/10/21 10:50 Last Admin: 07/10/21 10:12 Dose: 100 mls/hr Documented by: Home Medications Medication Instructions Recorded Confirmed Last Taken Type clopidogrel 75 mg tablet 75 mg PO DAILY 08/02/20 07/07/21 07/04/21 History fenofibrate 54 mg tablet 54 mg PO DAILY 08/02/20 07/07/21 03/14/21 History insulin glargine 100 unit/mL (3 22 unit SUBCUT BEDTIME 08/02/20 07/07/21 03/13/21 History mL) subcutaneous pen lancets 28 gauge #100 ea 08/02/20 05/09/21 Unknown History lisinopril 30 mg tablet 30 mg PO DAILY 08/02/20 07/07/21 03/14/21 History metoprolol succinate 25 mg 25 mg PO DAILY 08/02/20 07/07/21 03/14/21 History tablet,extended release 24 hr omega-3 fatty acids-fish oil 340 1 cap PO TID 08/02/20 07/07/21 03/14/21 History mg-1,000 mg capsule aspirin 81 mg tablet,delayed 81 mg PO DAILY 08/10/20 07/07/21 03/14/21 History release furosemide 40 mg tablet 40 mg PO DAILY 12/28/20 07/07/21 03/14/21 History insulin lispro 100 unit/mL 2 unit SUBCUT DAILY 12/28/20 07/07/21 03/13/21 History subcutaneous pen (Admelog SoloStar U-100 Insulin lispro) insulin lispro 100 unit/mL 4 unit SUBCUT DAILY@1200 12/28/20 07/07/21 03/13/21 History subcutaneous pen (Admelog SoloStar U-100 Insulin lispro) insulin lispro 100 unit/mL 6 unit SUBCUT DAILY@1800 0507/07/21 03/13/21 History subcutaneous pen (Admelog SoloStar U-100 Insulin lispro) metformin 1,000 mg tablet 1 tab PO BID 03/14/21 07/07/21 03/13/21 History blood sugar diagnostic (FreeStyle #10 ea 06/06/21 Unknown History Lite Strips) duloxetine 20 mg capsule,delayed 20 mg PO DAILY 06/06/21 07/07/21 Unknown History release pen needle, diabetic 32 gauge x #50 ea 06/06/21 07/07/21 Unknown History (BD Kelli 2nd Gen Pen Needle) Exam Exam Date and Time: July 10, 2021 1036 Height,Weight and Vital Signs: Height 5 ft 5 in Weight 77.111 kg Last Vital Signs Temp 97.5 F 07/10/21 09:52 Pulse 107 H 07/10/21 09:52 Resp 18 07/10/21 09:52 BP 156/69 H 07/10/21 09:52 Pulse Ox 98 07/10/21 09:52 Pertinent Lab Results Pertinent Lab Results: Laboratory Tests 07/10/21 09:57 POC Glucose 131 H Airway Mallampati Class: II TM Dist: >3cm Neck ROM: Full Loose/Missing/Broken Teeth: Yes (Edentulous) Heart: RRR Lungs: CTAB Assessment and Plan Assessment Anesthesia Assessment: Anesthesia Plan Discussed and Chart Reviewed Final Anesthetic Review Family History of Problems with Anesthesia: No History of Problems with Anesthesia: No NPO: Yes ASA Class: III Final Preanesthetic Review: No Changes in Pt Med Stat, Meds/Allgs Chart Reviewed, Consent Obtained/Reviewed and Anes Risks/Benef Reviewed Patient Risk: Intermediate Procedure Risk: Low Assessment/Block/Sedation in SS: Assess/Block/Sedation-SS Anesthetic Plan Anesthetic Plan: GA Disposition: Standard PACU
--- NOTE | 2021-07-10 11:10 | MHC.SHP ---
Pre-Procedural Eval Section A Date of Service: 07/10/21 Section B Chief Complaint: BPH Details of Present Illness: Prior procedure 3 years ago, Relevant Family History (Specify if Yes): No Relevant Social History: None Present Medications: see Short Stay Collaborative assessment Medical History: Significant History History of Previous Operations: Relevant previous surgery/procedure and date(s) Allergies: Allergies Allergy/AdvReac Type Severity Reaction Status Date / Time No Known Allergies Allergy Verified 06/06/21 08:44 [No Known Allergies*] Review of Systems Sugical H&P ROS: Negative: Constitution, Cardiovascular, Respiratory, Neurological, Psychiatric, Hem-Onc, Allergic/Immunologic, Gastrointestinal, Genitourinary, Musculoskeletal, Integumentary, Endocrine and Eyes/Ears/Nose/Throat Exam Surgical H&P Exam: Normal: HEENT, Normal: Heart, Normal: Lungs, Normal: Extremities, Normal: Abdomen, Normal: Skin and Normal: Neurological Plan Diagnosis/Plan: Unchanged (GreenLight laser enucleation of prostate) I have reviewed the history and physical and performed a pertinent physical examination on my patient. No changes have occurred unless specified.
--- NOTE | 2021-07-10 12:47 | P.OP_ITS ---
Operative Note Operative Note Date of Service: 07/10/21 Narrative: PreOperative Diagnosis: Bladder outlet obstruction Post Operative Diagnosis: Bladder outlet obstruction Procedure: GreenLight laser enucleation of the prostate Surgeon: Dr Demetrius Jefferson Anesthesia: General Indications for procedure: History of bladder outlet obstruction. Prior laser of medial area in office 2 years ago. Had retention. The urinate. He had on cystoscopy had lateral impingement from both left and right side. Offered prostate procedure Procedure: After informed consent was verified the patient was brought to the operating room and placed in a supine position. Anesthesia was administered per protocol. Patient was placed in modified dorsal lithotomy position and prepped and draped in a sterile fashion. Safety pause time-out was confirmed. Antibiotics have been given. Twenty-four Vietnamese laser cystoscope was inserted per urethra. No abnormalities found the anterior posterior urethra. The bladder was filled on both ureteric orifices were seen in normal position away from our area of interest. Using GreenLight laser power settings of 80 we redeveloped the lateral aspect isolating the 2 lateral lobes. Focusing on the right lateral lobe we performed ablation keeping alignment with the bladder neck which was wide open. Similar procedure was repeated on the left side using power up to 120 w. Great care was taken around the apex of the prostate. When this was completed debris and pieces of prostate removed from the bladder. Both ureteric orifices were reviewed again in shown to be patent in away from any areas of energy damage. The apical area was reviewed in any stray ooze was controlled. A 22 Vietnamese 30 cc balloon Vaughan catheter was placed over stylet into the bladder. Clear efflux was obtained. 30 cc was placed in the balloon and gentle traction was placed. A snap was used to hold tension once the patient will be moved and transported. Once transportation its finish this novel be removed. A belladonna and opiate suppository was placed for postprocedure pain management. He tolerated procedure well was extubated in the operating and transferred in a stable condition to the recovery area. Total lasing time 13 minutes, power 75,000 kilojoules Pathology: Prostate tissue Drains: Vaughan catheter
== END 2021-07-10 14:14 | disposition home or self-care (01) ==
PROVIDERS: Visit Provider Urology
PROC: (CPT 52648; principal; 2021-07-10 11:10)
DX: N40.1 Benign prostatic hyperplasia with lower urinary tract symptoms (principal); N13.8 Other obstructive and reflux uropathy; R39.12 Poor urinary stream; I10 Essential (primary) hypertension; E11.9 Type 2 diabetes mellitus without complications; I48.0 Paroxysmal atrial fibrillation; I25.10 Atherosclerotic heart disease of native coronary artery without angina pectoris; Z95.1 Presence of aortocoronary bypass graft; I25.2 Old myocardial infarction; Z79.01 Long term (current) use of anticoagulants; Z79.4 Long term (current) use of insulin; Z79.899 Other long term (current) drug therapy; Z87.891 Personal history of nicotine dependence; F14.90 Cocaine use, unspecified, uncomplicated
CPT/HCPCS: 52648; 82947; 88305; J1956; J2405; J3010

== ENCOUNTER → 2021-07-13 08:38 | Outpatient (BNVA) | payer OTHER, SELFPAY | PROVIDERS: PCP Internal Medicine; Visit Provider Urology | DX: N13.8 Other obstructive and reflux uropathy (principal) | CPT/HCPCS: 51700; 51798 ==

== ENCOUNTER 2021-07-14 10:02 | Outpatient (REF) | payer OTHER, SELFPAY ==
--- NOTE | ~2021-07-14 | MR_ITS ---
EXAMINATION: MR BRAIN WITHOUT CONTRAST CLINICAL INFORMATION: History of left thalamic stroke. Numbness in right face and right extremities. COMPARISON: Brain MRI dated 12/23/2017. Head CT dated 03/16/2021. TECHNIQUE: Multiplanar, multisequence imaging of the brain was performed without contrast. FINDINGS: No diffusion abnormalities are identified to suggest an acute infarct. No evidence of hydrocephalus. No mass effect or midline shift is seen. Stable [id number] scattered white matter signal changes noted which may be due to chronic microangiopathy. There is a small chronic infarct in the left paramedian emily. Scattered small chronic lacunar infarcts are visible in the gangliocapsular structures and left thalamus. No extra-axial fluid collections are seen. The cerebellum is normal. The gradient refocused acquisition demonstrates no pathologic magnetic susceptibility artifact to indicate underlying acute or chronic blood products. The craniovertebral junction, marrow signal, and midline structures are normal. There is loss of the normal left vertebral artery flow-void. The remaining major intracranial flow-voids at the level of the [place] of [place] are preserved. The dural venous sinus flow-voids are maintained. The mastoid air cells and paranasal sinuses are well aerated. MR/MR head/brain wo con IMPRESSION: Stable [id number] chronic white matter microangiopathy and scattered chronic lacunar infarcts. Loss of the normal left vertebral artery flow-void compared to prior imaging which may either be due to an age-indeterminate vascular occlusion or slow flow in the setting of a hemodynamically significant more proximal stenosis. This could be further evaluated with a follow-up MRA or CTA if clinically warranted.
== END 2021-07-14 10:03 | disposition home or self-care (01) ==
LOC: HO.MRI 10:02
PROVIDERS: Visit Provider Psychiatry & Neurology Neurology
DX: I63.9 Cerebral infarction, unspecified (principal)
CPT/HCPCS: 70551

== ENCOUNTER → 2021-08-02 10:00 | Outpatient (BNVA) | payer OTHER, SELFPAY | PROVIDERS: PCP Internal Medicine; Visit Provider Internal Medicine | DX: I25.5 Ischemic cardiomyopathy (principal); I48.0 Paroxysmal atrial fibrillation; E78.5 Hyperlipidemia, unspecified; E11.8 Type 2 diabetes mellitus with unspecified complications; I69.392 Facial weakness following cerebral infarction; I69.351 Hemiplegia and hemiparesis following cerebral infarction affecting right dominant side; Z79.82 Long term (current) use of aspirin; Z79.4 Long term (current) use of insulin | CPT/HCPCS: 99212 ==

== ENCOUNTER → 2021-09-08 10:27 | Outpatient (BNVA) | payer OTHER, SELFPAY | PROVIDERS: PCP Internal Medicine; Visit Provider Urology | DX: Z48.816 Encounter for surgical aftercare following surgery on the genitourinary system (principal); E11.9 Type 2 diabetes mellitus without complications; Z79.4 Long term (current) use of insulin | CPT/HCPCS: 51798; 99212 ==

== ENCOUNTER → 2021-10-18 12:12 | Outpatient (BNVA) | payer OTHER, SELFPAY | PROVIDERS: PCP Internal Medicine; Referring Provider Internal Medicine; Visit Provider Internal Medicine | DX: Z45.02 Encounter for adjustment and management of automatic implantable cardiac defibrillator (principal); I25.10 Atherosclerotic heart disease of native coronary artery without angina pectoris; I25.5 Ischemic cardiomyopathy; I48.0 Paroxysmal atrial fibrillation; E78.5 Hyperlipidemia, unspecified; E11.8 Type 2 diabetes mellitus with unspecified complications; Z86.73 Personal history of transient ischemic attack (TIA), and cerebral infarction without residual deficits | CPT/HCPCS: 99212 ==

== ENCOUNTER → 2021-11-06 13:38 | Outpatient (BNVA) | payer OTHER, SELFPAY | PROVIDERS: PCP Internal Medicine; Referring Provider Internal Medicine; Visit Provider Internal Medicine | DX: Z45.02 Encounter for adjustment and management of automatic implantable cardiac defibrillator (principal); I25.10 Atherosclerotic heart disease of native coronary artery without angina pectoris; I25.5 Ischemic cardiomyopathy; I48.0 Paroxysmal atrial fibrillation; I47.1 Supraventricular tachycardia; I26.99 Other pulmonary embolism without acute cor pulmonale; E11.8 Type 2 diabetes mellitus with unspecified complications; Z86.73 Personal history of transient ischemic attack (TIA), and cerebral infarction without residual deficits | CPT/HCPCS: 93005; 99212 ==

== ENCOUNTER → 2021-12-04 13:13 | Outpatient (BNVA) | payer OTHER, SELFPAY | PROVIDERS: PCP Internal Medicine; Referring Provider Internal Medicine; Visit Provider Internal Medicine | DX: Z45.02 Encounter for adjustment and management of automatic implantable cardiac defibrillator (principal); I47.1 Supraventricular tachycardia; I25.10 Atherosclerotic heart disease of native coronary artery without angina pectoris; I25.5 Ischemic cardiomyopathy; I48.0 Paroxysmal atrial fibrillation; I26.99 Other pulmonary embolism without acute cor pulmonale; E78.5 Hyperlipidemia, unspecified; E11.8 Type 2 diabetes mellitus with unspecified complications; Z86.73 Personal history of transient ischemic attack (TIA), and cerebral infarction without residual deficits | CPT/HCPCS: 99212 ==

== ENCOUNTER → 2022-01-17 11:21 | Outpatient (REF) | payer OTHER, SELFPAY ==
--- NOTE | 2022-01-17 11:25 | CA_ITS ---
Transthoracic Echocardiogram Patient (Last, First, Middle): Cam Vera, Gender: Male Date of : 1965 Age: 56 Procedure Date: 01/17/2022 Procedure Type: Transthoracic Echocardiogram Location: OP Height: 165.1 cm Weight: 77.11 kg BSA: 1.85 m2 Heart Rate: bpm BP: 130 / 75 mmHg Shopper Insights Manager: MARIA LUZ Calvillo MD: [place] MD Program Aide Group Work: Roman Escobedo MD Symptoms: I25.5 - Ischemic cardiomyopathy Study Quality: Fair ECG Rhythm: Ventriculary paced rhythm Conclusions: - 1. Moderately to severely reduced LV ejection fraction of 30 35% with multiple regional wall motion abnormality suggestive underlying coronary artery disease with pseudonormal filling pattern 2. Mildly dilated left atrium 3. At least moderate mitral regurgitation due to restricted mitral leaflet 4. Mildly elevated right ventricular systolic pressure 5. No gross pericardial effusion Findings Left Ventricle Normal left ventricular cavity size. There is normal left ventricular wall thickness. The left ventricular systolic function is moderate to severely decreased. The visually estimated ejection fraction is between 30-35%. There is paradoxical septal motion consistent with a right ventricular pacemaker. Spectral Doppler is indicative of a pseudonormal filling pattern. E/E prime ratio is between 8 and 15 consistent with indeterminate filling pressures. Wall Motion Rest Echo Findings The inferolateral wall, the apex, basal inferior, mid inferior, apical septum, basal anterolateral, and mid inferoseptal segments are akinetic. All other scored wall segments showed normal motion. Right Ventricle Mildly increased right ventricular cavity size. There is normal right ventricular systolic function. There is an ICD wire seen in the right ventricle. Atria The left atrium is mildly dilated. There is no evidence of interatrial shunt. The right atrium is normal in size. A pacemaker wire is identified in the right atrium. Aortic Valve There is mild calcification of the aortic valve. There is mild thickening of the aortic valve. There is no aortic valve stenosis. The mean gradient is 4 mmHg. There is mild aortic valve regurgitation. Mitral Valve There is mild anterior and moderate posterior mitral leaflet thickening. The posterior mitral leaflet has restricted mobility. There is mild mitral annular calcification. There is moderate mitral valve regurgitation. There is no mitral valve stenosis. Measure ERO by PISA is 0.32 cm2. Pulmonic Valve The pulmonic valve was not well visualized. Tricuspid Valve Likely normal tricuspid valve structure and function. There is mild to moderate tricuspid valve regurgitation. Normal right atrial pressure. Mild pulmonary hypertension is present. Great Vessels All visible segments of the aorta are normal in size. The pulmonary artery was not well visualized. Venous The inferior vena cava is normal in size and collapses greater than 50% with inspiration. Pericardium/Pleural There is no evidence of pericardial effusion. Prior Study Comparison No significant change compared to prior study dated: 03/27/2021. Measurements 2D Linear Measurements IVSd: 1.09 0.6-0.9/0.6-1.0 cm LVIDd: 5.59 3.9-5.3/4.2-5.9 cm LVIDd Index: 3.02 2.4-3.2/2.2-3.1 cm/m2 LVIDs: 4.58 2.0-3.6 cm LVPWd: 1.07 0.7-1.1 cm LA Diam: 4.60 2.7-3.8/3.0-4.0 cm LAIDs Index: 2.49 1.5-2.3 cm/m2 LV Mass: 302.44 67-162/88-224 g LV Mass Index: 163.48 43-95/49-115 g/m2 LVOT Diam: 2.00 3.0+(-)1.3 cm 2D Systolic Function EF 4C: 34.70 >55% EF 2C: 41.40 >55% Mitral Valve MV Pk E: 1.22 MV PK A: 0.94 MV Decel Time: 156.00 E/A: 1.30 E'Lateral: 5.22 E'Medial: 5.11 E/E' Med: 23.90 E/E' Lat: 23.40 PHT: 46.00 MVA PHT: 4.78 Decel Dixon: 7.80 MR Vol - PW Dopp: 56.96 MR VTI: 1.78 MR ERO: 32.00 MR Alias Bruno: 0.39 MR RAD: 0.80 Aortic Valve AoV Pk Bruno: 1.54 AoV Mn Bruno: 0.99 AoV VTI: 0.31 AoV Pk Grad: 9.00 Aov Mn Grad: 4.00 BILL Cont.VTI: 1.90 AI Pk Bruno: 3.79 AI Dixon: 2.12 LVOT LVOT Pk Bruno: 0.82 LVOT Mn Bruno: 0.50 LVOT VTI: 0.19 LVOT Pk Grad: 3.00 LVOT Mn Grad: 1.00 LVOT Diam: 2.00 LVOT Area: 3.14 Diastolic Function MV Pk E: 1.22 MV Pk A: 0.94 E/A: 1.30 E'Medial: 5.11 E/E' Med: 23.90 E' Laterial: 5.22 E/E' Lat: 23.40 Right Ventricle TAPSE (mm): 16.70 TVS' Bruno: 7.72 Tricuspid Valve TR Pk Bruno: 2.94 TR Pk Grad: 35.00 RA Press: 3.00 RVSP: 38.00 Great Vessels Aorta Sinus of Valsalva: 3.73 2.0-3.[address] Ridge: 3.57 1.7-3.4 cm Ao Asc: 3.40 2.1-3.4 cm Ao Arch: 2.80 Updated in Other Vendor System with Status of Final Roman Escobedo MD electronically signed on 01/18/2022 9:00:58 AM with status of Final
== END ==
LOC: HO.CARD 11:21
PROVIDERS: PCP Internal Medicine; Visit Provider Internal Medicine
DX: I25.5 Ischemic cardiomyopathy (principal)
CPT/HCPCS: 93306

== ENCOUNTER 2022-02-02 09:08 | Emergency (ER) | payer OTHER, SELFPAY ==
--- NOTE | 2022-02-02 | ECG_ITS ---
Test Reason : chest pain Blood Pressure : / mmHG Vent. Rate : 091 BPM Atrial Rate : 108 BPM P-R Int : 000 ms QRS Dur : 182 ms QT Int : 434 ms P-R-T Axes : 000 225 037 degrees QTc Int : 533 ms Ventricular-paced rhythm Atrial rhythm possibly sinus with PACs Abnormal ECG When compared with ECG of 02-MAY-2021 07:41, Electronic ventricular pacemaker has replaced Sinus rhythm Referred By: Generic ED Physician Electronically Signed By:JUJU WAYNE
--- NOTE | ~2022-02-02 | XR_ITS ---
EXAMINATION: XR CHEST CLINICAL INFORMATION: Chest pain, shortness of breath. COMPARISON: 05/02/2021 chest radiograph. TECHNIQUE: 2 views of the chest were obtained. FINDINGS: Support devices: Left-sided pacemaker device appears in good position. Multilevel sternotomy wires intact. No significant abnormality is noted involving the heart, lungs, mediastinum, bony thorax or soft tissues. XR/XR chest 2V IMPRESSION: No acute cardiopulmonary process.
[2022-02-02 09:17] VITALS: BP 121/62; PULSE 95; RESP 18; TEMP 37; O2SAT 100; BMI 27.6
[2022-02-02 09:34] LABS: MANUAL DIFF FLAG NO
[2022-02-02 09:35] LABS: Basophils Absolute Auto 0.1 X10*3/uL (0.0-0.2); Basophils Percent Auto 0.9 % (0-2); Eosinophils Absolute Auto 0.2 X10*3/uL (0.0-0.4); Eosinophils Percent Auto 1.9 % (0-4); Hematocrit 43.9 % (42.0-52.0); Hemoglobin 14.1 g/dl (14.0-18.0); Imm Gran Abs Auto 0.03 X10*3/uL (0.00-0.03); Imm Gran Pct Auto 0.4 % (0.0-0.4); Lymphocytes Absolute Auto 2.6 X10*3/uL (1.2-4.9); Lymphocytes Percent Auto 32.9 % (20-40); Mean Corpuscular HGB Conc 32.1 g/dl (31.0-36.0); Mean Corpuscular Hemoglobin 27.2 pg (27.0-33.0); Mean Corpuscular Volume 84.6 fL (80.0-98.0); Monocytes Absolute Auto 0.5 X10*3/uL (0.1-1.2); Monocytes Percent Auto 5.8 % (2-11); Neutrophils Absolute Auto 4.6 x10*3/uL (2.0-8.3); Neutrophils Percent Auto 58.1 % (45-73); Platelet Count 349 X10*3/uL (160-400); Red Blood Count 5.19 X10*6/uL (4.60-5.80); Red Cell Distribution Width 15.9 % (11.0-16.0); White Blood Count 7.9 X10*3/uL (4.8-10.8)
[2022-02-02 09:41] LABS: INTERNATIONAL NORM RATIO 1.8 (0.9-1.1); Prothrombin Time 21.2 SEC (9.9-13.0)
[2022-02-02 09:49] LABS: Alanine Aminotransferase 16 U/L (0-40); Albumin Level 4.8 g/dL (3.5-5.0); Alkaline Phosphatase 69 U/L (39-117); Anion Gap 18 (12-20); Aspartate Amino Transferase 20 U/L (5-37); Bilirubin Total 0.8 mg/dL (0.0-1.0); Blood Urea Nitrogen 13 mg/dL (9-16); Calcium 9.8 mg/dL (8.4-10.2); Carbon Dioxide 22 mmol/L (22-29); Chloride 101 mmol/L (96-108); Creatinine Clr Calc Pharmacy 74.9; Estimated Glomerular Filt Rate > 60; Glucose Random 167 mg/dL (60-115); Potassium 3.9 mmol/L (3.3-5.1); Sodium 137 mmol/L (135-145); Total Protein 8.3 g/dL (6.5-8.0)
[2022-02-02 09:55] LABS: B Type Natriuretic Peptide 213 pg/mL (<100); Troponin-I High Sensitivity 17.6 ng/L (<3.5-35.0)
--- NOTE | 2022-02-02 09:56 | ED_ITS ---
HPI - Chest Pain General Chief Complaint: Chest Pain Stated Complaint: chest pain Time Seen by Provider: 02/02/22 09:28 Source: patient Mode of arrival: ambulatory Limitations: no limitations History of Present Illness HPI narrative: patient presents to the emergency department for evaluation of chest pain. He reports that he has been experiencing chest pain for many months. However the chest pain is typically surrounding the area of his pacemaker in the left upper chest. He states for the past week he has been experiencing diffuse anterior chest pain. The chest pain is becoming progressively worsening, currently an 8 / 10 described as burning and stabbing, reproducible to deep breaths and touching of the chest wall. Dyspnea with exertion. Denies fevers, chills, dizziness, lightheadedness, neck pain, nausea, vomiting, abdominal pain, generalized weakness, or tingling of the extremities. Related Data Home Medications Medication Instructions Recorded Confirmed clopidogrel 75 mg tablet 75 mg PO DAILY 08/02/20 12/04/21 fenofibrate 54 mg tablet 54 mg PO DAILY 08/02/20 12/04/21 insulin glargine 100 unit/mL (3 22 unit subcut BEDTIME 08/02/20 12/04/21 mL) subcutaneous pen lancets 28 gauge #100 ea 08/02/20 12/04/21 omega-3 fatty acids-fish oil 340 1 cap PO TID 08/02/20 12/04/21 mg-1,000 mg capsule furosemide 40 mg tablet 40 mg PO DAILY 12/28/20 12/04/21 insulin lispro 100 unit/mL 2 unit subcut DAILY 12/28/20 12/04/21 subcutaneous pen (Admelog SoloStar U-100 Insulin lispro) insulin lispro 100 unit/mL 4 unit subcut DAILY@1200 12/28/20 12/04/21 subcutaneous pen (Admelog SoloStar U-100 Insulin lispro) insulin lispro 100 unit/mL 6 unit subcut DAILY@1800 12/28/20 12/04/21 subcutaneous pen (Admelog SoloStar U-100 Insulin lispro) metformin 1,000 mg tablet 1 tab PO BID 03/14/21 12/04/21 blood sugar diagnostic (FreeStyle #10 ea 06/06/21 12/04/21 Lite Strips) duloxetine 20 mg capsule,delayed 20 mg PO DAILY 06/06/21 12/04/21 release pen needle, diabetic 32 gauge x #50 ea 06/06/21 12/04/21/32 (BD Kelli 2nd Gen Pen Needle) nitroglycerin 0.4 mg sublingual mg sublingual 11/06/21 12/04/21 tablet apixaban 5 mg tablet (Eliquis) 5 mg PO BID 12/04/21 12/04/21 metoprolol succinate 50 mg 50 mg PO DAILY 12/04/21 12/04/21 tablet,extended release 24 hr sacubitril 24 mg-valsartan 26 mg 1 tab PO BID 12/04/21 12/04/21 tablet (Entresto) Previous Rx's Medication Instructions Recorded acetaminophen 500 mg tablet 1,000 mg PO QID PRN fever or pain 02/18/21 (Tylenol Extra Strength) #14 tabs lidocaine HCl 4 % topical cream 1 appl topical BID PRN pain #120 02/18/21 (Aspercreme (lidocaine HCl)) grams cyclobenzaprine 5 mg tablet 5 mg PO TID PRN muscle spasm #8 03/14/21 tabs hydroxyzine HCl 25 mg tablet 25 mg PO TID PRN anixety #24 tabs 05/02/21 atorvastatin 80 mg tablet 80 mg PO DAILY 90 days #90 tabs 05/15/21 lorazepam 1 mg tablet (Ativan) 1 mg PO BEDTIME PRN sleep #3 tabs 05/29/21 phenazopyridine 100 mg tablet 100 mg PO TID PRN pain 6 doses #6 05/29/21 (Pyridium) tabs tamsulosin 0.4 mg capsule 0.4 mg PO DAILY #90 caps 06/23/21 finasteride 5 mg tablet 5 mg PO DAILY 90 days #90 tabs 07/03/21 tramadol 50 mg tablet 50 mg PO Q6H PRN pain (scale score 07/10/21 4-6) #14 tabs isosorbide mononitrate 30 mg 30 mg PO DAILY 90 days #90 tabs 11/06/21 tablet,extended release 24 hr Allergies Allergy/AdvReac Type Severity Reaction Status Date / Time No Known Allergies Allergy Verified 12/04/21 14:23 [No Known Allergies*] Review of Systems Review of Systems: Constitutional : No Weight loss, No Fever, No Chills ENT/Mouth :? No sore throat, No Rhinorrhea Eyes: No Eye Pain, No Swelling Cardiovascular : positive Chest Pain, positive SOB, positive Dyspnea on Exertion, No Orthopnea, No Edema, positive Palpitations Respiratory : No Cough, No Sputum Gastrointestinal : pos Nausea, No Vomiting, No Diarrhea, No abdominal Pain, No Hematochezia, No Melena Genitourinary : No Dysuria, No Urinary Frequency Musculoskeletal : No joint pain, No Myalgias, No Joint Swelling Skin : No Skin Lesions, No rash Neuro : No Weakness, No Numbness, No Dizziness, No Headache Psych : No Anxiety/Panic, No Depression Heme/Lymph: No Bruising, No Lymphadenopathy Endocrine : No Polyuria, No Polydipsia Yes all other systems are reviewed and are negative [facility] Past Medical History Attestation statement: The following information was validated with the patient. Source: old records reviewed Medical History Atherosclerotic cardiovascular disease CVA (cerebral vascular accident) Diabetes mellitus, type 2 Hypercholesteremia Hypertension Ischemic cardiomyopathy Myocardial infarction PAF (paroxysmal atrial fibrillation) Pulmonary emboli Surgical History H/O coronary artery bypass surgery (~04/27/20) Family History Family History Father No problems noted. Mother No problems noted. Social History Social History Household Members: None Housing: Apartment Do you presently have visiting nurse or other home services: Yes ([employer] daily) Alcohol intake: former Patient Tobacco Use Status: Former Tobacco user Quit Date: 2017 Use of substances other than those prescribed or required for medical reasons: No Substance Use Type: Crack/Cocaine Advance Directives: Yes Advance Directives on File: Yes Advance Directives Date on File: 03/14/21 service: No Current occupational status: unemployed Physical Exam Vital Signs: Vital Signs: Last Vital Signs Temp 98.6 F 02/02/22 09:17 Pulse 69 02/02/22 12:28 Resp 16 02/02/22 12:28 BP 110/63 02/02/22 12:28 Pulse Ox 97 02/02/22 12:28 O2 Del Method 02/02/22 12:28 BMI result Body Mass Index 27.6 Vital signs have been reviewed as normal and appeared to be correct. Blood pressure normal.? Heart rate normal.? Respiration rate normal. Temperature normal.? Oxygen saturation normal. Appearance: Alert.?Oriented to person, place and time. No acute distress.?Normal affect. Eyes: Pupils equal, round and reactive to light.? ENT: Pharynx normal.?? Neck: Normal inspection.? Neck supple.?? CVS: Heart sounds normal. Normal heart rate and rhythm.? Pulses normal.?? Respiratory: No respiratory distress.? Lung sounds clear to auscultation bilaterally?? Abdomen: Soft and non-tender. Normoactive bowel sounds. Skin: Skin warm and dry.? Normal skin color.? Extremities: No lower extremity edema.? No calf ttp? Neuro: Moves all extremities spontaneously, right-sided hemiparesis at baseline. Sensation intact bilaterally. CN II-XII intact. No new focal neuro deficits. Course Course Course Narrative: patient is a 48-year-old male with a past medical history of CVD, CVA with right hemiparesis, type 2 diabetes, hyperlipidemia, hypertension, paroxysmal atrial fibrillation, pulmonary embolism currently on Plavix and Eliquis, ischemic cardiomyopathy, biventricular ICD who presents to the emergency department for evaluation of chest pain. Will obtain CBC to evaluate for leukocytosis/ anemia, CMP to evaluate for abnormal electrolytes /abnormal renal function/ abnormal hepatic function, EKG and troponin to evaluate for isc hemia/ACS. Chest x-ray to evaluate for consolidation/ infiltrate/ mass/ pulmonary congestion. will trial nitro 0.5 inch paste for pain. Reevaluation(s) Reevaluation #1: CBC is unremarkable. CMP is unremarkable. BNP 213. troponin 17.6, EKG reveals ventricular paced rhythm, with ST depression in V1 - V2, appears co nsistent with prior EKG in April 2021 may be more pronounced now, will obtain repeat delta troponin. HEART Score 4. Chest x-ray reveals no acute cardiopulmonary findings. discussed case with ED attending Dr. Quick, who agrees with plan of care Time: 10:28 Reevaluation #2: Repeat troponin is flat 18.0, no delta, unlikly ACS. Reviewed case with patients assistant womens volleyball coach, Dr. Grove, who agree's that patient could be discharged home, and follow-up outpatient. discussed these findings with patient, discussed reasons that he should return back to the emergency department, advised outpatient follow-up with primary care provider within 1-2 days, and Cardiology. patient was discharged home stable condition. Time: 12:01 [facility] - Chest Pain Medical Records Data Attestation: I reviewed the patient's medical records. Lab Data Attestation: I reviewed the patient's lab results. Result diagrams: 02/02/22 09:29 02/02/22 09:29 Labs: Lab Results 02/02/22 02/02/22 02/02/22 Range/Units 09:29 09: 09:29 WBC 7.9 (4.8-10.8) X10*3/uL RBC 5.19 (4.60-5.80) X10*6/uL Hgb 14.1 (14.0-18.0) g/dl Hct 43.9 (42.0-52.0) % MCV 84.6 (80.0-98.0) fL MCH 27.2 (27.0-33.0) pg MCHC 32.1 (31.0-36.0) g/dl RDW 15.9 (11.0-16.0) % Plt Count 349 (160-400) X10*3/uL MPV 11.0 (9.4-12.4) fL Immature Gran % (Auto) 0.4 (0.0-0.4) % Neut % (Auto) 58.1 (45-73) % Lymph % (Auto) 32.9 (20-40) % [place] % (Auto) 5.8 (2-11) % Eos % (Auto) 1.9 (0-4) % Baso % (Auto) 0.9 (0-2) % Lymph # (Auto) 2.6 (1.2-4.9) X10*3/uL [place] # (Auto) 0.5 (0.1-1.2) X10*3/uL Eos # (Auto) 0.2 (0.0-0.4) X10*3/uL Baso # (Auto) 0.1 (0.0-0.2) X10*3/uL Abs Immat Gran (auto) 0.03 (0.00-0.03) X10*3/uL Absolute Neuts (auto) 4.6 (2.0-8.3) x10*3/uL Absolute Nucleated RBC 0.000 (0.0-0.012) X10*3/uL Nucleated RBC % (auto) 0.0 (0.0-0.2) /100WBC PT (9.9-13.0) SEC INR (0.9-1.1) Sodium 137 (135-145) mmol/L Potassium 3.9 (3.3-5.1) mmol/L Chloride 101 (96-108) mmol/L Carbon Dioxide 22 (22-29) mmol/L Anion Gap 18 (12-20) BUN 13 (9-16) mg/dL Creatinine 1.02 (0.5-1.4) mg/dL Estim Creat Clear Calc 74.9 Estimated GFR > 60 Random Glucose 167 H D (60-115) mg/dL Calcium 9.8 D (8.4-10.2) mg/dL Total Bilirubin 0.8 (0.0-1.0) mg/dL AST 20 (5-37) U/L ALT 16 (0-40) U/L Alkaline Phosphatase 69 D (39-117) U/L Troponin I High Sens 17.6 (<3.5-35.0) ng/L B-Natriuretic Peptide 213 H (<100) pg/mL Total Protein 8.3 H (6.5-8.0) g/dL Albumin 4.8 (3.5-5.0) g/dL 02/02/22 02/02/22 Range/Units 09:29 10:55 WBC (4.8-10.8) X10*3/uL RBC (4.60-5.80) X10*6/uL Hgb (14.0-18.0) g/dl Hct (42.0-52.0) % MCV (80.0-98.0) fL MCH (27.0-33.0) pg MCHC (31.0-36.0) g/dl RDW (11.0-16.0) % Plt Count (160-400) X10*3/uL MPV (9.4-12.4) fL Immature Gran % (Auto) (0.0-0.4) % Neut % (Auto) (45-73) % Lymph % (Auto) (20-40) % Oto[place] % (Auto) (2-11) % Eos % (Auto) (0-4) % Baso % (Auto) (0-2) % Lymph # (Auto) (1.2-4.9) X10*3/uL [place] # (Auto) (0.1-1.2) X10*3/uL Eos # (Auto) (0.0-0.4) X10*3/uL Baso # (Auto) (0.0-0.2) X10*3/uL Abs Immat Gran (auto) (0.00-0.03) X10*3/uL Absolute Neuts (auto) (2.0-8.3) x10*3/uL Absolute Nucleated RBC (0.0-0.012) X10*3/uL Nucleated RBC % (auto) (0.0-0.2) /100WBC PT 21.2 H (9.9-13.0) SEC INR 1.8 H (0.9-1.1) Sodium (135-145) mmol/L Potassium (3.3-5.1) mmol/L Chloride (96-108) mmol/L Carbon Dioxide (22-29) mmol/L Anion Gap (12-20) BUN (9-16) mg/dL Creatinine (0.5-1.4) mg/dL Estim Creat Clear Calc Estimated GFR Random Glucose (60-115) mg/dL Calcium (8.4-10.2) mg/dL Total Bilirubin (0.0-1.0) mg/dL AST (5-37) U/L ALT (0-40) U/L Alkaline Phosphatase (39-117) U/L Troponin I High Sens 18.0 (<3.5-35.0) ng/L B-Natriuretic Peptide (<100) pg/mL Total Protein (6.5-8.0) g/dL Albumin (3.5-5.0) g/dL Imaging Data Chest x-ray: Radiologist's impression: XR/XR chest 2V IMPRESSION: No acute cardiopulmonary process. ECG Data ECG #1: Attestation: I personally reviewed and interpreted this ECG as follows: ECG interpretation date: 02/02/22 Prior ECG tracings: available for review Interpretation: Rate: 91 Rhythm:?ventricular paced rhythm? ST T wave :?? ST depression V1- V2 qTC: 533 prior studies:? April 2021 The study has been interpreted contemporaneously by me. Discharge Plan Discharge Clinical Impression: Chest pain Patient Disposition: Home, Self-Care Instructions: Chest Pain (ED) Additional Instructions: Your EKG today showed no new concerning findings. Your blood markers looking for signs of a heart attack were normal. Please take Tylenol as needed for your pain. Please contact your primary care provider and assistant womens volleyball coach to schedule a follow-up visit in 1-2 days. return to the emergency department with any new or worsening symptoms or concerns such as fever, chills, dizziness, lightheadedness, severe worsening chest pain, shortness of breath, difficulty breathing, confusion, weakness. Prescriptions: No Action atorvastatin 80 mg tablet 80 mg PO DAILY 90 Days Qty: 90 1RF tamsulosin 0.4 mg capsule 0.4 mg PO DAILY Qty: 90 3RF finasteride 5 mg tablet 5 mg PO DAILY 90 Days Qty: 90 3RF isosorbide mononitrate 30 mg tablet extended release 24 hr 30 mg PO DAILY 90 Days Qty: 90 1RF furosemide 40 mg tablet 40 mg PO DAILY insulin lispro [Admelog SoloStar U-100 Insulin] 100 unit/mL Insulin Pen 2 unit SUBCUT DAILY insulin lispro [Admelog SoloStar U-100 Insulin] 100 unit/mL insulin pen 6 unit subcut DAILY@1800 insulin lispro [Admelog SoloStar U-100 Insulin] 100 unit/mL insulin pen 4 unit subcut DAILY@1200 acetaminophen [Tylenol Extra Strength] 500 mg tablet 1,000 mg PO QID PRN (Reason: fever or pain) Qty: 14 0RF lidocaine HCl [Aspercreme (lidocaine HCl)] 4 % cream 1 appl topical BID PRN (Reason: pain) Qty: 120 0RF metformin 1,000 mg tablet 1 tab PO BID cyclobenzaprine 5 mg tablet 5 mg PO TID PRN (Reason: muscle spasm) Qty: 8 0RF hydroxyzine HCl 25 mg tablet 25 mg PO TID PRN (Reason: anixety) Qty: 24 0RF tramadol 50 mg tablet 50 mg PO Q6H PRN (Reason: pain (scale score 4-6)) Qty: 14 0RF phenazopyridine [Pyridium] 100 mg tablet 100 mg PO TID PRN (Reason: pain) Qty: 6 0RF lorazepam [Ativan] 1 mg tablet 1 mg PO BEDTIME PRN (Reason: sleep) Qty: 3 0RF insulin glargine 100 unit/mL (3 mL) insulin pen 22 unit subcut BEDTIME omega-3 fatty acids-fish oil 340-1,000 mg capsule 1 cap PO TID (DME) lancets 28 gauge misc See Rx Instructions topical DIRECTED Qty: 100 Rx Instructions: As directed clopidogrel 75 mg tablet 75 mg PO DAILY Hold Instructions: Resume on 07/15/21. Resume anticoagulation Saturday fenofibrate 54 mg tablet 54 mg PO DAILY duloxetine 20 mg capsule,delayed release(DR/EC) 20 mg PO DAILY (DME) pen needle, diabetic [BD Kelli 2nd Gen Pen Needle] 32 gauge x 5/32 needle See Rx Instructions .ROUTE .MEDSUPPLY Qty: 50 Rx Instructions: As directed (DME) FreeStyle Lite Strips Strip See Rx Instructions Not Applicable BID Qty: 10 Rx Instructions: As directed nitroglycerin 0.4 mg tablet, sublingual sublingual Eliquis 5 mg tablet 5 mg PO BID Entresto 24-26 mg tablet 1 tab PO BID metoprolol succinate 50 mg tablet extended release 24 hr 50 mg PO DAILY Referrals: Moses Grove MD [Physician] - Russ Parikh MD [Primary Care Provider] - 2 days Interventions: ED Discharge Assessment Last Done: 02/02/22 12:49 Discharge Date/Time: 02/02/22 12:50
[2022-02-02 10:00] VITALS: BP 111/70; PULSE 86; RESP 18; O2SAT 99
[2022-02-02] MEDS: Nitroglycerin 2 % Oint 1 GM Packet 0.5 INCH TRANSDERMA (10:06)
[2022-02-02 10:27] VITALS: BP 123/58; PULSE 83; RESP 21; O2SAT 96
[2022-02-02 12:28] VITALS: BP 110/63; PULSE 69; RESP 16; O2SAT 97
== END 2022-02-02 12:50 | disposition home or self-care (01) ==
PROVIDERS: Nurse Practitioner Family; Emergency Provider Emergency Medicine; PCP Internal Medicine
DX: R07.9 Chest pain, unspecified (principal); I10 Essential (primary) hypertension; E11.9 Type 2 diabetes mellitus without complications; I48.0 Paroxysmal atrial fibrillation; I25.10 Atherosclerotic heart disease of native coronary artery without angina pectoris; I69.351 Hemiplegia and hemiparesis following cerebral infarction affecting right dominant side; Z86.711 Personal history of pulmonary embolism; Z79.01 Long term (current) use of anticoagulants; Z79.02 Long term (current) use of antithrombotics/antiplatelets; Z95.810 Presence of automatic (implantable) cardiac defibrillator
CPT/HCPCS: 36415; 71046; 80053; 83880; 84484; 85025; 85610; 93005; 99283; 99285

== ENCOUNTER → 2022-02-23 10:41 | Outpatient (BNVA) | payer OTHER, SELFPAY | PROVIDERS: PCP Internal Medicine; Visit Provider Urology | DX: N32.0 Bladder-neck obstruction (principal) | CPT/HCPCS: 51798 ==

== ENCOUNTER 2022-02-24 08:14 | Emergency (ER) | payer OTHER, SELFPAY ==
[2022-02-24 08:20] VITALS: BP 160/77; PULSE 84; RESP 17; TEMP 36.6; O2SAT 98; BMI 27.6
[2022-02-24 09:50] LABS: Appearance Urine TURBID; Color Urine RED; Glucose Urine UA 100 MG/DL (NEG); Leukocyte Esterase Urine TRACE (NEG); Nitrite Urine NEG (NEG); PH 5.5 (5.0-8.0); Specific Gravity - Urine 1.025 (1.005-1.025); Urine Blood 3+ (NEG); Urine Ketones NEG (NEG); Urine Protein 3+ MG/DL (NEG-TRACE)
[2022-02-24 10:08] LABS: RBC Urine TNTC /HPF (0); Renal Epithelial Cells Urine 1+ /LPF
--- NOTE | 2022-02-24 10:33 | ED_ITS ---
HPI - Male Genitourinary General Chief complaint: Urogenital-Male Stated complaint: blood in catheter Time Seen by Provider: 02/24/22 10:17 Source: patient Mode of arrival: ambulatory Limitations: no limitations History of Present Illness HPI Narrative: 56-year-old male with a past medical history BPH with urinary obstruction and LUTS, bladder outlet obstruction, diabetes, atrial fibrillation, pulmonary embolism, history of AK, CVA, hypertension, hyperlipidemia, presents for urinating blood. Patient had a Vaughan placed yesterday at the urologist's office for urinary retention. States that he has had urinary tension for 2 days prior. States that when he left the office he had clear urine, but had blood in his catheter all night long. Patient has pain at the tip of his penis as well, endorses some dysuria. Patient is anticoagulated on Eliquis and Plavix No flank pain. No testicular pain, no penile lesions, no groin pain. No fevers, no chest pain, no shortness of breath, no abdominal pain, no nausea, no vomiting. Related Data Home Medications Medication Instructions Recorded Confirmed clopidogrel 75 mg tablet 75 mg PO DAILY 08/02/20 12/04/21 fenofibrate 54 mg tablet 54 mg PO DAILY 08/02/20 12/04/21 insulin glargine 100 unit/mL (3 22 unit subcut BEDTIME 08/02/20 12/04/21 mL) subcutaneous pen lancets 28 gauge #100 ea 08/02/20 12/04/21 omega-3 fatty acids-fish oil 340 1 cap PO TID 08/02/20 12/04/21 mg-1,000 mg capsule furosemide 40 mg tablet 40 mg PO DAILY 12/28/20 12/04/21 insulin lispro 100 unit/mL 2 unit subcut DAILY 12/28/20 12/04/21 subcutaneous pen (Admelog SoloStar U-100 Insulin lispro) insulin lispro 100 unit/mL 4 unit subcut DAILY@1200 12/28/20 12/04/21 subcutaneous pen (Admelog SoloStar U-100 Insulin lispro) insulin lispro 100 unit/mL 6 unit subcut DAILY@1800 12/28/20 12/04/21 subcutaneous pen (Admelog SoloStar U-100 Insulin lispro) metformin 1,000 mg tablet 1 tab PO BID 03/14/21 12/04/21 blood sugar diagnostic (FreeStyle #10 ea 06/06/21 12/04/21 Lite Strips) duloxetine 20 mg capsule,delayed 20 mg PO DAILY 06/06/21 12/04/21 release pen needle, diabetic 32 gauge x #50 ea 06/06/21 12/04/21 (BD Kelli 2nd Gen Pen Needle) nitroglycerin 0.4 mg sublingual mg sublingual 11/06/21 12/04/21 tablet apixaban 5 mg tablet (Eliquis) 5 mg PO BID 12/04/21 12/04/21 metoprolol succinate 50 mg 50 mg PO DAILY 12/04/21 12/04/21 tablet,extended release 24 hr sacubitril 24 mg-valsartan 26 mg 1 tab PO BID 12/04/21 12/04/21 tablet (Entresto) Previous Rx's Medication Instructions Recorded acetaminophen 500 mg tablet 1,000 mg PO QID PRN fever or pain 02/18/21 (Tylenol Extra Strength) #14 tabs lidocaine HCl 4 % topical cream 1 appl topical BID PRN pain #120 02/18/21 (Aspercreme (lidocaine HCl)) grams cyclobenzaprine 5 mg tablet 5 mg PO TID PRN muscle spasm #8 03/14/21 tabs hydroxyzine HCl 25 mg tablet 25 mg PO TID PRN anixety #24 tabs 05/02/21 atorvastatin 80 mg tablet 80 mg PO DAILY 90 days #90 tabs 05/15/21 lorazepam 1 mg tablet (Ativan) 1 mg PO BEDTIME PRN sleep #3 tabs 05/29/21 phenazopyridine 100 mg tablet 100 mg PO TID PRN pain 6 doses #6 05/29/21 (Pyridium) tabs tamsulosin 0.4 mg capsule 0.4 mg PO DAILY #90 caps 06/23/21 finasteride 5 mg tablet 5 mg PO DAILY 90 days #90 tabs 07/03/21 tramadol 50 mg tablet 50 mg PO Q6H PRN pain (scale score 07/10/21 4-6) #14 tabs isosorbide mononitrate 30 mg 30 mg PO DAILY 90 days #90 tabs 11/06/21 tablet,extended release 24 hr tamsulosin 0.4 mg capsule 0.4 mg PO DAILY 30 days #30 caps 02/23/22 cephalexin 500 mg capsule 500 mg PO QID 7 days #28 caps 02/24/22 Allergies Allergy/AdvReac Type Severity Reaction Status Date / Time No Known Allergies Allergy Verified 12/04/21 14:23 [No Known Allergies*] Review of Systems Constitutional: Constitutional: Denies body ache(s), Denies chills, Denies fatigue, Denies fever(s), Denies headache(s), Denies malaise and Denies weakness Eyes: Eyes: Denies diplopia ENT: Denies vertigo, Denies dizziness, Denies otalgia, Denies headache(s), Denies mouth pain, Denies post nasal drip, Denies sinus pain, Denies sinus pressure, Denies sore throat and Denies throat swelling Cardiovascular: Cardiovascular: Denies chest pain, Denies syncope, Denies leg edema, Denies lightheadedness, Denies Loss of Consciousness, Denies palpitations and Denies dyspnea Respiratory: Respiratory: Denies chest congestion, Denies cough and Denies d yspnea Gastrointestinal: Gastrointestinal: Denies abdominal pain, Denies hematochezia, Denies constipation, Denies diarrhea, Denies nausea and Denies vomiting Genitourinary: Genitourinary: Reports hematuria, Reports difficulty urinating, Denies flank pain, Denies scrotal swelling and Denies testicular pain Musculoskeletal: Musculoskeletal: Reports no additional musculoskeletal complaints Neurologic: Denies confusion, Denies vertigo, Denies dizziness, Denies syncope, Denies headache(s) and Denies weakness Psychiatric: Psychiatric: Denies anxiety, Denies confusion and Denies depression Endocrine: Endocrine: Denies fatigue and Denies palpitations Allergic/Immunologic: Allergic/Immunologic: Denies throat swelling [facility] Past Medical History Medical History Atherosclerotic cardiovascular disease CVA (cerebral vascular accident) Diabetes mellitus, type 2 Hypercholesteremia Hypertension Ischemic cardiomyopathy Myocardial infarction PAF (paroxysmal atrial fibrillation) Pulmonary emboli Surgical History H/O coronary artery bypass surgery (~04/27/20) Family History Family History Father No problems noted. Mother No problems noted. Social History Social History Household Members: None Housing: Apartment Do you presently have visiting nurse or other home services: Yes ([employer] daily) Alcohol intake: former Patient Tobacco Use Status: Former Tobacco user Quit Date: 2017 Substance Use Type: Crack/Cocaine Advance Directives: Yes Advance Directives on File: Yes Advance Directives Date on File: 03/14/21 service: No Current occupational status: unemployed Physical Exam Vital Signs: Vital Signs: Last Vital Signs Temp 98.6 F 02/24/22 12:00 Pulse 94 02/24/22 12:00 Resp 18 02/24/22 12:00 BP 123/58 L 02/24/22 12:00 Pulse Ox 97 02/24/22 12:00 O2 Del Method 02/24/22 12:00 BMI result Body Mass Index 27.6 Const: General: No confusion Nutritional Appearance: well nourished Orientation/consciousness: No confusion Limitations: no limitations Eyes: Conjunctivae: conjunctivae normal Pupils: Equal, round and reactive pupils present EOM: EOMs intact bilaterally Neck: Neck: Yes full ROM, Yes no lymphadenopathy and Yes supple Resp: Effort & Inspection: normal respiratory effort and able to speak in complete sentences Auscultation: clear to auscultation bilaterally, no crackles, no rales, no rhonchi and no wheezes Cardio: Rate: regular rate Rhythm: regular rhythm Heart sounds: S1 normal heart sound present and S2 normal heart sound present GI: Inspection: Yes normal to inspection Palpation (GI): Soft to palpation, nontender, no guarding and not rigid Percussion: Yes normal to percussion Auscultation: normal bowel sounds : Other: Vaughan catheter General: Yes Bimanual renal exam normal bilaterally Male General Exam: No Genital lesions present Penis: normal penis, circumcised, not edematous, not erythematous, no swelling, no ulcerations and No Genital lesions present Meatus: meatus normal, no meatla discharge and No Blood at meatus present Scrotum: scrotum normal Testes: Testes normal, testicular lie normal, no epidiymal masses, no epidiymal tenderness, no testicular mass, no testicular swelling and no testicular tenderness Skin: General skin exam: no rashes or lesions noted Neuro: General: No confusion Cranial nerves: Yes Equal, round and reactive pupils present Extrem: General: Yes normal to inspection and Yes full ROM Psych: Appearance: grossly normal Affect: normal affect Attitude: cooperative Thought process: Normal thought process present Course Course Course Narrative: 56-year-old male with a past medical history BPH with urinary obstruction and LUTS, bladder outlet obstruction, diabetes, atrial fibrillation, pulmonary embolism, history of AK, CVA, hypertension, hyperlipidemia, presents for urinating blood. Patient had a Vaughan placed yesterday at the urologist's office for urinary retention. States that he has had urinary tension for 2 days prior. States that when he left the office he had clear urine, but had blood in his catheter all night long. Patient has pain at the tip of his penis as well, endorses some dysuria. Ordered urine, CBC, CMP, continuous bladder irrigation. Nursing tells me it may be difficult to reinsert a 3 way Vaughan as patient has bladder outlet ob struction, tiger text with Dr. Jefferson, who questioned why patient is on both Plavix and Eliquis Nursing is doing manual irrigation, she showed me 1st volume of about 200 mL, which is light pink. INR is 1.5, labs are otherwise unremarkable, urine shows 3+ blood, with red blood cells too numerous to count, trace leukocyte esterase with 10-14 white blood cells Reevaluation(s) Reevaluation #1: Nursing showed me urine, which continues to be pink, with no clots, total manual irrigation is 330 cc. [place] texted photo of urine to Dr Jefferson for dispo recommendation Dr Jefferson says it looks clear enough for discharge home. Will have patient call Dr. Jefferson for follow-up outpatient appointment,discussed plavix and eliquis use with Dr Johnson, pt has afib and hx AK and CVA, Dr Guerrero said to keep pt on both medictions. Counseled patient to call his primary care provider after the holiday weekend to discuss hematuria and his anticoagulation. Patient does have a mild UTI, will treat Gave return precautions of worsening blood, worsening pain, fevers, return to emergency room MDM - Male Genitourinary Lab Data Result diagrams: 02/24/22 10:48 02/24/22 11:13 Labs: Lab Results 02/24/22 02/24/22 02/24/22 Range/Units 09:17 10:48 11:13 WBC 9.6 (4.8-10.8) X10*3/uL RBC 5.29 (4.60-5.80) X10*6/uL Hgb 14.4 (14.0-18.0) g/dl Hct 44.3 (42.0-52.0) % MCV 83.7 (80.0-98.0) fL MCH 27.2 (27.0-33.0) pg MCHC 32.5 (31.0-36.0) g/dl RDW 15.9 (11.0-16.0) % Plt Count 332 (160-400) X10*3/uL MPV 11.0 (9.4-12.4) fL Immature Gran % (Auto) 0.2 (0.0-0.4) % Neut % (Auto) 76.6 H (45-73) % Lymph % (Auto) 16.2 L (20-40) % [place] % (Auto) 5.9 (2-11) % Eos % (Auto) 0.7 (0-4) % Baso % (Auto) 0.4 (0-2) % Lymph # (Auto) 1.6 (1.2-4.9) X10*3/uL [place] # (Auto) 0.6 (0.1-1.2) X10*3/uL Eos # (Auto) 0.1 (0.0-0.4) X10*3/uL Baso # (Auto) 0.0 (0.0-0.2) X10*3/uL Abs Immat Gran (auto) 0.02 (0.00-0.03) X10*3/uL Absolute Neuts (auto) 7.3 (2.0-8.3) x10*3/uL Absolute Nucleated RBC 0.000 (0.0-0.012) X10*3/uL Nucleated RBC % (auto) 0.0 (0.0-0.2) /100WBC PT (10.0-13.1) SEC INR (0.9-1.1) APTT (24.1-38.0) SEC Sodium 138 (135-145) mmol/L Potassium 3.7 (3.3-5.1) mmol/L Chloride 106 (96-108) mmol/L Carbon Dioxide 23 (22-29) mmol/L Anion Gap 13 (12-20) BUN 6 L D (9-16) mg/dL Creatinine 0.86 (0.5-1.4) mg/dL Estim Creat Clear Calc 88.7 Estimated GFR > 60 Random Glucose 121 H (60-115) mg/dL Calcium 9.7 (8.4-10.2) mg/dL Total Bilirubin 1.0 (0.0-1.0) mg/dL AST 19 (5-37) U/L ALT 14 (0-40) U/L Alkaline Phosphatase 72 (39-117) U/L Total Protein 7.5 (6.5-8.0) g/dL Albumin 4.5 (3.5-5.0) g/dL Urine Color RED A Urine Appearance TURBID Urine pH 5.5 (5.0-8.0) Ur Specific [place] 1.025 (1.005-1.025) Urine Protein 3+ H (NEG-TRACE) MG/DL Urine Glucose (UA) 100 H (NEG) MG/DL Urine Ketones NEG (NEG) MG/DL Urine Blood 3+ H (NEG) Urine Nitrite NEG (NEG) Ur Leukocyte Esterase TRACE H (NEG) Urine RBC TNTC H (0) /HPF Urine WBC 10-14 H (0-4) /HPF Ur Squamous Epith Cells NONE /LPF Ur Renal Epithelial Cell 1+ /LPF Urine Bacteria NONE /LPF 02/24/22 Range/Units 11:13 WBC (4.8-10.8) X10*3/uL RBC (4.60-5.80) X10*6/uL Hgb (14.0-18.0) g/dl Hct (42.0-52.0) % MCV (80.0-98.0) fL MCH (27.0-33.0) pg MCHC (31.0-36.0) g/dl RDW (11.0-16.0) % Plt Count (160-400) X10*3/uL MPV (9.4-12.4) fL Immature Gran % (Auto) (0.0-0.4) % Neut % (Auto) (45-73) % Lymph % (Auto) (20-40) % [place] % (Auto) (2-11) % Eos % (Auto) (0-4) % Baso % (Auto) (0-2) % Lymph # (Auto) (1.2-4.9) X10*3/uL [place] # (Auto) (0.1-1.2) X10*3/uL Eos # (Auto) (0.0-0.4) X10*3/uL Baso # (Auto) (0.0-0.2) X10*3/uL Abs Immat Gran (auto) (0.00-0.03) X10*3/uL Absolute Neuts (auto) (2.0-8.3) x10*3/uL Absolute Nucleated RBC (0.0-0.012) X10*3/uL Nucleated RBC % (auto) (0.0-0.2) /100WBC PT 18.0 H (10.0-13.1) SEC INR 1.5 H (0.9-1.1) APTT 42.3 H (24.1-38.0) SEC Sodium (135-145) mmol/L Potassium (3.3-5.1) mmol/L Chloride (96-108) mmol/L Carbon Dioxide (22-29) mmol/L Anion Gap (12-20) BUN (9-16) mg/dL Creatinine (0.5-1.4) mg/dL Estim Creat Clear Calc Estimated GFR Random Glucose (60-115) mg/dL Calcium (8.4-10.2) mg/dL Total Bilirubin (0.0-1.0) mg/dL AST (5-37) U/L ALT (0-40) U/L Alkaline Phosphatase (39-117) U/L Total Protein (6.5-8.0) g/dL Albumin (3.5-5.0) g/dL Urine Color Urine Appearance Urine pH (5.0-8.0) Ur Specific [place] (1.005-1.025) Urine Protein (NEG-TRACE) MG/DL Urine Glucose (UA) (NEG) MG/DL Urine Ketones (NEG) MG/DL Urine Blood (NEG) Urine Nitrite (NEG) Ur Leukocyte Esterase (NEG) Urine RBC (0) /HPF Urine WBC (0-4) /HPF Ur Squamous Epith Cells /LPF Ur Renal Epithelial Cell /LPF Urine Bacteria /LPF Discharge Plan Discharge Clinical Impression: Gross hematuria, Acute UTI Patient Disposition: Home, Self-Care Instructions: Urinary Tract Infection in Men (ED), Hematuria (ED) Additional Instructions: You have a urinary tract infection, I have sent antibiotics to your pharmacy, please pick them up and start them today Please continue all your medications. Please call your primary care provider on Saturday to discuss the blood in your urine and you being on both Plavix and Eliquis. We will not change any of these medications from the emergency room today. Please call Dr. Jefferson, urology, after the , he may want to see you sooner than Saturday. [phone] Please return to work emergency room if you have worsening blood in your urine, abdominal pain, fevers, nausea, or vomiting, or any other new or concerning symptoms Prescriptions: New cephalexin 500 mg capsule 500 mg PO QID 7 Days Qty: 28 0RF No Action atorvastatin 80 mg tablet 80 mg PO DAILY 90 Days Qty: 90 1RF tamsulosin 0.4 mg capsule 0.4 mg PO DAILY Qty: 90 3RF finasteride 5 mg tablet 5 mg PO DAILY 90 Days Qty: 90 3RF isosorbide mononitrate 30 mg tablet extended release 24 hr 30 mg PO DAILY 90 Days Qty: 90 1RF furosemide 40 mg tablet 40 mg PO DAILY insulin lispro [Admelog SoloStar U-100 Insulin] 100 unit/mL Insulin Pen 2 unit SUBCUT DAILY insulin lispro [Admelog SoloStar U-100 Insulin] 100 unit/mL insulin pen 6 unit subcut DAILY@1800 insulin lispro [Admelog SoloStar U-100 Insulin] 100 unit/mL insulin pen 4 unit subcut DAILY@1200 acetaminophen [Tylenol Extra Strength] 500 mg tablet 1,000 mg PO QID PRN (Reason: fever or pain) Qty: 14 0RF lidocaine HCl [Aspercreme (lidocaine HCl)] 4 % cream 1 appl topical BID PRN (Reason: pain) Qty: 120 0RF metformin 1,000 mg tablet 1 tab PO BID cyclobenzaprine 5 mg tablet 5 mg PO TID PRN (Reason: muscle spasm) Qty: 8 0RF hydroxyzine HCl 25 mg tablet 25 mg PO TID PRN (Reason: anixety) Qty: 24 0RF tramadol 50 mg tablet 50 mg PO Q6H PRN (Reason: pain (scale score 4-6)) Qty: 14 0RF phenazopyridine [Pyridium] 100 mg tablet 100 mg PO TID PRN (Reason: pain) Qty: 6 0RF lorazepam [Ativan] 1 mg tablet 1 mg PO BEDTIME PRN (Reason: sleep) Qty: 3 0RF insulin glargine 100 unit/mL (3 mL) insulin pen 22 unit subcut BEDTIME omega-3 fatty acids-fish oil 340-1,000 mg capsule 1 cap PO TID (DME) lancets 28 gauge misc See Rx Instructions topical DIRECTED Qty: 100 Rx Instructions: As directed clopidogrel 75 mg tablet 75 mg PO DAILY Hold Instructions: Resume on 07/15/21. Resume anticoagulation Saturday fenofibrate 54 mg tablet 54 mg PO DAILY duloxetine 20 mg capsule,delayed release(DR/EC) 20 mg PO DAILY (DME) pen needle, diabetic [BD Kelli 2nd Gen Pen Needle] 32 gauge x 5/32 needle See Rx Instructions .ROUTE .MEDSUPPLY Qty: 50 Rx Instructions: As directed (DME) FreeStyle Lite Strips Strip See Rx Instructions Not Applicable BID Qty: 10 Rx Instructions: As directed nitroglycerin 0.4 mg tablet, sublingual sublingual Eliquis 5 mg tablet 5 mg PO BID Entresto 24-26 mg tablet 1 tab PO BID metoprolol succinate 50 mg tablet extended release 24 hr 50 mg PO DAILY tamsulosin 0.4 mg capsule 0.4 mg PO DAILY 30 Days Qty: 30 1RF Referrals: Demetrius Jefferson MD [Physician] -
[2022-02-24 10:52] LABS: MANUAL DIFF FLAG NO
[2022-02-24 10:57] LABS: Basophils Percent Auto 0.4 % (0-2); Eosinophils Absolute Auto 0.1 X10*3/uL (0.0-0.4); Eosinophils Percent Auto 0.7 % (0-4); Hematocrit 44.3 % (42.0-52.0); Hemoglobin 14.4 g/dl (14.0-18.0); Imm Gran Abs Auto 0.02 X10*3/uL (0.00-0.03); Imm Gran Pct Auto 0.2 % (0.0-0.4); Lymphocytes Absolute Auto 1.6 X10*3/uL (1.2-4.9); Lymphocytes Percent Auto 16.2 % (20-40); Mean Corpuscular HGB Conc 32.5 g/dl (31.0-36.0); Mean Corpuscular Hemoglobin 27.2 pg (27.0-33.0); Mean Corpuscular Volume 83.7 fL (80.0-98.0); Monocytes Absolute Auto 0.6 X10*3/uL (0.1-1.2); Monocytes Percent Auto 5.9 % (2-11); Neutrophils Absolute Auto 7.3 x10*3/uL (2.0-8.3); Neutrophils Percent Auto 76.6 % (45-73); Platelet Count 332 X10*3/uL (160-400); Red Blood Count 5.29 X10*6/uL (4.60-5.80); Red Cell Distribution Width 15.9 % (11.0-16.0); White Blood Count 9.6 X10*3/uL (4.8-10.8)
[2022-02-24 11:12] VITALS: BP 122/69; PULSE 95; RESP 16; TEMP 37.1; O2SAT 95
--- NOTE | 2022-02-24 11:22 | PC.NURSE ---
Pt.'s Vaughan catheter hand irrigated by RNs. 200mls of saline was instilled with 500mls in return (= 300mls true urine), color of returned output was a very light punch with no clots observed. Pt. was hand irrigated again using 130mls of saline with 220mls in return (= 90mls true urine), color of returned output was significantly management sme than first hand irrigation. LISY rapp.
[2022-02-24 11:32] LABS: INTERNATIONAL NORM RATIO 1.5 (0.9-1.1)
[2022-02-24] MEDS: Acetaminophen 325 MG TABLET 975 MG PO (11:32)
[2022-02-24 11:35] LABS: Partial Thromboplastin Time 42.3 SEC (24.1-38.0)
[2022-02-24 11:41] LABS: Alanine Aminotransferase 14 U/L (0-40); Albumin Level 4.5 g/dL (3.5-5.0); Alkaline Phosphatase 72 U/L (39-117); Anion Gap 13 (12-20); Aspartate Amino Transferase 19 U/L (5-37); Blood Urea Nitrogen 6 mg/dL (9-16); Calcium 9.7 mg/dL (8.4-10.2); Carbon Dioxide 23 mmol/L (22-29); Chloride 106 mmol/L (96-108); Creatinine Clr Calc Pharmacy 88.7; Estimated Glomerular Filt Rate > 60; Glucose Random 121 mg/dL (60-115); Potassium 3.7 mmol/L (3.3-5.1); Sodium 138 mmol/L (135-145); Total Protein 7.5 g/dL (6.5-8.0)
[2022-02-24 12:00] VITALS: BP 123/58; PULSE 94; RESP 18; TEMP 37; O2SAT 97
--- NOTE | 2022-02-24 12:56 | PC.NURSE ---
Pt's catheter drained without irrigation at this time. Urine was clear to pale pink in color with no clots noted.
== END 2022-02-24 14:22 | disposition home or self-care (01) ==
PROVIDERS: Physician Assistant; Emergency Provider Emergency Medicine Emergency Medical Services; PCP Internal Medicine
DX: R31.0 Gross hematuria (principal); T83.511A Infection and inflammatory reaction due to indwelling urethral catheter, initial encounter; Y82.8 Other medical devices associated with adverse incidents; E11.9 Type 2 diabetes mellitus without complications; I10 Essential (primary) hypertension; E78.5 Hyperlipidemia, unspecified; I48.0 Paroxysmal atrial fibrillation; Z46.6 Encounter for fitting and adjustment of urinary device; Z79.4 Long term (current) use of insulin; Z79.02 Long term (current) use of antithrombotics/antiplatelets; Z79.01 Long term (current) use of anticoagulants
CPT/HCPCS: 36415; 51798; 80053; 81001; 85025; 85610; 85730; 99284

== ENCOUNTER → 2022-03-02 10:29 | Outpatient (BNVA) | payer OTHER, SELFPAY | PROVIDERS: PCP Internal Medicine; Visit Provider Urology | DX: N32.0 Bladder-neck obstruction (principal) | CPT/HCPCS: 36415; 51700; 51798; 84153 ==

== ENCOUNTER 2022-03-02 10:42 | Outpatient (REF) | payer OTHER, SELFPAY ==
[2022-03-02 14:25] LABS: Prostate Specific Antigen 5.25 ng/mL (<0.05-4.0)
== END 2022-03-02 10:43 | disposition home or self-care (01) ==
LOC: HO.10HDL 10:42
PROVIDERS: Visit Provider Urology
DX: Z13.89 Encounter for screening for other disorder (principal)
CPT/HCPCS: 36415; 84153

== ENCOUNTER → 2022-03-06 09:32 | Outpatient (BNVA) | payer OTHER, SELFPAY | PROVIDERS: PCP Internal Medicine; Visit Provider Urology | DX: N40.1 Benign prostatic hyperplasia with lower urinary tract symptoms (principal); N13.8 Other obstructive and reflux uropathy; R33.8 Other retention of urine | CPT/HCPCS: 51798 ==

== ENCOUNTER → 2022-04-10 09:51 | Outpatient (BNVA) | payer OTHER, SELFPAY | PROVIDERS: PCP Internal Medicine; Referring Provider Internal Medicine; Visit Provider Internal Medicine | DX: I25.10 Atherosclerotic heart disease of native coronary artery without angina pectoris (principal); I25.5 Ischemic cardiomyopathy; I47.1 Supraventricular tachycardia; I48.0 Paroxysmal atrial fibrillation; I63.9 Cerebral infarction, unspecified; E78.5 Hyperlipidemia, unspecified; E11.8 Type 2 diabetes mellitus with unspecified complications; I26.99 Other pulmonary embolism without acute cor pulmonale | CPT/HCPCS: 99212 ==

== ENCOUNTER → 2022-04-18 14:50 | Outpatient (BNVA) | payer OTHER, SELFPAY | PROVIDERS: PCP Internal Medicine; Visit Provider Urology | DX: N40.1 Benign prostatic hyperplasia with lower urinary tract symptoms (principal); N13.8 Other obstructive and reflux uropathy; R33.8 Other retention of urine; E11.9 Type 2 diabetes mellitus without complications; Z79.4 Long term (current) use of insulin | CPT/HCPCS: 52000; 99212 ==

== ENCOUNTER → 2022-07-24 09:50 | Outpatient (BNVA) | payer OTHER, SELFPAY | PROVIDERS: PCP Internal Medicine; Referring Provider Internal Medicine; Visit Provider Internal Medicine | DX: I25.10 Atherosclerotic heart disease of native coronary artery without angina pectoris (principal); I25.5 Ischemic cardiomyopathy; I47.1 Supraventricular tachycardia; I48.0 Paroxysmal atrial fibrillation; I63.9 Cerebral infarction, unspecified; E78.5 Hyperlipidemia, unspecified; E11.8 Type 2 diabetes mellitus with unspecified complications; I26.99 Other pulmonary embolism without acute cor pulmonale | CPT/HCPCS: 99212 ==

== ENCOUNTER 2022-09-02 09:38 | Emergency (ER) | payer OTHER, SELFPAY ==
--- NOTE | 2022-09-02 | ECG_ITS ---
Test Reason : CHEST AIN Blood Pressure : / mmHG Vent. Rate : 088 BPM Atrial Rate : 088 BPM P-R Int : 128 ms QRS Dur : 188 ms QT Int : 440 ms P-R-T Axes : 043 222 035 degrees QTc Int : 532 ms Atrial-sensed ventricular-paced rhythm Abnormal ECG When compared with ECG of 02-FEB-2022 09:12, Vent. rate has decreased BY 3 BPM Referred By: Generic ED Physician Electronically Signed By:Juancarlos Rojo
--- NOTE | ~2022-09-02 | CT_ITS ---
EXAMINATION: CT ANGIOGRAM OF THE CHEST WITH AND WITHOUT CONTRAST (CT PULMONARY ANGIOGRAM FOR PE) CLINICAL INFORMATION: Chest pain and pleurisy. Question PE COMPARISON: Chest x-ray earlier today and CTA chest March 11, 2021 TECHNIQUE: Prior to contrast administration, noncontrast localization images were obtained. Subsequently, multidetector volumetric imaging was performed from the thoracic inlet to below the diaphragms following the administration of 75 mL Omnipaque 350 intravenous contrast. No contrast reaction reported Sagittal, coronal, and MIP oblique sagittal reformatted images were obtained on the CT workstation, uploaded to PACS, and reviewed. This CT examination was performed using dose optimization techniques as appropriate, variously including the following: *Automated exposure control *Adjustment of mA and/or kV according to patient size (this includes techniques or standardized protocols for targeted exams where dose is matched to indication/reason for exam; i.e. extremities or head) *Use of iterative reconstruction technique Total exam dose-length product 427 mGy-cm FINDINGS: The heart is mildly enlarged. Coronary artery calcifications are present. There is no pericardial effusion. Multi lead AICD present. No pulmonary arterial filling defect to suggest pulmonary embolus. No gross mediastinal or hilar lymphadenopathy. No pathologically enlarged axillary lymph nodes. Central airways are patent. Lungs are adequately aerated. There is mild dependent atelectasis. No lobar consolidation. No pleural effusion or pneumothorax. No suspicious pulmonary nodules. Visualized portion of the upper abdomen demonstrate diffusely decreased attenuation of the liver suggesting hepatic steatosis. Diffuse osteopenia. Moderate degenerative changes of the spine. CT/CT angio chest PE protocol IMPRESSION: 1. No pulmonary arterial filling defect to suggest pulmonary embolus. 2. No lobar consolidation, pleural effusion or pneumothorax. 3. Diffusely decreased liver attenuation suggesting hepatic steatosis. Correlation with liver enzymes recommended. VTE: negative
--- NOTE | ~2022-09-02 | XR_ITS ---
EXAMINATION: XR CHEST CLINICAL INFORMATION: Chest pain COMPARISON: Chest x-ray 02/02/2022 TECHNIQUE: Frontal view of the chest was obtained. FINDINGS: The lungs are well-expanded and clear of acute pneumonic process. Heart size and pulmonary vascularity is normal. There are pacer electrodes in right atrium and right ventricle. No gross bony abnormality seen. Median sternotomy sutures and mediastinal dolores seen for from previous intervention. XR/XR chest 1V IMPRESSION: No acute cardiopulmonary process seen..
[2022-09-02 09:42] VITALS: BP 144/59; PULSE 104; PULSE 98; RESP 17; TEMP 36.8; O2SAT 100; O2SAT 99; BMI 30.2
[2022-09-02 09:47] VITALS: BP 145/64; BMI 30.2
[2022-09-02 10:30] LABS: MANUAL DIFF FLAG NO
[2022-09-02 10:31] LABS: Basophils Absolute Auto 0.1 X10*3/uL (0.0-0.2); Eosinophils Absolute Auto 0.1 X10*3/uL (0.0-0.4); Eosinophils Percent Auto 1.6 % (0-4); Hematocrit 44.4 % (42.0-52.0); Hemoglobin 14.4 g/dl (14.0-18.0); Imm Gran Abs Auto 0.02 X10*3/uL (0.00-0.03); Imm Gran Pct Auto 0.3 % (0.0-0.4); Lymphocytes Absolute Auto 2.2 X10*3/uL (1.2-4.9); Lymphocytes Percent Auto 27.7 % (20-40); Mean Corpuscular HGB Conc 32.4 g/dl (31.0-36.0); Mean Corpuscular Hemoglobin 28.1 pg (27.0-33.0); Mean Corpuscular Volume 86.7 fL (80.0-98.0); Mean Platelet Volume 10.9 fL (9.4-12.4); Monocytes Absolute Auto 0.5 X10*3/uL (0.1-1.2); Monocytes Percent Auto 6.4 % (2-11); Platelet Count 348 X10*3/uL (160-400); Red Blood Count 5.12 X10*6/uL (4.60-5.80); Red Cell Distribution Width 13.9 % (11.0-16.0)
[2022-09-02 10:33] LABS: Appearance Urine Clear; Color Urine Yellow; Glucose Urine UA Negative (Negative); Leukocyte Esterase Urine Negative (Negative); Nitrite Urine Negative (Negative); PH 7.5 (5.0-9.0); UMIC TRIGGER UACC YES; Urine Blood Small (1+) (Negative); Urine Ketones Negative (Negative); Urine Protein Negative (Neg-Trace)
[2022-09-02 10:38] LABS: Bacteria Urine None Seen (None Seen); Hyaline Casts Urine 0-2 /LPF (0-2); Squamous Epithelial Cell Urine 0-2 /HPF (0-2); WBC Urine 0-5 /HPF (0-5)
[2022-09-02 10:40] LABS: Partial Thromboplastin Time 33.1 SEC (26.0-36.4)
[2022-09-02 10:48] LABS: Alanine Aminotransferase 13 U/L (0-40); Albumin Level 4.5 g/dL (3.5-5.0); Anion Gap 16 (12-20); Aspartate Amino Transferase 22 U/L (5-37); Bilirubin Total 0.4 mg/dL (0.0-1.0); Blood Urea Nitrogen 15 mg/dL (9-16); Carbon Dioxide 21 mmol/L (22-29); Chloride 108 mmol/L (96-108); Creatinine Clr Calc Pharmacy 85.3; Estimated Glomerular Filt Rate > 60; Glucose Random 124 mg/dL (60-115); Potassium 4.8 mmol/L (3.3-5.1); Sodium 140 mmol/L (135-145); Total Protein 7.4 g/dL (6.5-8.0)
[2022-09-02 10:50] LABS: B Type Natriuretic Peptide 237 pg/mL (<100)
--- NOTE | 2022-09-02 10:52 | PC.NURSE ---
pt is a/o x 4 no sob/elizabeth noted speaks in full sentences. lungs - cta. heart sounds - regular (pt has an icd) abd soft and non-tender, bx + x 4 quads. no edema noted.
[2022-09-02 10:54] LABS: Troponin-I High Sensitivity 11.8 ng/L (<3.5-35.0)
[2022-09-02 10:57] VITALS: BP 118/62; PULSE 90; RESP 13; TEMP 36.7; O2SAT 97
[2022-09-02 10:57] LABS: Alkaline Phosphatase 53 U/L (39-117)
[2022-09-02 11:09] LABS: INTERNATIONAL NORM RATIO 1.2 (0.9-1.1); Prothrombin Time 13.6 SEC (10.0-13.1)
--- NOTE | 2022-09-02 13:09 | ED_ITS ---
HPI - Chest Pain General Chief Complaint: Chest Pain Stated Complaint: r arm heaviness, chest pain x 1 year Time Seen by Provider: 09/02/22 10:30 Source: patient Mode of arrival: ambulatory Limitations: no limitations History of Present Illness HPI narrative: 56-year-old with history of stroke, stent placement, and PE, presents to ED for 1 year of chest pain across chest that is reproducible and chronic right arm heaviness. Patient came to the ED today due to 2 days of pleurisy. Patient denies any leg swelling, calf pain, coughing up blood. Patient is only on Plavix. Patient denies any slurred speech, facial droop, new weakness, or paralysis of extremities. Patient states right sided weakness in chronic since stroke in 2012. Related Data Home Medications Medication Instructions Recorded Confirmed clopidogrel 75 mg tablet 75 mg PO DAILY 08/02/20 07/24/22 fenofibrate 54 mg tablet 54 mg PO DAILY 08/02/20 07/24/22 insulin glargine 100 unit/mL (3 22 unit subcut BEDTIME 08/02/20 07/24/22 mL) subcutaneous pen lancets 28 gauge #100 ea 08/02/20 07/24/22 omega-3 fatty acids-fish oil 340 1 cap PO TID 08/02/20 07/24/22 mg-1,000 mg capsule furosemide 40 mg tablet 40 mg PO DAILY 12/28/20 07/24/22 insulin lispro 100 unit/mL 2 unit subcut DAILY 12/28/20 07/24/22 subcutaneous pen (Admelog SoloStar U-100 Insulin lispro) insulin lispro 100 unit/mL 4 unit subcut DAILY@1200 12/28/20 07/24/22 subcutaneous pen (Admelog SoloStar U-100 Insulin lispro) insulin lispro 100 unit/mL 6 unit subcut DAILY@1800 12/28/20 07/24/22 subcutaneous pen (Admelog SoloStar U-100 Insulin lispro) blood sugar diagnostic (FreeStyle #10 ea 06/06/21 07/24/22 Lite Strips) duloxetine 20 mg capsule,delayed 20 mg PO DAILY 06/06/21 07/24/22 release pen needle, diabetic 32 gauge x #50 ea 06/06/21 07/24/22 (BD Kelli 2nd Gen Pen Needle) metoprolol succinate 50 mg 50 mg PO DAILY 04/11/22 11/29/22 tablet,extended release 24 hr aspirin 81 mg tablet,delayed 81 mg PO DAILY 03/09/22 07/24/22 release famotidine 20 mg tablet 20 mg PO BID 04/18/22 07/24/22 metformin 1,000 mg tablet 1,000 mg PO BID 07/24/22 07/24/22 nitroglycerin 0.4 mg sublingual 0.4 mg sublingual 07/24/22 07/24/22 tablet Previous Rx's Medication Instructions Recorded acetaminophen 500 mg tablet 1,000 mg PO QID PRN fever or pain 02/18/21 (Tylenol Extra Strength) #14 tabs cyclobenzaprine 5 mg tablet 5 mg PO TID PRN muscle spasm #8 03/14/21 tabs hydroxyzine HCl 25 mg tablet 25 mg PO TID PRN anixety #24 tabs 05/02/21 atorvastatin 80 mg tablet 80 mg PO DAILY 90 days #90 tabs 05/15/21 lorazepam 1 mg tablet (Ativan) 1 mg PO BEDTIME PRN sleep #3 tabs 05/29/21 tramadol 50 mg tablet 50 mg PO Q6H PRN pain (scale score 07/10/21 4-6) #14 tabs phenazopyridine 100 mg tablet 100 mg PO TID PRN pain 3 days #10 02/27/22 (Pyridium) tabs finasteride 5 mg tablet 5 mg PO DAILY 90 days #90 tabs 04/09/22 isosorbide mononitrate 30 mg 30 mg PO DAILY #90 tabs 04/10/22 tablet,extended release 24 hr sacubitril 24 mg-valsartan 26 mg 1 tab PO BID 90 days #180 tabs 04/11/22 tablet (Entresto) bethanechol chloride 50 mg tablet 50 mg PO BID 90 days #180 tabs 04/18/22 tamsulosin 0.4 mg capsule 0.4 mg PO DAILY 90 days #90 caps 06/26/22 Allergies Allergy/AdvReac Type Severity Reaction Status Date / Time No Known Allergies Allergy Verified 07/24/22 10:08 [No Known Allergies*] Review of Systems Review of Systems: Chest pain, pleurisy, and chronic Right sided weakness Yes all other systems are reviewed and are negative [facility] Past Medical History Medical History Atherosclerotic cardiovascular disease CVA (cerebral vascular accident) Diabetes mellitus, type 2 Hypercholesteremia Hypertension Ischemic cardiomyopathy Myocardial infarction PAF (paroxysmal atrial fibrillation) Pulmonary emboli Surgical History H/O coronary artery bypass surgery (~04/27/20) Family History Family History Father No problems noted. Mother No problems noted. 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) Alcohol intake: never Patient Tobacco Use Status: Former Tobacco user Quit Date: 2017 Smoked in Last 30 Days: No Use of substances other than those prescribed or required for medical reasons: No Substance Use Type: Crack/Cocaine Advance Directives: Yes Advance Directives on File: Yes Advance Directives Date on File: 03/14/21 service: No Current occupational status: unemployed Physical Exam Vital Signs: Vital Signs: Last Vital Signs Temp 98.5 F 09/02/22 13:58 Pulse 80 09/02/22 13:58 Resp 12 09/02/22 13:58 BP 130/63 09/02/22 13:58 Pulse Ox 96 09/02/22 13:58 O2 Del Method 09/02/22 13:58 BMI result Body Mass Index 30.2 Const: General: cooperative, healthy appearing, comfortable, no acute distress, well developed, alert, awake and Physically active Orientation/consciousness: oriented to person, oriented to place, oriented to time and patient oriented x3 HEENT: Head: Yes normal to inspection, Yes No palpable skull fracture present, Yes normocephalic, Yes atraumatic and No abrasion Eyes: General: appearance normal, both eyes and all related structures Neck: Neck: Yes normal visual inspection, Yes full ROM, Yes no lymphadenopathy, Yes no meningeal signs, Yes trachea midline, Yes supple, No anterior neck swelling and No tender Chest: Chest palpation & inspection: normal inspection of the chest Chest/axillae images: 1. Reproducible chest pain on palpation. Resp: Effort & Inspection: normal respiratory effort and able to speak in complete sentences Auscultation: clear to auscultation bilaterally Cardio: Jugular venous distension: no JVD Heart sounds: S1 normal heart sound present and S2 normal heart sound present GI: Inspection: Yes normal to inspection and No abdominal wall ecchymosis Palpation (GI): Soft to palpation, not firm, nontender, no guarding and not rigid : General: No CVA tenderness and Yes no CVA tenderness Back/Spine/Pelvis: Back: no CVA tenderness, No CVA tenderness and No back tenderness Skin: General skin exam: no rashes or lesions noted and elasticity normal Neuro: Other: Negative facial droop. Negative slurred speech. Chronic right-sided upper and lower extremity. Patient denies any new weakness. Patient states right- sided weakness at baseline. left-sided muscular exam intact. Patient states gait is at baseline. no new neuro deficits. negative rhomberg. General: oriented to person, oriented to place, oriented to time, patient oriented x3, gait normal, tone normal, moves all extremities, Normal light touch and pain sensation, no meningeal signs, no focal motor deficits, CN's II-XI intact bilaterally and normal sensation to monofilament Cranial nerves: Yes CN's II- XII intact bilaterally Extrem: Other: Bilateral lower extremities negative for swelling, pitting edema, or calf tenderness General: Yes normal to inspection and Yes full ROM Psych: Appearance: grossly normal, well kempt and not disheveled Course Course Course Narrative: negative for any new neuro symptoms. No need for head CT scan. Patient states chest pain for 1 year only new thing is slight pleurisy so will do chest CT to rule out any PE. chest x-ray EKG cardiac enzymes ordered. Patient took 4 aspirin pills earlier before coming to the ER. patient states pain is actually improving and resolving just some pleurisy. Patient would like to eat. Reevaluation(s) Reevaluation #1: patient EKG shows no new changes and is atrial paced. Two troponins negative. Chest CT negative for PE. Patient asympatomatic and eating food. Patient wants to be discharged. Patient will have follow-up with primary care provider. UA has some blood but patient asymptomatic and denies any abdominal pain, nausea, vomiting, or dysuria. 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 No need for head CT scan not suspecting stroke. patient has blood in uA, but nguyễn not have any complaints or abdominal pain. QTC elevated waited for magnesium. Time: 15:13 Medications Administered Discontinued Medications Generic Name Dose Route Start Last Admin Trade Name Rom PRN Reason Stop Dose Admin Al Hydroxide/Mg Hydroxide 30 ml 09/02/22 15:39 09/02/22 15:44 Magnesium Hydrox/Alum Hydrox 30 Ml Oral.Susp PO 09/02/22 15:40 30 ml ONCE ONE Administration Iohexol 100 ml 09/02/22 13:16 09/02/22 13:17 Iohexol 350 Mg/Ml 100 Ml Infus..Btl IV 09/02/22 13:17 75 ml ONCE ONE Administration Lidocaine HCl 15 ml 09/02/22 15:39 09/02/22 15:44 Lidocaine Hcl Viscous 2 % 15 Ml Solution MUCOUS MEM 09/02/22 15:40 15 ml ONCE ONE Administration Medical Decision Making Medical Decision Making [facility] Narrative: 56-year-old male with cardiac history such as PE, pacemaker, atrial fibrillation, also has bladder outlet obstruction and microscopic hematuria, hypertension, diabetes, CVA, and cholesterol, presents to ED for chest pain for 1 year with right-sided chronic weakness has been present since stroke in 2011 with additional pleurisy for the past 2 days. Negative for any leg swelling, calf pain, coughing up blood, or new neuro deficits. Right leg and right lower extremity weakness chronic. Differential Diagnosis Differential Diagnoses: The differential diagnosis associated with the presentation includes (OR, CHF, and PE) Admission/Observation admission/observation presently not considered but will be considered if patient worsens or meets medical admission Lab Data [facility] Lab Attestation statement: I reviewed the patient's lab results. 09/02/22 10:22 09/02/22 10:22 Labs: Lab Results 09/02/22 09/02/22 09/02/22 Range/Units 10:22 10:22 10:22 WBC 8.0 (4.8-10.8) X10*3/uL RBC 5.12 (4.60-5.80) X10*6/uL Hgb 14.4 (14.0-18.0) g/dl Hct 44.4 (42.0-52.0) % MCV 86.7 (80.0-98.0) fL MCH 28.1 (27.0-33.0) pg MCHC 32.4 (31.0-36.0) g/dl RDW 13.9 (11.0-16.0) % Plt Count 348 (160-400) X10*3/uL MPV 10.9 (9.4-12.4) fL Immature Gran % (Auto) 0.3 (0.0-0.4) % Neut % (Auto) 63.0 (45-73) % Lymph % (Auto) 27.7 (20-40) % Granite % (Auto) 6.4 (2-11) % Eos % (Auto) 1.6 (0-4) % Baso % (Auto) 1.0 (0-2) % Lymph # (Auto) 2.2 (1.2-4.9) X10*3/uL Granite # (Auto) 0.5 (0.1-1.2) X10*3/uL Eos # (Auto) 0.1 (0.0-0.4) X10*3/uL Baso # (Auto) 0.1 (0.0-0.2) X10*3/uL Abs Immat Gran (auto) 0.02 (0.00-0.03) X10*3/uL Absolute Neuts (auto) 5.0 (2.0-8.3) x10*3/uL Absolute Nucleated RBC 0.000 (0.0-0.012) X10*3/uL Nucleated RBC % (auto) 0.0 (0.0-0.2) /100WBC PT (10.0-13.1) SEC INR (0.9-1.1) APTT (26.0-36.4) SEC Sodium 140 (135-145) mmol/L Potassium 4.8 D (3.3-5.1) mmol/L Chloride 108 (96-108) mmol/L Carbon Dioxide 21 L (22-29) mmol/L Anion Gap 16 (12-20) BUN 15 (9-16) mg/dL Creatinine 0.90 (0.5-1.4) mg/dL Estim Creat Clear Calc 85.3 Estimated GFR > 60 POC Glucose (60-115) mg/dL Random Glucose 124 H (60-115) mg/dL Calcium 10.0 (8.4-10.2) mg/dL Magnesium 1.6 (1.6-2.6) mg/dL Total Bilirubin 0.4 (0.0-1.0) mg/dL AST 22 (5-37) U/L ALT 13 (0-40) U/L Alkaline Phosphatase 53 D (39-117) U/L Troponin I High Sens 11.8 (<3.5-35.0) ng/L B-Natriuretic Peptide (<100) pg/mL Total Protein 7.4 (6.5-8.0) g/dL Albumin 4.5 (3.5-5.0) g/dL Urine Color Urine Appearance Urine pH (5.0-9.0) Ur Specific [place] (1.005-1.025) Urine Protein (Neg-Trace) mg/dL Urine Glucose (UA) (Negative) mg/dL Urine Ketones (Negative) mg/dL Urine Blood (Negative) Urine Nitrite (Negative) Ur Leukocyte Esterase (Negative) Urine RBC (0-2) /HPF Urine WBC (0-5) /HPF Ur Squamous Epith Cells (0-2) /HPF Urine Bacteria (None Seen) Hyaline Casts (0-2) /LPF 09/02/22 09/02/22 09/02/22 Range/Units 10:22 10:22 10:26 WBC (4.8-10.8) X10*3/uL RBC (4.60-5.80) X10*6/uL Hgb (14.0-18.0) g/dl Hct (42.0-52.0) % MCV (80.0-98.0) fL MCH (27.0-33.0) pg MCHC (31.0-36.0) g/dl RDW (11.0-16.0) % Plt Count (160-400) X10*3/uL MPV (9.4-12.4) fL Immature Gran % (Auto) (0.0-0.4) % Neut % (Auto) (45-73) % Lymph % (Auto) (20-40) % Granite % (Auto) (2-11) % Eos % (Auto) (0-4) % Baso % (Auto) (0-2) % Lymph # (Auto) (1.2-4.9) X10*3/uL Granite # (Auto) (0.1-1.2) X10*3/uL Eos # (Auto) (0.0-0.4) X10*3/uL Baso # (Auto) (0.0-0.2) X10*3/uL Abs Immat Gran (auto) (0.00-0.03) X10*3/uL Absolute Neuts (auto) (2.0-8.3) x10*3/uL Absolute Nucleated RBC (0.0-0.012) X10*3/uL Nucleated RBC % (auto) (0.0-0.2) /100WBC PT 13.6 H (10.0-13.1) SEC INR 1.2 H (0.9-1.1) APTT 33.1 (26.0-36.4) SEC Sodium (135-145) mmol/L Potassium (3.3-5.1) mmol/L Chloride (96-108) mmol/L Carbon Dioxide (22-29) mmol/L Anion Gap (12-20) BUN (9-16) mg/dL Creatinine (0.5-1.4) mg/dL Estim Creat Clear Calc Estimated GFR POC Glucose (60-115) mg/dL Random Glucose (60-115) mg/dL Calcium (8.4-10.2) mg/dL Magnesium (1.6-2.6) mg/dL Total Bilirubin (0.0-1.0) mg/dL AST (5-37) U/L ALT (0-40) U/L Alkaline Phosphatase (39-117) U/L Troponin I High Sens (<3.5-35.0) ng/L B-Natriuretic Peptide 237 H (<100) pg/mL Total Protein (6.5-8.0) g/dL Albumin (3.5-5.0) g/dL Urine Color Yellow Urine Appearance Clear Urine pH 7.5 (5.0-9.0) Ur Specific [place] 1.010 (1.005-1.025) Urine Protein Negative (Neg-Trace) mg/dL Urine Glucose (UA) Negative (Negative) mg/dL Urine Ketones Negative (Negative) mg/dL Urine Blood Small (1+) H (Negative) Urine Nitrite Negative (Negative) Ur Leukocyte Esterase Negative (Negative) Urine RBC 6-10 H (0-2) /HPF Urine WBC 0-5 (0-5) /HPF Ur Squamous Epith Cells 0-2 (0-2) /HPF Urine Bacteria None Seen (None Seen) Hyaline Casts 0-2 (0-2) /LPF 09/02/22 09/02/22 Range/Units 14:06 15:33 WBC (4.8-10.8) X10*3/uL RBC (4.60-5.80) X10*6/uL Hgb (14.0-18.0) g/dl Hct (42.0-52.0) % MCV (80.0-98.0) fL MCH (27.0-33.0) pg MCHC (31.0-36.0) g/dl RDW (11.0-16.0) % Plt Count (160-400) X10*3/uL MPV (9.4-12.4) fL Immature Gran % (Auto) (0.0-0.4) % Neut % (Auto) (45-73) % Lymph % (Auto) (20-40) % Granite % (Auto) (2-11) % Eos % (Auto) (0-4) % Baso % (Auto) (0-2) % Lymph # (Auto) (1.2-4.9) X10*3/uL Granite # (Auto) (0.1-1.2) X10*3/uL Eos # (Auto) (0.0-0.4) X10*3/uL Baso # (Auto) (0.0-0.2) X10*3/uL Abs Immat Gran (auto) (0.00-0.03) X10*3/uL Absolute Neuts (auto) (2.0-8.3) x10*3/uL Absolute Nucleated RBC (0.0-0.012) X10*3/uL Nucleated RBC % (auto) (0.0-0.2) /100WBC PT (10.0-13.1) SEC INR (0.9-1.1) APTT (26.0-36.4) SEC Sodium (135-145) mmol/L Potassium (3.3-5.1) mmol/L Chloride (96-108) mmol/L Carbon Dioxide (22-29) mmol/L Anion Gap (12-20) BUN (9-16) mg/dL Creatinine (0.5-1.4) mg/dL Estim Creat Clear Calc Estimated GFR POC Glucose 80 (60-115) mg/dL Random Glucose (60-115) mg/dL Calcium (8.4-10.2) mg/dL Magnesium (1.6-2.6) mg/dL Total Bilirubin (0.0-1.0) mg/dL AST (5-37) U/L ALT (0-40) U/L Alkaline Phosphatase (39-117) U/L Troponin I High Sens 16.6 (<3.5-35.0) ng/L B-Natriuretic Peptide (<100) pg/mL Total Protein (6.5-8.0) g/dL Albumin (3.5-5.0) g/dL Urine Color Urine Appearance Urine pH (5.0-9.0) Ur Specific [place] (1.005-1.025) Urine Protein (Neg-Trace) mg/dL Urine Glucose (UA) (Negative) mg/dL Urine Ketones (Negative) mg/dL Urine Blood (Negative) Urine Nitrite (Negative) Ur Leukocyte Esterase (Negative) Urine RBC (0-2) /HPF Urine WBC (0-5) /HPF Ur Squamous Epith Cells (0-2) /HPF Urine Bacteria (None Seen) Hyaline Casts (0-2) /LPF Independent Interpretation I performed an independent interpretation of an: EKG Interpretation: Atrial sensed ventricular paced rhythm, ventricular rate 88, GA interval 128. QRS 188. QTC 532. Negative STEMI Radiology Impression Discussion of test interpretation with radiology: I have reviewed the radiologist's reading. 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 Return to ED for worsening chest pain, shortness of breath, leg swelling, calf pain, coughing up blood, fever, chills, slurred speech, neuro or any other concerning symptoms. Prescriptions: No Action atorvastatin 80 mg tablet 80 mg PO DAILY 90 Days Qty: 90 1RF phenazopyridine [Pyridium] 100 mg tablet 100 mg PO TID PRN (Reason: pain) 3 Days Qty: 10 0RF finasteride 5 mg tablet 5 mg PO DAILY 90 Days Qty: 90 1RF isosorbide mononitrate 30 mg tablet extended release 24 hr 30 mg PO DAILY Qty: 90 3RF Entresto 24-26 mg tablet 1 tab PO BID 90 Days Qty: 180 3RF tamsulosin 0.4 mg capsule 0.4 mg PO DAILY 90 Days Qty: 90 1RF furosemide 40 mg tablet 40 mg PO DAILY insulin lispro [Admelog SoloStar U-100 Insulin] 100 unit/mL Insulin Pen 2 unit SUBCUT DAILY insulin lispro [Admelog SoloStar U-100 Insulin] 100 unit/mL insulin pen 6 unit subcut DAILY@1800 insulin lispro [Admelog SoloStar U-100 Insulin] 100 unit/mL insulin pen 4 unit subcut DAILY@1200 acetaminophen [Tylenol Extra Strength] 500 mg tablet 1,000 mg PO QID PRN (Reason: fever or pain) Qty: 14 0RF cyclobenzaprine 5 mg tablet 5 mg PO TID PRN (Reason: muscle spasm) Qty: 8 0RF metformin 1,000 mg tablet 1,000 mg PO BID hydroxyzine HCl 25 mg tablet 25 mg PO TID PRN (Reason: anixety) Qty: 24 0RF tramadol 50 mg tablet 50 mg PO Q6H PRN (Reason: pain (scale score 4-6)) Qty: 14 0RF lorazepam [Ativan] 1 mg tablet 1 mg PO BEDTIME PRN (Reason: sleep) Qty: 3 0RF insulin glargine 100 unit/mL (3 mL) insulin pen 22 unit subcut BEDTIME omega-3 fatty acids-fish oil 340-1,000 mg capsule 1 cap PO TID (DME) lancets 28 gauge misc See Rx Instructions topical DIRECTED Qty: 100 Rx Instructions: As directed clopidogrel 75 mg tablet 75 mg PO DAILY Hold Instructions: Resume on 07/15/21. Resume anticoagulation Saturday fenofibrate 54 mg tablet 54 mg PO DAILY duloxetine 20 mg capsule,delayed release(DR/EC) 20 mg PO DAILY (DME) pen needle, diabetic [BD Kelli 2nd Gen Pen Needle] 32 gauge x 5/32 needle See Rx Instructions .ROUTE .MEDSUPPLY Qty: 50 Rx Instructions: As directed (DME) FreeStyle Lite Strips Strip See Rx Instructions Not Applicable BID Qty: 10 Rx Instructions: As directed aspirin 81 mg tablet,delayed release (DR/EC) 81 mg PO DAILY nitroglycerin 0.4 mg tablet, sublingual 0.4 mg sublingual metoprolol succinate 50 mg tablet extended release 24 hr 50 mg PO DAILY bethanechol chloride 50 mg tablet 50 mg PO BID 90 Days Qty: 180 1RF famotidine 20 mg tablet 20 mg PO BID Referrals: [facility] [place] [facility] [Provider Group] ( Chest pain for 1 year and pleurisy.) [facility] [place] [facility] [Provider Group] (hematuria) Russ Parikh MD [Primary Care Provider] - ( Chest pain with pleurisy. EKG 2 troponins and chest CTA negative. 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
[2022-09-02] MEDS: iohexoL 350 MG/ML 100 ML INFUS..BTL IV (13:17)
[2022-09-02 13:58] VITALS: BP 130/63; PULSE 80; RESP 12; TEMP 36.9; O2SAT 96
[2022-09-02 14:36] LABS: Troponin-I High Sensitivity 16.6 ng/L (<3.5-35.0)
--- NOTE | 2022-09-02 15:29 | PC.NURSE ---
Patient c/o increased medial upper chest pain with inspiration 04/04. tele: chavez cheng 68's. Will notify
[2022-09-02 15:38] LABS: Glucose, Whole Blood 80 mg/dL (60-115)
[2022-09-02 15:44] LABS: Magnesium 1.6 mg/dL (1.6-2.6)
[2022-09-02] MEDS: Lidocaine HCl Viscous 2 % 15 ML SOLUTION MUCOUS MEM (15:44)
[2022-09-02] MEDS: Magnesium Hydrox/Alum Hydrox 30 ML ORAL.SUSP PO (15:44)
== END 2022-09-02 17:48 | disposition home or self-care (01) ==
PROVIDERS: Physician Assistant; Emergency Provider Emergency Medicine Emergency Medical Services; PCP Internal Medicine
DX: R07.89 Other chest pain (principal); R31.9 Hematuria, unspecified; R06.02 Shortness of breath; Z87.891 Personal history of nicotine dependence; Z79.899 Other long term (current) drug therapy
CPT/HCPCS: 36415; 71045; 71275; 80053; 81001; 82947; 83735; 83880; 84484; 85025; 85610; 85730; 93005; 99285; Q9967

== ENCOUNTER → 2022-10-19 11:44 | Outpatient (BNVA) | payer OTHER, SELFPAY | PROVIDERS: PCP Internal Medicine; Visit Provider Urology | DX: N40.1 Benign prostatic hyperplasia with lower urinary tract symptoms (principal); N13.8 Other obstructive and reflux uropathy; R33.8 Other retention of urine; R97.20 Elevated prostate specific antigen [PSA]; Z79.899 Other long term (current) drug therapy | CPT/HCPCS: 51798; 99212 ==

== ENCOUNTER 2022-11-08 10:04 | Emergency (ER) | payer OTHER, SELFPAY ==
--- NOTE | ~2022-11-08 | XR_ITS ---
EXAMINATION: XR CHEST CLINICAL INFORMATION: Chest pain COMPARISON: 09/02/2022. TECHNIQUE: 2 views of the chest were obtained. FINDINGS: Pacer wires are in position. No dominant airspace consolidations are seen. Status post median sternotomy. The pulmonary vascularity appears to be stable. There is slight blunting in the left costophrenic angle which may reflect a minimal effusion or pleural reaction. Thoracic spondylitic changes observed. There is eccentric degenerative disc space narrowing. XR/XR chest 2V IMPRESSION: 1. No dominant consolidations. Minimal left costophrenic angle effusion or pleural reaction. 2. Pacer wires in position. 3. Status post median sternotomy.
--- NOTE | 2022-11-08 10:07 | ECG_ITS ---
Test Reason : CHEST PAIN Blood Pressure : / mmHG Vent. Rate : 075 BPM Atrial Rate : 075 BPM P-R Int : 146 ms QRS Dur : 196 ms QT Int : 474 ms P-R-T Axes : 058 225 036 degrees QTc Int : 529 ms Atrial-sensed ventricular-paced rhythm Abnormal ECG When compared with ECG of 02-SEP-2022 09:50, Vent. rate has decreased BY 13 BPM Referred By: Generic ED Physician Electronically Signed By:Juancarlos Rojo
--- NOTE | 2022-11-08 10:11 | ED_ITS ---
HPI - General Adult General Chief complaint: Chest Pain Stated complaint: CP SINCE T-1 PER EMS Time Seen by Provider: 11/08/22 10:11 Source: patient and EMS Mode of arrival: EMS Limitations: no limitations History of Present Illness HPI narrative: Patient is a 56 year old assigned male at with a history of CVA with permanent right sided deficit, PE, LBBB, DM, pacemaker, and chronic chest wall pain presenting to the emergency department today with chest pain. Patient states that he always has midsternal chest pain and has for the last 3 years. Patient denies any dizziness, lightheadedness, abdominal pain, nausea, vomiting, fever, chills, blurry vision, double vision, loss of vision, difficulty breathing, shortness of breath, back pain, night sweats, pain with urination, increased urinary frequency, increased urinary urgency, blood in his urine or stool, syncope or a near syncopal episode, recent trauma or falls, bowel incontinence, bladder incontinence, bowel retention, bladder retention, or any other complaints at this time. Onset (ago): year(s) (3) Location: chest Radiation: non-radiation Severity: mild Severity scale (1-10): 3 Quality: aching and dull Pain Consistency: constant Relieving factors: none Exacerbating factors: none Associated symptoms: denies other symptoms Treatments prior to arrival: none Related Data Home Medications Medication Instructions Recorded Confirmed clopidogrel 75 mg tablet 75 mg PO DAILY 08/02/20 07/24/22 fenofibrate 54 mg tablet 54 mg PO DAILY 08/02/20 07/24/22 insulin glargine 100 unit/mL (3 22 unit subcut BEDTIME 08/02/20 07/24/22 mL) subcutaneous pen lancets 28 gauge #100 ea 08/02/20 07/24/22 omega-3 fatty acids-fish oil 340 1 cap PO TID 08/02/20 07/24/22 mg-1,000 mg capsule furosemide 40 mg tablet 40 mg PO DAILY 12/28/20 07/24/22 insulin lispro 100 unit/mL 2 unit subcut DAILY 12/28/20 07/24/22 subcutaneous pen (Admelog SoloStar U-100 Insulin lispro) insulin lispro 100 unit/mL 4 unit subcut DAILY@1200 12/28/20 07/24/22 subcutaneous pen (Admelog SoloStar U-100 Insulin lispro) insulin lispro 100 unit/mL 6 unit subcut DAILY@1800 12/28/20 07/24/22 subcutaneous pen (Admelog SoloStar U-100 Insulin lispro) blood sugar diagnostic (FreeStyle #10 ea 06/06/21 07/24/22 Lite Strips) duloxetine 20 mg capsule,delayed 20 mg PO DAILY 06/06/21 07/24/22 release pen needle, diabetic 32 gauge x #50 ea 06/06/21 07/24/22 (BD Kelli 2nd Gen Pen Needle) aspirin 81 mg tablet,delayed 81 mg PO DAILY 03/09/22 07/24/22 release famotidine 20 mg tablet 20 mg PO BID 04/18/22 07/24/22 metformin 1,000 mg tablet 1,000 mg PO BID 07/24/22 07/24/22 nitroglycerin 0.4 mg sublingual 0.4 mg sublingual 07/24/22 07/24/22 tablet Previous Rx's Medication Instructions Recorded acetaminophen 500 mg tablet 1,000 mg PO QID PRN fever or pain 02/18/21 (Tylenol Extra Strength) #14 tabs cyclobenzaprine 5 mg tablet 5 mg PO TID PRN muscle spasm #8 03/14/21 tabs hydroxyzine HCl 25 mg tablet 25 mg PO TID PRN anixety #24 tabs 05/02/21 atorvastatin 80 mg tablet 80 mg PO DAILY 90 days #90 tabs 05/15/21 lorazepam 1 mg tablet (Ativan) 1 mg PO BEDTIME PRN sleep #3 tabs 05/29/21 tramadol 50 mg tablet 50 mg PO Q6H PRN pain (scale score 07/10/21 4-6) #14 tabs phenazopyridine 100 mg tablet 100 mg PO TID PRN pain 3 days #10 02/27/22 (Pyridium) tabs isosorbide mononitrate 30 mg 30 mg PO DAILY #90 tabs 04/10/22 tablet,extended release 24 hr sacubitril 24 mg-valsartan 26 mg 1 tab PO BID 90 days #180 tabs 04/11/22 tablet (Entresto) finasteride 5 mg tablet 5 mg PO DAILY 90 days #90 tabs 09/13/22 metoprolol succinate 50 mg 50 mg PO DAILY #90 tabs 09/13/22 tablet,extended release 24 hr bethanechol chloride 50 mg tablet 50 mg PO BID 90 days #180 tabs 10/19/22 tamsulosin 0.4 mg capsule 0.4 mg PO DAILY 90 days #90 caps 10/19/22 Allergies Allergy/AdvReac Type Severity Reaction Status Date / Time No Known Allergies Allergy Verified 10/19/22 12:06 [No Known Allergies*] Review of Systems Constitutional: Constitutional: Reports no additional constitutional complaints, Denies chills, Denies fever(s) and Denies night sweats Eyes: Eyes: Reports no additional eye complaints, Denies blurry vision, Denies change in vision, Denies diplopia, Denies eye discharge, Denies loss of vision and Denies eye pain ENT: Denies dizziness Cardiovascular: Cardiovascular: Reports no additional cardiovascular complaints, Reports chest pain, Denies lightheadedness, Denies Loss of Consciousness and Denies dyspnea Respiratory: Respiratory: Reports no additional respiratory complaints and Denies dyspnea Gastrointestinal: Gastrointestinal: Reports no additional gastrointestinal complaints, Denies abdominal pain, Denies melena, Denies hematochezia, Denies change in bowel habits and Denies change in stool character Genitourinary: Genitourinary: Reports no additional male genitourinary complaints, Denies hematuria, Denies oliguria, Denies difficulty urinating, Denies dysuria, Denies urinary frequency, Denies urinary hesitancy, Denies urinary incontinence and Denies urinary urgency Musculoskeletal: Musculoskeletal: Reports no additional musculoskeletal complaints, Denies numbness and Denies tingling Neurologic: Denies dizziness, Denies loss of vision, Denies numbness and Denie s tingling Psychiatric: Psychiatric: Reports no additional psychiatric complaints Endocrine: Endocrine: Reports no additional endocrine complaints Hematologic/Lymphatic: Hematologic/Lymphatic: Reports no additional hematologic/lymphatic complaints Allergic/Immunologic: Allergic/Immunologic: Reports no additional allergic/immunologic complaints PMFSH Past Medical History Attestation statement: The following information was validated with the patient. Source: old records reviewed and nursing notes reviewed Medical History Atherosclerotic cardiovascular disease CVA (cerebral vascular accident) Diabetes mellitus, type 2 Hypercholesteremia Hypertension Ischemic cardiomyopathy Myocardial infarction PAF (paroxysmal atrial fibrillation) Pulmonary emboli Surgical History H/O coronary artery bypass surgery (~04/27/20) Family History Family History Father No problems noted. Mother No problems noted. 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) Alcohol intake: never Patient Tobacco Use Status: Former Tobacco user Quit Date: 2017 Smoked in Last 30 Days: No Use of substances other than those prescribed or required for medical reasons: No Substance Use Type: Crack/Cocaine Advance Directives: Yes Advance Directives on File: Yes Advance Directives Date on File: 03/14/21 service: No Current occupational status: unemployed Physical Exam ED Vital Signs: Vital Signs - 24 hr 11/08/22 10:13 11/08/22 11:01 11/08/22 12:42 Temperature 99.1 F Pulse Rate 88 90 81 Respiratory Rate 20 16 15 Blood Pressure 149/56 H 121/67 Pulse Oximetry 97 96 93 Oxygen Delivery Method Room Air Room Air Room Air BMI result Body Mass Index 31.9 Const General: cooperative, no acute distress, alert and awake Nutritional Appearance: well nourished Orientation/consciousness: patient oriented x3 Limitations: no limitations HENMT Head: Yes normal to inspection and Yes atraumatic Ears: hearing grossly normal bilaterally and external ears normal General nose exam: Normal external nose present, no nasal discharge noted and no epistaxis Face and sinus: Yes normal facial exam, No abrasion and No laceration Mouth: Normal oral and palatal mucosa present, no drooling and no muffled voice Eyes General: appearance normal, both eyes and all related structures Periorbital: periorbital findings normal Eyelids: Yes eyelids normal Conjunctivae: conjunctivae normal Pupils: Equal, round and reactive pupils present EOM: EOMs intact bilaterally Neck Neck: Yes normal visual inspection, Yes full ROM and Yes no lymphadenopathy Chest Chest palpation & inspection: normal inspection of the chest Resp Effort & Inspection: normal respiratory effort and able to speak in complete sentences Auscultation: clear to auscultation bilaterally Cardio Rate: regular rate Rhythm: other (paced) GI Inspection: Yes normal to inspection Palpation (GI): Soft to palpation, not firm, nontender, no guarding and not rigid Neuro General: patient oriented x3 Cranial nerves: Yes Equal, round and reactive pupils present Cognition (Neuro): normal cognition Extrem Other: chronic right sided deficit post CVA General: Yes capillary refill normal Psych Appearance: grossly normal Mental Status: mental status grossly normal Affect: normal affect Attitude: cooperative Thought process: Normal thought process present Thought content: Normal thought content present Insight: Good insight present (Psych) Medications Administered Discontinued Medications Generic Name Dose Route Start Last Admin Trade Name Rom PRN Reason Stop Dose Admin Acetaminophen 650 mg 11/08/22 13:14 11/08/22 13:45 Acetaminophen 325 Mg Tablet PO 11/08/22 13:15 650 mg ONCE ONE Administration Medical Decision Making Medical Decision Making [facility] Narrative: Patient is a 56 year old assigned male at with a history of PE, LBBB, pacemaker, chronic chest pain, and CVA causing permanent right sided deficit presenting to the emergency department today with substernal chest pain. Patient's physical exam showed chronic right sided deficit but was otherwise unremarkable. Patient's blood work was unremarkable. Patient's EKG was unremarkable. Patient's chest x-ray showed no acute process. I explained my p hysical exam findings as well as all test results to the patient. I answered all questions asked by the patient. Patient received PO Tylenol which he stated helped his symptoms significantly. I stressed the importance of the patient taking his medication as prescribed. I stressed the importance of the patient following up with his primary care provider, stage electrician, and a pain specialist. I stressed the importance of the patient returning to the emergency department immediately if his symptoms were to worsen or if he were to develop any dizziness, shortness of breath, difficulty breathing, chest pain, blurry vision, loss of vision, nausea, vomiting, abdominal pain, fever, chills, back pain, or any other complaints. Patient verbalized agreement and understanding with this treatment plan and discharge. Differential Diagnosis Differential Diagnoses: The differential diagnosis associated with the presentation includes chest pain, chronic chest wall pain Lab Data [facility] Lab Attestation statement: I reviewed the patient's lab results. 11/08/22 10:27 11/08/22 10:27 Labs: Lab Results 11/08/22 11/08/22 11/08/22 Range/Units 10:27 10:27 10:27 WBC 9.5 (4.8-10.8) X10*3/uL RBC 5.37 (4.60-5.80) X10*6/uL Hgb 15.0 (14.0-18.0) g/dl Hct 47.1 (42.0-52.0) % MCV 87.7 (80.0-98.0) fL MCH 27.9 (27.0-33.0) pg MCHC 31.8 (31.0-36.0) g/dl RDW 14.4 (11.0-16.0) % Plt Count 384 (160-400) X10*3/uL MPV 11.0 (9.4-12.4) fL Immature Gran % (Auto) 0.3 (0.0-0.4) % Neut % (Auto) 62.7 (45-73) % Lymph % (Auto) 29.2 (20-40) % Sierra % (Auto) 6.0 (2-11) % Eos % (Auto) 1.0 (0-4) % Baso % (Auto) 0.8 (0-2) % Lymph # (Auto) 2.8 (1.2-4.9) X10*3/uL Sierra # (Auto) 0.6 (0.1-1.2) X10*3/uL Eos # (Auto) 0.1 (0.0-0.4) X10*3/uL Baso # (Auto) 0.1 (0.0-0.2) X10*3/uL Abs Immat Gran (auto) 0.03 (0.00-0.03) X10*3/uL Absolute Neuts (auto) 6.0 (2.0-8.3) x10*3/uL Absolute Nucleated RBC 0.000 (0.0-0.012) X10*3/uL Nucleated RBC % (auto) 0.0 (0.0-0.2) /100WBC PT (10.0-13.1) SEC INR (0.9-1.1) Sodium 140 (135-145) mmol/L Potassium 4.7 (3.3-5.1) mmol/L Chloride 101 (96-108) mmol/L Carbon Dioxide 26 (22-29) mmol/L Anion Gap 18 (12-20) BUN 12 (9-16) mg/dL Creatinine 1.13 (0.5-1.4) mg/dL Estim Creat Clear Calc 79.7 Estimated GFR > 60 Random Glucose 109 (60-115) mg/dL Calcium 9.9 (8.4-10.2) mg/dL Magnesium 1.6 (1.6-2.6) mg/dL Total Bilirubin 1.0 (0.0-1.0) mg/dL Direct Bilirubin 0.2 (0.0-0.5) mg/dL AST 20 (5-37) U/L ALT 15 (0-40) U/L Alkaline Phosphatase 62 (39-117) U/L Troponin I High Sens 10.7 (<3.5-35.0) ng/L B-Natriuretic Peptide (<100) pg/mL Total Protein 7.7 (6.5-8.0) g/dL Albumin 4.7 (3.5-5.0) g/dL Lipase 29 (8-78) U/L COVID-19 ([facility]) (Negative) COVID-19 Clin Com 11/08/22 11/08/22 11/08/22 Range/Units 10:27 10:27 10:33 WBC (4.8-10.8) X10*3/uL RBC (4.60-5.80) X10*6/uL Hgb (14.0-18.0) g/dl Hct (42.0-52.0) % MCV (80.0-98.0) fL MCH (27.0-33.0) pg MCHC (31.0-36.0) g/dl RDW (11.0-16.0) % Plt Count (160-400) X10*3/uL MPV (9.4-12.4) fL Immature Gran % (Auto) (0.0-0.4) % Neut % (Auto) (45-73) % Lymph % (Auto) (20-40) % Sierra % (Auto) (2-11) % Eos % (Auto) (0-4) % Baso % (Auto) (0-2) % Lymph # (Auto) (1.2-4.9) X10*3/uL Sierra # (Auto) (0.1-1.2) X10*3/uL Eos # (Auto) (0.0-0.4) X10*3/uL Baso # (Auto) (0.0-0.2) X10*3/uL Abs Immat Gran (auto) (0.00-0.03) X10*3/uL Absolute Neuts (auto) (2.0-8.3) x10*3/uL Absolute Nucleated RBC (0.0-0.012) X10*3/uL Nucleated RBC % (auto) (0.0-0.2) /100WBC PT 14.1 H (10.0-13.1) SEC INR 1.2 H (0.9-1.1) Sodium (135-145) mmol/L Potassium (3.3-5.1) mmol/L Chloride (96-108) mmol/L Carbon Dioxide (22-29) mmol/L Anion Gap (12-20) BUN (9-16) mg/dL Creatinine (0.5-1.4) mg/dL Estim Creat Clear Calc Estimated GFR Random Glucose (60-115) mg/dL Calcium (8.4-10.2) mg/dL Magnesium (1.6-2.6) mg/dL Total Bilirubin (0.0-1.0) mg/dL Direct Bilirubin (0.0-0.5) mg/dL AST (5-37) U/L ALT (0-40) U/L Alkaline Phosphatase (39-117) U/L Troponin I High Sens (<3.5-35.0) ng/L B-Natriuretic Peptide 161 H (<100) pg/mL Total Protein (6.5-8.0) g/dL Albumin (3.5-5.0) g/dL Lipase (8-78) U/L COVID-19 ([facility]) Negative (Negative) COVID-19 Clin Com See Note 11/08/22 Range/Units 12:39 WBC (4.8-10.8) X10*3/uL RBC (4.60-5.80) X10*6/uL Hgb (14.0-18.0) g/dl Hct (42.0-52.0) % MCV (80.0-98.0) fL MCH (27.0-33.0) pg MCHC (31.0-36.0) g/dl RDW (11.0-16.0) % Plt Count (160-400) X10*3/uL MPV (9.4-12.4) fL Immature Gran % (Auto) (0.0-0.4) % Neut % (Auto) (45-73) % Lymph % (Auto) (20-40) % Sierra % (Auto) (2-11) % Eos % (Auto) (0-4) % Baso % (Auto) (0-2) % Lymph # (Auto) (1.2-4.9) X10*3/uL Sierra # (Auto) (0.1-1.2) X10*3/uL Eos # (Auto) (0.0-0.4) X10*3/uL Baso # (Auto) (0.0-0.2) X10*3/uL Abs Immat Gran (auto) (0.00-0.03) X10*3/uL Absolute Neuts (auto) (2.0-8.3) x10*3/uL Absolute Nucleated RBC (0.0-0.012) X10*3/uL Nucleated RBC % (auto) (0.0-0.2) /100WBC PT (10.0-13.1) SEC INR (0.9-1.1) Sodium (135-145) mmol/L Potassium (3.3-5.1) mmol/L Chloride (96-108) mmol/L Carbon Dioxide (22-29) mmol/L Anion Gap (12-20) BUN (9-16) mg/dL Creatinine (0.5-1.4) mg/dL Estim Creat Clear Calc Estimated GFR Random Glucose (60-115) mg/dL Calcium (8.4-10.2) mg/dL Magnesium (1.6-2.6) mg/dL Total Bilirubin (0.0-1.0) mg/dL Direct Bilirubin (0.0-0.5) mg/dL AST (5-37) U/L ALT (0-40) U/L Alkaline Phosphatase (39-117) U/L Troponin I High Sens 11.0 (<3.5-35.0) ng/L B-Natriuretic Peptide (<100) pg/mL Total Protein (6.5-8.0) g/dL Albumin (3.5-5.0) g/dL Lipase (8-78) U/L COVID-19 ([facility]) (Negative) COVID-19 Clin Com Independent Interpretation I performed an independent interpretation of an: EKG Interpretation: Vent. Rate: 075 BPM ? ? Atrial Rate: 075 BPM P-R Int: 146 ms? QRS Dur: 196 ms QT Int: 474 ms ? ? ? P-R-T Axes: 058 225 036 degrees QTc Int: 529 ms ? Atrial-sensed ventricular-paced rhythm Abnormal ECG When compared with ECG of 02-SEP-2022 09:50, Vent. rate has decreased BY? 13 BPM DD/ 1018 Radiology Impression Radiologist Impression: My interpretation is in agreement with the radiologist's impression of this imaging study. EXAMINATION: XR CHEST CLINICAL INFORMATION: Chest pain COMPARISON: 09/02/2022. TECHNIQUE: 2 views of the chest were obtained. FINDINGS: Pacer wires are in position. No dominant airspace consolidations are seen. Status post median sternotomy. The pulmonary vascularity appears to be stable. There is slight blunting in the left costophrenic angle which may reflect a minimal effusion or pleural reaction. Thoracic spondylitic changes observed. There is eccentric degenerative disc space narrowing. XR/XR chest 2V IMPRESSION: 1.? No dominant consolidations. Minimal left costophrenic angle effusion or pleural reaction. 2.? Pacer wires in position. 3.? Status post median sternotomy. Dictated By: Kvng Mckeon Signed By: Electronically signed by Mare 11/08/22 [id number] Discharge Plan Discharge Clinical Impression: Chest pain Patient Disposition: Home, Self-Care Instructions: Chest Wall Pain (ED) Additional Instructions: Follow up with your primary care provider, your stage electrician, and a pain specialist. Return to the emergency department immediately if your symptoms worsen or if you develop any dizziness, shortness of breath, difficulty ion thing, chest pain, blurry vision, loss of vision, nausea, vomiting, abdominal pain, fever, chills, back pain, or any other complaints. Prescriptions: No Action atorvastatin 80 mg tablet 80 mg PO DAILY 90 Days Qty: 90 1RF phenazopyridine [Pyridium] 100 mg tablet 100 mg PO TID PRN (Reason: pain) 3 Days Qty: 10 0RF isosorbide mononitrate 30 mg tablet extended release 24 hr 30 mg PO DAILY Qty: 90 3RF Entresto 24-26 mg tablet 1 tab PO BID 90 Days Qty: 180 3RF finasteride 5 mg tablet 5 mg PO DAILY 90 Days Qty: 90 1RF metoprolol succinate 50 mg tablet extended release 24 hr 50 mg PO DAILY Qty: 90 2RF furosemide 40 mg tablet 40 mg PO DAILY insulin lispro [Admelog SoloStar U-100 Insulin] 100 unit/mL Insulin Pen 2 unit SUBCUT DAILY insulin lispro [Admelog SoloStar U-100 Insulin] 100 unit/mL insulin pen 6 unit subcut DAILY@1800 insulin lispro [Admelog SoloStar U-100 Insulin] 100 unit/mL insulin pen 4 unit subcut DAILY@1200 acetaminophen [Tylenol Extra Strength] 500 mg tablet 1,000 mg PO QID PRN (Reason: fever or pain) Qty: 14 0RF cyclobenzaprine 5 mg tablet 5 mg PO TID PRN (Reason: muscle spasm) Qty: 8 0RF metformin 1,000 mg tablet 1,000 mg PO BID hydroxyzine HCl 25 mg tablet 25 mg PO TID PRN (Reason: anixety) Qty: 24 0RF tramadol 50 mg tablet 50 mg PO Q6H PRN (Reason: pain (scale score 4-6)) Qty: 14 0RF lorazepam [Ativan] 1 mg tablet 1 mg PO BEDTIME PRN (Reason: sleep) Qty: 3 0RF insulin glargine 100 unit/mL (3 mL) insulin pen 22 unit subcut BEDTIME omega-3 fatty acids-fish oil 340-1,000 mg capsule 1 cap PO TID (DME) lancets 28 gauge misc See Rx Instructions topical DIRECTED Qty: 100 Rx Instructions: As directed clopidogrel 75 mg tablet 75 mg PO DAILY Hold Instructions: Resume on 07/15/21. Resume anticoagulation Saturday fenofibrate 54 mg tablet 54 mg PO DAILY duloxetine 20 mg capsule,delayed release(DR/EC) 20 mg PO DAILY (DME) pen needle, diabetic [BD Kelli 2nd Gen Pen Needle] 32 gauge x 5/32 needle See Rx Instructions .ROUTE .MEDSUPPLY Qty: 50 Rx Instructions: As directed (DME) FreeStyle Lite Strips Strip See Rx Instructions Not Applicable BID Qty: 10 Rx Instructions: As directed aspirin 81 mg tablet,delayed release (DR/EC) 81 mg PO DAILY nitroglycerin 0.4 mg tablet, sublingual 0.4 mg sublingual bethanechol chloride 50 mg tablet 50 mg PO BID 90 Days Qty: 180 1RF tamsulosin 0.4 mg capsule 0.4 mg PO DAILY 90 Days Qty: 90 1RF famotidine 20 mg tablet 20 mg PO BID Referrals: [facility] [Provider Group] Jarod Alamo MD [Physician] - (Call to establish and follow up with a pain specialist for your chronic chest wall pain.) Russ Parikh MD [Primary Care Provider] - Stand Alone Forms: Work/School Release Interventions: ED Discharge Assessment Last Done: 11/08/22 13:51 Discharge Date/Time: 11/08/22 13:52 Print Language: Finnish
[2022-11-08 10:13] VITALS: BP 130/70; BP 149/56; PULSE 70; PULSE 88; RESP 20; O2SAT 97; BMI 31.9
[2022-11-08 10:34] LABS: MANUAL DIFF FLAG NO
[2022-11-08 10:36] LABS: Basophils Absolute Auto 0.1 X10*3/uL (0.0-0.2); Basophils Percent Auto 0.8 % (0-2); Eosinophils Absolute Auto 0.1 X10*3/uL (0.0-0.4); Hematocrit 47.1 % (42.0-52.0); Imm Gran Abs Auto 0.03 X10*3/uL (0.00-0.03); Imm Gran Pct Auto 0.3 % (0.0-0.4); Lymphocytes Absolute Auto 2.8 X10*3/uL (1.2-4.9); Lymphocytes Percent Auto 29.2 % (20-40); Mean Corpuscular HGB Conc 31.8 g/dl (31.0-36.0); Mean Corpuscular Hemoglobin 27.9 pg (27.0-33.0); Mean Corpuscular Volume 87.7 fL (80.0-98.0); Monocytes Absolute Auto 0.6 X10*3/uL (0.1-1.2); Neutrophils Percent Auto 62.7 % (45-73); Platelet Count 384 X10*3/uL (160-400); Red Blood Count 5.37 X10*6/uL (4.60-5.80); Red Cell Distribution Width 14.4 % (11.0-16.0); White Blood Count 9.5 X10*3/uL (4.8-10.8)
[2022-11-08 10:45] LABS: INTERNATIONAL NORM RATIO 1.2 (0.9-1.1); Prothrombin Time 14.1 SEC (10.0-13.1)
[2022-11-08 10:59] LABS: Alanine Aminotransferase 15 U/L (0-40); Albumin Level 4.7 g/dL (3.5-5.0); Alkaline Phosphatase 62 U/L (39-117); Anion Gap 18 (12-20); Aspartate Amino Transferase 20 U/L (5-37); Bilirubin Direct 0.2 mg/dL (0.0-0.5); Blood Urea Nitrogen 12 mg/dL (9-16); Calcium 9.9 mg/dL (8.4-10.2); Carbon Dioxide 26 mmol/L (22-29); Chloride 101 mmol/L (96-108); Creatinine Clr Calc Pharmacy 79.7; Estimated Glomerular Filt Rate > 60; Glucose Random 109 mg/dL (60-115); Lipase 29 U/L (8-78); Magnesium 1.6 mg/dL (1.6-2.6); Potassium 4.7 mmol/L (3.3-5.1); Sodium 140 mmol/L (135-145); Total Protein 7.7 g/dL (6.5-8.0)
[2022-11-08 11:01] VITALS: PULSE 90; RESP 16; O2SAT 96
[2022-11-08 11:02] LABS: B Type Natriuretic Peptide 161 pg/mL (<100)
[2022-11-08 11:06] LABS: Troponin-I High Sensitivity 10.7 ng/L (<3.5-35.0)
[2022-11-08 11:09] LABS: COVID-19 Test Negative (Negative); IDNOW Serial# 08D9AD1C
[2022-11-08 12:42] VITALS: BP 121/67; PULSE 81; RESP 15; TEMP 37.3; O2SAT 93
[2022-11-08] MEDS: Acetaminophen 325 MG TABLET 650 MG PO (13:45)
== END 2022-11-08 13:52 | disposition home or self-care (01) ==
PROVIDERS: Physician Assistant Medical; Emergency Provider Emergency Medicine; PCP Internal Medicine
DX: R07.9 Chest pain, unspecified (principal); Z20.822 Contact with and (suspected) exposure to COVID-19; E11.9 Type 2 diabetes mellitus without complications; I10 Essential (primary) hypertension; E78.00 Pure hypercholesterolemia, unspecified; I48.0 Paroxysmal atrial fibrillation; Z86.73 Personal history of transient ischemic attack (TIA), and cerebral infarction without residual deficits; Z95.0 Presence of cardiac pacemaker; Z79.4 Long term (current) use of insulin; Z79.899 Other long term (current) drug therapy; Z79.82 Long term (current) use of aspirin
CPT/HCPCS: 36415; 71046; 80053; 82248; 83690; 83735; 83880; 84484; 85025; 85610; 87635; 93005; 99283; 99285

== ENCOUNTER → 2022-12-31 09:46 | Outpatient (REF) | payer OTHER, SELFPAY ==
--- NOTE | 2022-12-31 09:48 | CA_ITS ---
Transthoracic Echocardiogram Patient (Last, First, Middle): Cam Vera, Gender: Male Date of : 1965 Age: 57 Procedure Date: 12/31/2022 Procedure Type: Transthoracic Echocardiogram Location: OP Height: 165.1 cm Weight: 79.83 kg BSA: 1.87 m2 Heart Rate: bpm BP: 105 / 70 mmHg Edge Grinder Machine: [id number] Referring MD: Moses Grove MD Symptoms: I25.5 - Ischemic cardiomyopathy Study Quality: Adequate with contrast ECG Rhythm: Ventriculary paced rhythm Conclusions: - The left ventricular systolic function is severely decreased. The visually estimated ejection fraction is between 20-25%. - There is evidence of regional wall motion abnormalities. - There is mild aortic valve regurgitation. - There is mild mitral valve regurgitation. - There is mild to moderate tricuspid valve regurgitation. Findings Procedure Information Contrast agent, definity, is being given per protocol without apparent complications. Left Ventricle Moderately increased left ventricular cavity size. There is mildly increased left ventricular wall thickness. The left ventricular systolic function is severely decreased. The visually estimated ejection fraction is between 20 25%. There is evidence of regional wall motion abnormalities. E/E prime ratio is >15, consistent with elevated filling pressures. Evidence suggests grade I (mild) diastolic dysfunction. Wall Motion Rest Echo Findings The apex, apical inferior, mid inferior, apical lateral, apical septum, mid anterolateral, mid inferoseptal, mid anteroseptal, and mid inferolateral segments are akinetic. Right Ventricle Normal right ventricular cavity size. There is mildly decreased right ventricular systolic function. There is an ICD wire seen in the right ventricle. Atria The left atrium is moderately dilated. The right atrium is normal in size. Aortic Valve There is mild calcification of the aortic valve. There is no aortic valve stenosis. There is mild aortic valve regurgitation. Mitral Valve There is moderate mitral annular calcification. There is mild mitral valve regurgitation. There is no mitral valve stenosis. Pulmonic Valve The pulmonic valve is likely normal. Tricuspid Valve There is mild to moderate tricuspid valve regurgitation. There is no evidence of pulmonary hypertension. Great Vessels The asc aorta is normal in size. Venous The inferior vena cava is normal in size and collapses greater than 50% with inspiration. Pericardium/Pleural There is no evidence of pericardial effusion. Prior Study Comparison Changes noted compared to prior study dated: 01/17/2022. LVEF lower than previously reported. Measurements 2D Linear Measurements IVSd: 1.11 0.6-0.9/0.6-1.0 cm LVIDd: 6.22 3.9-5.3/4.2-5.9 cm LVIDd Index: 3.33 2.4-3.2/2.2-3.1 cm/m2 LVIDs: 5.79 2.0-3.6 cm LVPWd: 1.12 0.7-1.1 cm LA Diam: 3.60 2.7-3.8/3.0-4.0 cm LAIDs Index: 1.93 1.5-2.3 cm/m2 LV Mass: 377.22 67-162/88-224 g LV Mass Index: 201.72 43-95/49-115 g/m2 LVOT Diam: 2.00 3.0+(-)1.3 cm 2D Systolic Function EF 4C: 30.50 >55% EF 2C: 26.70 >55% EF BiP: 29.30 >55% Mitral Valve MV Pk E: 0.89 MV PK A: 1.16 MV Decel Time: 248.00 E/A: 0.80 E'Lateral: 7.20 E'Medial: 4.50 E/E' Med: 19.80 E/E' Lat: 12.40 PHT: 73.00 MVA PHT: 3.01 Decel [place]: 3.60 Aortic Valve AoV Pk Bruno: 1.61 AoV Mn Bruno: 1.08 AoV VTI: 0.36 AoV Pk Grad: 10.00 Aov Mn Grad: 5.00 BILL Cont.VTI: 1.81 AI Pk Bruno: 3.87 AI [place]: 2.30 LVOT LVOT Pk Bruno: 0.89 LVOT Mn Bruno: 0.56 LVOT VTI: 0.21 LVOT Pk Grad: 3.00 LVOT Mn Grad: 2.00 LVOT Diam: 2.00 LVOT Area: 3.14 Diastolic Function MV Pk E: 0.89 MV Pk A: 1.16 E/A: 0.80 E'Medial: 4.50 E/E' Med: 19.80 E' Laterial: 7.20 E/E' Lat: 12.40 Tricuspid Valve TR Pk Bruno: 2.56 TR Pk Grad: 26.00 RA Press: 3.00 RVSP: 29.00 Great Vessels Aorta Sinus of Valsalva: 3.88 2.0-3.[address] [place]: 3.30 1.7-3.4 cm Ao Asc: 3.30 2.1-3.4 cm Updated in Other Vendor System with Status of Final Moses Grove MD electronically signed on 01/02/2023 10:22:37 AM with status of Final
== END ==
LOC: HO.CARD 09:46
PROVIDERS: PCP Internal Medicine; Visit Provider Internal Medicine
DX: I25.5 Ischemic cardiomyopathy (principal)
CPT/HCPCS: 93306; Q9957

== ENCOUNTER 2023-03-04 13:36 | Outpatient (AMB) | payer OTHER, SELFPAY ==
[2023-03-04 14:13] VITALS: BP 124/68; PULSE 72; BMI 27.5
--- NOTE | 2023-03-04 14:13 | MHC.OFFVIS ---
Intake Vital Signs 03/04/23 14:13 Height 5 ft 8 in Weight 180 lb 12.465 oz BMI 27.5 BP 124/68 Blood Pressure Location Lt brachial Position Sitting Pulse 72 Intake Visit Reasons: 6 mth w/ medtronic Intake Note: 6 month follow up Processing Clerk Required: No Accompanied by: Self / Same As Patient Allergies No Known Allergies [No Known Allergies*] Allergy (Verified 03/04/23 14:13) Medication List - Last Reconciled 03/04/23 by Moses Grove MD acetaminophen (Tylenol Extra Strength) 1,000 mg (2 x 500 mg) PO QID PRN aspirin 81 mg PO DAILY atorvastatin 80 mg PO DAILY 90 days bethanechol chloride 50 mg PO BID 90 days blood sugar diagnostic (FreeStyle Lite Strips) As directed clopidogrel 75 mg PO DAILY cyclobenzaprine 5 mg PO TID PRN duloxetine 20 mg PO DAILY famotidine 20 mg PO BID fenofibrate 54 mg PO DAILY finasteride 5 mg PO DAILY 90 days furosemide 40 mg PO DAILY hydroxyzine HCl 25 mg PO TID PRN insulin glargine 22 units subcut BEDTIME insulin lispro (Admelog SoloStar U-100 Insulin lispro) 2 units subcut DAILY insulin lispro (Admelog SoloStar U-100 Insulin lispro) 6 units subcut DAILY@1800 insulin lispro (Admelog SoloStar U-100 Insulin lispro) 4 units subcut DAILY@1200 isosorbide mononitrate ER 30 mg PO DAILY lancets As directed lorazepam (Ativan) 1 mg PO BEDTIME PRN metformin 1,000 mg PO BID metoprolol succinate ER 50 mg PO DAILY nitroglycerin 0.4 mg sublingual omega-3 fatty acids-fish oil 340-1,000 mg 1 cap PO TID pen needle, diabetic (BD Kelli 2nd Gen Pen Needle) As directed phenazopyridine (Pyridium) 100 mg PO TID PRN 3 days sacubitril-valsartan 24-26 mg (Entresto) 1 tab PO BID tamsulosin 0.4 mg PO DAILY 90 days tramadol 50 mg PO Q6H PRN HPI HPI Comments History of Present Illness Details Cam returns for follow-up regarding coronary disease and several other issues. He has a fairly long and complex cardiovascular history, summarized as below. To recall, he had a stroke in 2013 or so with resultant right-sided hemiparesis and facial droop. He had a 2nd stroke in 2018 again in the right side. He has multiple vascular risk factors including type 2 diabetes on insulin, hypertension, dyslipidemia. He also has a history of cocaine use many years ago, but nothing recently. He went for an elective endoscopy and developed hypoxia and pulmonary edema. Then intubated and sent to [facility] CCU. Underwent cardiac catheterization showing multivessel CAD. He also had severe cardiomyopathy. Had coronary artery bypass surgery. Then, admitted to [facility] with complete heart block and underwent biventricular ICD placement. He recovered from that but then had one further admission where he had chest pain and diagnosed to have pulmonary embolism. Then started Eliquis-now stopped. He is generally doing well. No complaints like angina or shortness of breath or in fact anything cardiac sounding. Seems to be getting along okay. [facility] Medical History Atherosclerotic cardiovascular disease CVA (cerebral vascular accident) Diabetes mellitus, type 2 Hypercholesteremia Hypertension Ischemic cardiomyopathy Myocardial infarction PAF (paroxysmal atrial fibrillation) Pulmonary emboli Surgical History H/O coronary artery bypass surgery (~04/27/20) Family History Father No problems noted. Mother No problems noted. Social History Household Members: None Housing: Apartment Do you presently have visiting nurse or other home services: Yes (FUNERAL SERVICE LICENSEE daily) Alcohol intake: never Patient Tobacco Use Status: Former Tobacco user Quit Date: 2017 Substance Use Type: Crack/Cocaine Advance Directives Date on File: 03/14/21 service: No Current occupational status: unemployed Review of Systems Const Denies weakness ENT Denies dizziness Card Denies chest pain, Denies chest pain with activity, Denies syncope, Denies rapid heart rate, Denies pedal edema, Denies edema, Denies leg edema, Denies lightheadedness, Denies palpitations, Denies dyspnea, Denies dyspnea on exertion and Denies orthopnea Resp Denies cough, Denies dyspnea and Denies dyspnea on exertion GI Denies hematochezia and Denies change in stool character Musc Denies abnormal gait, Denies muscle cramps, Denies muscle weakness, Denies numbness, Denies radiating pain into limb and Denies tingling Neuro Denies abnormal gait, Denies dizziness, Denies syncope, Denies numbness, Denies tingling and Denies weakness Endo Denies palpitations Physical Exam Vital Signs: Last Vital Signs Pulse 72 03/04/23 14:13 BP 124/68 03/04/23 14:13 BMI result Body Mass Index 27.5 Const General: comfortable and no acute distress Orientation/consciousness: patient oriented x3 HEENT Other: Unremarkable Head: Yes normal to inspection Neck Neck: Yes normal visual inspection Chest Chest palpation & inspection: normal inspection of the chest Resp Auscultation: clear to auscultation bilaterally Cardio Palpation: normal PMI Heart sounds: S1 normal heart sound present, S2 normal heart sound present, no gallops, no murmurs and no rubs GI Palpation (GI): Soft to palpation Back/Spine/Pelvis Other: unremarkable Skin General skin exam: no rashes or lesions noted Neuro General: patient oriented x3 Extrem General: Yes normal to inspection Psych Mental Status: mental status grossly normal Office Procedures Cardiac Device Check Cardiac Device Check Details: ICD interrogated today. Battery status 7.2 years. Normal lead parameters. Bi V pacing more than 99%. No treated VT/VF. LV vector changes due to diaphragmatic stimulation. Overall, normal device function. [id number] Cardiac Device Check, multi lead implantable defibrillator Procedure code (CPT) selection complete Assessment & Plan Assessment & Plan (1) Atherosclerotic cardiovascular disease: Code(s): I25.10 - Atherosclerotic heart disease of [place] coronary artery without angina pectoris Plan: Most recent cardiac catheterization shows patent grafts. Plan to continue long-term dual antiplatelet therapy considering numerous vascular issues. (2) Ischemic cardiomyopathy: Code(s): I25.5 - Ischemic cardiomyopathy Plan: In the most recent echocardiogram, LVEF 20-25%. He is on metoprolol ER, Entresto. We can add spironolactone Farxiga. Low-dose diuretics. Check BMP in a few days after the medication changes. Discussed about this with patient today. (3) Atrial tachycardia: Code(s): I47.1 - Supraventricular tachycardia Plan: In recent device check, he was having atrial rate of 130s, either atrial or sinus tachycardia. We then increased the beta-blockers. No recurrent issues. (4) PAF (paroxysmal atrial fibrillation): Code(s): I48.0 - Paroxysmal atrial fibrillation Plan: Postoperative episode. Was on short-term amiodarone but now off. He was on Eliquis for the pulmonary embolism but that seems to have been stopped as well. No recurrent issues. (5) CVA (cerebral vascular accident): Code(s): I63.9 - Cerebral infarction, unspecified Plan: Based on vascular consultation from 2018, he had right-sided carotid occlusion. This is apparently chronic. In the most recent ultrasound from [facility], 0-49% stenosis in the right side and 50-69% on the left side. (6) Other and unspecified hyperlipidemia: Code(s): E78.5 - Hyperlipidemia, unspecified Plan: On high dose statins/fenofibrate. Last LDL 90 mg/dL. (7) Type 2 diabetes mellitus with unspecified complications: Code(s): E11.8 - Type 2 diabetes mellitus with unspecified complications Plan: On Insulin, metformin. Hemoglobin A1c is 6.4. Advised him to do home checks as restarting Farxiga. If there is a drop in sugar, then probably stop metformin. (8) Pulmonary emboli: Code(s): I26.99 - Other pulmonary embolism without acute cor pulmonale Plan: Per [facility] documentation, left lower lobe pulmonary embolism from CTA 10/2021. Off Eliquis. Medications: New dapagliflozin propanediol (Farxiga) 10 mg PO DAILY 90 tabs 3RF spironolactone 25 mg PO DAILY 90 tabs 3RF Coding Level of Care Code Est Pt Level 4 (19409) Diagnoses Atherosclerotic cardiovascular disease I25.10 Ischemic cardiomyopathy I25.5 Atrial tachycardia I47.1 PAF (paroxysmal atrial fibrillation) I48.0 CVA (cerebral vascular accident) I63.9 Other and unspecified hyperlipidemia E78.5 Type 2 diabetes mellitus with unspecified complications E11.8 Pulmonary emboli I26.99 CPT Codes Cardiac Device Check - Cardiac Device 6: [id number] Cardiac Device Check, multi lead implantable defibrillator ([id number])
== END 2023-03-04 14:34 | disposition home or self-care (01) ==
PROVIDERS: Visit Provider Internal Medicine
DX: I25.10 Atherosclerotic heart disease of native coronary artery without angina pectoris (principal); I25.5 Ischemic cardiomyopathy; I47.1 Supraventricular tachycardia; I48.0 Paroxysmal atrial fibrillation; I63.9 Cerebral infarction, unspecified; E78.5 Hyperlipidemia, unspecified; E11.8 Type 2 diabetes mellitus with unspecified complications; I26.99 Other pulmonary embolism without acute cor pulmonale
CPT/HCPCS: 93284; 99214

== ENCOUNTER → 2023-03-04 13:36 | Outpatient (BNVA) | payer OTHER, SELFPAY | PROVIDERS: Visit Provider Internal Medicine | DX: I25.5 Ischemic cardiomyopathy (principal); I25.10 Atherosclerotic heart disease of native coronary artery without angina pectoris; I48.0 Paroxysmal atrial fibrillation; I26.99 Other pulmonary embolism without acute cor pulmonale; I69.951 Hemiplegia and hemiparesis following unspecified cerebrovascular disease affecting right dominant side; I69.992 Facial weakness following unspecified cerebrovascular disease; I15.2 Hypertension secondary to endocrine disorders; E11.65 Type 2 diabetes mellitus with hyperglycemia; E78.5 Hyperlipidemia, unspecified; Z87.891 Personal history of nicotine dependence; Z98.890 Other specified postprocedural states; Z79.4 Long term (current) use of insulin; Z45.02 Encounter for adjustment and management of automatic implantable cardiac defibrillator | CPT/HCPCS: 99212 ==

== ENCOUNTER → 2023-03-09 23:59 | Outpatient (BNV) | payer OTHER, SELFPAY ==
--- NOTE | 2023-03-13 11:56 | A.OFFVIS_ITS ---
Intake Intake Visit Reasons: Remote HF Monitoring- Medtr[employer] Allergies No Known Allergies [No Known Allergies*] Allergy (Verified 03/04/23 14:13) [facility] Medical History Atherosclerotic cardiovascular disease CVA (cerebral vascular accident) Diabetes mellitus, type 2 Hypercholesteremia Hypertension Ischemic cardiomyopathy Myocardial infarction PAF (paroxysmal atrial fibrillation) Pulmonary emboli Surgical History H/O coronary artery bypass surgery (~04/27/20) Family History Father No problems noted. Mother No problems noted. Social History Household Members: None Housing: Apartment Do you presently have visiting nurse or other home services: Yes (LEAD SECTION SUPERVISOR daily) Alcohol intake: never Patient Tobacco Use Status: Former Tobacco user Quit Date: 2017 Substance Use Type: Crack/Cocaine Advance Directives Date on File: 03/14/21 service: No Current occupational status: unemployed Office Procedures Cardiac Device Check Cardiac Device Check Details: Date of service- 03/09/2023; based on impedance data and physiological variables, there is no evidence of worsening congestive heart failure. [id number] Cardiac Device Interrogation, cardio physiologic monitor Procedure code (CPT) selection complete Assessment & Plan Assessment & Plan (1) Ischemic cardiomyopathy: Code(s): I25.5 - Ischemic cardiomyopathy Coding Level of Care Code Procedure Only Diagnoses Ischemic cardiomyopathy I25.5 CPT Codes Cardiac Device Check - Cardiac Device 15: [id number] Cardiac Device Interrogation, cardio physiologic monitor ([id number])
== END ==
PROVIDERS: PCP Internal Medicine; Visit Provider Internal Medicine
DX: I44.2 Atrioventricular block, complete (principal); Z95.810 Presence of automatic (implantable) cardiac defibrillator
CPT/HCPCS: 93297

== ENCOUNTER 2023-03-14 09:48 | Outpatient (REF) | payer OTHER, SELFPAY ==
[2023-03-14 11:11] LABS: Anion Gap 14 (12-20); Blood Urea Nitrogen 34 mg/dL (9-16); Calcium 10.8 mg/dL (8.4-10.2); Carbon Dioxide 26 mmol/L (22-29); Chloride 102 mmol/L (96-108); Estimated Glomerular Filt Rate 51; Glucose Random 150 mg/dL (60-115); Potassium 4.8 mmol/L (3.3-5.1); Sodium 137 mmol/L (135-145)
== END 2023-03-14 09:49 | disposition home or self-care (01) ==
LOC: HO.LAB 09:48
PROVIDERS: PCP Internal Medicine; Visit Provider Internal Medicine
DX: I25.5 Ischemic cardiomyopathy (principal)
CPT/HCPCS: 36415; 80048

== ENCOUNTER → 2023-04-09 23:59 | Outpatient (BNV) | payer OTHER, SELFPAY ==
--- NOTE | 2023-04-14 10:37 | MHC.OFFVIS ---
Intake Intake Visit Reasons: Remote HF Monitoring- Medtr[employer] Allergies No Known Allergies [No Known Allergies*] Allergy (Verified 03/04/23 14:13) [facility] Medical History Atherosclerotic cardiovascular disease CVA (cerebral vascular accident) Diabetes mellitus, type 2 Hypercholesteremia Hypertension Ischemic cardiomyopathy Myocardial infarction PAF (paroxysmal atrial fibrillation) Pulmonary emboli Surgical History H/O coronary artery bypass surgery (~04/27/20) Family History Father No problems noted. Mother No problems noted. Social History Household Members: None Housing: Apartment Do you presently have visiting nurse or other home services: Yes (PERFECT BIND MACHINE OPERATOR daily) Alcohol intake: never Patient Tobacco Use Status: Former Tobacco user Quit Date: 2017 Substance Use Type: Crack/Cocaine Advance Directives Date on File: 03/14/21 service: No Current occupational status: unemployed Office Procedures Cardiac Device Check Cardiac Device Check Details: Date of service- 04/09/2023; based on impedance data and physiological variables, there is no evidence of worsening congestive heart failure. Activity level about 2 hrs/day. Acceptable HR variability. [id number] Cardiac Device Interrogation, cardio physiologic monitor Procedure code (CPT) selection complete Assessment & Plan Assessment & Plan (1) Ischemic cardiomyopathy: Code(s): I25.5 - Ischemic cardiomyopathy Coding Level of Care Code Procedure Only Diagnoses Ischemic cardiomyopathy I25.5 CPT Codes Cardiac Device Check - Cardiac Device 15: [id number]-[id number] Cardiac Device Interrogation, cardio physiologic monitor ([id number])
== END ==
PROVIDERS: PCP Internal Medicine; Visit Provider Internal Medicine
DX: I25.5 Ischemic cardiomyopathy (principal); Z95.810 Presence of automatic (implantable) cardiac defibrillator
CPT/HCPCS: 93297

== ENCOUNTER 2023-04-19 10:28 | Outpatient (AMB) | payer OTHER, SELFPAY ==
--- NOTE | 2023-04-19 10:44 | MHC.OFFVIS ---
Intake Intake Visit Reasons: 6m follow up/PVR Intake Note: Patient is present for PVR Follow Up ( Bladder obstruction, nocturia, Hematuria, BPH, Elevated PSA Urology Med: Finasteride, Tamsulosin, Bethanechol Blood Thinner: Clopidrogel (Plavix) PVR: Grocery Carrier Required: No Accompanied by: Self / Same As Patient Allergies No Known Allergies [No Known Allergies*] Allergy (Verified 04/19/23 10:46) Medication List - Last Reconciled 04/19/23 by Demetrius Jefferson MD acetaminophen (Tylenol Extra Strength) 1,000 mg (2 x 500 mg) PO QID PRN aspirin 81 mg PO DAILY atorvastatin 80 mg PO DAILY 90 days bethanechol chloride 50 mg PO BID 90 days blood sugar diagnostic (FreeStyle Lite Strips) As directed clopidogrel 75 mg PO DAILY cyclobenzaprine 5 mg PO TID PRN dapagliflozin propanediol (Farxiga) 10 mg PO DAILY duloxetine 20 mg PO DAILY famotidine 20 mg PO BID fenofibrate 54 mg PO DAILY finasteride 5 mg PO DAILY 90 days furosemide 40 mg PO DAILY hydroxyzine HCl 25 mg PO TID PRN insulin glargine 22 units subcut BEDTIME insulin lispro (Admelog SoloStar U-100 Insulin lispro) 2 units subcut DAILY insulin lispro (Admelog SoloStar U-100 Insulin lispro) 6 units subcut DAILY@1800 insulin lispro (Admelog SoloStar U-100 Insulin lispro) 4 units subcut DAILY@1200 isosorbide mononitrate ER 30 mg PO DAILY lancets As directed lorazepam (Ativan) 1 mg PO BEDTIME PRN metformin 1,000 mg PO BID metoprolol succinate ER 50 mg PO DAILY nitroglycerin 0.4 mg sublingual omega-3 fatty acids-fish oil 340-1,000 mg 1 cap PO TID pen needle, diabetic (BD Kelli 2nd Gen Pen Needle) As directed phenazopyridine (Pyridium) 100 mg PO TID PRN 3 days sacubitril-valsartan 24-26 mg (Entresto) 1 tab PO BID tamsulosin 0.4 mg PO DAILY 90 days tramadol 50 mg PO Q6H PRN HPI HPI Comments History of Present Illness Details Cam is a pleasant male. He is a patient of Dr. Parikh. He is seen for the following urologic conditions - lower urinary tract symptoms - hematuria - urinary retention Happy with current urinary performance Will continue 6 month follow-up Detrusor hyperreflexive impaired contractility (DHIC) Background long-term diabetes, prior history of significant vascular disease with multiple stroke, multi-vessel CAD in cardiac catheterization, cardiomyopathy, CABG, heart block with ICD placement Has been on bethanechol for bladder emptying Happy with current performance Remain on bethanechol and tamsulosin Lower urinary tract symptoms Feeling of incomplete emptying and weakness of stream Background diabetic on insulin Takes Lasix tablets Current prostate therapy includes finasteride and tamsulosin Cystoscopy 09/15 left prominent prostate lobe, open right lobe Prostate intervention 08/15 GreenLight laser PSA - prior negative biopsy 2019 - 04/14 5.9, 09/15 9.2, 06/15 3.99, 03/16 5.3 Urinary retention with Vaughan catheter 03/16 Hematuria was diagnosed during - cristopher urine went to emergency room June 2020 They are here for the - further evaluation evaluation - discussion of results and cystoscopy Since the last visit the patient has - does not test positive for microscopic hematuria. Relevant medical history for no pertinent medical history - anticoagulation therapy - prior stroke - kidney stones Radiographic imaging: none completed - CT KUB June 2020 7 mm right stone, normal bladder Other investigations - cytology, normal PFSH Medical History Atherosclerotic cardiovascular disease CVA (cerebral vascular accident) Diabetes mellitus, type 2 Hypercholesteremia Hypertension Ischemic cardiomyopathy Myocardial infarction PAF (paroxysmal atrial fibrillation) Pulmonary emboli Surgical History H/O coronary artery bypass surgery (~04/27/20) Family History Father No problems noted. Mother No problems noted. Social History Household Members: None Housing: Apartment Do you presently have visiting nurse or other home services: Yes (SECURITY LEAD daily) Alcohol intake: never Patient Tobacco Use Status: Former Tobacco user Quit Date: 2017 Substance Use Type: Crack/Cocaine Advance Directives Date on File: 03/14/21 service: No Current occupational status: unemployed Review of Systems Const Denies chills and Denies fever(s) Card Reports no additional complaints and Denies syncope Resp Denies cough GI Denies abdominal pain and Denies heartburn Reports as per HPI and Denies change in libido Neuro Denies syncope Psych Denies change in libido Endo Denies change in libido Physical Exam Const General: cooperative, healthy appearing, comfortable and no acute distress Orientation/consciousness: patient oriented x3 HEENT Face and sinus: Yes normal facial exam Mouth: moist mucous membranes Neck Neck: Yes normal visual inspection, Yes full ROM and Yes trachea midline Chest Chest palpation & inspection: normal inspection of the chest Resp Effort & Inspection: normal respiratory effort, able to speak in complete sentences and no respiratory distress GI Inspection: Yes normal to inspection Back/Spine/Pelvis Cervical Spine: normal cervical lordosis Thoracic/Lumbar Spine: thoracic and lumbar spine normal to inspection Skin General skin exam: no rashes or lesions noted Neuro General: patient oriented x3, gait normal, tone normal and moves all extremities Extrem General: Yes normal to inspection and Yes capillary refill normal Office Procedures Post Void Residual Post Residual Void Post Void Residual (PVR): 55 [id number] Void Residual by ultrasound Results AMB Urinalysis, Automated UA Leukoctes 0 Beatrice/uL Last Edit by [employer] on 04/19/23 10:55 UA Nitrite Last Edit by [employer] on 04/19/23 10:55 UA Urobilinogen 0.2 mg/dL Last Edit by [employer] on 04/19/23 10:55 UA Protein 0 mg/dL Last Edit by [employer] on 04/19/23 10:55 UA pH 5.5 Last Edit by [employer] on 04/19/23 10:55 UA Blood 0 Denys/uL Last Edit by [employer] on 04/19/23 10:55 UA Specific Kenvir 1.010 Last Edit by [employer] on 04/19/23 10:55 UA Ketone Negative Last Edit by [employer] on 04/19/23 10:55 UA Bilirubin 0 mg/dL Last Edit by [employer] on 04/19/23 10:55 UA Glucose 500 mg/dL Last Edit by [employer] on 04/19/23 10:55 Assessment & Plan Assessment & Plan (1) Urinary retention with incomplete bladder emptying: Code(s): R33.9 - Retention of urine, unspecified (2) Nocturia more than twice per night: Code(s): R35.1 - Nocturia Plan Six month follow-up PVR Orders: Orders AMB Urinalysis Automated Today Z13.9 - Encounter for screening, unspecified AMB Post Void Residual by ultrasound Today R33.9 - Retention of urine, unspecified Medications: Refilled bethanechol chloride 50 mg PO BID 180 tabs 1RF 90 days R33.9 - Retention of urine, unspecified tamsulosin 0.4 mg PO DAILY 90 caps 1RF 90 days Patient Instructions: Imaging studies, laboratory and physical exam results were discussed and reviewed in detail. No major barriers to patient understanding were identified. An opportunity to ask questions regarding the treatment plan was provided. All questions were answered. The patient expressed understanding and agreement with the above treatment plan. The patient is aware they should contact our office by phone for worsening of their current condition or the appearance of new urologic symptoms. Compliance is encouraged with any medications and followup testing that is ordered. It is a privilege to participate in the urologic care of your patient. If you have any questions or concerns regarding treatment for the above conditions, or other urologic issues, please do not hesitate to contact me. The office telephone contact is [phone]. This note is constructed using voice recognition software. While every effort has been made to ensure accuracy community music therapist errors may have been included. Yours sincerely, Dr Demetrius Jefferson MD, [facility] - Urology Providers of Expert, Compassionate Care for the Genitourinary System Coding Level of Care Code Est Pt Level 3 (67938) Diagnoses Urinary retention with incomplete bladder emptying R33.9 Nocturia more than twice per night R35.1 CPT Codes Post Residual Void - PVR CPT Code: 69645-[id number] Void Residual by ultrasound ([id number])
== END 2023-04-19 10:58 | disposition home or self-care (01) ==
PROVIDERS: PCP Internal Medicine; Visit Provider Urology
DX: R33.9 Retention of urine, unspecified (principal); R35.1 Nocturia; Z13.9 Encounter for screening, unspecified
CPT/HCPCS: 99213

== ENCOUNTER → 2023-04-19 10:28 | Outpatient (BNVA) | payer OTHER, SELFPAY | PROVIDERS: Visit Provider Urology | DX: R33.9 Retention of urine, unspecified (principal); R35.1 Nocturia | CPT/HCPCS: 51798; 81003; 99212 ==

== ENCOUNTER → 2023-05-10 23:59 | Outpatient (BNV) | payer OTHER, SELFPAY ==
--- NOTE | 2023-05-12 12:43 | MHC.OFFVIS ---
Intake Intake Visit Reasons: Remote HF Monitoring- [employer] Allergies No Known Allergies [No Known Allergies*] Allergy (Verified 04/19/23 10:46) PFSH Medical History Atherosclerotic cardiovascular disease CVA (cerebral vascular accident) Diabetes mellitus, type 2 Hypercholesteremia Hypertension Ischemic cardiomyopathy Myocardial infarction PAF (paroxysmal atrial fibrillation) Pulmonary emboli Surgical History H/O coronary artery bypass surgery (~04/27/20) Family History Father No problems noted. Mother No problems noted. 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 Patient activity about 2 hours a day. Acceptable heart rate variability. [id number] Cardiac Device Interrogation, cardio physiologic monitor Procedure code (CPT) selection complete Assessment & Plan Assessment & Plan (1) Ischemic cardiomyopathy: Code(s): I25.5 - Ischemic cardiomyopathy Coding Level of Care Code Procedure Only Diagnoses Ischemic cardiomyopathy I25.5 CPT Codes Cardiac Device Check - Cardiac Device 15: [id number] Cardiac Device Interrogation, cardio physiologic monitor ([id number])
== END ==
PROVIDERS: PCP Internal Medicine; Visit Provider Internal Medicine
DX: I25.5 Ischemic cardiomyopathy (principal)
CPT/HCPCS: 93297

== ENCOUNTER → 2023-06-10 23:59 | Outpatient (BNV) | payer OTHER, SELFPAY ==
--- NOTE | 2023-06-16 12:51 | A.OFFVIS_ITS ---
Intake Intake Visit Reasons: Remote ICD Check- [employer] Allergies No Known Allergies [No Known Allergies*] Allergy (Verified 04/19/23 10:46) PFSH Medical History Atherosclerotic cardiovascular disease CVA (cerebral vascular accident) Diabetes mellitus, type 2 Hypercholesteremia Hypertension Ischemic cardiomyopathy Myocardial infarction PAF (paroxysmal atrial fibrillation) Pulmonary emboli Surgical History H/O coronary artery bypass surgery (~04/27/20) Family History Father No problems noted. Mother No problems noted. Social History Household Members: None Housing: Apartment Do you presently have visiting nurse or other home services: Yes (CLINICAL SUPPORT SPECIALIST daily) Alcohol intake: never Patient Tobacco Use Status: Former Tobacco user Quit Date: 2017 Substance Use Type: Crack/Cocaine Advance Directives Date on File: 03/14/21 service: No Current occupational status: unemployed Office Procedures Cardiac Device Check Cardiac Device Check Details: Date of service 06/10/2023; Battery life >6 years; normal lead parameters; no treated VT/VF; adequate Biv pacing; normal ICD function. [id number] Cardiac Interrogation, implant defibrillator w/interim Procedure code (CPT) selection complete Assessment & Plan Assessment & Plan (1) Ischemic cardiomyopathy: Code(s): I25.5 - Ischemic cardiomyopathy Coding Level of Care Code Procedure Only Diagnoses Ischemic cardiomyopathy I25.5 CPT Codes Cardiac Device Check - Cardiac Device 13: [id number] Cardiac Interrogation, implant defibrillator w/interim ([id number])
== END ==
PROVIDERS: PCP Internal Medicine; Visit Provider Internal Medicine
DX: I25.5 Ischemic cardiomyopathy (principal); Z95.810 Presence of automatic (implantable) cardiac defibrillator
CPT/HCPCS: 93295

== ENCOUNTER → 2023-06-10 23:59 | Outpatient (BNV) | payer OTHER, SELFPAY ==
--- NOTE | 2023-06-16 13:06 | MHC.OFFVIS ---
Intake Intake Visit Reasons: Remote HF Monitoring- [employer] Allergies No Known Allergies [No Known Allergies*] Allergy (Verified 04/19/23 10:46) PFSH Medical History Atherosclerotic cardiovascular disease CVA (cerebral vascular accident) Diabetes mellitus, type 2 Hypercholesteremia Hypertension Ischemic cardiomyopathy Myocardial infarction PAF (paroxysmal atrial fibrillation) Pulmonary emboli Surgical History H/O coronary artery bypass surgery (~04/27/20) Family History Father No problems noted. Mother No problems noted. Social History Household Members: None Housing: Apartment Do you presently have visiting nurse or other home services: Yes (MANAGER OF APPLICATION DEVELOPMENT daily) Alcohol intake: never Patient Tobacco Use Status: Former Tobacco user Quit Date: 2017 Substance Use Type: Crack/Cocaine Advance Directives Date on File: 03/14/21 service: No Current occupational status: unemployed Office Procedures Cardiac Device Check Cardiac Device Check Details: Date of service- 06/10/2023; based on impedance data and physiological variables, there is no evidence of worsening congestive heart failure. [id number] Cardiac Device Interrogation, cardio physiologic monitor Procedure code (CPT) selection complete Assessment & Plan Assessment & Plan (1) Ischemic cardiomyopathy: Code(s): I25.5 - Ischemic cardiomyopathy Coding Level of Care Code Procedure Only Diagnoses Ischemic cardiomyopathy I25.5 CPT Codes Cardiac Device Check - Cardiac Device 15: [id number] Cardiac Device Interrogation, cardio physiologic monitor ([id number])
== END ==
PROVIDERS: PCP Internal Medicine; Visit Provider Internal Medicine
DX: I25.5 Ischemic cardiomyopathy (principal); Z95.810 Presence of automatic (implantable) cardiac defibrillator
CPT/HCPCS: 93297

== ENCOUNTER 2023-06-12 10:40 | Outpatient (REF) | payer OTHER, SELFPAY ==
--- NOTE | ~2023-06-12 | US_ITS ---
EXAMINATION: US EXTRACRANIAL CAROTID DUPLEX, BILATERAL CLINICAL INFORMATION: Occlusion and stenosis of bilateral carotid arteries, diabetes history, hyperlipidemia COMPARISON: Carotid duplex on 08/20/2019 TECHNIQUE: Real-time ultrasound and Doppler techniques (integrating B-mode 2-D vascular images, Doppler spectral analysis and color-flow Doppler imaging) were utilized to interrogate the extracranial carotid arteries, the vertebral arteries and proximal subclavian arteries bilaterally. The degree of stenosis is determined by criteria similar to NASCET. FINDINGS: Right Side: 1. There is mild atherosclerotic plaque seen in the bifurcation/proximal ICA region. 2. The common carotid artery PSV proximally is 64 cm/s and distally 68 cm/s. 3. The proximal internal carotid artery velocities are 60 cm/s systolic and 13 cm/s diastolic. 4. The proximal external carotid artery PSV is 176 cm/s. 5. The vertebral artery shows antegrade flow. 6. The subclavian artery waveforms are normal. Left Side: 1. There is moderate atherosclerotic plaque seen in the bifurcation/proximal ICA region. 2. The common carotid artery PSV proximally is 111 cm/s and distally 89 cm/s. 3. The proximal internal carotid artery velocities are 187 cm/s systolic and 63 cm/s diastolic. 4. The proximal external carotid artery PSV is 99 cm/s. 5. The vertebral artery shows antegrade flow. 6. The subclavian artery waveforms are normal. There is a prominent left cervical lymph node. US/US carotid duplex BI IMPRESSION: 1. RIGHT: Minimal, non-hemodynamically significant stenosis of the proximal right internal carotid artery corresponding to a 0-49% stenosis by velocity criteria. 2. LEFT: Moderate, hemodynamically significant stenosis of the proximal left internal carotid artery corresponding to a 50-79% stenosis by velocity criteria. 3. Progression of disease on the left compared to 2019.
== END 2023-06-12 10:41 | disposition home or self-care (01) ==
LOC: HO.US 10:40
PROVIDERS: PCP Internal Medicine; Visit Provider Psychiatry & Neurology Neurology
DX: I65.23 Occlusion and stenosis of bilateral carotid arteries (principal)
CPT/HCPCS: 93880

== ENCOUNTER 2023-07-01 10:15 | Emergency (ER) | payer OTHER, SELFPAY ==
--- NOTE | 2023-07-01 | ECG_ITS ---
Test Reason : CHEST PAIN Blood Pressure : / mmHG Vent. Rate : 083 BPM Atrial Rate : 083 BPM P-R Int : 104 ms QRS Dur : 186 ms QT Int : 434 ms P-R-T Axes : 056 270 086 degrees QTc Int : 509 ms Atrial-sensed ventricular-paced rhythm Abnormal ECG When compared with ECG of 08-NOV-2022 10:18, Vent. rate has increased BY 8 BPM Referred By: Generic ED Physician Electronically Signed By:SHELBIE HULL MD
--- NOTE | ~2023-07-01 | XR_ITS ---
EXAMINATION: XR CHEST CLINICAL INFORMATION: Chest pain COMPARISON: Previous chest x-ray most recent October 2022 TECHNIQUE: Frontal view of the chest was obtained. FINDINGS: The cardiac and mediastinal contours are stable. Post-CABG changes and median sternotomy wires. Left subclavian pacemaker AICD device appears unchanged. The lungs are clear. No pleural effusion or pneumothorax. Degenerative changes of the spine. XR/XR chest 1V IMPRESSION: No evidence for acute disease in the chest
[2023-07-01 10:19] VITALS: BP 149/61; BP 152/84; PULSE 84; PULSE 85; RESP 18; TEMP 36.7; O2SAT 97; BMI 29.4
[2023-07-01 10:42] LABS: MANUAL DIFF FLAG NO
[2023-07-01 10:44] LABS: Basophils Absolute Auto 0.1 X10*3/uL (0.0-0.2); Basophils Percent Auto 0.7 % (0-2); Eosinophils Absolute Auto 0.1 X10*3/uL (0.0-0.4); Eosinophils Percent Auto 1.4 % (0-4); Hematocrit 47.1 % (42.0-52.0); Imm Gran Abs Auto 0.02 X10*3/uL (0.00-0.03); Imm Gran Pct Auto 0.2 % (0.0-0.4); Lymphocytes Absolute Auto 2.4 X10*3/uL (1.2-4.9); Lymphocytes Percent Auto 29.4 % (20-40); Mean Corpuscular HGB Conc 31.8 g/dl (31.0-36.0); Mean Corpuscular Hemoglobin 26.8 pg (27.0-33.0); Mean Corpuscular Volume 84.1 fL (80.0-98.0); Mean Platelet Volume 11.2 fL (9.4-12.4); Monocytes Absolute Auto 0.5 X10*3/uL (0.1-1.2); Monocytes Percent Auto 5.7 % (2-11); Neutrophils Percent Auto 62.6 % (45-73); Platelet Count 367 X10*3/uL (160-400); Red Cell Distribution Width 15.1 % (11.0-16.0)
[2023-07-01 10:46] LABS: Appearance Urine Clear; Color Urine Yellow; Glucose Urine UA >=1000 mg/dL (Negative); Leukocyte Esterase Urine Negative (Negative); Nitrite Urine Negative (Negative); Specific Gravity - Urine >= 1.030 (1.005-1.025); UMIC TRIGGER UACC YES; Urine Blood Negative (Negative); Urine Ketones Negative (Negative); Urine Protein Negative (Neg-Trace)
[2023-07-01 10:48] LABS: Bacteria Urine None Seen (None Seen); Hyaline Casts Urine 0-2 /LPF (0-2); RBC Urine 0-2 /HPF (0-2); Squamous Epithelial Cell Urine 0-2 /HPF (0-2); WBC Urine 0-5 /HPF (0-5)
[2023-07-01 10:50] LABS: INTERNATIONAL NORM RATIO 1.1 (0.9-1.1); Prothrombin Time 13.8 SEC (11.1-13.3)
[2023-07-01 11:04] LABS: Troponin-I High Sensitivity 9.1 ng/L (<3.5-35.0)
--- NOTE | 2023-07-01 11:20 | ED_ITS ---
HPI - Chest Pain General Chief Complaint: Chest Pain Stated Complaint: cp x2 weeks,has pacemaker per ems Time Seen by Provider: 07/01/23 11:20 Source: patient Mode of arrival: EMS Limitations: no limitations History of Present Illness HPI narrative: This is 57 years old male with history of chronic chest pain presented to the emergency department complaining of chest pain again. He denies any diaphoresis shortness of breath or exertional symptoms. He had a CVA in the past he has a right hemiparesis but is able to ambulate with the cane. His also has history of diabetes see he has a pacemaker, and history of CABG. MD complaint: chest pain Pertinent past history: coronary artery disease Onset (ago): month(s) Timing of current episode: constant Onset: during rest Pain location: substernal Pain radiation: none Relieving factors: nothing Exacerbating factors: nothing Risk Factors Coronary artery disease risk factors: diabetes Related Data Home Medications Medication Instructions Recorded Confirmed clopidogrel 75 mg tablet 75 mg PO DAILY 08/02/20 04/19/23 fenofibrate 54 mg tablet 54 mg PO DAILY 08/02/20 04/19/23 insulin glargine 100 unit/mL (3 22 unit subcut BEDTIME 08/02/20 04/19/23 mL) subcutaneous pen lancets 28 gauge #100 ea 08/02/20 04/19/23 omega-3 fatty acids-fish oil 340 1 cap PO TID 08/02/20 04/19/23 mg-1,000 mg capsule furosemide 40 mg tablet 40 mg PO DAILY 12/28/20 04/19/23 insulin lispro 100 unit/mL 2 unit subcut DAILY 12/28/20 04/19/23 subcutaneous pen (Admelog SoloStar U-100 Insulin lispro) insulin lispro 100 unit/mL 4 unit subcut DAILY@1200 12/28/20 04/19/23 subcutaneous pen (Admelog SoloStar U-100 Insulin lispro) insulin lispro 100 unit/mL 6 unit subcut DAILY@1800 12/28/20 04/19/23 subcutaneous pen (Admelog SoloStar U-100 Insulin lispro) blood sugar diagnostic (FreeStyle #10 ea 06/06/21 04/19/23 Lite Strips) duloxetine 20 mg capsule,delayed 20 mg PO DAILY 10/12/21 08/25/23 release pen needle, diabetic 32 gauge x #50 ea 06/06/21 04/19/23 5/32 (BD Kelli 2nd Gen Pen Needle) aspirin 81 mg tablet,delayed 81 mg PO DAILY 03/09/22 04/19/23 release famotidine 20 mg tablet 20 mg PO BID 04/18/22 04/19/23 metformin 1,000 mg tablet 1,000 mg PO BID 07/24/22 04/19/23 nitroglycerin 0.4 mg sublingual 0.4 mg sublingual 07/24/22 04/19/23 tablet Previous Rx's Medication Instructions Recorded acetaminophen 500 mg tablet 1,000 mg (2 x 500 mg) PO QID PRN 02/18/21 (Tylenol Extra Strength) fever or pain #14 tabs cyclobenzaprine 5 mg tablet 5 mg PO TID PRN muscle spasm #8 03/14/21 tabs hydroxyzine HCl 25 mg tablet 25 mg PO TID PRN anixety #24 tabs 05/02/21 atorvastatin 80 mg tablet 80 mg PO DAILY 90 days #90 tabs 05/15/21 lorazepam 1 mg tablet (Ativan) 1 mg PO BEDTIME PRN sleep #3 tabs 05/29/21 tramadol 50 mg tablet 50 mg PO Q6H PRN pain (scale score 07/10/21 4-6) #14 tabs phenazopyridine 100 mg tablet 100 mg PO TID PRN pain 3 days #10 02/27/22 (Pyridium) tabs isosorbide mononitrate 30 mg 30 mg PO DAILY #90 tabs 04/10/22 tablet,extended release 24 hr metoprolol succinate 50 mg 50 mg PO DAILY #90 tabs 09/13/22 tablet,extended release 24 hr finasteride 5 mg tablet 5 mg PO DAILY 90 days #90 tabs 02/04/23 sacubitril 24 mg-valsartan 26 mg 1 tab PO BID #180 tabs 02/04/23 tablet (Entresto) dapagliflozin propanediol 10 mg 10 mg PO DAILY #90 tabs 03/04/23 tablet (Farxiga) bethanechol chloride 50 mg tablet 50 mg PO BID 90 days #180 tabs 04/19/23 tamsulosin 0.4 mg capsule 0.4 mg PO DAILY 90 days #90 caps 04/19/23 Allergies Allergy/AdvReac Type Severity Reaction Status Date / Time No Known Allergies Allergy Verified 04/19/23 10:46 [No Known Allergies*] Review of Systems 2 Constitutional: Constitutional: Reports no additional constitutional complaints Cardiovascular: Cardiovascular: Reports chest pain PMFSH Past Medical History Medical History Pulmonary emboli PAF (paroxysmal atrial fibrillation) Ischemic cardiomyopathy Atherosclerotic cardiovascular disease Hypertension Hypercholesteremia Diabetes mellitus, type 2 Myocardial infarction CVA (cerebral vascular accident) Surgical History H/O coronary artery bypass surgery (~04/27/20) Family History Family History Father No problems noted. Mother No problems noted. Social History Social History Household Members: None Housing: Apartment Do you presently have visiting nurse or other home services: Yes (SAND SLINGER daily) Alcohol intake: never Patient Tobacco Use Status: Former Tobacco user Quit Date: 2017 Smoked in Last 30 Days: No Use of substances other than those prescribed or required for medical reasons: No Substance Use Type: Crack/Cocaine Advance Directives: Yes Advance Directives on File: Yes Advance Directives Date on File: 03/14/21 service: No Current occupational status: unemployed Physical Exam 2 Vital Signs: Vital Signs: Last Vital Signs Temp 99.1 F 07/01/23 12:33 Pulse 78 07/01/23 13:53 Resp 17 07/01/23 13:53 BP 143/62 H 07/01/23 13:53 Pulse Ox 97 07/01/23 13:53 O2 Del Method Room Air 07/01/23 13:53 BMI result Body Mass Index 29.4 Const: General: cooperative Orientation/consciousness: patient oriented x3 Limitations: no limitations HEENT: Head: Yes normal to inspection General nose exam: Normal external nose present Face and sinus: Yes normal facial exam Mouth: Normal oral and palatal mucosa present Throat: Yes posterior oropharynx normal Neck: Neck: Yes normal visual inspection and Yes full ROM Chest: Chest palpation & inspection: normal inspection of the chest Resp: Effort & Inspection: normal respiratory effort Cardio: Jugular venous distension: no JVD Rate: regular rate Rhythm: r egular rhythm GI: Inspection: Yes normal to inspection Auscultation: normal bowel sounds Skin: General skin exam: no rashes or lesions noted Neuro: Other: At baseline right hemiparesis General: patient oriented x3 Course Reevaluation(s) Reevaluation #1: I re-examined the patient at this time patient is completely asymptomatic he has no chest pain delta troponins flat at this point I think the patient can be safely discharged home Time: 15:46 Medications Administered Discontinued Medications Generic Name Dose Route Start Last Admin Trade Name Freq PRN Reason Stop Dose Admin Oxycodone HCl 5 mg 07/01/23 11:25 07/01/23 12:14 Oxycodone Hcl Immed Release 5 Mg Tablet PO 07/01/23 11:26 5 mg ONCE ONE Administration Medical Decision Making Medical Decision Making [facility] Narrative: Patient presented with chronic chest pain we get the electrocardiogram/chest x- ray and high sensitive troponin @3:45 PM asymptomatic delta tropi flap ,CXR negative ACS ruled out Differential Diagnosis Differential Diagnoses: The differential diagnosis associated with the presentation includes ACS/pneumothorax/atypical chest Lab Data [facility] Lab Attestation statement: I reviewed the patient's lab results. 07/01/23 10:38 07/01/23 11:18 Labs: Lab Results 07/01/23 07/01/23 07/01/23 Range/Units 10:38 11:18 14:04 WBC 8.0 (4.8-10.8) X10*3/uL RBC 5.60 (4.60-5.80) X10*6/uL Hgb 15.0 (14.0-18.0) g/dl Hct 47.1 (42.0-52.0) % MCV 84.1 (80.0-98.0) fL MCH 26.8 L (27.0-33.0) pg MCHC 31.8 (31.0-36.0) g/dl RDW 15.1 (11.0-16.0) % Plt Count 367 (160-400) X10*3/uL MPV 11.2 (9.4-12.4) fL Immature Gran % (Auto) 0.2 (0.0-0.4) % Neut % (Auto) 62.6 (45-73) % Lymph % (Auto) 29.4 (20-40) % [place] % (Auto) 5.7 (2-11) % Eos % (Auto) 1.4 (0-4) % Baso % (Auto) 0.7 (0-2) % Lymph # (Auto) 2.4 (1.2-4.9) X10*3/uL [place] # (Auto) 0.5 (0.1-1.2) X10*3/uL Eos # (Auto) 0.1 (0.0-0.4) X10*3/uL Baso # (Auto) 0.1 (0.0-0.2) X10*3/uL Abs Immat Gran (auto) 0.02 (0.00-0.03) X10*3/uL Absolute Neuts (auto) 5.0 (2.0-8.3) x10*3/uL Absolute Nucleated RBC 0.000 (0.0-0.012) X10*3/uL Nucleated RBC % (auto) 0.0 (0.0-0.2) /100WBC PT 13.8 H (11.1-13.3) SEC INR 1.1 (0.9-1.1) Sodium 137 (135-145) mmol/L Potassium 4.7 (3.3-5.1) mmol/L Chloride 105 (96-108) mmol/L Carbon Dioxide 24 (22-29) mmol/L Anion Gap 13 (12-20) BUN 17 H (9-16) mg/dL Creatinine 0.99 (0.5-1.4) mg/dL Estim Creat Clear Calc 78.3 Estimated GFR > 60 Random Glucose 116 H (60-115) mg/dL Calcium 10.1 D (8.4-10.2) mg/dL Total Bilirubin 0.4 (0.0-1.0) mg/dL AST 19 (5-37) U/L ALT 18 (0-40) U/L Alkaline Phosphatase 53 (39-117) U/L Troponin I High Sens 9.1 10.3 (<3.5-35.0) ng/L B-Natriuretic Peptide 85 (<100) pg/mL Total Protein 7.8 (6.5-8.0) g/dL Albumin 4.5 (3.5-5.0) g/dL Urine Color Yellow Urine Appearance Clear Urine pH 6.0 (5.0-9.0) Ur Specific [place] >= 1.030 H (1.005-1.025) Urine Protein Negative (Neg-Trace) mg/dL Urine Glucose (UA) >=1000 H (Negative) mg/dL Urine Ketones Negative (Negative) mg/dL Urine Blood Negative (Negative) Urine Nitrite Negative (Negative) Ur Leukocyte Esterase Negative (Negative) Urine RBC 0-2 (0-2) /HPF Urine WBC 0-5 (0-5) /HPF Ur Squamous Epith Cells 0-2 (0-2) /HPF Urine Bacteria None Seen (None Seen) Hyaline Casts 0-2 (0-2) /LPF Independent Interpretation I performed an independent interpretation of an: EKG and Plain X-Ray Interpretation: normal CXR,EKG paced rythm Radiology Impression Discussion of test interpretation with radiology: I have reviewed the radiologist's reading. Radiologist Impression: COMPARISON: Previous chest x-ray most recent October 2022 TECHNIQUE: Frontal view of the chest was obtained. FINDINGS: The cardiac and mediastinal contours are stable. Post-CABG changes and median sternotomy wires. Left subclavian pacemaker AICD device appears unchanged. The lungs are clear. No pleural effusion or pneumothorax. Degenerative changes of the spine. XR/XR chest 1V IMPRESSION: No evidence for acute disease in the chest Dictated By: Obdulia Moreno MD Signed By: <Electronically signed by Obdulia Moreno MD in [place]> 07/01/23 6199 External Record Review External record reviewed: Inpatient record Chronic Conditions Patient?s care impacted by: Other (CVA,CAD) Discharge Plan Discharge Clinical Impression: Chest pain Patient Disposition: Home, Self-Care Instructions: Chest Pain (DC) Additional Instructions: follow up with Primary Care Doctor,return if worse Prescriptions: No Action atorvastatin 80 mg tablet 80 mg PO DAILY 90 Days Qty: 90 1RF phenazopyridine [Pyridium] 100 mg tablet 100 mg PO TID PRN (Reason: pain) 3 Days Qty: 10 0RF isosorbide mononitrate 30 mg tablet extended release 24 hr 30 mg PO DAILY Qty: 90 3RF metoprolol succinate 50 mg tablet extended release 24 hr 50 mg PO DAILY Qty: 90 2RF Entresto 24-26 mg tablet 1 tab PO BID Qty: 180 1RF finasteride 5 mg tablet 5 mg PO DAILY 90 Days Qty: 90 1RF furosemide 40 mg tablet 40 mg PO DAILY insulin lispro [Admelog SoloStar U-100 Insulin] 100 unit/mL Insulin Pen 2 unit SUBCUT DAILY insulin lispro [Admelog SoloStar U-100 Insulin] 100 unit/mL insulin pen 6 unit subcut DAILY@1800 insulin lispro [Admelog SoloStar U-100 Insulin] 100 unit/mL insulin pen 4 unit subcut DAILY@1200 acetaminophen [Tylenol Extra Strength] 500 mg tablet 1,000 mg PO QID PRN (Reason: fever or pain) Qty: 14 0RF cyclobenzaprine 5 mg tablet 5 mg PO TID PRN (Reason: muscle spasm) Qty: 8 0RF metformin 1,000 mg tablet 1,000 mg PO BID hydroxyzine HCl 25 mg tablet 25 mg PO TID PRN (Reason: anixety) Qty: 24 0RF tramadol 50 mg tablet 50 mg PO Q6H PRN (Reason: pain (scale score 4-6)) Qty: 14 0RF lorazepam [Ativan] 1 mg tablet 1 mg PO BEDTIME PRN (Reason: sleep) Qty: 3 0RF insulin glargine 100 unit/mL (3 mL) insulin pen 22 unit subcut BEDTIME omega-3 fatty acids-fish oil 340-1,000 mg capsule 1 cap PO TID (DME) lancets 28 gauge misc See Rx Instructions topical DIRECTED Qty: 100 Rx Instructions: As directed clopidogrel 75 mg tablet 75 mg PO DAILY Hold Instructions: Resume on 07/15/21. Resume anticoagulation Saturday fenofibrate 54 mg tablet 54 mg PO DAILY duloxetine 20 mg capsule,delayed release(DR/EC) 20 mg PO DAILY (DME) pen needle, diabetic [BD Kelli 2nd Gen Pen Needle] 32 gauge x 5/32 needle See Rx Instructions .ROUTE .MEDSUPPLY Qty: 50 Rx Instructions: As directed (DME) FreeStyle Lite Strips Strip See Rx Instructions Not Applicable BID Qty: 10 Rx Instructions: As directed aspirin 81 mg tablet,delayed release (DR/EC) 81 mg PO DAILY nitroglycerin 0.4 mg tablet, sublingual 0.4 mg sublingual famotidine 20 mg tablet 20 mg PO BID bethanechol chloride 50 mg tablet 50 mg PO BID 90 Days Qty: 180 1RF tamsulosin 0.4 mg capsule 0.4 mg PO DAILY 90 Days Qty: 90 1RF Farxiga 10 mg tablet 10 mg PO DAILY Qty: 90 3RF Referrals: Russ Parikh MD [Primary Care Provider] - 2 days
[2023-07-01 11:35] LABS: Anion Gap 13 (12-20)
[2023-07-01 11:40] LABS: Alanine Aminotransferase 18 U/L (0-40); Albumin Level 4.5 g/dL (3.5-5.0); Alkaline Phosphatase 53 U/L (39-117); Aspartate Amino Transferase 19 U/L (5-37); Bilirubin Total 0.4 mg/dL (0.0-1.0); Blood Urea Nitrogen 17 mg/dL (9-16); Calcium 10.1 mg/dL (8.4-10.2); Carbon Dioxide 24 mmol/L (22-29); Chloride 105 mmol/L (96-108); Creatinine Clr Calc Pharmacy 78.3; Estimated Glomerular Filt Rate > 60; Glucose Random 116 mg/dL (60-115); Potassium 4.7 mmol/L (3.3-5.1); Sodium 137 mmol/L (135-145); Total Protein 7.8 g/dL (6.5-8.0)
[2023-07-01] MEDS: oxyCODONE HCl Immed Release 5 MG TABLET PO (12:14)
[2023-07-01 12:33] VITALS: BP 135/64; PULSE 80; RESP 13; TEMP 37.3; O2SAT 96
[2023-07-01 13:19] LABS: B Type Natriuretic Peptide 85 pg/mL (<100)
[2023-07-01 13:53] VITALS: BP 143/62; PULSE 78; RESP 17; O2SAT 97
[2023-07-01 14:35] LABS: Troponin-I High Sensitivity 10.3 ng/L (<3.5-35.0)
== END 2023-07-01 16:05 | disposition home or self-care (01) ==
PROVIDERS: Emergency Provider Emergency Medicine; PCP Internal Medicine
DX: R07.89 Other chest pain (principal); I25.10 Atherosclerotic heart disease of native coronary artery without angina pectoris; R06.02 Shortness of breath; Z79.899 Other long term (current) drug therapy; Z87.891 Personal history of nicotine dependence
CPT/HCPCS: 36415; 71045; 80053; 81001; 83880; 84484; 85025; 85610; 93005; 99283; 99285

== ENCOUNTER → 2023-07-11 23:59 | Outpatient (BNV) | payer OTHER, SELFPAY ==
--- NOTE | 2023-07-14 13:41 | MHC.OFFVIS ---
Intake Intake Visit Reasons: Remote HF Monitoring- [employer] Allergies No Known Allergies [No Known Allergies*] Allergy (Verified 04/19/23 10:46) PFSH Medical History Pulmonary emboli PAF (paroxysmal atrial fibrillation) Ischemic cardiomyopathy Atherosclerotic cardiovascular disease Hypertension Hypercholesteremia Diabetes mellitus, type 2 Myocardial infarction CVA (cerebral vascular accident) Surgical History H/O coronary artery bypass surgery (~04/27/20) Family History Father No problems noted. Mother No problems noted. 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 TECHNICIAN daily) Alcohol intake: never Patient Tobacco Use Status: Former Tobacco user Quit Date: 2017 Smoked in Last 30 Days: No Use of substances other than those prescribed or required for medical reasons: No Substance Use Type: Crack/Cocaine Advance Directives: Yes Advance Directives on File: Yes Advance Directives Date on File: 03/14/21 service: No Current occupational status: unemployed Office Procedures Cardiac Device Check Cardiac Device Check Details: Date of service- 07/11/2023; based on impedance data and physiological variables, there is no evidence of worsening congestive heart failure. [id number] Cardiac Device Interrogation, cardio physiologic monitor Procedure code (CPT) selection complete Assessment & Plan Assessment & Plan (1) Ischemic cardiomyopathy: Code(s): I25.5 - Ischemic cardiomyopathy Coding Level of Care Code Procedure Only Diagnoses Ischemic cardiomyopathy I25.5 CPT Codes Cardiac Device Check - Cardiac Device 15: [id number] Cardiac Device Interrogation, cardio physiologic monitor ([id number])
== END ==
PROVIDERS: PCP Internal Medicine; Visit Provider Internal Medicine
DX: I25.5 Ischemic cardiomyopathy (principal); Z95.810 Presence of automatic (implantable) cardiac defibrillator
CPT/HCPCS: 93297

== ENCOUNTER → 2023-08-11 23:59 | Outpatient (BNV) | payer OTHER, SELFPAY ==
--- NOTE | 2023-08-13 11:50 | MHC.OFFVIS ---
Intake Intake Visit Reasons: Remote HF Monitoring- [employer] Allergies No Known Allergies [No Known Allergies*] Allergy (Verified 04/19/23 10:46) PFSH Medical History Pulmonary emboli PAF (paroxysmal atrial fibrillation) Ischemic cardiomyopathy Atherosclerotic cardiovascular disease Hypertension Hypercholesteremia Diabetes mellitus, type 2 Myocardial infarction CVA (cerebral vascular accident) Surgical History H/O coronary artery bypass surgery (~04/27/20) Family History Father No problems noted. Mother No problems noted. Social History Household Members: None Housing: Apartment Do you presently have visiting nurse or other home services: Yes (GIS SOFTWARE DEVELOPER daily) Alcohol intake: never Patient Tobacco Use Status: Former Tobacco user Quit Date: 2017 Smoked in Last 30 Days: No Use of substances other than those prescribed or required for medical reasons: No Substance Use Type: Crack/Cocaine Advance Directives: Yes Advance Directives on File: Yes Advance Directives Date on File: 03/14/21 service: No Current occupational status: unemployed Office Procedures Cardiac Device Check Cardiac Device Check Details: Date of service- 08/11/2023; based on impedance data and physiological variables, there is no evidence of worsening congestive heart failure. Patient activity 2 hrs/day. [id number] Cardiac Device Interrogation, cardio physiologic monitor Procedure code (CPT) selection complete Assessment & Plan Assessment & Plan (1) Ischemic cardiomyopathy: Code(s): I25.5 - Ischemic cardiomyopathy Plan x Coding Level of Care Code Procedure Only Diagnoses Ischemic cardiomyopathy I25.5 CPT Codes Cardiac Device Check - Cardiac Device 15: [id number] Cardiac Device Interrogation, cardio physiologic monitor ([id number])
== END ==
PROVIDERS: PCP Internal Medicine; Visit Provider Internal Medicine
DX: I25.5 Ischemic cardiomyopathy (principal); Z95.810 Presence of automatic (implantable) cardiac defibrillator
CPT/HCPCS: 93297

== ENCOUNTER 2023-09-02 09:54 | Outpatient (AMB) | payer OTHER, SELFPAY ==
--- NOTE | 2023-09-02 09:59 | MHC.OFFVIS ---
Intake Vital Signs 09/02/23 10:00 Height 5 ft 5 in Weight 177 lb 4.026 oz BMI 29.5 BP 134/72 Blood Pressure Location Lt brachial Position Sitting Pulse 88 Pulse Source Pulse Oximeter Intake Visit Reasons: 6 month follow up Horse Doctor Required: No Allergies No Known Allergies [No Known Allergies*] Allergy (Verified 09/02/23 10:02) Medication List - Last Reconciled 09/02/23 by [place] MD acetaminophen (Tylenol Extra Strength) 1,000 mg (2 x 500 mg) PO QID PRN aspirin 81 mg PO DAILY atorvastatin 80 mg PO DAILY 90 days bethanechol chloride 50 mg PO BID 90 days blood sugar diagnostic (FreeStyle Lite Strips) As directed clopidogrel 75 mg PO DAILY dapagliflozin propanediol (Farxiga) 10 mg PO DAILY duloxetine 20 mg PO DAILY famotidine 20 mg PO BID fenofibrate 54 mg PO DAILY finasteride 5 mg PO DAILY 90 days furosemide 40 mg PO DAILY hydroxyzine HCl 25 mg PO TID PRN insulin glargine 22 units subcut BEDTIME insulin lispro (Admelog SoloStar U-100 Insulin lispro) 2 units subcut DAILY insulin lispro (Admelog SoloStar U-100 Insulin lispro) 6 units subcut DAILY@1800 insulin lispro (Admelog SoloStar U-100 Insulin lispro) 4 units subcut DAILY@1200 isosorbide mononitrate ER 30 mg PO DAILY lancets As directed lorazepam (Ativan) 1 mg PO BEDTIME PRN metformin 1,000 mg PO BID metoprolol succinate ER 50 mg PO DAILY nitroglycerin 0.4 mg sublingual omega-3 fatty acids-fish oil 340-1,000 mg 1 cap PO TID pen needle, diabetic (BD Kelli 2nd Gen Pen Needle) As directed phenazopyridine (Pyridium) 100 mg PO TID PRN 3 days sacubitril-valsartan 24-26 mg (Entresto) 1 tab PO BID tamsulosin 0.4 mg PO DAILY 90 days tramadol 50 mg PO Q6H PRN HPI HPI Comments History of Present Illness Details Cam returns for follow-up regarding coronary disease and several other issues. He has a fairly long and complex cardiovascular history, summarized as below. To recall, he had a stroke around 2012 with resultant right-sided hemiparesis and facial droop. He had a 2nd stroke in 2018 again in the right side. He has multiple vascular risk factors including type 2 diabetes on insulin, hypertension, dyslipidemia. He also has a history of cocaine use many years ago, but nothing recently. He went for an elective endoscopy and developed hypoxia and pulmonary edema. Then intubated and sent to [facility] CCU. Underwent cardiac catheterization showing multivessel CAD. He also had severe cardiomyopathy. Had coronary artery bypass surgery. Then, admitted to [facility] with complete heart block and underwent biventricular ICD placement. He recovered from that but then had one further admission where he had chest pain and diagnosed to have pulmonary embolism. Then started Eliquis-now stopped. Overall, no new concerns. He states actually doing quite well. No specific symptoms from cardiac either. [facility] Medical History Pulmonary emboli PAF (paroxysmal atrial fibrillation) Ischemic cardiomyopathy Atherosclerotic cardiovascular disease Hypertension Hypercholesteremia Diabetes mellitus, type 2 Myocardial infarction CVA (cerebral vascular accident) Surgical History H/O coronary artery bypass surgery (~04/27/20) Family History Father No problems noted. Mother No problems noted. Social History Household Members: None Housing: Apartment Do you presently have visiting nurse or other home services: Yes (LIQUOR GALLERY OPERATOR daily) Alcohol intake: never Patient Tobacco Use Status: Former Tobacco user Quit Date: 2017 Substance Use Type: Crack/Cocaine Advance Directives Date on File: 03/14/21 service: No Current occupational status: unemployed Review of Systems ENT Reports dizziness Card Denies chest pain, Denies chest pain at rest, Denies chest pain with activity, Denies rapid heart rate, Denies pedal edema, Denies edema, Denies leg edema, Denies lightheadedness, Denies palpitations, Denies dyspnea, Denies dyspnea on exertion and Denies orthopnea Resp Denies cough, Denies dyspnea and Denies dyspnea on exertion GI Denies hematochezia and Denies change in stool character Musc Denies abnormal gait, Reports limited range of motion, Reports muscle cramps, Denies muscle weakness, Denies numbness, Denies radiating pain into limb, Denies stiffness and Denies tingling Neuro Denies abnormal gait, Reports dizziness, Denies numbness and Denies tingling Endo Denies palpitations Physical Exam Vital Signs: Last Vital Signs Pulse 88 09/02/23 10:00 BP 134/72 09/02/23 10:00 BMI result Body Mass Index 29.5 Const General: comfortable and no acute distress Orientation/consciousness: patient oriented x3 HEENT Other: Unremarkable Head: Yes normal to inspection Neck Neck: Yes normal visual inspection Chest Chest palpation & inspection: normal inspection of the chest Resp Auscultation: clear to auscultation bilaterally Cardio Palpation: normal PMI Heart sounds: S1 normal heart sound present, S2 normal heart sound present, no gallops, no murmurs and no rubs GI Palpation (GI): Soft to palpation Back/Spine/Pelvis Other: unremarkable Skin General skin exam: no rashes or lesions noted Neuro General: patient oriented x3 Extrem General: Yes normal to inspection Psych Mental Status: mental status grossly normal Assessment & Plan Assessment & Plan (1) Atherosclerotic cardiovascular disease: Code(s): I25.10 - Atherosclerotic heart disease of [place] coronary artery without angina pectoris Plan: Most recent cardiac catheterization shows patent grafts. Plan to continue long-term dual antiplatelet therapy considering numerous vascular issues. (2) Ischemic cardiomyopathy: Code(s): I25.5 - Ischemic cardiomyopathy Plan: In the most recent echocardiogram, LVEF 20-25%. He is on metoprolol ER, Entresto, Farxiga. Low-dose diuretics. Unclear if taking spironolactone or not. Need to check. (3) Atrial tachycardia: Code(s): I47.1 - Supraventricular tachycardia Plan: In recent device check, he was having atrial rate of 130s, either atrial or sinus tachycardia. We then increased the beta-blockers. No recurrent issues. (4) PAF (paroxysmal atrial fibrillation): Code(s): I48.0 - Paroxysmal atrial fibrillation Plan: Postoperative episode. Was on short-term amiodarone but now off. He was on Eliquis for the pulmonary embolism but that seems to have been stopped as well. No recurrent issues. (5) CVA (cerebral vascular accident): Code(s): I63.9 - Cerebral infarction, unspecified Plan: Based on vascular consultation from 2018, he had right-sided carotid occlusion. This is apparently chronic. In the most recent ultrasound, minimal stenosis on the right carotid. Left-sided with moderate stenosis 50-79%. However, it seems also that he is getting the same studies through his own PCP at [facility]. Hence will need to coordinate the same. (6) Other and unspecified hyperlipidemia: Code(s): E78.5 - Hyperlipidemia, unspecified Plan: On high dose statins/fenofibrate. Last LDL 90 mg/dL. Less than optimal. May need Repatha or Praluent but he is already on so much of polypharmacy. (7) Type 2 diabetes mellitus with unspecified complications: Code(s): E11.8 - Type 2 diabetes mellitus with unspecified complications Plan: On Insulin, metformin. Hemoglobin A1c is 6.4. (8) Pulmonary emboli: Code(s): I26.99 - Other pulmonary embolism without acute cor pulmonale Plan: Per [facility] documentation, left lower lobe pulmonary embolism from CTA 10/2021. Off Eliquis. Coding Level of Care Code Est Pt Level 4 (84459) Diagnoses Atherosclerotic cardiovascular disease I25.10 Ischemic cardiomyopathy I25.5 Atrial tachycardia I47.1 PAF (paroxysmal atrial fibrillation) I48.0 Cerebrovascular accident (CVA) due to other mechanism I63.9 Other and unspecified hyperlipidemia E78.5 Type 2 diabetes mellitus with unspecified complications E11.8 Pulmonary emboli I26.99
[2023-09-02 10:00] VITALS: BP 134/72; PULSE 88; BMI 29.5
== END 2023-09-02 10:35 | disposition home or self-care (01) ==
PROVIDERS: PCP Internal Medicine; Visit Provider Internal Medicine
DX: I25.10 Atherosclerotic heart disease of native coronary artery without angina pectoris (principal); I25.5 Ischemic cardiomyopathy; I47.10 Supraventricular tachycardia, unspecified; I48.0 Paroxysmal atrial fibrillation; I63.9 Cerebral infarction, unspecified; E78.5 Hyperlipidemia, unspecified; E11.8 Type 2 diabetes mellitus with unspecified complications; I26.99 Other pulmonary embolism without acute cor pulmonale
CPT/HCPCS: 99214

== ENCOUNTER → 2023-09-02 09:54 | Outpatient (BNVA) | payer OTHER, SELFPAY | PROVIDERS: PCP Internal Medicine; Visit Provider Internal Medicine | DX: I25.10 Atherosclerotic heart disease of native coronary artery without angina pectoris (principal); I69.351 Hemiplegia and hemiparesis following cerebral infarction affecting right dominant side; I25.5 Ischemic cardiomyopathy; I48.0 Paroxysmal atrial fibrillation; E78.5 Hyperlipidemia, unspecified; E11.8 Type 2 diabetes mellitus with unspecified complications | CPT/HCPCS: 99212 ==

== ENCOUNTER → 2023-09-11 23:59 | Outpatient (BNV) | payer OTHER, SELFPAY ==
--- NOTE | 2023-09-15 19:11 | A.OFFVIS_ITS ---
Intake Intake Visit Reasons: Remote ICD Check- [employer] Allergies No Known Allergies [No Known Allergies*] Allergy (Verified 09/02/23 10:02) [facility] Medical History Pulmonary emboli PAF (paroxysmal atrial fibrillation) Ischemic cardiomyopathy Atherosclerotic cardiovascular disease Hypertension Hypercholesteremia Diabetes mellitus, type 2 Myocardial infarction CVA (cerebral vascular accident) Surgical History H/O coronary artery bypass surgery (~04/27/20) Family History Father No problems noted. Mother No problems noted. Social History Household Members: None Housing: Apartment Do you presently have visiting nurse or other home services: Yes (REPAIRER AND CHECKER daily) Alcohol intake: never Patient Tobacco Use Status: Former Tobacco user Quit Date: 2017 Substance Use Type: Crack/Cocaine Advance Directives Date on File: 03/14/21 service: No Current occupational status: unemployed Office Procedures Cardiac Device Check Cardiac Device Check Details: Date of service 09/11/2023; Battery life 5.9years; normal lead parameters; adequate biv pacing; no treated VT/VF; ; normal ICD function. [id number] Cardiac Interrogation, implant defibrillator w/interim Procedure code (CPT) selection complete Assessment & Plan Assessment & Plan (1) Ischemic cardiomyopathy: Code(s): I25.5 - Ischemic cardiomyopathy Plan x Coding Level of Care Code Procedure Only Diagnoses Ischemic cardiomyopathy I25.5 CPT Codes Cardiac Device Check - Cardiac Device 13: [id number] Cardiac Interrogation, implant defibrillator w/interim ([id number])
== END ==
PROVIDERS: PCP Internal Medicine; Visit Provider Internal Medicine
DX: I25.5 Ischemic cardiomyopathy (principal); Z95.810 Presence of automatic (implantable) cardiac defibrillator
CPT/HCPCS: 93295

== ENCOUNTER → 2023-09-11 23:59 | Outpatient (BNV) | payer OTHER, SELFPAY ==
--- NOTE | 2023-09-15 19:13 | MHC.OFFVIS ---
Intake Intake Visit Reasons: Remote HF Monitoring- Medtr[employer] Allergies No Known Allergies [No Known Allergies*] Allergy (Verified 09/02/23 10:02) [facility] Medical History Pulmonary emboli PAF (paroxysmal atrial fibrillation) Ischemic cardiomyopathy Atherosclerotic cardiovascular disease Hypertension Hypercholesteremia Diabetes mellitus, type 2 Myocardial infarction CVA (cerebral vascular accident) Surgical History H/O coronary artery bypass surgery (~04/27/20) Family History Father No problems noted. Mother No problems noted. Social History Household Members: None Housing: Apartment Do you presently have visiting nurse or other home services: Yes (LEAD MAN OVER ALL DIES IN PATTERN SHOP daily) Alcohol intake: never Patient Tobacco Use Status: Former Tobacco user Quit Date: 2017 Substance Use Type: Crack/Cocaine Advance Directives Date on File: 03/14/21 service: No Current occupational status: unemployed Office Procedures Cardiac Device Check Cardiac Device Check Details: Date of service- 09/11/2023; based on impedance data and physiological variables, there is no evidence of worsening congestive heart failure. [id number] Cardiac Device Interrogation, cardio physiologic monitor Procedure code (CPT) selection complete Assessment & Plan Assessment & Plan (1) Ischemic cardiomyopathy: Code(s): I25.5 - Ischemic cardiomyopathy Plan x Coding Level of Care Code Procedure Only Diagnoses Ischemic cardiomyopathy I25.5 CPT Codes Cardiac Device Check - Cardiac Device 15: [id number] Cardiac Device Interrogation, cardio physiologic monitor ([id number])
== END ==
PROVIDERS: PCP Internal Medicine; Visit Provider Internal Medicine
DX: I25.5 Ischemic cardiomyopathy (principal)
CPT/HCPCS: 93297

== ENCOUNTER → 2023-10-12 23:59 | Outpatient (BNV) | payer OTHER, SELFPAY ==
--- NOTE | 2023-10-16 18:51 | MHC.OFFVIS ---
Intake Intake Visit Reasons: Remote HF Monitoring- [employer] Allergies No Known Allergies [No Known Allergies*] Allergy (Verified 09/02/23 10:02) PFSH Medical History Pulmonary emboli PAF (paroxysmal atrial fibrillation) Ischemic cardiomyopathy Atherosclerotic cardiovascular disease Hypertension Hypercholesteremia Diabetes mellitus, type 2 Myocardial infarction CVA (cerebral vascular accident) Surgical History H/O coronary artery bypass surgery (~04/27/20) Family History Father No problems noted. Mother No problems noted. Social History Household Members: None Housing: Apartment Do you presently have visiting nurse or other home services: Yes (CARDIOLOGY TECHNOLOGIST daily) Alcohol intake: never Patient Tobacco Use Status: Former Tobacco user Quit Date: 2017 Substance Use Type: Crack/Cocaine Advance Directives Date on File: 03/14/21 service: No Current occupational status: unemployed Office Procedures Cardiac Device Check Cardiac Device Check Details: Date of service- 10/12/2023; based on impedance data and physiological variables, there is no evidence of worsening congestive heart failure. [id number] Cardiac Device Interrogation, cardio physiologic monitor Procedure code (CPT) selection complete Assessment & Plan Assessment & Plan (1) Ischemic cardiomyopathy: Code(s): I25.5 - Ischemic cardiomyopathy Plan x Coding Level of Care Code Procedure Only Diagnoses Ischemic cardiomyopathy I25.5 CPT Codes Cardiac Device Check - Cardiac Device 15: [id number] Cardiac Device Interrogation, cardio physiologic monitor ([id number])
== END ==
PROVIDERS: PCP Internal Medicine; Visit Provider Internal Medicine
DX: I25.5 Ischemic cardiomyopathy (principal); Z95.810 Presence of automatic (implantable) cardiac defibrillator
CPT/HCPCS: 93297

== ENCOUNTER 2023-10-18 10:14 | Outpatient (AMB) | payer OTHER, SELFPAY ==
--- NOTE | 2023-10-18 10:22 | A.OFFVIS_ITS ---
Intake Intake Visit Reasons: 6M PVR Intake Note: Patient is Present for Follow Up PVR Urology Medication: Tamsulosin, Finasteride, Bethanechol Antibiotic Allergies: None Blood Thinners: Aspirin, Plavix Confirmed Pharmacy: [facility] [place] PVR: 32 Allergies No Known Allergies [No Known Allergies*] Allergy (Verified 10/18/23 10:27) HPI HPI Comments History of Present Illness Details Cam is a pleasant male. He is a patient of Dr. Parikh. He is seen for the following urologic conditions - lower urinary tract symptoms - hematuria - urinary retention Happy with current urinary performance Will continue 6 month follow-up PVR 30cc Detrusor hyperreflexive impaired contractility (DHIC) Background long-term diabetes, prior history of significant vascular disease with multiple stroke, multi-vessel CAD in cardiac catheterization, cardiomyopathy, CABG, heart block with ICD placement Has been on bethanechol for bladder emptying Happy with current performance Remain on bethanechol and tamsulosin with finasteride Lower urinary tract symptoms Feeling of incomplete emptying and weakness of stream Background diabetic on insulin Takes Lasix tablets Current prostate therapy includes finasteride and tamsulosin Cystoscopy 09/15 left prominent prostate lobe, open right lobe Prostate intervention 08/15 GreenLight laser PSA - prior negative biopsy 2019 - 04/14 5.9, 09/15 9.2, 06/15 3.99, 03/16 5 .3 Urinary retention with Vaughan catheter 03/16 Hematuria was diagnosed during - cristopher urine went to emergency room June 2020 They are here for the - further evaluation evaluation - discussion of results and cystoscopy Since the last visit the patient has - does not test positive for microscopic hematuria. Relevant medical history for no pertinent medical history - anticoagulation therapy - prior stroke - kidney stones Radiographic imaging: none completed - CT KUB June 2020 7 mm right stone, normal bladder Other investigations - cytology, normal PFSH Medical History Pulmonary emboli PAF (paroxysmal atrial fibrillation) Ischemic cardiomyopathy Atherosclerotic cardiovascular disease Hypertension Hypercholesteremia Diabetes mellitus, type 2 Myocardial infarction CVA (cerebral vascular accident) Surgical History H/O coronary artery bypass surgery (~04/27/20) Family History Father No problems noted. Mother No problems noted. Social History Household Members: None Housing: Apartment Do you presently have visiting nurse or other home services: Yes (MAGAZINE FILLER daily) Alcohol intake: never Patient Tobacco Use Status: Former Tobacco user Quit Date: 2017 Substance Use Type: Crack/Cocaine Advance Directives Date on File: 03/14/21 service: No Current occupational status: unemployed Review of Systems Const Denies chills and Denies fever(s) Card Reports no additional complaints and Denies syncope Resp Denies cough GI Denies abdominal pain and Denies heartburn Reports as per HPI and Denies change in libido Neuro Denies syncope Psych Denies change in libido Endo Denies change in libido Physical Exam Const General: cooperative, healthy appearing, comfortable and no acute distress Orientation/consciousness: patient oriented x3 HEENT Face and sinus: Yes normal facial exam Mouth: moist mucous membranes Neck Neck: Yes normal visual inspection, Yes full ROM and Yes trachea midline Chest Chest palpation & inspection: normal inspection of the chest Resp Effort & Inspection: normal respiratory effort, able to speak in complete sentences and no respiratory distress GI Inspection: Yes normal to inspection Back/Spine/Pelvis Cervical Spine: normal cervical lordosis Thoracic/Lumbar Spine: thoracic and lumbar spine normal to inspection Skin General skin exam: no rashes or lesions noted Neuro General: patient oriented x3, gait normal, tone normal and moves all extremities Extrem General: Yes normal to inspection and Yes capillary refill normal Office Procedures Post Void Residual Post Residual Void Post Void Residual (PVR): 32 [id number] Void Residual by ultrasound Assessment & Plan Assessment & Plan (1) Urinary retention with incomplete bladder emptying: Code(s): R33.9 - Retention of urine, unspecified (2) Elevated PSA: Code(s): R97.20 - Elevated prostate specific antigen [PSA] (3) BPH w urinary obs/LUTS: Code(s): N40.1 - Benign prostatic hyperplasia with lower urinary tract symptoms; N13.8 - Other obstructive and reflux uropathy Plan Six-month follow-up PVR and PSA Orders: Orders AMB Post Void Residual by ultrasound Today R33.9 - Retention of urine, unspecified Prostate Specific Antigen 6 Months R97.20 - Elevated prostate specific antigen [PSA] Medications: Refilled bethanechol chloride 50 mg PO BID 180 tabs 1RF 90 days R33.9 - Retention of urine, unspecified finasteride 5 mg PO DAILY 90 tabs 1RF 90 days N32.0 - Bladder-neck obstruction, N40.1 - Benign prostatic hyperplasia with lower urinary tract symptoms, R33.9 - Retention of urine, unspecified tamsulosin 0.4 mg PO DAILY 90 caps 1RF 90 days Patient Instructions: Imaging studies, laboratory and physical exam results were discussed and reviewed in detail. No major barriers to patient understanding were identified. An opportunity to ask questions regarding the treatment plan was provided. All questions were answered. The patient expressed understanding and agreement with the above treatment plan. The patient is aware they should contact our office by phone for worsening of their current condition or the appearance of new urologic symptoms. Compliance is encouraged with any medications and followup testing that is ordered. It is a privilege to participate in the urologic care of your patient. If you have any questions or concerns regarding treatment for the above conditions, or other urologic issues, please do not hesitate to contact me. The office telephone contact is [phone]. This note is constructed using voice recognition software. While every effort has been made to ensure accuracy inspector penetrant errors may have been included. Yours sincerely, Dr Demetrius Jefferson MD, [facility] - Urology Providers of Expert, Compassionate Care for the Genitourinary System Coding Level of Care Code Est Pt Level 3 (99160) Diagnoses Urinary retention with incomplete bladder emptying R33.9 Elevated PSA R97.20 BPH w urinary obs/LUTS N40.1; N13.8 CPT Codes Post Residual Void - PVR CPT Code: 86835-Bvin Void Residual by ultrasound ([id number])
== END 2023-10-18 10:43 | disposition home or self-care (01) ==
PROVIDERS: PCP Internal Medicine; Visit Provider Urology
DX: R33.9 Retention of urine, unspecified (principal); R97.20 Elevated prostate specific antigen [PSA]; N40.1 Benign prostatic hyperplasia with lower urinary tract symptoms; N13.8 Other obstructive and reflux uropathy
CPT/HCPCS: 99213

== ENCOUNTER → 2023-10-18 10:14 | Outpatient (BNVA) | payer OTHER, SELFPAY | PROVIDERS: PCP Internal Medicine; Visit Provider Urology | DX: N40.1 Benign prostatic hyperplasia with lower urinary tract symptoms (principal); N13.8 Other obstructive and reflux uropathy; R33.9 Retention of urine, unspecified; R97.20 Elevated prostate specific antigen [PSA] | CPT/HCPCS: 51798; 99212 ==

== ENCOUNTER → 2023-11-12 23:59 | Outpatient (BNV) | payer OTHER, SELFPAY ==
--- NOTE | 2023-11-17 18:47 | MHC.OFFVIS ---
Intake Intake Visit Reasons: Remote HF Monitoring- [employer] Allergies No Known Allergies [No Known Allergies*] Allergy (Verified 10/18/23 10:27) PFSH Medical History Pulmonary emboli PAF (paroxysmal atrial fibrillation) Ischemic cardiomyopathy Atherosclerotic cardiovascular disease Hypertension Hypercholesteremia Diabetes mellitus, type 2 Myocardial infarction CVA (cerebral vascular accident) Surgical History H/O coronary artery bypass surgery (~04/27/20) Family History Father No problems noted. Mother No problems noted. Social History Household Members: None Housing: Apartment Do you presently have visiting nurse or other home services: Yes (SPORTS EQUIPMENT REPAIRER daily) Alcohol intake: never Patient Tobacco Use Status: Former Tobacco user Quit Date: 2017 Substance Use Type: Crack/Cocaine Advance Directives Date on File: 03/14/21 service: No Current occupational status: unemployed Office Procedures Cardiac Device Check Cardiac Device Check Details: Date of service- 11/12/2023; based on impedance data and physiological variables, there is no evidence of worsening congestive heart failure. [id number] Cardiac Device Interrogation, cardio physiologic monitor Procedure code (CPT) selection complete Assessment & Plan Assessment & Plan (1) Ischemic cardiomyopathy: Code(s): I25.5 - Ischemic cardiomyopathy Plan x Coding Level of Care Code Procedure Only Diagnoses Ischemic cardiomyopathy I25.5 CPT Codes Cardiac Device Check - Cardiac Device 15: [id number] Cardiac Device Interrogation, cardio physiologic monitor ([id number])
== END ==
PROVIDERS: PCP Internal Medicine; Visit Provider Internal Medicine
DX: I25.5 Ischemic cardiomyopathy (principal)
CPT/HCPCS: 93297

== ENCOUNTER → 2023-12-13 23:59 | Outpatient (BNV) | payer OTHER, SELFPAY ==
--- NOTE | 2023-12-19 11:58 | MHC.OFFVIS ---
Intake Visit Reasons: Remote ICD check- [employer] Allergies No Known Allergies [No Known Allergies*] Allergy (Verified 10/18/23 10:27) [facility] Medical History Pulmonary emboli PAF (paroxysmal atrial fibrillation) Ischemic cardiomyopathy Atherosclerotic cardiovascular disease Hypertension Hypercholesteremia Diabetes mellitus, type 2 Myocardial infarction CVA (cerebral vascular accident) Surgical History H/O coronary artery bypass surgery (~04/27/20) Family History Father No problems noted. Mother No problems noted. Social History Household Members: None Housing: Apartment Do you presently have visiting nurse or other home services: Yes (HOME HEALTH CLINICAL LIAISON daily) Alcohol intake: never Patient Tobacco Use Status: Former Tobacco user Quit Date: 2017 Substance Use Type: Crack/Cocaine Advance Directives Date on File: 03/14/21 service: No Current occupational status: unemployed Office Procedures Cardiac Device Check Cardiac Device Check Details: Date of service 12/13/2023; Battery life >5 years; normal lead parameters; adequate Bi V pacing; no treated VT/VF; normal ICD function. [id number] Cardiac Interrogation, implant defibrillator w/interim Procedure code (CPT) selection complete Assessment & Plan Assessment & Plan (1) Ischemic cardiomyopathy: Code(s): I25.5 - Ischemic cardiomyopathy Category: Medical Plan x Coding Level of Care Code Procedure Only Diagnoses Ischemic cardiomyopathy I25.5 CPT Codes Cardiac Device Check - Cardiac Device 13: [id number] Cardiac Interrogation, implant defibrillator w/interim ([id number])
== END ==
PROVIDERS: PCP Internal Medicine; Visit Provider Internal Medicine
DX: I25.5 Ischemic cardiomyopathy (principal); Z95.810 Presence of automatic (implantable) cardiac defibrillator
CPT/HCPCS: 93295

== ENCOUNTER → 2023-12-13 23:59 | Outpatient (BNV) | payer OTHER, SELFPAY ==
--- NOTE | 2023-12-19 11:56 | MHC.OFFVIS ---
Intake Visit Reasons: Remote HF monitoring- [employer] Allergies No Known Allergies [No Known Allergies*] Allergy (Verified 10/18/23 10:27) PFSH Medical History Pulmonary emboli PAF (paroxysmal atrial fibrillation) Ischemic cardiomyopathy Atherosclerotic cardiovascular disease Hypertension Hypercholesteremia Diabetes mellitus, type 2 Myocardial infarction CVA (cerebral vascular accident) Surgical History H/O coronary artery bypass surgery (~04/27/20) Family History Father No problems noted. Mother No problems noted. Social History Household Members: None Housing: Apartment Do you presently have visiting nurse or other home services: Yes (INSTRUMENT REPAIRER STEAM PLANT daily) Alcohol intake: never Patient Tobacco Use Status: Former Tobacco user Quit Date: 2017 Substance Use Type: Crack/Cocaine Advance Directives Date on File: 03/14/21 service: No Current occupational status: unemployed Office Procedures Cardiac Device Check Cardiac Device Check Details: Date of service- 12/13/2023; based on impedance data and physiological variables, there is no evidence of worsening congestive heart failure. [id number] Cardiac Device Interrogation, cardio physiologic monitor Procedure code (CPT) selection complete Assessment & Plan Assessment & Plan (1) Ischemic cardiomyopathy: Code(s): I25.5 - Ischemic cardiomyopathy Category: Medical Plan x Coding Level of Care Code Procedure Only Diagnoses Ischemic cardiomyopathy I25.5 CPT Codes Cardiac Device Check - Cardiac Device 15: [id number] Cardiac Device Interrogation, cardio physiologic monitor ([id number])
== END ==
PROVIDERS: PCP Internal Medicine; Visit Provider Internal Medicine
DX: I25.5 Ischemic cardiomyopathy (principal); Z95.810 Presence of automatic (implantable) cardiac defibrillator
CPT/HCPCS: 93297

== ENCOUNTER → 2024-01-13 23:59 | Outpatient (BNV) | payer OTHER, SELFPAY ==
--- NOTE | 2024-01-20 12:02 | A.OFFVIS_ITS ---
Intake Visit Reasons: Remote HF monitoring- [employer] Allergies No Known Allergies [No Known Allergies*] Allergy (Verified 10/18/23 10:27) PFSH Medical History Pulmonary emboli PAF (paroxysmal atrial fibrillation) Ischemic cardiomyopathy Atherosclerotic cardiovascular disease Hypertension Hypercholesteremia Diabetes mellitus, type 2 Myocardial infarction CVA (cerebral vascular accident) Surgical History H/O coronary artery bypass surgery (~04/27/20) Family History Father No problems noted. Mother No problems noted. Social History Household Members: None Housing: Apartment Do you presently have visiting nurse or other home services: Yes (SALES OPERATIONS SPECIALIST daily) Alcohol intake: never Patient Tobacco Use Status: Former Tobacco user Quit Date: 2017 Substance Use Type: Crack/Cocaine Advance Directives Date on File: 03/14/21 service: No Current occupational status: unemployed Office Procedures Cardiac Device Check Cardiac Device Check Details: Date of service- 01/13/2024; based on impedance data and physiological variables, there is no evidence of worsening congestive heart failure. [id number] Cardiac Device Interrogation, cardio physiologic monitor Procedure code (CPT) selection complete Assessment & Plan Assessment & Plan (1) Ischemic cardiomyopathy: Code(s): I25.5 - Ischemic cardiomyopathy Category: Medical Plan x Coding Level of Care Code Procedure Only Diagnoses Ischemic cardiomyopathy I25.5 CPT Codes Cardiac Device Check - Cardiac Device 15: [id number] Cardiac Device Inte rrogation, cardio physiologic monitor ([id number])
== END ==
PROVIDERS: PCP Internal Medicine; Visit Provider Internal Medicine
DX: I25.5 Ischemic cardiomyopathy (principal); Z95.810 Presence of automatic (implantable) cardiac defibrillator
CPT/HCPCS: 93297

== ENCOUNTER → 2024-02-13 23:59 | Outpatient (BNV) | payer OTHER, SELFPAY ==
--- NOTE | 2024-02-19 13:49 | A.OFFVIS_ITS ---
Intake Visit Reasons: Remote HF monitoring- [employer] Allergies No Known Allergies [No Known Allergies*] Allergy (Verified 10/18/23 10:27) PFSH Medical History Pulmonary emboli PAF (paroxysmal atrial fibrillation) Ischemic cardiomyopathy Atherosclerotic cardiovascular disease Hypertension Hypercholesteremia Diabetes mellitus, type 2 Myocardial infarction CVA (cerebral vascular accident) Surgical History H/O coronary artery bypass surgery (~04/27/20) Family History Father No problems noted. Mother No problems noted. Social History Household Members: None Housing: Apartment Do you presently have visiting nurse or other home services: Yes (CONTROL ROOM TECHNICIAN daily) Alcohol intake: never Patient Tobacco Use Status: Former Tobacco user Substance Use Type: Crack/Cocaine Advance Directives Date on File: 03/14/21 service: No Current occupational status: unemployed Office Procedures Cardiac Device Check Cardiac Device Check Details: Date of service- 02/13/2024; based on impedance data and physiological variables, there is no evidence of worsening congestive heart failure. [id number] Cardiac Device Interrogation, cardio physiologic monitor Procedure code (CPT) selection complete Assessment & Plan Assessment & Plan (1) Ischemic cardiomyopathy: Code(s): I25.5 - Ischemic cardiomyopathy Category: Medical Plan x Coding Level of Care Code Procedure Only Diagnoses Ischemic cardiomyopathy I25.5 CPT Codes Cardiac Device Check - Cardiac Device 15: [id number] Cardiac Device Interrogation, cardio physiologic monitor ([id number])
== END ==
PROVIDERS: PCP Internal Medicine; Visit Provider Internal Medicine
DX: I25.5 Ischemic cardiomyopathy (principal); Z95.818 Presence of other cardiac implants and grafts
CPT/HCPCS: 93297

== ENCOUNTER 2024-03-02 12:28 | Outpatient (AMB) | payer OTHER, SELFPAY ==
[2024-03-02 12:45] VITALS: BP 110/58; PULSE 60; BMI 28.5
--- NOTE | 2024-03-02 12:45 | MHC.OFFVIS ---
Vital Signs 03/02/24 12:45 Height 5 ft 5 in Weight 171 lb 1.259 oz BMI 28.5 BP 110/58 L Blood Pressure Location Lt brachial Position Sitting Pulse 60 Intake Visit Reasons: 6 mth w/ Storee ck Genetic Physician Required: No Accompanied by: Self / Same As Patient Allergies No Known Allergies [No Known Allergies*] Allergy (Verified 10/18/23 10:27) Medication List - Last Reconciled 03/02/24 by [place] MD acetaminophen (Tylenol Extra Strength) 1,000 mg (2 x 500 mg) PO QID PRN aspirin 81 mg PO DAILY atorvastatin 80 mg PO DAILY 90 days bethanechol chloride 50 mg PO BID 90 days blood sugar diagnostic (FreeStyle Lite Strips) As directed clopidogrel 75 mg PO DAILY duloxetine 20 mg PO DAILY famotidine 20 mg PO BID Farxiga (dapagliflozin propanediol) 10 mg PO DAILY NS fenofibrate 54 mg PO DAILY finasteride 5 mg PO DAILY 90 days furosemide 40 mg PO DAILY hydroxyzine HCl 25 mg PO TID PRN insulin glargine 22 units subcut BEDTIME insulin lispro (Admelog SoloStar U-100 Insulin lispro) 2 units subcut DAILY insulin lispro (Admelog SoloStar U-100 Insulin lispro) 6 units subcut DAILY@1800 insulin lispro (Admelog SoloStar U-100 Insulin lispro) 4 units subcut DAILY@1200 isosorbide mononitrate ER 30 mg PO DAILY lancets As directed lorazepam (Ativan) 1 mg PO BEDTIME PRN metformin 1,000 mg PO BID metoprolol succinate ER 50 mg PO DAILY nitroglycerin 0.4 mg sublingual omega-3 fatty acids-fish oil 340-1,000 mg 1 cap PO TID pen needle, diabetic (BD Kelli 2nd Gen Pen Needle) As directed sacubitril-valsartan 24-26 mg (Entresto) 1 tab PO BID 90 days tamsulosin 0.4 mg PO DAILY 90 days tramadol 50 mg PO Q6H PRN HPI Comments Details: Cam returns for follow-up regarding coronary disease and several other issues. He has a fairly long and complex cardiovascular history, summarized as below. To recall, he had a stroke around 2012 with resultant right-sided hemiparesis and facial droop. He had a 2nd stroke in 2018 again in the right side. He has multiple vascular risk factors including type 2 diabetes on insulin, hypertension, dyslipidemia. He also has a history of cocaine use many years ago, but nothing recently. He went for an elective endoscopy and developed hypoxia and pulmonary edema. Then intubated and sent to [facility] CCU. Underwent cardiac catheterization showing multivessel CAD. He also had severe cardiomyopathy. Had coronary artery bypass surgery. Then, admitted to [facility] with complete heart block and underwent biventricular ICD placement. He recovered from that but then had one further admission where he had chest pain and diagnosed to have pulmonary embolism. Then started Eliquis-now stopped. Since last seen, no specific cardiac symptoms or other concerns. States he is doing okay. [facility] Medical History Pulmonary emboli PAF (paroxysmal atrial fibrillation) Ischemic cardiomyopathy Atherosclerotic cardiovascular disease Hypertension Hypercholesteremia Diabetes mellitus, type 2 Myocardial infarction CVA (cerebral vascular accident) Surgical History H/O coronary artery bypass surgery (~04/27/20) Family History Father No problems noted. Mother No problems noted. Social History Household Members: None Housing: Apartment Do you presently have visiting nurse or other home services: Yes ([employer] daily) Alcohol intake: never Patient Tobacco Use Status: Former Tobacco user Substance Use Type: Crack/Cocaine Advance Directives Date on File: 03/14/21 service: No Current occupational status: unemployed Review of Systems Const Denies chills, Denies fatigue, Denies fever(s), Denies weight gain and Denies weight loss Card Denies chest pain, Denies leg edema, Denies lightheadedness, Denies palpitations, Denies dyspnea on exertion and Denies orthopnea Resp Denies cough and Denies dyspnea on exertion GI Reports melena, Denies hematochezia and Denies change in stool character Musc Denies muscle weakness and Denies radiating pain into limb Neuro Reports no additional complaints and Reports as per HPI Endo Denies fatigue and Denies palpitations Physical Exam Vital Signs: Last Vital Signs Pulse 60 03/02/24 12:45 BP 110/58 L 03/02/24 12:45 BMI result Body Mass Index 28.5 Const General: comfortable and no acute distress Orientation/consciousness: patient oriented x3 HEENT Other: Unremarkable Head: Yes normal to inspection Neck Neck: Yes normal visual inspection Chest Chest palpation & inspection: normal inspection of the chest Resp Auscultation: clear to auscultation bilaterally Cardio Palpation: normal PMI Heart sounds: S1 normal heart sound present, S2 normal heart sound present, no gallops, no murmurs and no rubs GI Palpation (GI): Soft to palpation Back/Spine/Pelvis Other: unremarkable Skin General skin exam: no rashes or lesions noted Neuro General: patient oriented x3 Extrem General: Yes normal to inspection Psych Mental Status: mental status grossly normal Office Procedures Cardiac Device Check Cardiac Device Check Details: ICD interrogated today. HOTBED LEVER OPERATOR D device. Battery status 5.1 years. Normal lead parameters. Adequate ventricular pacing. No treated episodes. Atrial rhythm not very clear. Could be either a slow flutter or atrial tachycardia. Overall, normal device function. [id number] Cardiac Device Check, multi lead implantable defibrillator Procedure code (CPT) selection complete EKG Details: EKG with ventricular paced rhythm. Atrial rhythm could be either a slow flutter or atrial tachycardia. Not clear. Ventricular rate 96/Min. [id number], Complete Assessment & Plan Assessment & Plan (1) Atherosclerotic cardiovascular disease: Code(s): I25.10 - Atherosclerotic heart disease of [place] coronary artery without angina pectoris Category: Medical Plan: Most recent cardiac catheterization shows patent grafts. Stable. Plan to continue long-term dual antiplatelet therapy considering numerous vascular issues. (2) Ischemic cardiomyopathy: Code(s): I25.5 - Ischemic cardiomyopathy Category: Medical Plan: In the most recent echocardiogram, LVEF 20-25%. He is on metoprolol ER, Entresto, Farxiga. Low-dose diuretics. Possibly spironolactone as well but he is on so many medications. (3) Atrial tachycardia: Code(s): I47.1 - Supraventricular tachycardia Category: Medical Plan: On device check, not clear if it is atrial tachycardia or slow flutter. Discussed with EP, . He will see him in consultation. (4) PAF (paroxysmal atrial fibrillation): Code(s): I48.0 - Paroxysmal atrial fibrillation Category: Medical Plan: Postoperative episode. Was on short-term amiodarone but now off. He was on Eliquis for the pulmonary embolism but that seems to have been stopped as well. (5) CVA (cerebral vascular accident): Code(s): I63.9 - Cerebral infarction, unspecified Category: Medical Plan: Based on vascular consultation from 2018, he had right-sided carotid occlusion. This is apparently chronic. In the most recent ultrasound, minimal stenosis on the right carotid. Left-sided with moderate stenosis 50-79%. However, it seems also that he is getting the same studies through his own PCP at [facility]. Again, aggressive risk factor modification. (6) Other and unspecified hyperlipidemia: Code(s): E78.5 - Hyperlipidemia, unspecified Category: Medical Plan: On high dose statins/fenofibrate. Last LDL 90 mg/dL. Less than optimal. May need Repatha or Praluent but he is already on so much of polypharmacy. (7) Pulmonary emboli: Code(s): I26.99 - Other pulmonary embolism without acute cor pulmonale Category: Medical Plan: Per [facility] documentation, left lower lobe pulmonary embolism from CTA 10/2021. Off Eliquis. Coding Level of Care Code Est Pt Level 4 (40632) Diagnoses Atherosclerotic cardiovascular disease I25.10 Ischemic cardiomyopathy I25.5 Atrial tachycardia I47.1 PAF (paroxysmal atrial fibrillation) I48.0 Cerebrovascular accident (CVA) due to other mechanism I63.9 Other and unspecified hyperlipidemia E78.5 Pulmonary emboli I26.99 CPT Codes Cardiac Device Check - Cardiac Device 6: [id number] Cardiac Device Check, multi lead implantable defibrillator ([id number]) EKG - CPT: 10789-Kdjvyyrzkwqibywll, Complete ([id number])
== END 2024-03-02 13:30 | disposition home or self-care (01) ==
PROVIDERS: PCP Internal Medicine; Visit Provider Internal Medicine
DX: I25.10 Atherosclerotic heart disease of native coronary artery without angina pectoris (principal); I25.5 Ischemic cardiomyopathy; I47.10 Supraventricular tachycardia, unspecified; I48.0 Paroxysmal atrial fibrillation; I63.9 Cerebral infarction, unspecified; E78.5 Hyperlipidemia, unspecified; I26.99 Other pulmonary embolism without acute cor pulmonale
CPT/HCPCS: 93010; 93284; 99214

== ENCOUNTER → 2024-03-02 12:28 | Outpatient (BNVA) | payer OTHER, SELFPAY | PROVIDERS: PCP Internal Medicine; Visit Provider Internal Medicine | DX: I25.10 Atherosclerotic heart disease of native coronary artery without angina pectoris (principal); I25.5 Ischemic cardiomyopathy; I47.10 Supraventricular tachycardia, unspecified; I48.0 Paroxysmal atrial fibrillation; E78.5 Hyperlipidemia, unspecified; Z86.711 Personal history of pulmonary embolism; Z86.73 Personal history of transient ischemic attack (TIA), and cerebral infarction without residual deficits; Z79.899 Other long term (current) drug therapy | CPT/HCPCS: 93005; 99212 ==

== ENCOUNTER → 2024-03-16 23:59 | Outpatient (BNV) | payer OTHER, SELFPAY ==
--- NOTE | 2024-03-21 13:59 | MHC.OFFVIS ---
Intake Visit Reasons: Remote ICD check- [employer] Allergies No Known Allergies [No Known Allergies*] Allergy (Verified 10/18/23 10:27) [facility] Medical History Pulmonary emboli PAF (paroxysmal atrial fibrillation) Ischemic cardiomyopathy Atherosclerotic cardiovascular disease Hypertension Hypercholesteremia Diabetes mellitus, type 2 Myocardial infarction CVA (cerebral vascular accident) Surgical History H/O coronary artery bypass surgery (~04/27/20) Family History Father No problems noted. Mother No problems noted. Social History Household Members: None Housing: Apartment Do you presently have visiting nurse or other home services: Yes (ACID CONDITIONING WORKER daily) Alcohol intake: never Patient Tobacco Use Status: Former Tobacco user Substance Use Type: Crack/Cocaine Advance Directives Date on File: 03/14/21 service: No Current occupational status: unemployed Office Procedures Cardiac Device Check Cardiac Device Check Details: Date of service 03/16/2024; Battery life 4.9 years; normal lead parameters; no treated VT/VF; effective V pacing >99%; normal ICD function. [id number] Cardiac Interrogation, implant defibrillator w/interim Procedure code (CPT) selection complete Assessment & Plan Assessment & Plan (1) Ischemic cardiomyopathy: Code(s): I25.5 - Ischemic cardiomyopathy Category: Medical Plan x Coding Level of Care Code Procedure Only Diagnoses Ischemic cardiomyopathy I25.5 CPT Codes Cardiac Device Check - Cardiac Device 13: [id number] Cardiac Interrogation, implant defibrillator w/interim ([id number])
== END ==
PROVIDERS: PCP Internal Medicine; Visit Provider Internal Medicine
DX: I25.5 Ischemic cardiomyopathy (principal); Z95.810 Presence of automatic (implantable) cardiac defibrillator
CPT/HCPCS: 93295

== ENCOUNTER → 2024-03-16 23:59 | Outpatient (BNV) | payer OTHER, SELFPAY ==
--- NOTE | 2024-03-21 13:47 | A.OFFVIS_ITS ---
Intake Visit Reasons: Remote HF monitoring- [employer] Allergies No Known Allergies [No Known Allergies*] Allergy (Verified 10/18/23 10:27) PFSH Medical History Pulmonary emboli PAF (paroxysmal atrial fibrillation) Ischemic cardiomyopathy Atherosclerotic cardiovascular disease Hypertension Hypercholesteremia Diabetes mellitus, type 2 Myocardial infarction CVA (cerebral vascular accident) Surgical History H/O coronary artery bypass surgery (~04/27/20) Family History Father No problems noted. Mother No problems noted. Social History Household Members: None Housing: Apartment Do you presently have visiting nurse or other home services: Yes (NURSE PRIVATE DUTY daily) Alcohol intake: never Patient Tobacco Use Status: Former Tobacco user Substance Use Type: Crack/Cocaine Advance Directives Date on File: 03/14/21 service: No Current occupational status: unemployed Office Procedures Cardiac Device Check Cardiac Device Check Details: Date of service- 03/16/2024; based on impedance data and physiological silvina iables, there is no evidence of worsening congestive heart failure. [id number] Cardiac Device Interrogation, cardio physiologic monitor Procedure code (CPT) selection complete Assessment & Plan Assessment & Plan (1) Ischemic cardiomyopathy: Code(s): I25.5 - Ischemic cardiomyopathy Category: Medical Plan x Coding Level of Care Code Procedure Only Diagnoses Ischemic cardiomyopathy I25.5 CPT Codes Cardiac Device Check - Cardiac Device 15: [id number] Cardiac Device Interrogation, cardio physiologic monitor ([id number])
== END ==
PROVIDERS: PCP Internal Medicine; Visit Provider Internal Medicine
DX: I25.5 Ischemic cardiomyopathy (principal); Z95.810 Presence of automatic (implantable) cardiac defibrillator
CPT/HCPCS: 93297

== ENCOUNTER 2024-04-13 10:06 | Outpatient (REF) | payer OTHER, SELFPAY ==
[2024-04-13 11:38] LABS: Prostate Specific Antigen 2.02 ng/mL (<0.05-4.0)
== END 2024-04-13 10:07 | disposition home or self-care (01) ==
LOC: HO.10HDL 10:06
PROVIDERS: Visit Provider Nurse Practitioner Family
DX: Z12.5 Encounter for screening for malignant neoplasm of prostate (principal); R97.20 Elevated prostate specific antigen [PSA]
CPT/HCPCS: 36415; 84153

== ENCOUNTER → 2024-04-16 23:59 | Outpatient (BNV) | payer OTHER, SELFPAY ==
--- NOTE | 2024-04-21 10:13 | A.OFFVIS_ITS ---
Intake Visit Reasons: Remote HF monitoring- [employer] Allergies No Known Allergies [No Known Allergies*] Allergy (Verified 04/17/24 11:04) PFSH Medical History Pulmonary emboli PAF (paroxysmal atrial fibrillation) Ischemic cardiomyopathy Atherosclerotic cardiovascular disease Hypertension Hypercholesteremia Diabetes mellitus, type 2 Myocardial infarction CVA (cerebral vascular accident) Surgical History H/O coronary artery bypass surgery (~04/27/20) Family History Father No problems noted. Mother No problems noted. Social History Household Members: None Housing: Apartment Do you presently have visiting nurse or other home services: Yes (DIRECTOR COMMUNICATIONS daily) Alcohol intake: never Patient Tobacco Use Status: Former Tobacco user Substance Use Type: Crack/Cocaine Advance Directives Date on File: 03/14/21 service: No Current occupational status: unemployed Office Procedures Cardiac Device Check Cardiac Device Check Details: Date of service- 04/16/2024; based on impedance data and physiological variables, there is no evidence of worsening congestive heart failure. [id number] Cardiac Device Interrogation, cardio physiologic monitor Procedure code (CPT) selection complete Assessment & Plan Assessment & Plan (1) Ischemic cardiomyopathy: Code(s): I25.5 - Ischemic cardiomyopathy Category: Medical Plan x Coding Level of Care Code Procedure Only Diagnoses Ischemic cardiomyopathy I25.5 CPT Codes Cardiac Device Check - Cardiac Device 15: [id number] Cardiac Device Interrogation, cardio physiologic monitor ([id number])
== END ==
PROVIDERS: PCP Internal Medicine; Visit Provider Internal Medicine
DX: I25.5 Ischemic cardiomyopathy (principal); Z95.810 Presence of automatic (implantable) cardiac defibrillator
CPT/HCPCS: 93297

== ENCOUNTER 2024-04-17 10:21 | Outpatient (AMB) | payer OTHER, SELFPAY ==
--- NOTE | 2024-04-17 10:30 | A.OFFVIS_ITS ---
Intake Visit Reasons: 6m/PVR Intake Note: Patient is Present for Follow Up PVR Urology Medication: Tamsulosin, Finasteride, Bethanechol Antibiotic Allergies: None Blood Thinners: Aspirin, Plavix Confirmed Pharmacy: [facility] PVR:47ml's University Counselor Required: No Accompanied by: Self / Same As Patient Allergies No Known Allergies [No Known Allergies*] Allergy (Verified 04/17/24 11:04) Medication List - Last Reconciled 04/17/24 by BRIGIDO Castaneda acetaminophen (Tylenol Extra Strength) 1,000 mg (2 x 500 mg) PO QID PRN aspirin 81 mg PO DAILY atorvastatin 80 mg PO DAILY 90 days bethanechol chloride 50 mg PO BID 90 days blood sugar diagnostic (FreeStyle Lite Strips) As directed clopidogrel 75 mg PO DAILY duloxetine 20 mg PO DAILY famotidine 20 mg PO BID Farxiga (dapagliflozin propanediol) 10 mg PO DAILY NS fenofibrate 54 mg PO DAILY finasteride 5 mg PO DAILY 90 days furosemide 40 mg PO DAILY hydroxyzine HCl 25 mg PO TID PRN insulin glargine 22 units subcut BEDTIME insulin lispro (Admelog SoloStar U-100 Insulin lispro) 2 units subcut DAILY insulin lispro (Admelog SoloStar U-100 Insulin lispro) 6 units subcut DAILY@1800 insulin lispro (Admelog SoloStar U-100 Insulin lispro) 4 units subcut DAILY@1200 isosorbide mononitrate ER 30 mg PO DAILY lancets As directed lorazepam (Ativan) 1 mg PO BEDTIME PRN metformin 1,000 mg PO BID metoprolol succinate ER 50 mg PO DAILY nitroglycerin 0.4 mg sublingual omega-3 fatty acids-fish oil 340-1,000 mg 1 cap PO TID pen needle, diabetic (BD Kelli 2nd Gen Pen Needle) As directed sacubitril-valsartan 24-26 mg (Entresto) 1 tab PO BID 90 days tamsulosin 0.4 mg PO DAILY 90 days tramadol 50 mg PO Q6H PRN HPI Comments Details: Cam is a very pleasant 58-year-old male patient of Dr. Parikh. He has a past medical history of paroxysmal AFib, ischemic cardiomyopathy, ACD, hypertension, hypercholesteremia, diabetes type 2, ID, and CVA. He presents to the office today for follow-up of his lower urinary tract symptoms, hematuria, and history of urinary retention. He reports compliance with bethanechol and Flomax as prescribed. He currently denies any bothersome urinary issues or concerns. In office urinalysis results reviewed with the patient today. PVR 47 mL. When asked he denies urinary urgency, urinary frequency, incontinence, nocturia, hematuria, dysuria, foul smelling urine, changes to urinary stream, flank pain, fever, and or chills. He is happy with his current voiding parameters on urological medications. PREVIOUS OFFICE NOTE HISTORY: Lower urinary tract symptoms Feeling of incomplete emptying and weakness of stream Background diabetic on insulin Takes Lasix tablets Current prostate therapy includes finasteride and tamsulosin Cystoscopy 09/15 left prominent prostate lobe, open right lobe Prostate intervention 08/15 GreenLight laser PSA - prior negative biopsy 2019 - 04/14 5.9, 09/15 9.2, 06/15 3.99, 03/16 5.3 Urinary retention with Vaughan catheter 03/16 Hematuria was diagnosed during - cristopher urine went to emergency room June 2020 They are here for the - further evaluation evaluation - discussion of results and cystoscopy Since the last visit the patient has - does not test positive for microscopic hematuria. Relevant medical history for no pertinent medical history - anticoagulation therapy - prior stroke - kidney stones Radiographic imaging: none completed - CT KUB June 2020 7 mm right stone, normal bladder Other investigations - cytology, normal PFSH Medical History Pulmonary emboli PAF (paroxysmal atrial fibrillation) Ischemic cardiomyopathy Atherosclerotic cardiovascular disease Hypertension Hypercholesteremia Diabetes mellitus, type 2 Myocardial infarction CVA (cerebral vascular accident) Surgical History H/O coronary artery bypass surgery (~04/27/20) Family History Father No problems noted. Mother No problems noted. Social History Household Members: None Housing: Apartment Do you presently have visiting nurse or other home services: Yes (CLINICAL PHARMACY SPECIALIST daily) Alcohol intake: never Patient Tobacco Use Status: Former Tobacco user Substance Use Type: Crack/Cocaine Advance Directives Date on File: 03/14/21 service: No Current occupational status: unemployed Review of Systems Const Reports no additional complaints Eyes Reports no additional complaints ENT Reports no additional complaints Card Reports as per HPI Resp Reports no additional complaints GI Reports no additional complaints Reports as per HPI Musc Reports as per HPI Neuro Reports as per HPI Psych Reports no additional complaints Endo Reports as per HPI Kevin/Lymph Reports no additional complaints Aller/Immun Reports no additional complaints Physical Exam Const General: cooperative, healthy appearing, comfortable, no acute distress, well developed, alert and awake Orientation/consciousness: patient oriented x3 Limitations: ambulation with cane and other limitations (has brace to bilateral lower extremity ) HEENT Head: Yes normal to inspection, Yes normocephalic and Yes atraumatic Ears: hearing grossly normal bilaterally Eyes General: appearance normal, both eyes and all related structures Neck Neck: Yes normal visual inspection and Yes trachea midline Chest Chest palpation & inspection: normal inspection of the chest Resp Effort & Inspection: normal respiratory effort and able to speak in complete sentences Cardio Rate: regular rate GI Inspection: Yes normal to inspection General: Yes no CVA tenderness Back/Spine/Pelvis Back: no CVA tenderness Skin General skin exam: no rashes or lesions noted Neuro General: patient oriented x3 Extrem General: Yes normal to inspection Psych Appearance: grossly normal and well kempt Mental Status: mental status grossly normal Speech and movement: Normal speech and movement present and Clear speech present Affect: normal affect Attitude: cooperative Thought process: Normal thought process present Thought content: Normal thought content present Insight: Fair insight present (Psych) Judgement: Fair judgement present (Psych) Office Procedures Post Void Residual Post Residual Void Post Void Residual (PVR): 47 [id number] Void Residual by ultrasound Results AMB Urinalysis, Automated UA Leukoctes 0 Beatrice/uL Last Edit by Joe Dodson on 04/17/24 10:50 UA Nitrite Last Edit by Joe Dodson on 04/17/24 10:50 UA Urobilinogen 0.2 mg/dL Last Edit by [employer]kshay [employer]man Dodson on 04/17/24 10:50 UA Protein 0 mg/dL Last Edit by ArenElucid Bioimagingbahman Dodson on 04/17/24 10:50 UA pH 5.5 Last Edit by Joe Dodson on 04/17/24 10:50 UA Blood 0 Denys/uL Last Edit by Joe Camillajolly on 04/17/24 10:50 UA Specific Johnston 1.010 Last Edit by Joe Camillajolly on 04/17/24 10:50 UA Ketone Negative Last Edit by Joe Dodson on 04/17/24 10:50 UA Bilirubin 0 mg/dL Last Edit by Joe Dodson on 04/17/24 10:50 UA Glucose 500 mg/dL Last Edit by Joe Dodson on 04/17/24 10:50 Results Reviewed Results Reviewed: Laboratory Last Values Urine pH (Auto) 5.5 04/17/24 10:41 Specific Johnston (Auto) 1.010 04/17/24 10:41 Urine Protein (Auto) 0 mg/dL 04/17/24 10:41 Glucose (UA)(Auto) 500 mg/dL 04/17/24 10:41 Urine Ketones (Auto) Negative 04/17/24 10:41 Urine Blood (Auto) 0 Denys/uL 04/17/24 10:41 Urine Bilirubin (Auto) 0 mg/dL 04/17/24 10:41 Urine Urobilinogen (Auto) 0.2 mg/dL 04/17/24 10:41 Leukocyte Esterase (Auto) 0 Beatrice/uL 04/17/24 10:41 Assessment & Plan Assessment & Plan (1) BPH w urinary obs/LUTS: Code(s): N40.1 - Benign prostatic hyperplasia with lower urinary tract symptoms; N13.8 - Other obstructive and reflux uropathy Category: Medical (2) Urinary retention with incomplete bladder emptying: Code(s): R33.9 - Retention of urine, unspecified Category: Medical (3) Elevated PSA: Code(s): R97.20 - Elevated prostate specific antigen [PSA] Category: Medical (4) Bladder outlet obstruction: Code(s): N32.0 - Bladder-neck obstruction Category: Medical Plan In office urinalysis results reviewed with the patient today; as noted above. PVR 47 mL. Continue bethanechol, finasteride, and Flomax as prescribed. Patient currently denies any bothersome urinary issues or concerns. He reports be happy with current voiding parameters. Will obtain PSA. Follow-up in 6 months with lab to be completed prior and PVR at next office visit; or sooner with any issues, concerns, and or questions. Orders: Orders AMB Urinalysis Automated Today Z13.9 - Encounter for screening, unspecified AMB Post Void Residual by ultrasound Today R33.9 - Retention of urine, u nspecified Prostate Specific Antigen Today N13.8 - Other obstructive and reflux uropathy, N40.1 - Benign prostatic hyperplasia with lower urinary tract symptoms Prostate Specific Antigen 08/24 R97.20 - Elevated prostate specific antigen [PSA] Patient Instructions: The patient had an opportunity to ask questions regarding the treatment plan. All questions were answered. Physical exam, labs, and imaging were discussed and reviewed in detail. As well as risks, benefits, and discussion of treatment choices. No major barriers to understanding were identified. The patient expressed understanding and agreement with the above treatment plan. The patient was made aware they should contact our office by phone for worsening of their current condition, the appearance of new symptoms, or with any questions or concerns. Compliance is encouraged with any medications and follow up testing that is ordered. It is a privilege to be allowed the opportunity to participate in? your urological care.? Again, if you have any questions or concerns If you have any questions or concerns please do not hesitate to contact me. The office is [phone]. This note is constructed using voice recognition software. While every effort has been made to ensure accuracy book store associate errors may have been included. Yours sincerely, BRIGIDO Castaneda Coding Level of Care Code Est Pt Level 3 (42705) Complex EM visit Add On G2211 Diagnoses BPH w urinary obs/LUTS N40.1; N13.8 Urinary retention with incomplete bladder emptying R33.9 Elevated PSA R97.20 Bladder outlet obstruction N32.0 CPT Codes Post Residual Void - PVR CPT Code: 28300-Obts Void Residual by ultrasound ([id number])
== END 2024-04-17 11:06 | disposition home or self-care (01) ==
PROVIDERS: PCP Internal Medicine; Visit Provider Nurse Practitioner Family
DX: N40.1 Benign prostatic hyperplasia with lower urinary tract symptoms (principal); N13.8 Other obstructive and reflux uropathy; R33.9 Retention of urine, unspecified; R97.20 Elevated prostate specific antigen [PSA]; N32.0 Bladder-neck obstruction; Z13.9 Encounter for screening, unspecified
CPT/HCPCS: 99213; G2211

== ENCOUNTER → 2024-04-17 10:21 | Outpatient (BNVA) | payer OTHER, SELFPAY | PROVIDERS: PCP Internal Medicine; Visit Provider Nurse Practitioner Family | DX: R31.9 Hematuria, unspecified (principal); N40.1 Benign prostatic hyperplasia with lower urinary tract symptoms; R33.8 Other retention of urine; N13.8 Other obstructive and reflux uropathy; R97.20 Elevated prostate specific antigen [PSA]; N32.0 Bladder-neck obstruction | CPT/HCPCS: 51798; 81003; 99212 ==

== ENCOUNTER → 2024-05-17 23:59 | Outpatient (BNV) | payer OTHER, SELFPAY ==
--- NOTE | 2024-05-24 12:38 | MHC.OFFVIS ---
Intake Visit Reasons: Remote HF monitoring- [employer] Allergies No Known Allergies [No Known Allergies*] Allergy (Verified 04/17/24 11:04) PFSH Medical History Pulmonary emboli PAF (paroxysmal atrial fibrillation) Ischemic cardiomyopathy Atherosclerotic cardiovascular disease Hypertension Hypercholesteremia Diabetes mellitus, type 2 Myocardial infarction CVA (cerebral vascular accident) Surgical History H/O coronary artery bypass surgery (~04/27/20) Family History Father No problems noted. Mother No problems noted. Social History Household Members: None Housing: Apartment Do you presently have visiting nurse or other home services: Yes (EMERGENCY MANAGEMENT COORDINATOR daily) Alcohol intake: never Patient Tobacco Use Status: Former Tobacco user Substance Use Type: Crack/Cocaine Advance Directives Date on File: 03/14/21 service: No Current occupational status: unemployed Office Procedures Cardiac Device Check Cardiac Device Check Details: Date of service- 05/17/2024; based on impedance data and physiological variables, there is no evidence of worsening congestive heart failure. [id number] Cardiac Device Interrogation, cardio physiologic monitor Procedure code (CPT) selection complete Assessment & Plan Assessment & Plan (1) ICD (implantable cardioverter-defibrillator) in place: Code(s): Z95.810 - Presence of automatic (implantable) cardiac defibrillator Category: Medical (2) Ischemic cardiomyopathy: Code(s): I25.5 - Ischemic cardiomyopathy Category: Medical Plan x Coding Level of Care Code Procedure Only Diagnoses ICD (implantable cardioverter-defibrillator) in place Z95.810 Ischemic cardiomyopathy I25.5 CPT Codes Cardiac Device Check - Cardiac Device 15: [id number] Cardiac Device Interrogation, cardio physiologic monitor ([id number])
== END ==
PROVIDERS: PCP Internal Medicine; Visit Provider Internal Medicine
DX: I25.5 Ischemic cardiomyopathy (principal); Z95.810 Presence of automatic (implantable) cardiac defibrillator
CPT/HCPCS: 93297

== ENCOUNTER 2024-06-03 10:04 | Emergency (ER) | payer OTHER, SELFPAY ==
--- NOTE | ~2024-06-03 | XR_ITS ---
EXAMINATION: XR CHEST CLINICAL INFORMATION: Chest pain COMPARISON: 07/01/2023 TECHNIQUE: Frontal view of the chest was obtained. FINDINGS: Lungs clear. Heart size borderline with normal caliber pulmonary vessels. No congestive change. Sternal wires are present. Left-sided pacer present with distal tips directed towards right atrium and ventricular apex. No change. XR/XR chest 1V IMPRESSION: No active disease. Electronically signed by: Calvin Fields MD 06/03/2024 11:45 AM EDT
--- NOTE | 2024-06-03 10:07 | ECG_ITS ---
Test Reason : CHEST PAIN Blood Pressure : / mmHG Vent. Rate : 085 BPM Atrial Rate : 085 BPM P-R Int : 094 ms QRS Dur : 198 ms QT Int : 456 ms P-R-T Axes : 034 265 082 degrees QTc Int : 542 ms Atrial-sensed ventricular-paced rhythm Abnormal ECG When compared with ECG of 01-JUL-2023 10:20, Vent. rate has increased BY 2 BPM Referred By: Delia Guerrero Electronically Signed By:DEE LOVE MD
--- NOTE | 2024-06-03 10:08 | ED_ITS ---
HPI - Chest Pain General Chief Complaint: Chest Pain Stated Complaint: CP PER EMS Time Seen by Provider: 06/03/24 10:06 Source: patient, EMS, RN notes reviewed and old records reviewed Mode of arrival: EMS Limitations: no limitations History of Present Illness ED Provider: Belinda Guerrero PA-C HPI narrative: 58 yo male with history of ischemic cardiomyopathy w/ EF 20% s/p ICD, CAD s/p CABG, DM2, paroxysmal Afib, CVA, HLD, LBBB who presents to the ER from home via EMS for evaluation of acute onset of sharp, stabbing central chest pain that radiates to his bilateral shoulders and neck when he was in bed that started this morning when he was in bed. Patient states that he has baseline chest pain, but this chest pain is constant, worse at a 9/10 and he feels like it ?is choking me?. He also states that it hurts to touch his central Patient has right-sided paralysis from previous CVA. Denies SOB, nausea, vomiting, fever, chills, dizziness, abdominal pain. Patient is not on a blood thinner. Related Data Home Medications ?Medication ?Instructions ?Recorded ?Confirmed clopidogrel 75 mg tablet 75 mg PO DAILY 08/02/20 04/17/24 fenofibrate 54 mg tablet 54 mg PO DAILY 08/02/20 04/17/24 insulin glargine 100 unit/mL (3 22 unit subcut BEDTIME 08/02/20 04/17/24 mL) subcutaneous pen lancets 28 gauge #100 ea 08/02/20 04/17/24 omega-3 fatty acids-fish oil 340 1 cap PO TID 08/02/20 04/17/24 mg-1,000 mg capsule furosemide 40 mg tablet 40 mg PO DAILY 12/28/20 04/17/24 insulin lispro 100 unit/mL 2 unit subcut DAILY 12/28/20 04/17/24 subcutaneous pen (Admelog SoloStar U-100 Insulin lispro) insulin lispro 100 unit/mL 4 unit subcut DAILY@1200 12/28/20 04/17/24 subcutaneous pen (Admelog SoloStar U-100 Insulin lispro) insulin lispro 100 unit/mL 6 unit subcut DAILY@1800 12/28/20 04/17/24 subcutaneous pen (Admelog SoloStar U-100 Insulin lispro) blood sugar diagnostic (FreeStyle #10 ea 06/06/21 04/17/24 Lite Strips) duloxetine 20 mg capsule,delayed 20 mg PO DAILY 06/06/21 04/17/24 release pen needle, diabetic 32 gauge x #50 ea 06/06/21 04/17/24 (BD Kelli 2nd Gen Pen Needle) aspirin 81 mg tablet,delayed 81 mg PO DAILY 03/09/22 04/17/24 release famotidine 20 mg tablet 20 mg PO BID 04/18/22 04/17/24 metformin 1,000 mg tablet 1,000 mg PO BID 07/24/22 04/17/24 nitroglycerin 0.4 mg sublingual 0.4 mg sublingual 07/24/22 04/17/24 tablet Previous Rx's ?Medication ?Instructions ?Recorded acetaminophen 500 mg tablet 1,000 mg (2 x 500 mg) PO QID PRN 02/18/21 (Tylenol Extra Strength) fever or pain #14 tabs hydroxyzine HCl 25 mg tablet 25 mg PO TID PRN anixety #24 tabs 05/02/21 atorvastatin 80 mg tablet 80 mg PO DAILY 90 days #90 tabs 05/15/21 lorazepam 1 mg tablet (Ativan) 1 mg PO BEDTIME PRN sleep #3 tabs 05/29/21 tramadol 50 mg tablet 50 mg PO Q6H PRN pain (scale score 07/10/21 4-6) #14 tabs isosorbide mononitrate 30 mg 30 mg PO DAILY #90 tabs 04/10/22 tablet,extended release 24 hr metoprolol succinate 50 mg 50 mg PO DAILY #90 tabs 08/02/23 tablet,extended release 24 hr Farxiga 10 mg tablet 10 mg PO DAILY #90 tabs 09/18/23 (dapagliflozin propanediol) sacubitril 24 mg-valsartan 26 mg 1 tab PO BID 90 days #180 tabs 10/16/23 tablet (Entresto) bethanechol chloride 50 mg tablet 50 mg PO BID 90 days #180 tabs 10/18/23 finasteride 5 mg tablet 5 mg PO DAILY 90 days #90 tabs 10/18/23 tamsulosin 0.4 mg capsule 0.4 mg PO DAILY 90 days #90 caps 05/26/24 Allergies Allergy/AdvReac Type Severity Reaction Status Date / Time No Known Allergies Allergy Verified 06/03/24 10:17 [No Known Allergies*] Review of Systems 2 Review of Systems: Yes all other systems are reviewed and are negative [facility] Past Medical History Medical History Pulmonary emboli PAF (paroxysmal atrial fibrillation) Ischemic cardiomyopathy Atherosclerotic cardiovascular disease Hypertension Hypercholesteremia Diabetes mellitus, type 2 Myocardial infarction CVA (cerebral vascular accident) Surgical History H/O coronary artery bypass surgery (~04/27/20) Family History Family History Father No problems noted. Mother No problems noted. Social History Social History Household Members: None Housing: Apartment Do you presently have visiting nurse or other home services: Yes (SURGICAL GARMENT INSPECTOR daily) Alcohol intake: never Patient Tobacco Use Status: Former Tobacco user Smoked in Last 30 Days: No Use of substances other than those prescribed or required for medical reasons: No Substance Use Type: Crack/Cocaine Advance Directives: Yes Advance Directives on File: Yes Advance Directives Date on File: 03/14/21 Do you have a plan to hurt others: No Plan service: No Current occupational status: unemployed Physical Exam 2 Vital Signs: Vital Signs: Last Vital Signs Temp 98.2 F 06/03/24 10:25 Pulse 87 06/03/24 14:32 Resp 12 06/03/24 14:32 BP 137/67 06/03/24 14:32 Pulse Ox 98 06/03/24 14:32 O2 Del Method Room Air 06/03/24 14:32 BMI result Body Mass Index 28.1 Appearance: Alert. Oriented X3. Lying on stretcher in moderate distress complaining of chest pain. HEENT: Normal external inspection Neck: Normal inspection. Neck supple. CVS: Heart regular rate, LBBB with paced rhythm. Mild tenderness elicited to palpation of central chest. Respiratory: No respiratory distress. Breath sounds normal. Abdomen: Soft and nontender. Skin: Skin warm and dry. Normal skin color. Normal skin turgor. No rashes. Extremities: No lower extremity edema. No joint swelling. Neuro/psych: Oriented X 3. Stroke severe weakness on right side both upper and lower extremities due to previous CVA. CN II-XII grossly intact. Normal speech and cognition. Medications Administered Discontinued Medications Generic Name Dose Route Start Last Admin Trade Name Rom PRN Reason Stop Dose Admin Acetaminophen 975 mg 06/03/24 11:18 06/03/24 11:44 Acetaminophen 325 Mg Tablet PO 06/03/24 11:19 975 mg ONCE ONE Administration Morphine Sulfate 4 mg 06/03/24 11:18 06/03/24 11:45 Morphine Sulfate 4 Mg/Ml Cartridge IVPUSH 06/03/24 11:19 4 mg ONCE ONE Administration Protocol Medical Decision Making Medical Decision Making MDM Narrative: 58 yo male with history of ischemic cardiomyopathy w/ EF 20% s/p ICD, CAD s/p CABG, DM2, paroxysmal Afib, CVA, HLD, LBBB who presents to the ER from home via EMS for evaluation of acute onset of sharp, stabbing central chest pain that radiates to his bilateral shoulders and neck when he was in bed that started this morning when he was in bed. On arrival, patient is lying on the stretcher in moderate distress complaining of chest pain. On exam, heart is regular rate, LBBB with paced rhythm. Mild tenderness elicited to palpation of chest. Vital signs are stable with a BP of 150/64, HR 98, afebrile at 98.2 F, saturating well on room air at 97%. Plan: Labs, EKG, CXR. EKG is unchanged from prior with left bundle-branch block, paced rhythm, unchanged T-wave inversions and ST depressions. First troponin is 8. He was given morphine with improvement in the pain. Pain is managed now more localized to the right side, continues to be reproducible. Low suspicion for ACS at this point. Repeat troponin was done which remained flat, remained at 10. Not consistent with acute ischemia. He has an appointment with his stamping operator next week. At this time he is stable for discharge home with outpatient follow-up. Low suspicion for cardiac etiology of his chest pain. Encouraged Tylenol for musculoskeletal pain. Return precautions were discussed. Stable for DC home. Differential Diagnosis Differential Diagnoses: The differential diagnosis associated with the presentation includes ACS, musculoskeletal pain/costochondritis, infected pacemaker, PE, dissection Admission/Observation Consideration of admission/observation: Escalation of care including admission/observation considered Lab Data MDM Lab Attestation statement: I reviewed the patient's lab results. Troponin flat 06/03/24 10:59 06/03/24 10:59 Labs: Lab Results 06/03/24 06/03/24 Range/Units 10:59 14:37 WBC 7.8 (4.8-10.8) X10*3/uL RBC 5.46 (4.60-5.80) X10*6/uL Hgb 15.6 (14.0-18.0) g/dl Hct 47.0 (42.0-52.0) % MCV 86.1 (80.0-98.0) fL MCH 28.6 (27.0-33.0) pg MCHC 33.2 (31.0-36.0) g/dl RDW 15.2 (11.0-16.0) % Plt Count 337 (160-400) X10*3/uL MPV 11.2 (9.4-12.4) fL Immature Gran % (Auto) 0.4 (0.0-0.4) % Neut % (Auto) 67.2 (45-73) % Lymph % (Auto) 25.4 (20-40) % [place] % (Auto) 5.0 (2-11) % Eos % (Auto) 1.2 (0-4) % Baso % (Auto) 0.8 (0-2) % Lymph # (Auto) 2.0 (1.2-4.9) X10*3/uL [place] # (Auto) 0.4 (0.1-1.2) X10*3/uL Eos # (Auto) 0.1 (0.0-0.4) X10*3/uL Baso # (Auto) 0.1 (0.0-0.2) X10*3/uL Abs Immat Gran (auto) 0.03 (0.00-0.03) X10*3/uL Absolute Neuts (auto) 5.3 (2.0-8.3) x10*3/uL Absolute Nucleated RBC 0.000 (0.0-0.012) X10*3/uL Nucleated RBC % (auto) 0.0 (0.0-0.2) /100WBC PT 12.8 H (10.9-12.4) SEC INR 1.1 (0.9-1.1) APTT 30.6 (26.0-36.8) SEC Sodium 140 (135-145) mmol/L Potassium 4.0 (3.3-5.1) mmol/L Chloride 106 (96-108) mmol/L Carbon Dioxide 24 (22-29) mmol/L Anion Gap 14 (12-20) BUN 13 (9-16) mg/dL Creatinine 1.12 (0.5-1.4) mg/dL Estim Creat Clear Calc 67.0 Estimated GFR > 60 Random Glucose 170 H (60-115) mg/dL Calcium 9.8 (8.4-10.2) mg/dL Magnesium 1.8 (1.6-2.6) mg/dL Total Bilirubin 0.5 (0.0-1.0) mg/dL Direct Bilirubin 0.2 (0.0-0.5) mg/dL AST 15 (5-37) U/L ALT 16 (0-40) U/L Alkaline Phosphatase 55 (39-117) U/L Troponin I High Sens 8.1 10.1 (<3.5-35.0) ng/L B-Natriuretic Peptide 163 H (<100) pg/mL Total Protein 7.3 (6.5-8.0) g/dL Albumin 4.3 (3.5-5.0) g/dL Urine Color Yellow Urine Appearance Clear Urine pH 6.0 (5.0-9.0) Ur Specific [place] >= 1.030 H (1.005-1.025) Urine Protein Negative (Neg-Trace) mg/dL Urine Glucose (UA) >=1000 H (Negative) mg/dL Urine Ketones Negative (Negative) mg/dL Urine Blood Moderate (2+) H (Negative) Urine Nitrite Negative (Negative) Ur Leukocyte Esterase Negative (Negative) Urine RBC >20 H (0-2) /HPF Urine WBC 0-5 (0-5) /HPF Ur Squamous Epith Cells 0-2 (0-2) /HPF Urine Bacteria None Seen (None Seen) Hyaline Casts 0-2 (0-2) /LPF Independent Interpretation I performed an independent interpretation of an: EKG and Plain X-Ray Interpretation: EKG with paced rhythm, left bundle-branch block is present, T-wave inversions and ST depressions noted in aVL, V1, V2 which are unchanged from prior. No appreciated ST elevations. No significant change from prior EKG. Radiology Impression Discussion of test interpretation with radiology: I have reviewed the radiologist's reading. Radiologist Impression: XR/XR chest 1V IMPRESSION: No active disease. Independent Historian Clinical information obtained from an independent historian. History obtained from or confirmed by: EMS External Record Review External record reviewed: Inpatient record, Office record, Outpatient record, Prior outpatient labs and Prior outpatient radiology Tests considered The following testing was considered but not selected: CTA considered, low suspicion for dissection or PE given patient's reproducible on examination. Prescription Management I considered prescription management with: Pain Medication Chronic Conditions Patient?s care impacted by: Diabetes and Other (Ischemic cardiomyopathy, CAD) Critical Care Time Critical Care Time Critical Care Time: No Discharge Plan Discharge Clinical Impression: Chest pain Qualifiers: Chest pain type: unspecified Qualified Code(s): R07.9 - Chest pain, unspecified Patient Disposition: Home, Self-Care Instructions: Chest Pain (DC) Additional Instructions: Your lab workup today was reassuring. Your EKG had no changes. Take Tylenol as needed for possible muscle pain in your chest. Recommend following up your stamping operator. If you develop new or worsening symptoms call 911 or come back to the ER for further evaluation. Prescriptions: No Action atorvastatin 80 mg tablet 80 mg PO DAILY 90 Days Qty: 90 1RF isosorbide mononitrate 30 mg tablet extended release 24 hr 30 mg PO DAILY Qty: 90 3RF metoprolol succinate 50 mg tablet extended release 24 hr 50 mg PO DAILY Qty: 90 3RF Farxiga 10 mg tablet 10 mg PO DAILY Qty: 90 3RF Entresto 24-26 mg tablet 1 tab PO BID 90 Days Qty: 180 3RF tamsulosin 0.4 mg capsule 0.4 mg PO DAILY 90 Days Qty: 90 1RF furosemide 40 mg tablet 40 mg PO DAILY insulin lispro [Admelog SoloStar U-100 Insulin] 100 unit/mL Insulin Pen 2 unit SUBCUT DAILY insulin lispro [Admelog SoloStar U-100 Insulin] 100 unit/mL insulin pen 6 unit subcut DAILY@1800 insulin lispro [Admelog SoloStar U-100 Insulin] 100 unit/mL insulin pen 4 unit subcut DAILY@1200 acetaminophen [Tylenol Extra Strength] 500 mg tablet 1,000 mg PO QID PRN (Reason: fever or pain) Qty: 14 0RF metformin 1,000 mg tablet 1,000 mg PO BID hydroxyzine HCl 25 mg tablet 25 mg PO TID PRN (Reason: anixety) Qty: 24 0RF tramadol 50 mg tablet 50 mg PO Q6H PRN (Reason: pain (scale score 4-6)) Qty: 14 0RF lorazepam [Ativan] 1 mg tablet 1 mg PO BEDTIME PRN (Reason: sleep) Qty: 3 0RF insulin glargine 100 unit/mL (3 mL) insulin pen 22 unit subcut BEDTIME omega-3 fatty acids-fish oil 340-1,000 mg capsule 1 cap PO TID (DME) lancets 28 gauge misc See Rx Instructions topical DIRECTED Qty: 100 Rx Instructions: As directed clopidogrel 75 mg tablet 75 mg PO DAILY fenofibrate 54 mg tablet 54 mg PO DAILY duloxetine 20 mg capsule,delayed release(DR/EC) 20 mg PO DAILY (DME) pen needle, diabetic [BD Kelli 2nd Gen Pen Needle] 32 gauge x 5/32 needle See Rx Instructions .ROUTE .MEDSUPPLY Qty: 50 Rx Instructions: As directed (DME) FreeStyle Lite Strips Strip See Rx Instructions Not Applicable BID Qty: 10 Rx Instructions: As directed aspirin 81 mg tablet,delayed release (DR/EC) 81 mg PO DAILY nitroglycerin 0.4 mg tablet, sublingual 0.4 mg sublingual famotidine 20 mg tablet 20 mg PO BID finasteride 5 mg tablet 5 mg PO DAILY 90 Days Qty: 90 1RF bethanechol chloride 50 mg tablet 50 mg PO BID 90 Days Qty: 180 1RF Print Language: Greenlandic
[2024-06-03 10:15] VITALS: BP 150/64; PULSE 98; RESP 17; TEMP 36.8; O2SAT 97; BMI 28.1
[2024-06-03 10:25] VITALS: BP 150/64; PULSE 98; RESP 17; TEMP 36.8; O2SAT 97
[2024-06-03 11:06] LABS: MANUAL DIFF FLAG NO
[2024-06-03 11:10] LABS: Appearance Urine Clear; Color Urine Yellow; Glucose Urine UA >=1000 mg/dL (Negative); Leukocyte Esterase Urine Negative (Negative); Nitrite Urine Negative (Negative); Specific Gravity - Urine >= 1.030 (1.005-1.025); UMIC TRIGGER UACC YES; Urine Blood Moderate (2+) (Negative); Urine Ketones Negative (Negative); Urine Protein Negative (Neg-Trace)
[2024-06-03 11:14] LABS: INTERNATIONAL NORM RATIO 1.1 (0.9-1.1); Prothrombin Time 12.8 SEC (10.9-12.4)
[2024-06-03 11:16] LABS: Partial Thromboplastin Time 30.6 SEC (26.0-36.8)
--- NOTE | 2024-06-03 11:18 | PC.NURSE ---
Pt comes to ED via EMS from home with c/o increased chest pain. Pt reports chest pain as a baseline but todays pain is worse then his usual; 8/10 to chest with radiation to bilat shoulders. VSS, A&OX3, afebrile. Pt with Hx stroke with R sided weakness, uses cane and brace to RLE. Pacemaker to L chest noted and Pt is diabetic. Breaths and speech are slow, even, and unlabored. 22 L and placed by EMS.
[2024-06-03 11:20] LABS: Basophils Absolute Auto 0.1 X10*3/uL (0.0-0.2); Basophils Percent Auto 0.8 % (0-2); Eosinophils Absolute Auto 0.1 X10*3/uL (0.0-0.4); Eosinophils Percent Auto 1.2 % (0-4); Hemoglobin 15.6 g/dl (14.0-18.0); Imm Gran Abs Auto 0.03 X10*3/uL (0.00-0.03); Imm Gran Pct Auto 0.4 % (0.0-0.4); Lymphocytes Percent Auto 25.4 % (20-40); Mean Corpuscular HGB Conc 33.2 g/dl (31.0-36.0); Mean Corpuscular Hemoglobin 28.6 pg (27.0-33.0); Mean Corpuscular Volume 86.1 fL (80.0-98.0); Mean Platelet Volume 11.2 fL (9.4-12.4); Monocytes Absolute Auto 0.4 X10*3/uL (0.1-1.2); Neutrophils Absolute Auto 5.3 x10*3/uL (2.0-8.3); Neutrophils Percent Auto 67.2 % (45-73); Platelet Count 337 X10*3/uL (160-400); Red Blood Count 5.46 X10*6/uL (4.60-5.80); Red Cell Distribution Width 15.2 % (11.0-16.0); White Blood Count 7.8 X10*3/uL (4.8-10.8)
[2024-06-03 11:23] LABS: Alanine Aminotransferase 16 U/L (0-40); Albumin Level 4.3 g/dL (3.5-5.0); Alkaline Phosphatase 55 U/L (39-117); Anion Gap 14 (12-20); Aspartate Amino Transferase 15 U/L (5-37); Bilirubin Direct 0.2 mg/dL (0.0-0.5); Bilirubin Total 0.5 mg/dL (0.0-1.0); Blood Urea Nitrogen 13 mg/dL (9-16); Calcium 9.8 mg/dL (8.4-10.2); Carbon Dioxide 24 mmol/L (22-29); Chloride 106 mmol/L (96-108); Estimated Glomerular Filt Rate > 60; Glucose Random 170 mg/dL (60-115); Magnesium 1.8 mg/dL (1.6-2.6); Sodium 140 mmol/L (135-145); Total Protein 7.3 g/dL (6.5-8.0)
[2024-06-03 11:29] LABS: B Type Natriuretic Peptide 163 pg/mL (<100)
[2024-06-03 11:36] LABS: Bacteria Urine None Seen (None Seen); Hyaline Casts Urine 0-2 /LPF (0-2); RBC Urine >20 /HPF (0-2); Squamous Epithelial Cell Urine 0-2 /HPF (0-2); WBC Urine 0-5 /HPF (0-5)
[2024-06-03] MEDS: Acetaminophen 325 MG TABLET 975 MG PO (11:44)
[2024-06-03 11:45] VITALS: RESP 16
[2024-06-03 11:45] LABS: Troponin-I High Sensitivity 8.1 ng/L (<3.5-35.0)
[2024-06-03] MEDS: Morphine Sulfate 4 MG/ML CARTRIDGE IVPUSH (11:45)
[2024-06-03 14:32] VITALS: BP 137/67; PULSE 87; RESP 12; O2SAT 98
--- NOTE | 2024-06-03 14:35 | PC.NURSE ---
Pt reports feeling better at this time. States the medicine given helped to relieve some of his pain and feels good.
[2024-06-03 15:04] LABS: Troponin-I High Sensitivity 10.1 ng/L (<3.5-35.0)
[2024-06-03 15:13] VITALS: BP 137/67; PULSE 87; RESP 12; TEMP 36.7; O2SAT 98
== END 2024-06-03 15:30 | disposition home or self-care (01) ==
PROVIDERS: Physician Assistant; Emergency Provider Emergency Medicine; PCP Internal Medicine
DX: R07.9 Chest pain, unspecified (principal); I44.7 Left bundle-branch block, unspecified; Z79.899 Other long term (current) drug therapy
CPT/HCPCS: 36415; 71045; 80048; 80076; 81001; 83735; 83880; 84484; 85025; 85610; 85730; 93005; 96374; 99284; 99285; J2270

== ENCOUNTER → 2024-06-03 10:07 | Outpatient (BNV) | payer OTHER, SELFPAY | PROVIDERS: Emergency Provider Emergency Medicine; PCP Internal Medicine; Visit Provider Internal Medicine Cardiovascular Disease | DX: R94.31 Abnormal electrocardiogram [ECG] [EKG] (principal) | CPT/HCPCS: 93010 ==

== ENCOUNTER 2024-06-09 13:10 | Outpatient (AMB) | payer OTHER, SELFPAY ==
[2024-06-09 13:43] VITALS: BP 112/56; PULSE 88; BMI 27.4
--- NOTE | 2024-06-09 13:43 | A.OFFVIS_ITS ---
Vital Signs 06/09/24 13:43 Height 5 ft 5 in Weight 164 lb 14.492 oz BMI 27.4 BP 112/56 L Blood Pressure Location Lt brachial Position Sitting Pulse 88 Pulse Source Pulse Oximeter Intake Visit Reasons: 3 mth f/up w/ \medtronic ck Charge Authorizer Required: No Charge Authorizer Services: Charge Authorizer Offered & Declined Accompanied by: Self / Same As Patient Allergies No Known Allergies [No Known Allergies*] Allergy (Verified 06/03/24 10:17) Medication List - Last Reconciled 06/09/24 by [place] MD acetaminophen (Tylenol Extra Strength) 1,000 mg (2 x 500 mg) PO QID PRN aspirin 81 mg PO DAILY atorvastatin 80 mg PO DAILY 90 days bethanechol chloride 50 mg PO BID 90 days blood sugar diagnostic (FreeStyle Lite Strips) As directed clopidogrel 75 mg PO DAILY duloxetine 20 mg PO DAILY famotidine 20 mg PO BID Farxiga (dapagliflozin propanediol) 10 mg PO DAILY NS fenofibrate 54 mg PO DAILY finasteride 5 mg PO DAILY 90 days furosemide 40 mg PO DAILY hydroxyzine HCl 25 mg PO TID PRN insulin lispro (Admelog SoloStar U-100 Insulin lispro) 2 units subcut DAILY insulin lispro (Admelog SoloStar U-100 Insulin lispro) 6 units subcut DAILY@1800 insulin lispro (Admelog SoloStar U-100 Insulin lispro) 4 units subcut DAILY@1200 isosorbide mononitrate ER 30 mg PO DAILY lancets As directed lorazepam (Ativan) 1 mg PO BEDTIME PRN metformin 1,000 mg PO BID metoprolol succinate ER 50 mg PO DAILY nitroglycerin 0.4 mg sublingual omega-3 fatty acids-fish oil 340-1,000 mg 1 cap PO TID pen needle, diabetic (BD Kelli 2nd Gen Pen Needle) As directed sacubitril-valsartan 24-26 mg (Entresto) 1 tab PO BID 90 days tamsulosin 0.4 mg PO DAILY 90 days tramadol 50 mg PO Q6H PRN HPI Comments Details: Cam returns for follow-up regarding coronary disease and several other issues. He has a fairly long and complex cardiovascular history, summarized as below. To recall, he had a stroke around 2012 with resultant right-sided hemiparesis and facial droop. He had a 2nd stroke in 2018 again in the right side. He has multiple vascular risk factors including type 2 diabetes on insulin, hypertension, dyslipidemia. He also has a history of cocaine use many years ago, but nothing recently. He went for an elective endoscopy and developed hypoxia and pulmonary edema. Then intubated and sent to [facility] CCU. Underwent cardiac catheterization showing multivessel CAD. He also had severe cardiomyopathy. Had coronary artery bypass surgery. Then, admitted to [facility] with complete heart block and underwent biventricular ICD placement. He recovered from that but then had one further admission where he had chest pain and diagnosed to have pulmonary embolism. Then started Eliquis-now stopped. Over the last year, he is generally okay. No new cardiac symptoms. [facility] Medical History Pulmonary emboli PAF (paroxysmal atrial fibrillation) Ischemic cardiomyopathy Atherosclerotic cardiovascular disease Hypertension Hypercholesteremia Diabetes mellitus, type 2 Myocardial infarction CVA (cerebral vascular accident) Surgical History H/O coronary artery bypass surgery (~04/27/20) Family History Father No problems noted. Mother No problems noted. Social History Household Members: None Housing: Apartment Do you presently have visiting nurse or other home services: Yes (ASSIGNMENT DESK ASSISTANT daily) Alcohol intake: never Patient Tobacco Use Status: Former Tobacco user Substance Use Type: Crack/Cocaine Advance Directives Date on File: 03/14/21 service: No Current occupational status: unemployed Review of Systems Const Denies chills, Denies fatigue, Denies fever(s), Denies weight gain and Denies weight loss ENT Denies dizziness Card Denies chest pain, Denies leg edema, Denies lightheadedness, Denies palpitations, Denies dyspnea on exertion, Denies orthopnea and Denies other Resp Denies cough and Denies dyspnea on exertion GI Denies hematochezia and Denies change in stool character Musc Denies abnormal gait, Denies muscle weakness, Denies numbness, Denies radiating pain into limb and Denies tingling Neuro Denies abnormal gait, Denies dizziness, Denies numbness and Denies tingling Endo Denies fatigue and Denies palpitations Physical Exam Vital Signs: Last Vital Signs Pulse 88 06/09/24 13:43 BP 112/56 L 06/09/24 13:43 BMI result Body Mass Index 27.4 Const General: comfortable and no acute distress Orientation/consciousness: patient oriented x3 HEENT Other: Unremarkable Head: Yes normal to inspection Neck Neck: Yes normal visual inspection Chest Chest palpation & inspection: normal inspection of the chest Resp Auscultation: clear to auscultation bilaterally Cardio Palpation: normal PMI Heart sounds: S1 normal heart sound present, S2 normal heart sound present, no gallops, no murmurs and no rubs GI Palpation (GI): Soft to palpation Back/Spine/Pelvis Other: unremarkable Skin General skin exam: no rashes or lesions noted Neuro General: patient oriented x3 Extrem General: Yes normal to inspection Psych Mental Status: mental status grossly normal Office Procedures Cardiac Device Check Cardiac Device Check Details: ICD interrogated today. Programmed DDDR. Battery status 4.3 years. Normal lead parameters. Effective ventricular pacing > 99%. No episodes. Overall, normal device function. [id number] Cardiac Device Check, multi lead implantable defibrillator Procedure code (CPT) selection complete Assessment & Plan Assessment & Plan (1) Atherosclerotic cardiovascular disease: Code(s): I25.10 - Atherosclerotic heart disease of [place] coronary artery without angina pectoris Category: Medical Plan: Most recent cardiac catheterization shows patent grafts. Stable. Plan to continue long-term dual antiplatelet therapy considering numerous vascular issues. (2) Ischemic cardiomyopathy: Code(s): I25.5 - Ischemic cardiomyopathy Category: Medical Plan: In the last echocardiogram, LVEF 20-25%. He is on metoprolol ER, Entresto, Farxiga. Low-dose diuretics. Add spironolactone and check labs few days after that. Discussed with patient. (3) Atrial tachycardia: Code(s): I47.1 - Supraventricular tachycardia Category: Medical Plan: In the past, on device check, not clear if it is atrial tachycardia or slow flutter. No recent issues. (4) PAF (paroxysmal atrial fibrillation): Code(s): I48.0 - Paroxysmal atrial fibrillation Category: Medical Plan: Postoperative episode. Was on short-term amiodarone but now off. He was on Eliquis for the pulmonary embolism but that seems to have been stopped as well. (5) CVA (cerebral vascular accident): Code(s): I63.9 - Cerebral infarction, unspecified Category: Medical Plan: Based on vascular consultation from 2018, he had right-sided carotid occlusion. This is apparently chronic. In the last carotid ultrasound, minimal stenosis on the right carotid. Left- sided with moderate stenosis 50-79%. May recheck. (6) Other and unspecified hyperlipidemia: Code(s): E78.5 - Hyperlipidemia, unspecified Category: Medical Plan: On high dose statins/fenofibrate. Last LDL 90 mg/dL. Less than optimal. May need Repatha or Praluent but he is already on so much of polypharmacy. (7) Pulmonary emboli: Code(s): I26.99 - Other pulmonary embolism without acute cor pulmonale Category: Medical Plan: Per [facility] documentation, left lower lobe pulmonary embolism from CTA 10/2021. Off Eliquis. Orders: Orders US carotid duplex BI Today I65.23 - Occlusion and stenosis of bilateral carotid arteries CA echo transthoracic complete Today I25.5 - Ischemic cardiomyopathy Basic Metabolic Panel 2 Weeks I25.5 - Ischemic cardiomyopathy, I50.9 - Heart failure, unspecified B Type Natriuretic Peptide 2 Weeks I25.5 - Ischemic cardiomyopathy, I50.9 - Heart failure, unspecified Medications: New spironolactone 25 mg PO DAILY 90 tabs 3RF I25.5 - Ischemic cardiomyopathy Coding Level of Care Code Est Pt Level 4 (91439) Diagnoses Atherosclerotic cardiovascular disease I25.10 Ischemic cardiomyopathy I25.5 Atrial tachycardia I47.1 PAF (paroxysmal atrial fibrillation) I48.0 Cerebrovascular accident (CVA) due to other mechanism I63.9 Other and unspecified hyperlipidemia E78.5 Pulmonary emboli I26.99 CPT Codes Cardiac Device Check - Cardiac Device 6: [id number] Cardiac Device Check, multi lead implantable defibrillator ([id number])
== END 2024-06-09 14:09 | disposition home or self-care (01) ==
PROVIDERS: PCP Internal Medicine; Visit Provider Internal Medicine
DX: I25.10 Atherosclerotic heart disease of native coronary artery without angina pectoris (principal); I25.5 Ischemic cardiomyopathy; I47.10 Supraventricular tachycardia, unspecified; I48.0 Paroxysmal atrial fibrillation; I63.9 Cerebral infarction, unspecified; E78.5 Hyperlipidemia, unspecified; I26.99 Other pulmonary embolism without acute cor pulmonale
CPT/HCPCS: 93284; 99214

== ENCOUNTER → 2024-06-09 13:10 | Outpatient (BNVA) | payer OTHER, SELFPAY | PROVIDERS: PCP Internal Medicine; Visit Provider Internal Medicine | DX: Z45.02 Encounter for adjustment and management of automatic implantable cardiac defibrillator (principal); I25.10 Atherosclerotic heart disease of native coronary artery without angina pectoris; I25.5 Ischemic cardiomyopathy; I48.0 Paroxysmal atrial fibrillation; I26.99 Other pulmonary embolism without acute cor pulmonale; E78.5 Hyperlipidemia, unspecified; Z86.73 Personal history of transient ischemic attack (TIA), and cerebral infarction without residual deficits | CPT/HCPCS: 99212 ==

== ENCOUNTER 2024-06-16 10:14 | Outpatient (REF) | payer OTHER, SELFPAY ==
[2024-06-16 12:01] LABS: B Type Natriuretic Peptide 108 pg/mL (<100)
[2024-06-16 12:20] LABS: Anion Gap 11 (12-20); Blood Urea Nitrogen 10 mg/dL (9-16); Calcium 10.2 mg/dL (8.4-10.2); Carbon Dioxide 29 mmol/L (22-29); Chloride 101 mmol/L (96-108); Estimated Glomerular Filt Rate > 60; Glucose Random 118 mg/dL (60-115); Potassium 4.1 mmol/L (3.3-5.1); Sodium 137 mmol/L (135-145)
== END 2024-06-16 10:15 | disposition home or self-care (01) ==
LOC: HO.LAB 10:14
PROVIDERS: PCP Internal Medicine; Visit Provider Internal Medicine
DX: I50.9 Heart failure, unspecified (principal); I25.5 Ischemic cardiomyopathy
CPT/HCPCS: 36415; 80048; 83880

== ENCOUNTER → 2024-06-17 23:59 | Outpatient (BNV) | payer OTHER, SELFPAY ==
--- NOTE | 2024-06-21 11:32 | A.OFFVIS_ITS ---
Intake Visit Reasons: remote HF monitoriing- [employer] Allergies No Known Allergies [No Known Allergies*] Allergy (Verified 06/03/24 10:17) PFSH Medical History Pulmonary emboli PAF (paroxysmal atrial fibrillation) Ischemic cardiomyopathy Atherosclerotic cardiovascular disease Hypertension Hypercholesteremia Diabetes mellitus, type 2 Myocardial infarction CVA (cerebral vascular accident) Surgical History H/O coronary artery bypass surgery (~04/27/20) Family History Father No problems noted. Mother No problems noted. 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 [id number] Cardiac Device Interrogation, cardio physiologic monitor Procedure code (CPT) selection complete Assessment & Plan Assessment & Plan (1) ICD (implantable cardioverter-defibrillator) in place: Code(s): Z95.810 - Presence of automatic (implantable) cardiac defibrillator Category: Medical (2) Ischemic cardiomyopathy: Code(s): I25.5 - Ischemic cardiomyopathy Category: Medical Plan x Coding Level of Care Code Procedure Only Diagnoses ICD (implantable cardioverter-defibrillator) in place Z95.810 Ischemic cardiomyopathy I25.5 CPT Codes Cardiac Device Check - Cardiac Device 15: [id number] Cardiac Device Interrogation, cardio physiologic monitor ([id number])
== END ==
PROVIDERS: PCP Internal Medicine; Visit Provider Internal Medicine
DX: I25.5 Ischemic cardiomyopathy (principal); Z95.810 Presence of automatic (implantable) cardiac defibrillator
CPT/HCPCS: 93297

== ENCOUNTER → 2024-06-17 23:59 | Outpatient (BNV) | payer OTHER, SELFPAY ==
--- NOTE | 2024-06-21 19:05 | A.OFFVIS_ITS ---
Intake Visit Reasons: Remote ICD check- [employer] Allergies No Known Allergies [No Known Allergies*] Allergy (Verified 06/03/24 10:17) PFS Medical History Pulmonary emboli PAF (paroxysmal atrial fibrillation) Ischemic cardiomyopathy Atherosclerotic cardiovascular disease Hypertension Hypercholesteremia Diabetes mellitus, type 2 Myocardial infarction CVA (cerebral vascular accident) Surgical History H/O coronary artery bypass surgery (~04/27/20) Family History Father No problems noted. Mother No problems noted. 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 [id number] Cardiac Interrogation, implant defibrillator w/interim Procedure code (CPT) selection complete Assessment & Plan Assessment & Plan (1) ICD (implantable cardioverter-defibrillator) in place: Code(s): Z95.810 - Presence of automatic (implantable) cardiac defibrillator Category: Medical (2) Ischemic cardiomyopathy: Code(s): I25.5 - Ischemic cardiomyopathy Category: Medical Plan x Coding Level of Care Code Procedure Only Diagnoses ICD (implantable cardioverter-defibrillator) in place Z95.810 Ischemic cardiomyopathy I25.5 CPT Codes Cardiac Device Check - Cardiac Device 13: [id number] Cardiac Interrogation, implant defibrillator w/interim ([id number])
== END ==
PROVIDERS: PCP Internal Medicine; Visit Provider Internal Medicine
DX: I25.5 Ischemic cardiomyopathy (principal); Z95.810 Presence of automatic (implantable) cardiac defibrillator
CPT/HCPCS: 93295

== ENCOUNTER → 2024-07-09 09:51 | Outpatient (REF) | payer OTHER, SELFPAY ==
--- NOTE | ~2024-07-09 | US_ITS ---
EXAMINATION: US EXTRACRANIAL CAROTID DUPLEX, BILATERAL CLINICAL INFORMATION: Hypertension, hyperlipidemia, diabetes COMPARISON: Carotid ultrasound dated 06/12/2023 TECHNIQUE: Real-time ultrasound and Doppler techniques (integrating B-mode 2-D vascular images, Doppler spectral analysis and color-flow Doppler imaging) were utilized to interrogate the extracranial carotid arteries, the vertebral arteries and proximal subclavian arteries bilaterally. The degree of stenosis is determined by criteria similar to NASCET. FINDINGS: Right Side: 1. There is moderate atherosclerotic plaque seen in the bifurcation/proximal ICA region. 2. The common carotid artery PSV proximally is 50 cm/s and distally 45 cm/s. 3. The proximal internal carotid artery velocities are 46 cm/s systolic and 11 cm/s diastolic. 4. The proximal external carotid artery PSV is 548 cm/s. 5. The vertebral artery shows antegrade flow. 6. The subclavian artery waveforms are normal. Left Side: 1. There is moderate atherosclerotic plaque seen in the bifurcation/proximal ICA region. 2. The common carotid artery PSV proximally is 110 cm/s and distally 93 cm/s. 3. The proximal internal carotid artery velocities are 217 cm/s systolic and 49 cm/s diastolic. 4. The proximal external carotid artery PSV is 105 cm/s. 5. The left vertebral artery is not well visualized. 6. The subclavian artery waveforms are normal. US/US carotid duplex BI IMPRESSION: 1. RIGHT: Minimal, non-hemodynamically significant stenosis of the proximal right internal carotid artery corresponding to a 0-49% stenosis by velocity criteria. 2. LEFT: Moderate, hemodynamically significant stenosis of the proximal left internal carotid artery corresponding to a 50-79% stenosis by velocity criteria. 3. There is no change in the category severity of disease when compared to the previous study dated 06/12/2023. 4. Severe stenosis of the right external carotid artery by velocity criteria. Electronically signed by: Kori Miller MD 08/05/2024 04:41 PM EST
--- NOTE | 2024-07-09 09:54 | CA_ITS ---
Transthoracic Echocardiogram Patient (Last, First, Middle): Cam Vera, Gender: Male Date of : 1965 Age: 58 Procedure Date: 07/09/2024 Procedure Type: Transthoracic Echocardiogram Location: OP Height: 165.1 cm Weight: 77.11 kg BSA: 1.85 m2 Heart Rate: bpm BP: 120 / 78 mmHg Fraud Investigator: OKSANA Referring MD: [place] MD Anesthesiologist Assistant Certified: Roman Escobedo MD Symptoms: I25.5 - Ischemic cardiomyopathy Study Quality: Fair with contrast ECG Rhythm: Sinus Conclusions: - 1. Mildly dilated left ventricle with moderate to severe LV systolic dysfunction with LVEF of 30-35% with elevated filling pressures 2. Mild biatrial enlargement 3. Mild mitral regurgitation with possible early mild aortic stenosis 4. Normal RV systolic pressure Findings Procedure Information Contrast agent, definity, is being given per protocol without apparent complications. Left Ventricle Mildly increased left ventricular cavity size. There is mildly increased left ventricular wall thickness. The left ventricular systolic function is moderate to severely decreased. The visually estimated ejection fraction is between 30-35%. Spectral Doppler is indicative of an impaired relaxation filling pattern. Elevated filling pressures. E/E prime ratio is >15, consistent with elevated filling pressures. Wall Motion Rest Echo Findings The basal inferior, mid inferior, mid inferoseptal, and mid anteroseptal segments are hypokinetic. The inferolateral wall, the apical inferior, apical septum, and basal anterolateral segments are akinetic. All other scored wall segments showed normal motion. Right Ventricle Normal right ventricular cavity size. There is normal right ventricular systolic function. There is an ICD wire seen in the right ventricle. Atria Mild biatrial enlargement. A pacemaker wire is identified in the right atrium. Aortic Valve The aortic valve was not well visualized. There is mild calcification of the aortic valve. The mean gradient is 4 mmHg. The aortic valve area is 1.74 cm2. There is mild aortic valve regurgitation. Mitral Valve There is mild anterior and moderate posterior mitral leaflet thickening. There is moderate mitral annular calcification. There is mild mitral valve regurgitation. There is no mitral valve stenosis. Pulmonic Valve The pulmonic valve is likely normal. There is trace pulmonic valve regurgitation. Tricuspid Valve Normal tricuspid valve structure. There is mild tricuspid valve regurgitation. The right ventricular systolic pressure is normal. The right ventricular systolic pressure is 33 mmHg. Normal right atrial pressure. There is no evidence of pulmonary hypertension. Great Vessels All visible segments of the aorta are normal in size. The pulmonary artery was not well visualized. There is no dilatation of the ascending aorta measuring 3.40 cm. Small plaque is seen in the sino tubular ridge. Venous The inferior vena cava is normal in size and collapses greater than 50% with inspiration. Pericardium/Pleural The pericardium was not well visualized. Measurements 2D Linear Measurements IVSd: 1.28 0.6-0.9/0.6-1.0 cm LVIDd: 5.79 3.9-5.3/4.2-5.9 cm LVIDd Index: 3.13 2.4-3.2/2.2-3.1 cm/m2 LVIDs: 5.10 2.0-3.6 cm LVPWd: 0.74 0.7-1.1 cm LA Diam: 4.30 2.7-3.8/3.0-4.0 cm LAIDs Index: 2.32 1.5-2.3 cm/m2 LV Mass: 293.19 67-162/88-224 g LV Mass Index: 158.48 43-95/49-115 g/m2 LVOT Diam: 2.00 3.0+(-)1.3 cm 2D Systolic Function EF 4C: 34.00 >55% EF 2C: 28.50 >55% EF BiP: 31.90 >55% Mitral Valve MV Pk E: 1.00 MV PK A: 1.14 MV Decel Time: 237.00 E/A: 0.90 E'Lateral: 4.79 E'Medial: 4.35 E/E' Med: 23.00 E/E' Lat: 20.90 PHT: 69.00 MVA PHT: 3.19 Decel Meagher: 4.21 Aortic Valve AoV Pk Bruno: 1.41 AoV Mn Bruno: 0.98 AoV VTI: 0.31 AoV Pk Grad: 8.00 Aov Mn Grad: 4.00 BILL Cont.VTI: 1.74 LVOT LVOT Pk Bruno: 0.85 LVOT Mn Bruno: 0.51 LVOT VTI: 0.17 LVOT Pk Grad: 3.00 LVOT Mn Grad: 1.00 LVOT Diam: 2.00 LVOT Area: 3.14 Diastolic Function MV Pk E: 1.00 MV Pk A: 1.14 E/A: 0.90 E'Medial: 4.35 E/E' Med: 23.00 E' Laterial: 4.79 E/E' Lat: 20.90 Right Ventricle TAPSE (mm): 18.90 TVS' Bruno: 7.18 Tricuspid Valve TR Pk Bruno: 2.52 TR Pk Grad: 25.00 RA Press: 8.00 RVSP: 33.00 Great Vessels Aorta Sinus of Valsalva: 4.03 2.0-3.[address] Ridge: 2.99 1.7-3.4 cm Ao Asc: 3.40 2.1-3.4 cm Updated in Other Vendor System with Status of Final Roman Escobedo MD electronically signed on 07/09/2024 3:11:28 PM with status of Final
== END ==
LOC: HO.CARD 09:51
PROVIDERS: PCP Internal Medicine; Visit Provider Internal Medicine
DX: I65.23 Occlusion and stenosis of bilateral carotid arteries (principal); I25.5 Ischemic cardiomyopathy
CPT/HCPCS: 93306; 93880; Q9957

== ENCOUNTER → 2024-07-09 09:54 | Outpatient (BNV) | payer OTHER, SELFPAY | PROVIDERS: PCP Internal Medicine; Visit Provider Internal Medicine Cardiovascular Disease | DX: I35.2 Nonrheumatic aortic (valve) stenosis with insufficiency (principal); I34.0 Nonrheumatic mitral (valve) insufficiency; I36.1 Nonrheumatic tricuspid (valve) insufficiency; I25.5 Ischemic cardiomyopathy | CPT/HCPCS: 93306 ==

== ENCOUNTER → 2024-07-18 23:59 | Outpatient (BNV) | payer OTHER, SELFPAY ==
--- NOTE | 2024-08-04 12:58 | A.OFFVIS_ITS ---
Intake Visit Reasons: Remote HF monitoring- [employer] Allergies No Known Allergies [No Known Allergies*] Allergy (Verified 06/03/24 10:17) PFSH Medical History Pulmonary emboli PAF (paroxysmal atrial fibrillation) Ischemic cardiomyopathy Atherosclerotic cardiovascular disease Hypertension Hypercholesteremia Diabetes mellitus, type 2 Myocardial infarction CVA (cerebral vascular accident) Surgical History H/O coronary artery bypass surgery (~04/27/20) Family History Father No problems noted. Mother No problems noted. 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 [id number] Cardiac Device Interrogation, cardio physiologic monitor Procedure code (CPT) selection complete Assessment & Plan Assessment & Plan (1) ICD (implantable cardioverter-defibrillator) in place: Code(s): Z95.810 - Presence of automatic (implantable) cardiac defibrillator Category: Medical (2) Ischemic cardiomyopathy: Code(s): I25.5 - Ischemic cardiomyopathy Category: Medical Plan x Coding Level of Care Code Procedure Only Diagnoses ICD (implantable cardioverter-defibrillator) in place Z95.810 Ischemic cardiomyopathy I25.5 CPT Codes Cardiac Device Check - Cardiac Device 15: [id number] Cardiac Device Interrogation, cardio physiologic monitor ([id number])
== END ==
PROVIDERS: PCP Internal Medicine; Visit Provider Internal Medicine
DX: I25.5 Ischemic cardiomyopathy (principal); Z95.810 Presence of automatic (implantable) cardiac defibrillator
CPT/HCPCS: 93297

== ENCOUNTER → 2024-08-18 23:59 | Outpatient (BNV) | payer OTHER, SELFPAY ==
--- NOTE | 2024-08-29 12:15 | MHC.OFFVIS ---
Intake Visit Reasons: Remote HF monitoring- [employer] Allergies No Known Allergies [No Known Allergies*] Allergy (Verified 06/03/24 10:17) PFSH Medical History Pulmonary emboli PAF (paroxysmal atrial fibrillation) Ischemic cardiomyopathy Atherosclerotic cardiovascular disease Hypertension Hypercholesteremia Diabetes mellitus, type 2 Myocardial infarction CVA (cerebral vascular accident) Surgical History H/O coronary artery bypass surgery (~04/27/20) Family History Father No problems noted. Mother No problems noted. 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 [id number] Cardiac Device Interrogation, cardio physiologic monitor Procedure code (CPT) selection complete Assessment & Plan Assessment & Plan (1) ICD (implantable cardioverter-defibrillator) in place: Code(s): Z95.810 - Presence of automatic (implantable) cardiac defibrillator Category: Medical (2) Ischemic cardiomyopathy: Code(s): I25.5 - Ischemic cardiomyopathy Category: Medical Plan x Coding Level of Care Code Procedure Only Diagnoses ICD (implantable cardioverter-defibrillator) in place Z95.810 Ischemic cardiomyopathy I25.5 CPT Codes Cardiac Device Check - Cardiac Device 15: [id number] Cardiac Device Interrogation, cardio physiologic monitor ([id number])
== END ==
PROVIDERS: PCP Internal Medicine; Visit Provider Internal Medicine
DX: I25.5 Ischemic cardiomyopathy (principal); Z95.810 Presence of automatic (implantable) cardiac defibrillator
CPT/HCPCS: 93297

== ENCOUNTER → 2024-10-19 23:59 | Outpatient (BNV) | payer OTHER, SELFPAY ==
--- NOTE | 2024-10-20 19:10 | MHC.OFFVIS ---
Intake Visit Reasons: Remote HF monitoring- [employer] Allergies No Known Allergies [No Known Allergies*] Allergy (Verified 06/03/24 10:17) PFSH Medical History Pulmonary emboli PAF (paroxysmal atrial fibrillation) Ischemic cardiomyopathy Atherosclerotic cardiovascular disease Hypertension Hypercholesteremia Diabetes mellitus, type 2 Myocardial infarction CVA (cerebral vascular accident) Surgical History H/O coronary artery bypass surgery (~04/27/20) Family History Father No problems noted. Mother No problems noted. 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 [id number] Cardiac Device Interrogation, cardio physiologic monitor Procedure code (CPT) selection complete Assessment & Plan Assessment & Plan (1) ICD (implantable cardioverter-defibrillator) in place: Code(s): Z95.810 - Presence of automatic (implantable) cardiac defibrillator Category: Medical (2) Ischemic cardiomyopathy: Code(s): I25.5 - Ischemic cardiomyopathy Category: Medical Plan x Coding Level of Care Code Procedure Only Diagnoses ICD (implantable cardioverter-defibrillator) in place Z95.810 Ischemic cardiomyopathy I25.5 CPT Codes Cardiac Device Check - Cardiac Device 15: [id number] Cardiac Device Interrogation, cardio physiologic monitor ([id number])
== END ==
PROVIDERS: PCP Internal Medicine; Visit Provider Internal Medicine
DX: I25.5 Ischemic cardiomyopathy (principal); Z95.810 Presence of automatic (implantable) cardiac defibrillator
CPT/HCPCS: 93297

== ENCOUNTER 2024-11-09 09:41 | Outpatient (REF) | payer OTHER, SELFPAY ==
[2024-11-09 11:28] LABS: Prostate Specific Antigen 2.24 ng/mL (<0.05-4.0)
== END 2024-11-09 09:42 | disposition home or self-care (01) ==
LOC: HO.10HDL 09:41
PROVIDERS: Visit Provider Nurse Practitioner Family
DX: N40.1 Benign prostatic hyperplasia with lower urinary tract symptoms (principal); N13.8 Other obstructive and reflux uropathy
CPT/HCPCS: 36415; 84153

== ENCOUNTER 2024-11-18 10:14 | Outpatient (AMB) | payer OTHER, SELFPAY ==
--- NOTE | 2024-11-18 10:18 | MHC.OFFVIS ---
Intake Visit Reasons: 6m/PSA/PVR(set) Intake Note: Patient is present for a 6 month follow Up/PSA/PVR Urology Medication: Tamsulosin, Finasteride, Bethanechol Antibiotic Allergies: None Blood Thinners: Aspirin, Plavix PVR:51ml Slag Skimmer Required: No Accompanied by: Self / Same As Patient Allergies No Known Allergies [No Known Allergies*] Allergy (Verified 11/18/24 10:34) HPI Comments Details: Cam is a very pleasant 58-year-old male patient of Dr. Parikh. He has a past medical history of paroxysmal AFib, ischemic cardiomyopathy, ACD, hypertension, hypercholesteremia, diabetes type 2, PA, and CVA. He presents to the office today for follow-up of his lower urinary tract symptoms, hematuria, and history of urinary retention. He reports compliance with bethanechol, Flomax, and Finasteride as prescribed. He currently denies any bothersome urinary issues or concerns. In office urinalysis results reviewed with the patient today. PVR 51 mL. When asked he denies incontinence, nocturia, hematuria, dysuria, foul smelling urine, changes to urinary stream, flank pain, fever, and or chills. He does report episodes of urinary urgency and frequency however feels they are manageable. He is happy with his current voiding parameters on urological medications. Recent PSA results reviewed with the patient today 11/17 2.2. Plan The patient's benign prostatic hyperplasia is well-controlled with Tamsulosin, Finasteride, and bethanechol therapy, exhibiting improved urinary symptoms and a stable PSA level. A future review of his urinary function and annual PSA test will be maintained. He will follow up in six months, without the need for interim blood work unless new symptoms arise. Patient was informed and verbally consented to the use of an ambient scribe for clinic note documentation during this visit. Discussion Notes I have discussed with the patient the current management of his benign prostatic hyperplasia, emphasizing the positive response to Tamsulosin,Finasteride and bethanechol in managing symptoms and preventing urinary retention. The stable PSA levels support the continuation of his current regimen. We've agreed to continue current treatment and monitor symptoms, with a renewal visit in six months unless issues develop sooner. No new tests are necessary at this stage. The patient expressed understanding and agreed with the management plan. PREVIOUS OFFICE NOTE HISTORY: Lower urinary tract symptoms Feeling of incomplete emptying and weakness of stream Background diabetic on insulin Takes Lasix tablets Current prostate therapy includes finasteride and tamsulosin Cystoscopy 09/15 left prominent prostate lobe, open right lobe Prostate intervention 08/15 GreenLight laser PSA - prior negative biopsy 2019 - 04/14 5.9, 09/15 9.2, 06/15 3.99, 03/16 5.3 Urinary retention with Vaughan catheter 03/16 Hematuria was diagnosed during - cristopher urine went to emergency room June 2020 They are here for the - further evaluation evaluation - discussion of results and cystoscopy Since the last visit the patient has - does not test positive for microscopic hematuria. Relevant medical history for no pertinent medical history - anticoagulation therapy - prior stroke - kidney stones Radiographic imaging: none completed - CT KUB June 2020 7 mm right stone, normal bladder Other investigations - cytology, normal PFSH Medical History Pulmonary emboli PAF (paroxysmal atrial fibrillation) Ischemic cardiomyopathy Atherosclerotic cardiovascular disease Hypertension Hypercholesteremia Diabetes mellitus, type 2 Myocardial infarction CVA (cerebral vascular accident) Surgical History H/O coronary artery bypass surgery (~04/27/20) Family History Father No problems noted. Mother No problems noted. Social History Household Members: None Housing: Apartment Do you presently have visiting nurse or other home services: Yes ([employer] daily) Alcohol intake: never Patient Tobacco Use Status: Former Tobacco user Substance Use Type: Crack/Cocaine Advance Directives Date on File: 03/14/21 service: No Current occupational status: unemployed Review of Systems Const Reports no additional complaints Eyes Reports no additional complaints ENT Reports no additional complaints Card Reports as per HPI Resp Reports no additional complaints GI Reports no additional complaints Reports as per HPI Musc Reports as per HPI Neuro Reports as per HPI Psych Reports no additional complaints Endo Reports as per HPI Kevin/Lymph Reports no additional complaints Aller/Immun Reports no additional complaints Physical Exam Const General: cooperative, healthy appearing, comfortable, no acute distress, well developed, alert and awake Orientation/consciousness: patient oriented x3 Limitations: ambulation with cane HEENT Head: Yes normal to inspection, Yes normocephalic and Yes atraumatic Ears: hearing grossly normal bilaterally Eyes General: appearance normal, both eyes and all related structures Neck Neck: Yes normal visual inspection and Yes trachea midline Chest Chest palpation & inspection: normal inspection of the chest Resp Effort & Inspection: normal respiratory effort and able to speak in complete sentences Cardio Rate: regular rate GI Inspection: Yes normal to inspection General: Yes no CVA tenderness Back/Spine/Pelvis Back: no CVA tenderness Skin General skin exam: no rashes or lesions noted Neuro General: patient oriented x3 Extrem General: Yes normal to inspection Psych Appearance: grossly normal and well kempt Mental Status: mental status grossly normal Speech and movement: Normal speech and movement present and Clear speech present Affect: normal affect Attitude: cooperative Thought process: Normal thought process present Thought content: Normal thought content present Insight: Fair insight present (Psych) Judgement: Fair judgement present (Psych) Results AMB Urinalysis, Automated UA Leukoctes 0 Beatrice/uL Last Edit by Carlota Fuentes on 11/18/24 10:36 UA Nitrite Negative Last Edit by Carlota Fuentes on 11/18/24 10:36 UA Urobilinogen 3.5 mg/dL Last Edit by Carlota Fuentes on 11/18/24 10:36 UA Protein 0 mg/dL Last Edit by Carlota Fuentes on 11/18/24 10:36 UA pH 5.5 Last Edit by Carlota Fuentes on 11/18/24 10:36 UA Blood 10 Denys/uL Last Edit by Carlota Fuentes on 11/18/24 10:36 UA Specific [place] 1.005 Last Edit by Carlota Fuentes on 11/18/24 10:36 UA Ketone Negative Last Edit by Carlota Fuentes on 11/18/24 10:36 UA Bilirubin 0 mg/dL Last Edit by Carlota Fuentes on 11/18/24 10:36 UA Glucose 30 mg/dL Last Edit by Carlota Fuentes on 11/18/24 10:36 Results Reviewed Results Reviewed: Laboratory Last Values Urine pH (Auto) 5.5 11/18/24 10:00 Specific [place] (Auto) 1.005 11/18/24 10:00 Urine Protein (Auto) 0 mg/dL 11/18/24 10:00 Glucose (UA)(Auto) 30 mg/dL 11/18/24 10:00 Urine Ketones (Auto) Negative 11/18/24 10:00 Urine Blood (Auto) 10 Denys/uL 11/18/24 10:00 Urine Nitrite (Auto) Negative 11/18/24 10:00 Urine Bilirubin (Auto) 0 mg/dL 11/18/24 10:00 Urine Urobilinogen (Auto) 3.5 mg/dL 11/18/24 10:00 Leukocyte Esterase (Auto) 0 Beatrice/uL 11/18/24 10:00 Assessment & Plan Assessment & Plan (1) Urinary retention with incomplete bladder emptying: Code(s): R33.9 - Retention of urine, unspecified Category: Medical (2) BPH w urinary obs/LUTS: Code(s): N40.1 - Benign prostatic hyperplasia with lower urinary tract symptoms; N13.8 - Other obstructive and reflux uropathy Category: Medical (3) Elevated PSA: Code(s): R97.20 - Elevated prostate specific antigen [PSA] Category: Medical (4) Bladder outlet obstruction: Code(s): N32.0 - Bladder-neck obstruction Category: Medical (5) Microscopic hematuria: Code(s): R31.29 - Other microscopic hematuria Category: Medical Plan In office urinalysis results reviewed with the patient today; as noted above. PVR 51 mL. Patient currently denies any bothersome urinary issues or concerns. He reports be happy with current voiding parameters. Will continue Flomax, finasteride, and bethanechol as prescribed. Recent PSA results reviewed with the patient today; as noted above. We discussed importance of managing diabetes for improvement in lower urinary tract symptoms as well as overall health and well-being. Follow-up in 6 months with PVR; or sooner with any issues, concerns, and or questions. Orders: Orders AMB Post Void Residual by ultrasound Today R33.9 - Retention of urine, unspecified AMB Urinalysis Automated Today Z13.9 - Encounter for screening, unspecified Urine Cytology Today R31.29 - Other microscopic hematuria Patient Instructions: The patient had an opportunity to ask questions regarding the treatment plan. All questions were answered. Physical exam, labs, and imaging were discussed and reviewed in detail. As well as risks, benefits, and discussion of treatment choices. No major barriers to understanding were identified. The patient expressed understanding and agreement with the above treatment plan. The patient was made aware they should contact our office by phone for worsening of their current condition, the appearance of new symptoms, or with any questions or concerns. Compliance is encouraged with any medications and follow up testing that is ordered. It is a privilege to be allowed the opportunity to participate in? your urological care.? Again, if you have any questions or concerns If you have any questions or concerns please do not hesitate to contact me. The office is [phone]. This note is constructed using voice recognition software. While every effort has been made to ensure accuracy ceramics technician errors may have been included. Yours sincerely, BRIGIDO Castaneda Coding Level of Care Code Est Pt Level 3 (80227) Complex EM visit Add On G2211 Diagnoses Urinary retention with incomplete bladder emptying R33.9 BPH w urinary obs/LUTS N40.1; N13.8 Elevated PSA R97.20 Bladder outlet obstruction N32.0 Microscopic hematuria R31.29
--- OUTSIDE RECORDS SUMMARY | 2024-11-18 11:50 | XMS_ITS | Clinical Summary ---
Author Organization [facility] [address] [place] [address] [place] [phone] Phone Care Team Providers Care Insurance Follow Up Specialist Name Role Phone Russ Parikh MD Primary Care Provider Allergies No known active allergies Medications acetaminophen (TYLENOL) 325 mg tablet Take by mouth. 03/31/20 24 Active bethanechol (URECHOLINE) 50 mg tablet Take 1 Tablet by mouth 2 Times Daily. 03/31/20 24 Active sacubitriL-vals alon (Entresto) 24-26 mg per tablet Take 1 Tablet by mouth 2 Times Daily. 10/05/19 23 Active finasteride (PROSCAR) 5 mg tablet Take 1 Tablet by mouth daily. 03/31/20 24 Active FREESTYLE LANCETS MISC USED TO CHECK BLOOD GLUCOSE DIRECTED ONCE OR TWICE A DAY. 03/11/20 24 Active blood sugar diagnostic (FreeStyle Lite Strips) test strip USE TO TEST 2 TIMES DAILY. 03/11/20 24 Active insulin lispro (HumaLOG KwikPen Insulin) 100 unit/mL injection pen Inject 3 units with breakfast, 5 units with lunch and 6 units with dinner. 04/09/20 24 Active pen needle, diabetic (Insupen Pen Needle) 32 gauge x 5/32 needle 300 Each. Use with insulin four times a day. Dx: E11.42 Active isosorbide mononitrate (IMDUR) 30 mg 24 hr tablet TAKE 1 TABLET BY MOUTH EVERY DAY 05/27/20 24 Active metFORMIN (GLUCOPHAGE) 1,000 mg tablet TAKE 1 TABLET BY MOUTH TWICE A DAY 05/27/20 24 Active metoprolol succinate (TOPROL-XL) 25 mg 24 hr tablet Take 1 Tablet by mouth daily. 03/31/20 24 Active nitroglycerin (NITROSTAT) 0.[address] 1 Tablet under the tongue every 5 minutes as needed for Chest pain. 02/12/20 23 Active tamsulosin (FLOMAX) 0.4 mg 24 hr capsule Take by mouth. Take 30 mins after same meal every day. 03/31/20 24 Active Farxiga 10 mg tablet TAKE 1 TABLET BY MOUTH EVERY DAY 90 tablet 1 07/13/20 24 Active furosemide (LASIX) 40 mg tablet Take 1 tablet (40 mg total) by mouth 1 (one) time each day. 90 tablet 1 07/29/20 24 Active aspirin 81 mg EC tablet TAKE 1 TABLET BY MOUTH EVERY DAY 90 tablet 1 08/14/20 24 Active fenofibrate (LOFIBRA) 54 mg tablet TAKE 1 TABLET BY MOUTH EVERY DAY 90 tablet 1 09/09/19 25 Active atorvastatin (LIPITOR) 80 mg tablet TAKE 1 TABLET BY MOUTH EVERY DAY 90 tablet 1 09/09/19 25 Active hydrOXYzine HCL (ATARAX) 25 mg tablet TAKE 1 TABLET BY MOUTH EVERY DAY 90 tablet 1 09/28/19 25 Active DULoxetine (CYMBALTA) [address] capsule TAKE 2 CAPSULES (40 MG TOTAL) BY MOUTH EVERY DAY 180 capsule 1 10/22/19 25 Active clopidogreL (PLAVIX) 75 mg tablet TAKE 1 TABLET BY MOUTH EVERY DAY 90 tablet 1 11/11/19 25 Active clopidogreL (PLAVIX) 75 mg tablet TAKE 1 TABLET BY MOUTH EVERY DAY 05/12/20 24 025 Discontinued DULoxetine (CYMBALTA) [address] capsule Take 2 capsules (40 mg total) by mouth 1 (one) time each day. 90 capsule 1 08/03/20 24 025 Discontinued Active Problems Problem Noted Date Diagnosed Date Abdominal pain 06/23/2024 Heart attack 06/23/2024 Hyperlipidemia 06/23/2024 Migraine 06/23/2024 History of CVA with residual deficit 09/02/2023 Restrictive lung disease 06/06/2022 Overview (06/23/2024): Last Assessment & Plan: Restriction is likely secondary to CHF. We will wait for the results of the lung cancer screening CT to see if he needs further work-up but the alveolar ventilation corrects the diffusing capacity. No signs or symptoms of ILD. No further medications or work-up. Biventricular ICD (implantab le cardioverter-defibrillator) in place 11/17/2021 Pulmonary embolism 11/17/2021 Overview (06/23/2024): Last Assessment & Plan: Cam is coming today because of the pulmonary embolism. The exact cause of the pulmonary embolism is not clear. I have been referred to see the patient to discuss regarding duration of treatment for the pulmonary embolism. He is to have a work-up in the hematology clinic to see if he has any hypercoagulability state. They should decide regarding the duration of the anticoagulation depending of the results of the hypercoagulability work-up. Regarding the management of the PE he should be referred to anticoagulation clinic. I have done a referral to the hematology clinic. Complete heart block 10/20/2021 Systolic congestive heart failure 10/20/2021 Ischemic heart disease 06/16/2020 Microalbuminuria 03/26/2019 Type 2 diabetes mellitus with cataract 9 Type 2 diabetes mellitus with renal manifestatio ns 03/26/2019 Bilateral carotid artery stenosis 01/12/2019 Overview (06/23/2024): doppler US 02/21/23:Findings consistent with a 0-49% ICA stenosis on the right, and a 50-69% stenosis on the left. Diabetic neuropathy 10/29/2018 Elevated blood protein 10/29/2018 Benign prostatic hyperplasia with lower urinary tract symptoms 05/27/2017 Elevated PSA 04/07/2015 Cataract 07/07/2013 DM type 2 with diabetic peripheral neuropathy Overview (06/23/2024): Neuropathy related to CVA ETOH abuse 07/07/2013 Overview (06/23/2024): Polysubstance abuse prior to CVA Hemiparesis affecting right side as late effect of stroke 07/07/2013 Overview (06/23/2024): 11/05, left hemisphere. Residual right arm and leg weakness with spasticity. Mild dysarthria. Right leg AFO. Reported also impaired memory, executive functioning. Mid brain infarct on CT CVA in the setting of hypertensive emergency and cocaine use HTN (hypertension) 07/07/2013 Shoulder pain 07/07/2013 Overview (06/23/2024): Adhesive right capsulitis. Immunizations Name Administration Dates Next Due Influenza Quadravalent, MDCK , 0.5ml, preservative free (Flucelvax) 6mo and older 08/29/2023,05/28/2022,06/19/2021,06/16,05/19/2018 Influenza Quadravalent, MDCK , 0.5ml, with preservative (Flucelvax) 6mo and older 05/27/2017 Influenza trivalent, MDCK, 0 .5mL, preservative free (Flucelvax) 6mo and older 08/04/2024 Influenza trivalent, with pr eservative (Fluzone; Afluria) 6mo and older 06/05/2016,07/05/2015 PPD Test 03/10/2013 Pneumococcal conjugate 13 va lent (Prevnar 13, PCV13) 2mo and older 06/05/2016 Pneumococcal polysaccharide 23 valent (Pneumovax 23) 2yo and older 11/21/2012 Tdap Tetanus diptheria acell ular pertussis (Boostrix; Adacel) 7yo and older 08/29/2023 Surgical History Surgery Date Site/Laterality Comments COLONOSCOPY 12/13/15 PROCEDURE: HISTORICAL COLONOSCOPY; COMMENT: adenomas, tics and hemorrhoids; repeat in 5 yrs Medical History Medical History Date Comments HTN (hypertension) DX:HTN (hyper tension) Elevated PSA 04/07/2015 DX:Elevated PSA Elevated serum protein level DX: Elevated serum protein level Migraine DX:Migraine Hepatitis C antibody positive in blood DX:Hepatitis C antibody positive in blood Hypercalcemia DX:Hypercalcemia Left pontine CVA (CMS/HCC) 12/2017 DX:Le ft pontine CVA (HCC) Hemiparesis due to recent st roke (CMS/HCC) 12/2017 DX:Hemiparesis due to recent stroke (HCC); COMMENT: Right-sided hemiparesis; asa and plavix Carotid artery stenosis DX:Carot id artery stenosis Vertebral artery stenosis DX:Chanelle tebral artery stenosis Cataract DX:Cataract Diabetic neuropathy (CMS/HCC) 10/29/2018 DX :Diabetic neuropathy (HCC) Microalbuminuria 03/26/2019 DX:Microalbumin uria Type 2 diabetes mellitus wit h renal manifestations (CMS/HCC) 03/26/2019 DX:Type 2 diabetes mellitus with renal manifestations (HCC) Hyperlipidemia DX:Hyperlipidemi a Type 2 diabetes mellitus with cataract 03/26/2019 DX:Type 2 diabetes mellitus with cataract (HCC) DM type 2 with diabetic agapito pheral neuropathy (CMS/HCC) 07/07/2013 DX:DM type 2 with diabetic peripheral neuropathy (HCC); COMMENT: Neuropathy related to CVA History of tobacco use DX:Histor y of tobacco use Heart block DX:Heart block Heart attack (CMS/HCC) DX:Heart attack (HCC) Abdominal pain DX:Abdominal juan n Family History Medical History Relation Name Comments Coronary artery disease Father Diabetes Father Other: Unknown Mother Relation Name Status Comments Father Mother Social History Tobacco Use Types Packs/Day Years Used Date Smoking Tobacco: Former Cigarettes Q uit: 12/23/2017 Smokeless Tobacco: Never Tobacco Cessation:Counseling Given: Not Answered Alcohol Use Standard Drinks/Week Comments No 0 (1 standard drink = 0.6 oz pur e alcohol) Sex and Gender Information Value Date Recorded Sex Assigned at Not on file Legal Sex Male 4:37 AM EST Gender Identity Not on file Sexual Orientation Not on file Obstetrics History Last Filed Vital Signs Vital Sign Reading Time Taken Comments Blood Pressure 126/66 08/03/2024 10:31 AM EST Pulse 84 08/03/2024 10:31 AM EST Temperature 36.3 ??C (97.3 ??F) 08/03/2024 10:[address] Respiratory Rate 16 08/03/2024 10:31 AM EST Oxygen Saturation 95% 08/03/2024 10:31 AM EST Inhaled Oxygen Concentration - - Weight 79.4 kg (175 lb) 08/03/2024 10:31 AM EST Height 165.1 cm (5' 5 ) 08/03/2024 10:31 AM EST Body Mass Index 29.12 08/03/2024 10:31 AM EST Plan of Treatment Upcoming Encounters Date Type Department Care Team (Late st Contact Info) Description 11/27/2024 10:00 AM EDT Office Visit Endocrinology - [place] [address] [place] [phone] Jennifer Partida PA [address] [place] [address] 02/01/2025 1:00 PM EDT Office Visit Adult Medicine [facility] [place], [place] [address] [place] [phone] Russ Parikh MD [address] [place] [address] Health Maintenance Due Date Last Done Comments Zoster Vaccines (1 of 2) 11/22/2013 Pneumococcal Vaccine: 50+ Years (3 of 3 - PCV20 or PCV21) 06/05/2021 06/05/2016, 11/21/2012 Pneumococcal Vaccine: Pediatrics (0 to 5 Years) and At-Risk Patients (6 to 64 Years) (3 of 3 - PCV20 or PCV21) 06/05/2021 06/05/2016, 11/21/2012 Social Influencers of Health Screening 08/04/2022 RSV Immunization Patients 60+ Years Old (1 - Risk 60-74 years 1-dose series) 2023 COVID-19 Vaccine (2 - season) 2024 02/14/2021 Diabetes: Blood Sugar Control Test (HGBA1C) 10/01/2024 03/31/2024, 03/31/2024 Diabetes: Annual Retina Eye Exam 11/12/2024 11/13/2023 Depression Screening 12/29/2024 12/30/2023 Lung Cancer Screening (Low Dose CT) 01/20/2025 01/21/2024, 01/16/2024, 01/09/2023 Diabetes: Annual Urine Albumin-Creatinine Ratio (uACR) 03/31/2025 03/31/2024 Diabetes: Annual Foot Exam 03/31/2025 03/31/2024 Diabetes: Annual GFR (Glomerular Filtration Rate) 03/31/2025 03/31/2024, 03/31/2024 Hypertension/CHF/CAD Annual BMP Blood Test 03/31/2025 03/31/2024, 03/31/2024 Colorectal Cancer Screening: Colonoscopy 12/21/2027 12/20/2022 Cholesterol Screening (Lipid Panel) 08/29/2028 08/29/2023 DTaP,Tdap,and Td Vaccines (2 - Td or Tdap) 08/29/2033 08/29/2023 Hepatitis C Screening Completed 10/05/2015 Influenza Vaccine Completed 08/04/2024, , 05/28/2022, Additional history exists HIB Vaccines Aged Out No longer eligi ble based on patient's age to complete this topic HIV Screening Discontinued HPV Vaccines Aged Out No longer eligi ble based on patient's age to complete this topic Hepatitis A Vaccines Aged Out No long er eligible based on patient's age to complete this topic Hepatitis B Vaccines Aged Out No long er eligible based on patient's age to complete this topic IPV Vaccines Aged Out No longer eligi ble based on patient's age to complete this topic MMR Vaccines Aged Out No longer eligi ble based on patient's age to complete this topic Meningococcal ACWY Vaccine Aged Out N o longer eligible based on patient's age to complete this topic Meningococcal B Vacine Aged Out No lo nger eligible based on patient's age to complete this topic RSV Immunization Patients Under 20 months Aged Out No longer eligible based on patient's age to complete this topic Varicella Vaccines Aged Out No longer eligible based on patient's age to complete this topic Procedures Procedure Name Priority Date/Time Associated Diagnosis Comments URINE ALBUMIN CREATININE RATIO Routine 03/31/2024 ANNUAL BMP BLOOD TEST Routine 03/31/2024 HEMOGLOBIN A1C Routine 03/31/2024 DIABETES FOOT EXAM Routine 03/31/2024 CT LUNG SCREENING LOW DOSE Routine 01/21/2024 9:18 AM EDT Personal history of nicotine dependence DEPRESSION SCREENING Routine 12/30/2023 DIABETES EYE EXAM Routine 11/13/2023 LIPID PANEL Routine 08/29/2023 COLONOSCOPY Routine 12/20/2022 HEPATITIS C SCREENING Routine 10/05/2015 from Last 3 Months or Most Recently Relevant to Health Maintenance Results * Urine Albumin Creatinine Ratio (03/31/2024) Pathologist [facility] Urine Albumin Creatinine Ratio Abstracted Historical Provider HEALTH MAINTENANCE Final Result * Annual BMP Blood Test (03/31/2024) Pathologist [facility] Annual BMP Blood Test Abstracted Historical Provider HEALTH MAINTENANCE Final Result * Diabetes Foot Exam (03/31/2024) [facility] Diabetes: Annual Foot Exam Abstracted Historical Provider HEALTH MAINTENANCE Final Result * Hemoglobin A1c (03/31/2024) [facility] Hemoglobin A1C 6.1 <=6.5 % Blood Venous blood specimen / Unknown [facility] Provider LAB BLOOD ORDERABLES Shireen l Result * CT LUNG SCREENING LOW DOSE (01/21/2024 9:18 AM EDT) Anatomical Region Laterality Modality Computed Tomogra phy 01/16/2024 10:4 4 AM EDT Narrative 01/21/2024 9:18 AM EDT [facility] Diagnostic Imaging Department [address] [place] [address] Patient: ??CAM VERA ?/Age/Sex: 1965 - 58 - M Unit#: ??[id number] ? Location/Status: ??SPDICATLS/REG CLI ? Mnemonic/Ordering Site: ??CTLUNGLD/SPCT Ordering Physician: ??SARAH RICH MD CT Lung Screening Low Dose - 01/16/24 - 1055 Report Status:Signed PROCEDURE: Chest CT INDICATION: Lung cancer screening, former smoker, 84 pack year smoking history TECHNIQUE: Chest CT without contrast. Multi planar reformats were created and interpreted. The examination was performed utilizing dose reduction techniques. Total DLP 150 COMPARISON: ??01/04/2023 FINDINGS: LUNGS/PLEURA: Central airways are patent. ??Calcified left lower lobe granuloma. Calcified left upper lobe granuloma. ??No new or suspicious pulmonary nodules. No pleural effusion or pneumothorax. MEDIASTINUM: Thyroid gland is within normal limits. ??No mediastinal or hilar lymphadenopathy. ??Esophagus is normal. ??Multichamber cardiac enlargement. ??Prior coronary artery bypass graft. ??Pacemaker leads terminate in the right atrium and right ventricle as well as within the coronary sinus. ??No pericardial effusion. CHEST WALL: No axillary lymphadenopathy or superficial hematoma. ??Left chest wall pacemaker generator. UPPER ABDOMEN:The visualized portions of the upper abdomen are unremarkable. BONES: No acute fracture. ??Median sternotomy. ??Scattered degenerative changes seen throughout the bones. IMPRESSION: No new or suspicious pulmonary nodules. ??Lung RADS 1-negative Dictating Physician: ??SANTOS DOMINGUEZ MD Electronically Signed by: ??SANTOS DOMINGUEZ MD Dic Date/Time: ??01/21/24903 Sign date/Time: ??01/21/24917 Procedure Note Santos Dominguez MD - 04/13/2024 [facility] Diagnostic Imaging Department [address] [place] [address] Patient: CAM VERA /Age/Sex: 1965 - 58 - M Unit#: [id number] Location/Status: SPDICATLS/REG CLI Mnemonic/Ordering Site: [facility] Ordering Physician: SARAH RICH MD CT Lung Screening Low Dose - 01/16/24 - 1055 Report Status:Signed PROCEDURE: Chest CT INDICATION: Lung cancer screening, former smoker, 84 pack year smokinghistory TECHNIQUE: Chest CT without contrast. Multi planar reformats were createdand interpreted. The examination was performed utilizing dose reductiontechniques. Total DLP 150 COMPARISON: 01/04/2023 FINDINGS: LUNGS/PLEURA: Central airways are patent. Calcified left lower lobegranuloma. Calcified left upper lobe granuloma. No new or suspicious pulmonarynodules. No pleural effusion or pneumothorax. MEDIASTINUM: Thyroid gland is within normal limits. No mediastinal orhilar lymphadenopathy. Esophagus is normal. Multichamber cardiac enlargement.Prior coronary artery bypass graft. Pacemaker leads terminate in the rightatrium and right ventricle as well as within the coronary sinus. No pericardialeffusion. CHEST WALL: No axillary lymphadenopathy or superficial hematoma. Leftchest wall pacemaker generator. UPPER ABDOMEN:The visualized portions of the upper abdomen areunremarkable. BONES: No acute fracture. Median sternotomy. Scattered degenerativechanges seen throughout the bones. IMPRESSION: No new or suspicious pulmonary nodules. Lung RADS 1-negative Dictating Physician: SANTOS DOMINGUEZ MD Electronically Signed by: SANTOS DOMINGUEZ MD Dic Date/Time: 01/21/24903 Sign date/Time: 01/21/24917 Sarah Rich MD [facility] CT PROCEDURES Final Result * Depression Screening (12/30/2023) Depression Screening Abstracted Historical Provider HEALTH MAINTENANCE Final Result * Diabetes Eye Exam (11/13/2023) [facility] Diabetes: Annual Retina Eye Exam Abstracted [facility] Provider HEALTH MAINTENANCE Final Result * (ABNORMAL) Lipid panel (08/29/2023) [facility] LDL/HDL Ratio 3 0 - 4 Triglycerides 85 0 - 150 mg/dL Cholesterol 133 0 - 200 mg/dL HDL 39(A) >=40 mg/dL LDL Cholesterol 77 0 - 100 mg/dL Blood Venous blood specimen / Unknown Result [facility] Provider LAB BLOOD ORDERABLES Shireen l Result * Colonoscopy (12/20/2022) Pathologist [facility] Colonoscopy No Interpretation , Abstracted Anatomical Region Laterality Modality Other [facility] Provider HEALTH MAINTENANCE Final Result * Hepatitis C Screening (10/05/2015) Pathologist [facility] Hepatitis C Screening Abstracted [facility] Provider HEALTH MAINTENANCE Final Result from Last 3 Months or Most Recently Relevant to Health Maintenance Insurance [facility] [employer] Care Teams Insurance Follow Up Specialist Relationship Specialty Start Date End Date Russ Parikh MD [address] [place] [phone] PCP - General Internal Medicine 03/16/21
== END 2024-11-18 10:54 | disposition home or self-care (01) ==
LOC: HO.HUSH 10:15
PROVIDERS: PCP Internal Medicine; Visit Provider Nurse Practitioner Family
DX: R33.9 Retention of urine, unspecified (principal); N40.1 Benign prostatic hyperplasia with lower urinary tract symptoms; N13.8 Other obstructive and reflux uropathy; R97.20 Elevated prostate specific antigen [PSA]; N32.0 Bladder-neck obstruction; R31.29 Other microscopic hematuria; Z13.9 Encounter for screening, unspecified
CPT/HCPCS: 99213; G2211

== ENCOUNTER 2024-11-18 10:14 | Outpatient (REF) | payer OTHER, SELFPAY ==
[2024-11-18 16:34] LABS: Urine Cytology See Pathology rpt
== END 2024-11-18 10:15 | disposition home or self-care (01) ==
LOC: HO.LNP 10:14
PROVIDERS: PCP Internal Medicine; Visit Provider Nurse Practitioner Family
DX: R33.9 Retention of urine, unspecified (principal); R31.29 Other microscopic hematuria; N32.0 Bladder-neck obstruction; R97.20 Elevated prostate specific antigen [PSA]; N40.1 Benign prostatic hyperplasia with lower urinary tract symptoms; N13.8 Other obstructive and reflux uropathy
CPT/HCPCS: 51798; 81003; 88112; 99212

== ENCOUNTER → 2024-11-19 23:59 | Outpatient (BNV) | payer OTHER, SELFPAY ==
--- NOTE | 2024-11-29 13:17 | MHC.OFFVIS ---
Intake Visit Reasons: Remote HF monitoring- [employer] Allergies No Known Allergies [No Known Allergies*] Allergy (Verified 11/18/24 10:34) PFSH Medical History Pulmonary emboli PAF (paroxysmal atrial fibrillation) Ischemic cardiomyopathy Atherosclerotic cardiovascular disease Hypertension Hypercholesteremia Diabetes mellitus, type 2 Myocardial infarction CVA (cerebral vascular accident) Surgical History H/O coronary artery bypass surgery (~04/27/20) Family History Father No problems noted. Mother No problems noted. Social History Household Members: None Housing: Apartment Do you presently have visiting nurse or other home services: Yes ([employer] daily) Alcohol intake: never Patient Tobacco Use Status: Former Tobacco user Substance Use Type: Crack/Cocaine Advance Directives Date on File: 03/14/21 service: No Current occupational status: unemployed Office Procedures Cardiac Device Check Cardiac Device Check Details: Date of service- 11/19/2024; based on impedance data and physiological variables, there is no evidence of worsening congestive heart failure. [id number] Cardiac Device Interrogation, cardio physiologic monitor Procedure code (CPT) selection complete Assessment & Plan Assessment & Plan (1) ICD (implantable cardioverter-defibrillator) in place: Code(s): Z95.810 - Presence of automatic (implantable) cardiac defibrillator Category: Medical (2) Ischemic cardiomyopathy: Code(s): I25.5 - Ischemic cardiomyopathy Category: Medical Plan x Coding Level of Care Code Procedure Only Diagnoses ICD (implantable cardioverter-defibrillator) in place Z95.810 Ischemic cardiomyopathy I25.5 CPT Codes Cardiac Device Check - Cardiac Device 15: [id number] Cardiac Device Interrogation, cardio physiologic monitor ([id number])
== END ==
PROVIDERS: PCP Internal Medicine; Visit Provider Internal Medicine
DX: I25.5 Ischemic cardiomyopathy (principal); Z95.810 Presence of automatic (implantable) cardiac defibrillator
CPT/HCPCS: 93297

== ENCOUNTER 2024-12-07 12:26 | Outpatient (AMB) | payer OTHER, SELFPAY ==
--- NOTE | 2024-12-07 12:46 | A.OFFVIS_ITS ---
Vital Signs 12/07/24 12:47 Height 5 ft 5 in Weight 164 lb BMI 27.3 BP 140/68 H Blood Pressure Location Lt brachial Position Sitting Pulse 76 Pulse Source Pulse Oximeter Intake Visit Reasons: 6 mth w/ medtronic Allergies No Known Allergies [No Known Allergies*] Allergy (Verified 11/18/24 10:34) Medication List - Last Reconciled 12/07/24 by [place] MD acetaminophen (Tylenol Extra Strength) 1,000 mg (2 x 500 mg) PO QID PRN aspirin 81 mg PO DAILY atorvastatin 80 mg PO DAILY 90 days bethanechol chloride 50 mg PO BID 90 days blood sugar diagnostic (FreeStyle Lite Strips) As directed clopidogrel 75 mg PO DAILY duloxetine 20 mg PO DAILY famotidine 20 mg PO BID Farxiga (dapagliflozin propanediol) 10 mg PO DAILY NS fenofibrate 54 mg PO DAILY finasteride 5 mg PO DAILY 90 days furosemide 40 mg PO DAILY hydroxyzine HCl 25 mg PO TID PRN insulin lispro (Admelog SoloStar U-100 Insulin lispro) 2 units subcut DAILY insulin lispro (Admelog SoloStar U-100 Insulin lispro) 6 units subcut DAILY@1800 insulin lispro (Admelog SoloStar U-100 Insulin lispro) 4 units subcut DAILY@1200 isosorbide mononitrate ER 30 mg PO DAILY lancets As directed lorazepam (Ativan) 1 mg PO BEDTIME PRN metformin 1,000 mg PO BID metoprolol succinate ER 50 mg PO DAILY nitroglycerin 0.4 mg sublingual omega-3 fatty acids-fish oil 340-1,000 mg 1 cap PO TID pen needle, diabetic (BD Kelli 2nd Gen Pen Needle) As directed sacubitril-valsartan 24-26 mg (Entresto) 1 tab PO BID spironolactone 25 mg PO DAILY tamsulosin 0.4 mg PO DAILY 90 days tramadol 50 mg PO Q6H PRN HPI Comments Details: Cam returns for follow-up regarding coronary disease and several other issues. He has a fairly long and complex cardiovascular history, summarized as below. Stroke from 2012 with right-sided hemiparesis and facial droop; 2nd stroke in 2018 again in the right side; coronary artery bypass surgery; ischemic cardiomyopathy; complete heart block status post Bi V ICD; pulmonary embolism, no off anticoagulation. Multiple risk factors including diabetes, hypertension, dyslipidemia, history of cocaine use. Since last seen, for the most part he is doing good. No concerning symptoms. No angina. Nonspecific musculoskeletal pains. [facility] Medical History Pulmonary emboli PAF (paroxysmal atrial fibrillation) Ischemic cardiomyopathy Atherosclerotic cardiovascular disease Hypertension Hypercholesteremia Diabetes mellitus, type 2 Myocardial infarction CVA (cerebral vascular accident) Surgical History H/O coronary artery bypass surgery (~04/27/20) Family History Father No problems noted. Mother No problems noted. 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) Alcohol intake: never Patient Tobacco Use Status: Former Tobacco user Substance Use Type: Crack/Cocaine Advance Directives Date on File: 03/14/21 service: No Current occupational status: unemployed Review of Systems Const Denies weakness ENT Denies dizziness Card Denies chest pain, Denies chest pain with activity, Denies syncope, Denies rapid heart rate, Denies pedal edema, Denies edema, Denies leg edema, Denies lig htheadedness, Denies palpitations, Denies dyspnea, Denies dyspnea on exertion and Denies orthopnea Resp Denies cough, Denies dyspnea and Denies dyspnea on exertion GI Denies hematochezia and Denies change in stool character Musc Denies abnormal gait, Denies muscle cramps, Denies muscle weakness, Denies numbness, Denies radiating pain into limb and Denies tingling Neuro Denies abnormal gait, Denies dizziness, Denies syncope, Denies numbness, Denies tingling and Denies weakness Endo Denies palpitations Physical Exam Vital Signs: Last Vital Signs Pulse 76 12/07/24 12:47 BP 140/68 H 12/07/24 12:47 BMI result Body Mass Index 27.3 Const General: comfortable and no acute distress Orientation/consciousness: patient oriented x3 HEENT Other: Unremarkable Head: Yes normal to inspection Neck Neck: Yes normal visual inspection Chest Chest palpation & inspection: normal inspection of the chest Resp Auscultation: clear to auscultation bilaterally Cardio Palpation: normal PMI Heart sounds: S1 normal heart sound present, S2 normal heart sound present, no gallops, no murmurs and no rubs GI Palpation (GI): Soft to palpation Back/Spine/Pelvis Other: unremarkable Skin General skin exam: no rashes or lesions noted Neuro General: patient oriented x3 Extrem General: Yes normal to inspection Psych Mental Status: mental status grossly normal Office Procedures Cardiac Device Check Cardiac Device Check Details: ICD interrogated today. Biventricular device. Battery status 3.6 years. Normal lead parameters. No alerts. Adequate SHREDDER/GRANULATOR OPERATOR pacing. Overall, normal device function. [id number] Cardiac Device Check, multi lead implantable defibrillator Procedure code (CPT) selection complete Assessment & Plan Assessment & Plan (1) Atherosclerotic cardiovascular disease: Code(s): I25.10 - Atherosclerotic heart disease of [place] coronary artery without angina pectoris Category: Medical Plan: Most recent cardiac catheterization shows patent grafts. Stable. Plan to continue long-term dual antiplatelet therapy considering numerous vascular issues. (2) Ischemic cardiomyopathy: Code(s): I25.5 - Ischemic cardiomyopathy Category: Medical Plan: In the last echocardiogram, LVEF 30-35%. His medical regimen includes metoprolol ER, Entresto, Farxiga, diuretics, spironolactone. As the blood pressure is also on the higher side, we will go up on the Entresto dosing. Check labs few days after that. We discussed about this today. (3) Atrial tachycardia: Code(s): I47.1 - Supraventricular tachycardia Category: Medical Plan: In the past, on device check, not clear if it is atrial tachycardia or slow flutter. No recent issues. (4) PAF (paroxysmal atrial fibrillation): Code(s): I48.0 - Paroxysmal atrial fibrillation Category: Medical Plan: Postoperative episode. Was on short-term amiodarone but now off. He was on Eliquis for the pulmonary embolism but that seems to have been stopped as well. (5) CVA (cerebral vascular accident): Code(s): I63.9 - Cerebral infarction, unspecified Category: Medical Plan: Based on vascular consultation from 2018, he had right-sided carotid occlusion. This is apparently chronic. In the last carotid ultrasound, minimal stenosis on the right carotid. Left- sided with moderate stenosis 50-79%. May recheck. (6) Other and unspecified hyperlipidemia: Code(s): E78.5 - Hyperlipidemia, unspecified Category: Medical Plan: On high dose statins/fenofibrate. Last LDL 90 mg/dL. Less than optimal. May need Repatha or Praluent but he is already on so much of polypharmacy. (7) Pulmonary emboli: Code(s): I26.99 - Other pulmonary embolism without acute cor pulmonale Category: Medical Plan: Per [facility] documentation, left lower lobe pulmonary embolism from CTA 10/2021. Off Eliquis. Plan I discussed with the patient the slight elevation in blood pressure and the plan to increase the dosage of Entresto, highlighting the importance of managing hypertension to reduce the risk of cardiovascular complications. The potential benefits of blood pressure control and the necessity of monitoring through forthcoming blood work were emphasized. We agreed on the plan for the upcoming blood tests in two weeks and another follow-up appointment in six months. I mentioned that the musculoskeletal pain did not necessitate any immediate treatment adjustments. Patient was informed and verbally consented to the use of an ambient scribe for clinic note documentation during this visit. Orders: Orders Basic Metabolic Panel 2 Weeks I50.9 - Heart failure, unspecified Medications: New sacubitril-valsartan 49-51 mg (Entresto) 1 tab PO BID 90 days 180 tabs 3RF I25.5 - Ischemic cardiomyopathy Discontinued sacubitril-valsartan 24-26 mg (Entresto) Discontinued Reason: Doctor's Order 1 tab PO BID 180 tabs 3RF Patient Instructions: - Increase the dosage of Entresto as discussed. - Complete blood work in approximately two weeks. - Attend follow-up appointment in six months or earlier if blood work results indicate. - Continue monitoring blood pressure at home, noting any significant changes. - Maintain current management of musculoskeletal pain and report any significant changes in symptoms. Coding Level of Care Code Est Pt Level 4 (00648) Complex EM visit Add On G2211 Diagnoses Atherosclerotic cardiovascular disease I25.10 Ischemic cardiomyopathy I25.5 Atrial tachycardia I47.1 PAF (paroxysmal atrial fibrillation) I48.0 Cerebrovascular accident (CVA) due to other mechanism I63.9 Other and unspecified hyperlipidemia E78.5 Pulmonary emboli I26.99 CPT Codes Cardiac Device Check - Cardiac Device 6: [id number] Cardiac Device Check, multi lead implantable defibrillator ([id number])
[2024-12-07 12:47] VITALS: BP 140/68; PULSE 76; BMI 27.3
--- OUTSIDE RECORDS SUMMARY | 2024-12-07 14:25 | XMS_ITS | Clinical Summary ---
Author Organization [facility] Address [address] [place] [address] Care Team Providers Care Air Defense Artillery Officer Name Role Phone Russ Parikh MD Primary Care Provider [phone] Allergies No known active allergies Medications Medication Sig Dispensed Refills Start Date End Date Status apixaban (ELIQUIS) 5 MG TABS tablet Take 5 mg by mouth. 0 11/17/2021 Active acetaminophen (TYLENOL) 325 MG tablet TAKE 3 TABLETS (975 MG) BY MOUTH THREE TIMES A DAY FOR 14 DAYS 0 11/17/2021 Active vitamin B-1 (THIAMINE) 100 MG tablet TAKE 1 TABLET BY MOUTH EVERY DAY 0 11/17/2021 Active clopidogrel (PLAVIX) 75 MG tablet 0 01/31/2022 Active DULoxetine (CYMBALTA) DR capsule 20 mg Take 1 capsule by mouth daily. 0 11/07/2021 Active fenofibrate (TRICOR) tablet 54 mg 0 01/30/2022 Active finasteride (PROSCAR) 5 MG tablet TAKE 1 TABLET BY MOUTH EVERY DAY 0 12/31/2020 Active furosemide (LASIX) 40 MG tablet Take 1 tablet by mouth daily. 0 09/19/2021 Active glucose blood (FREESTYLE TEST STRIPS) test strip Use to test 2 times daily 0 07/05/2021 Active hydrOXYzine (ATARAX) 25 MG tablet 0 02/05/2022 Active insulin glargine (Lantus SoloStar) 100 UNIT/ML injection Inject 22 Units under the skin. 0 10/05/2021 Active insulin lispro (HumaLOG) 100 UNIT/ML injection See Instructions, Per POC, 0 Refills, Maintenance, 11/03/21 15:01:00 EST, Solution, Partial fill upon patient request if the prescription is for a schedule II opioid drug. 0 11/03/2021 Active Lancets (freestyle) lancets Test fasting blood sugar 2 times daily 0 05/22/2021 Active metFORMIN (GLUCOPHAGE) tablet 1000 mg Take 1,000 mg by mouth 2 (two) times a day. 0 01/02/2022 Active metoprolol succinate (TOPROL-XL) 24 hr tablet 50 mg 0 01/30/2022 Active Active Problems Problem Noted Date Diagnosed Date Diabetes mellitus 02/07/2022 Pulmonary embolism 11/17/2021 Overview: Last Assessment & Plan: Cam is coming [...] the hematology clinic. Complete heart block 10/20/2021 Microalbuminuria 03/26/2019 Bilateral carotid artery stenosis 01/12/2019 Diabetic neuropathy 10/29/2018 Benign prostatic hyperplasia with lower urinary tract symptoms 05/27/2017 Elevated PSA 04/07/2015 Family History Medical History Relation Name Comments Throat cancer Father Relation Name Status Comments Father Mother Social History Tobacco Use Types Packs/Day Years Used Date Smoking Tobacco: Former Cigarettes 30 Smokeless Tobacco: Never Alcohol Use Standard Drinks/Week Comments Not Currently 0 (1 standard drink = 0.6 oz pur e alcohol) Sex and Gender Information Value Date Recorded Sex Assigned at Not on file Gender Identity Not on file Sexual Orientation Not on file Job Start Date Occupation Industry Not on file Not on file Not on file Last Filed Vital Signs Vital Sign Reading Time Taken Comments Blood Pressure 152/68 03/21/2022 10:34 AM EDT Pulse 87 03/21/2022 10:34 AM EDT Temperature 36.9 ??C (98.4 ??F) 03/21/2022 1 0:34 AM EDT Respiratory Rate - - Oxygen Saturation 95% 03/21/2022 10: 34 AM EDT Inhaled Oxygen Concentration - - Weight 75.7 kg (166 lb 12.8 oz) 022 10:34 AM EDT Height 165.1 cm (5' 5 ) 03/21/2022 10:3 4 AM EDT Body Mass Index 27.76 03/21/2022 10:34 AM EDT Plan of Treatment Health Maintenance Due Date Last Done Comments Hepatitis C Screening 1965 COVID-19 Vaccine (#1) 05/25/1964 Depression Screening 1975 Preventative Health Evaluation 11/22/1981 DTap / Tdap / Td (1 - Tdap) 11/22/1982 Colon Cancer Screening (Colonoscopy) 11/22/2008 Shingrix-Zoster Vaccine (1 of 2) 11/22/2013 RSV Adult > 60+ Yrs or (1 - Risk 60-74 years 1-dose series) 2023 Influenza Vaccine (#1) 2024 , 06/16/2020, 05/19/2018, Additional history exists Pneumococcal Vaccine (3 of 3 - PPSV23 or PCV20) 11/22/2028 06/05/2016, 11/21/2012 Hepatitis B Vaccines Aged Out No long er eligible based on patient's age to complete this topic RSV Ped < 20 months Aged Out No longe r eligible based on patient's age to complete this topic Care Teams Air Defense Artillery Officer Relationship Specialty Start Date End Date Russ Parikh MD PCP - General Internal Medicine 01/26/22
--- OUTSIDE RECORDS SUMMARY | 2024-12-07 14:25 | XMS_ITS | Clinical Summary ---
Author Organization [facility] [address] [place] [address] [place] [phone] Phone Care Team Providers Care Timing Adjuster Name Role Phone Russ Parikh MD Primary Care Provider [phone] Allergies No known active allergies Medications acetaminophen [...] four times a day. Dx: E11.42 Active metoprolol succinate (TOPROL-XL) 25 mg 24 [...] DAY 90 tablet 1 11/11/19 25 Active metFORMIN (GLUCOPHAGE) 1,000 mg tablet TAKE 1 TABLET BY MOUTH TWICE A DAY 180 each 1 11/28/19 25 Active isosorbide mononitrate (IMDUR) 30 mg 24 hr tablet TAKE 1 TABLET BY MOUTH EVERY DAY 90 tablet 1 12/01/19 25 Active clopidogreL (PLAVIX) 75 mg tablet TAKE 1 TABLET BY MOUTH EVERY DAY 05/12/20 24 025 Discontinued isosorbide mononitrate (IMDUR) 30 mg 24 hr tablet TAKE 1 TABLET BY MOUTH EVERY DAY 05/27/20 24 025 Discontinued metFORMIN (GLUCOPHAGE) 1,000 mg tablet TAKE 1 TABLET BY MOUTH TWICE A DAY 05/27/20 24 025 Discontinued(Re order) Active Problems Problem Noted Date Diagnosed Date Abdominal pain 06/23/2024 Heart attack (CMS/HCC V24, CMS/HCC V28) 06/23/20 24 Hyperlipidemia 06/23/2024 Migraine 06/23/2024 History of CVA [...] le cardioverter-defibrillator) in place 11/17/2021 Pulmonary embolism ([facility] V24, [facility] V28) Overview (06/23/2024): Last Assessment & Plan: Cam [...] to the hematology clinic. Complete heart block ([facility] V24, [facility] V28) 10/20/2021 Systolic congestive heart fa ilure ([facility] V24, [facility] V28) 10/20/2021 Ischemic heart disease 06/16/2020 Microalbuminuria 03/26/2019 Type 2 diabetes mellitus wit h cataract ([facility] V24, [facility] V28) 03/26/2019 Type 2 diabetes mellitus wit h renal manifestations ([facility] V24, [facility] V28) 03/26/2019 Bilateral carotid artery stenosis 01/12/2019 Overview (06/23/2024): doppler US 02/21/23:Findings consistent with a 0-49% ICA stenosis on the right, and a 50-69% stenosis on the left. 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 Residual right arm and leg weakness with spasticity. Mild dysarthria. Right leg AFO. Reported also impaired memory, executive functioning. Mid brain infarct on CT CVA in the setting of hypertensive emergency and cocaine use HTN (hypertension) 07/07/2013 Shoulder pain 07/07/2013 Overview (06/23/2024): Adhesive right capsulitis. Encounters Date Type Department Care Team Description 11/27/2024 10:00 AM EDT Office Visit Endocrinology - [address] [phone] Jennifer Partida PA Type 2 diabetes mellitus with other diabetic kidney complication, with long-term current use of insulin ([facility] V24, [facility] V28) (Primary Dx); Primary hypertension; Pure hypertriglyceridemia 11/24/2024 Telephone Adult Medicine [place] - [address] [phone] Domingo Barajas NP Lab Results (Routine lab order. To be completed prior to next appointment With Dr. Parikh.) from Last 3 Months Immunizations Name Administration Dates Next Due Influenza [...] pertussis (Boostrix; Adacel) 7yo and older 08/29/2023 Zoster recombinant (Shingrix ) 19yo and older 11/18/2024 Surgical History Surgery Date Site/Laterality Comments COLONOSCOPY [...] in blood Hypercalcemia DX:Hypercalcemia Left pontine CVA ([facility] V2 4, [facility] V28) 12/2017 DX:Left pontine CVA (HCC) Hemiparesis due to recent st roke ([facility]/HCC V24, [facility] V28) 12/2017 DX:Hemiparesis due to recen t stroke (HCC); COMMENT: Right-sided hemiparesis; asa and plavix Carotid artery stenosis DX:Carot id artery stenosis Vertebral artery stenosis DX:Chanelle tebral artery stenosis Cataract DX:Cataract Diabetic neuropathy ([facility] V24, [facility] V28) 10/29/2018 DX:Diabetic neuropathy (HCC) Microalbuminuria 03/26/2019 DX:Microalbumin uria Type 2 diabetes mellitus wit h renal manifestations ([facility] V24, [facility] V28) 03/26/2019 DX:Type 2 diabetes mellitus with renal manifestations (HCC) Hyperlipidemia DX:Hyperlipidemi a Type 2 diabetes mellitus wit h cataract ([facility] V24, [facility] V28) 03/26/2019 DX:Type 2 diabetes mellitus with cataract (HCC) DM type 2 with diabetic agapito pheral neuropathy ([facility] V24, [facility] V28) 07/07/2013 DX:DM type 2 wit h diabetic peripheral neuropathy (HCC); COMMENT: Neuropathy related to CVA History of tobacco use DX:Histor y of tobacco use Heart block DX:Heart block Heart attack (CMS/HCC V24, C MS/HCC V28) DX:Heart attack (HCC) Abdominal pain DX:Abdominal juan [...] Sign Reading Time Taken Comments Blood Pressure 116/69 11/27/2024 10:12 AM EDT Pulse 85 11/27/2024 10:12 AM EDT Temperature 36.7 ??C (98 ??F) 11/27/2024 10:12 AM EDT Respiratory Rate 16 08/03/2024 10:31 AM EST Oxygen Saturation 99% 11/27/2024 10:12 AM EDT Inhaled Oxygen Concentration - - Weight 78 kg (172 lb) 11/27/2024 10:12 AM EDT Height 165.1 cm (5' 5 ) 11/27/2024 10:12 AM EDT Body Mass Index 28.62 11/27/2024 10:12 AM EDT Plan of Treatment Upcoming Encounters Date Type Department Care Team (Late st Contact Info) Description 02/01/2025 1:00 PM EDT Office Visit Adult Medicine [address] [phone] Russ Parikh MD [address] [place] [address] 06/25/2025 10:40 AM EDT Office Visit [address] [phone] Jennifer Partida PA [address] [place] [address] Health Maintenance Due Date Last Done Comments Hepatitis A Vaccines (1 of 2 - Risk 2-dose series) 11/22/1982 Pneumococcal Vaccine: 50+ Years (3 of 3 - PCV20 or PCV21) 06/05/2021 06/05/2016, 11/21/2012 Pneumococcal Vaccine: Pediatrics (0 to 5 Years) and At-Risk Patients (6 to 64 Years) (3 of 3 - PCV20 or PCV21) 06/05/2021 06/05/2016, 11/21/2012 Social Influencers of Health Screening 08/04/2022 RSV Immunization Adult Patients (1 - Risk 60-74 years 1-dose series) 2023 COVID-19 Vaccine (2 - season) 2024 02/14/2021 Diabetes: Annual Retina Eye Exam 11/12/2024 11/13/2023 Depression Screening 12/29/2024 12/30/2023 Zoster Vaccines (2 of 2) 01/13/2025 11/18/2024 Lung Cancer Screening (Low Dose CT) 01/20/2025 01/21/2024, 01/16/2024, 01/09/2023 Diabetes: Annual Urine Albumin-Creatinine Ratio (uACR) 03/31/2025 03/31/2024 Diabetes: Annual Foot Exam 03/31/2025 03/31/2024 Diabetes: Blood Sugar Control Test (HGBA1C) 05/26/2025 11/24/2024, 03/31/2024, 03/31/2024 Diabetes: Annual GFR (Glomerular Filtration Rate) 11/24/2025 11/24/2024, 03/31/2024, 03/31/2024 Hypertension/CHF/CAD Annual BMP Blood Test 11/24/2025 11/24/2024, 03/31/2024, 03/31/2024 Colorectal Cancer Screening: Colonoscopy 12/21/2027 [...] age to complete this topic Meningococcal B Vaccine Aged Out No l onger eligible based on patient's age to complete this topic RSV Immunization Patients Under 20 months Aged Out No longer eligible based on patient's age to complete this topic Varicella Vaccines Aged Out No longer eligible based on patient's age to complete this topic Procedures Procedure Name Priority Date/Time Associated Diagnosis Comments BASIC METABOLIC PANEL Routine 11/24/2024 10:11 AM EDT New onset headache History of CVA with residual deficit DM type 2 with diabetic peripheral neuropathy ([facility] V24, [facility] V28) Chronic systolic congestive heart failure (CMS/HCC V24, CMS/HCC V28) Primary hypertension Pure hypertriglyceridemia Benign prostatic hyperplasia with lower urinary tract symptoms, symptom details unspecified HEMOGLOBIN A1C Routine 11/24/2024 10:11 AM EDT Type 2 diabetes mellitus with other diabetic kidney complication, with long-term current use of insulin ([facility] V24, [facility] V28) URINE ALBUMIN CREATININE RATIO Routine 03/31/2024 DIABETES FOOT EXAM Routine 03/31/2024 CT LUNG SCREENING LOW DOSE Routine 01/21/2024 9:18 AM EDT Personal history of nicotine dependence DEPRESSION SCREENING Routine 12/30/2023 DIABETES EYE EXAM Routine 11/13/2023 LIPID PANEL Routine 08/29/2023 COLONOSCOPY Routine 12/20/2022 HEPATITIS C SCREENING Routine 10/05/2015 from Last 3 Months or Most Recently Relevant to Health Maintenance Results * Hemoglobin A1c (11/24/2024 10:11 AM EDT) [facility] Hemoglobin A1C 6.4 <6.5 % LAB CHEMISTRY METHOD 11/24/2024 2:34 PM EDT [facility] Mean Bld Glu Estim. 137 mg/dL LAB CHEMISTRY METHOD 11/24/2024 2:34 PM EDT [facility] Blood Venous blood specimen / Unknown Venipuncture / Unknown 11/24/2024 10:11 AM EDT 11/24/2024 10:11 AM EDT us Jennifer WASSERMAN LAB BLOOD ORDERABLES Final Resul t [facility] [address] [place] [address], [place] [phone] * (ABNORMAL) Basic metabolic panel (11/24/2024 10:11 AM EDT) [facility] Sodium 131(L) 133 - 145 mmol/L LAB CHEMISTRY METHOD 11/24/2024 2:37 PM EDT [facility] Potassium 5.2 3.5 - 5.5 mmol/L LAB CHEMISTRY METHOD 11/24/2024 2:37 PM EDT [facility] Chloride 98 96 - 110 mmol/L LAB CHEMISTRY METHOD 11/24/2024 2:37 PM EDT [facility] CO2 25 21 - 32 mmol/L LAB CHEMISTRY METHOD 11/24/2024 2:37 PM EDT [facility] Anion Gap 8 3 - 11 LAB CHEMISTRY METHOD 11/24/2024 2:37 PM EDT [facility] Glucose 127(H) 70 - 100 mg/dL LAB CHEMISTRY METHOD 11/24/2024 2:37 PM EDT [facility] BUN 17 5 - 25 mg/dL LAB CHEMISTRY METHOD 11/24/2024 2:37 PM EDT [facility] Creatinine 1.21 0.70 - 1.30 mg/dL LAB CHEMISTRY METHOD 11/24/2024 2:37 PM EDT [facility] eGFR 68 >=60 mL/min/1. 73m2 LAB CHEMISTRY METHOD 11/24/2024 2:37 PM EDT [facility] Comment:Calculation based on the??Chronic Kidney Disease Epidemiology Collaboration (CKD-EPI) equation refit??without adjustment for race. BUN/Creatinine Ratio 14.0 LAB CHEMISTRY METHOD 11/24/2024 2:37 PM EDT [facility] Calcium 10.6(H) 8.5 - 10.5 mg/dL LAB CHEMISTRY METHOD 11/24/2024 2:37 PM EDT [facility] Blood Venous blood specimen / Unknown Venipuncture / Unknown 11/24/2024 10:11 AM EDT 11/24/2024 10:11 AM EDT Domingo Barajas PSYCHOLOGIST [employer] LAB BLOOD ORDERABLES Final R esult [facility] [address] [place] [address], * Urine Albumin Creatinine Ratio (03/31/2024) Urine Albumin Creatinine Ratio Abstracted Historical Provider HEALTH MAINTENANCE Final Result * Diabetes Foot Exam (03/31/2024) Pathologist [facility] Diabetes: Annual Foot Exam Abstracted Historical Provider HEALTH MAINTENANCE Final Result * CT LUNG SCREENING LOW DOSE (01/21/2024 9:18 AM EDT) Anatomical Region Laterality Modality Computed Tomogra phy 01/16/2024 10:4 4 AM EDT Narrative 01/21/2024 9:18 AM EDT [facility] Diagnostic Imaging Department [address] [place] [id number] Patient: ??CAM VERA ?/Age/Sex: 1965 - 58 - M Unit#: ??[id number] ? Location/Status: ??SPDICATLS/REG CLI ? Mnemonic/Ordering Site: [...] Procedure Note Santos Dominguez MD - 04/13/2024 [facility] Diagnostic Imaging Department [address] [place] [address] Patient: CAM VERA./Age/Sex: 1965 - 58 - M Unit#: [id number] Location/Status: [facility] CLI Mnemonic/Ordering Site: [facility] Ordering Physician: SARAH RICH MD CT [...] SANTOS DOMINGUEZ MD Electronically Signed by: SANTOS DOMINGUZE MD Dic Date/Time: 01/21/24903 Sign date/Time: 01/21/24917 Result [facility] Sarah Rich MD IMG CT PROCEDURES Final Result * Depression Screening (12/30/2023) [facility] Depression Screening Abstracted Result [facility] Kristel LOZANO HEALTH MAINTENANCE Final Result * Diabetes Eye Exam (11/13/2023) [facility] Diabetes: Annual Retina Eye Exam Abstracted Result [facility] Kristel LOZANO HEALTH MAINTENANCE Final Result * (ABNORMAL) Lipid panel (08/29/2023) [facility] LDL/HDL Ratio 3 0 - 4 Triglycerides 85 0 - 150 mg/dL Cholesterol 133 0 - 200 mg/dL HDL 39(A) >=40 mg/dL LDL Cholesterol 77 0 - 100 mg/dL Blood Venous blood specimen / Unknown Result [facility] Kristel LOZANO LAB BLOOD ORDERABLES Shireen l Result * Colonoscopy (12/20/2022) [facility] Colonoscopy No Interpretation , Abstracted Anatomical Region Laterality Modality Other Result [facility] Kristel LOZANO HEALTH MAINTENANCE Final Result * Hepatitis C Screening (10/05/2015) [facility] Hepatitis C Screening Abstracted Result [facility] Kristel LOZANO HEALTH MAINTENANCE Final Result from Last 3 Months or Most Recently Relevant to Health Maintenance Insurance [facility] Care Teams Timing Adjuster Relationship Specialty Start Date End Date Russ Parikh MD [address] [place] [address] PCP - General Internal Medicine 03/16/21
== END 2024-12-07 13:15 | disposition home or self-care (01) ==
LOC: HO.HCS 12:31
PROVIDERS: PCP Internal Medicine; Visit Provider Internal Medicine
DX: I25.10 Atherosclerotic heart disease of native coronary artery without angina pectoris (principal); I25.5 Ischemic cardiomyopathy; I47.10 Supraventricular tachycardia, unspecified; I48.0 Paroxysmal atrial fibrillation; I63.9 Cerebral infarction, unspecified; E78.5 Hyperlipidemia, unspecified; I26.99 Other pulmonary embolism without acute cor pulmonale
CPT/HCPCS: 93284; 99214; G2211

== ENCOUNTER → 2024-12-07 12:26 | Outpatient (BNVA) | payer OTHER, SELFPAY | PROVIDERS: PCP Internal Medicine; Visit Provider Internal Medicine | DX: I25.10 Atherosclerotic heart disease of native coronary artery without angina pectoris (principal); I69.351 Hemiplegia and hemiparesis following cerebral infarction affecting right dominant side; I25.5 Ischemic cardiomyopathy; I47.10 Supraventricular tachycardia, unspecified; I48.0 Paroxysmal atrial fibrillation; E78.5 Hyperlipidemia, unspecified; I26.99 Other pulmonary embolism without acute cor pulmonale; Z95.1 Presence of aortocoronary bypass graft | CPT/HCPCS: 99212 ==

== ENCOUNTER → 2024-12-20 23:59 | Outpatient (BNV) | payer OTHER, SELFPAY ==
--- NOTE | 2024-12-22 20:40 | A.OFFVIS_ITS ---
Intake Visit Reasons: Remote ICD check- [employer] Allergies No Known Allergies [No Known Allergies*] Allergy (Verified 11/18/24 10:34) PFS Medical History Pulmonary emboli PAF (paroxysmal atrial fibrillation) Ischemic cardiomyopathy Atherosclerotic cardiovascular disease Hypertension Hypercholesteremia Diabetes mellitus, type 2 Myocardial infarction CVA (cerebral vascular accident) Surgical History H/O coronary artery bypass surgery (~04/27/20) Family History Father No problems noted. Mother No problems noted. Social History Household Members: None Housing: Apartment Do you presently have visiting nurse or other home services: Yes (DEVICE REPAIR TECHNICIAN daily) Alcohol intake: never Patient Tobacco Use Status: Former Tobacco user Substance Use Type: Crack/Cocaine Advance Directives Date on File: 03/14/21 service: No Current occupational status: unemployed Office Procedures Cardiac Device Check Cardiac Device Check Details: Date of service 12/20/2024; Battery life >3 years; normal lead parameters; no treated VT/VF; effective SPOT WELDER LINE >99%; normal ICD function. [id number] Cardiac Interrogation, implant defibrillator w/interim Procedure code (CPT) selection complete Assessment & Plan Assessment & Plan (1) ICD (implantable cardioverter-defibrillator) in place: Code(s): Z95.810 - Presence of automatic (implantable) cardiac defibrillator Category: Medical (2) Ischemic cardiomyopathy: Code(s): I25.5 - Ischemic cardiomyopathy Category: Medical Plan x Coding Level of Care Code Procedure Only Diagnoses ICD (implantable cardioverter-defibrillator) in place Z95.810 Ischemic cardiomyopathy I25.5 CPT Codes Cardiac Device Check - Cardiac Device 13: [id number] Cardiac Interrogation, implant defibrillator w/interim ([id number])
== END ==
PROVIDERS: PCP Internal Medicine; Visit Provider Internal Medicine
DX: I25.5 Ischemic cardiomyopathy (principal); Z95.810 Presence of automatic (implantable) cardiac defibrillator
CPT/HCPCS: 93295

== ENCOUNTER → 2024-12-20 23:59 | Outpatient (BNV) | payer OTHER, SELFPAY ==
--- NOTE | 2024-12-22 20:39 | A.OFFVIS_ITS ---
Intake Visit Reasons: Remote HF monitoring- [employer] Allergies No Known Allergies [No Known Allergies*] Allergy (Verified 11/18/24 10:34) PFSH Medical History Pulmonary emboli PAF (paroxysmal atrial fibrillation) Ischemic cardiomyopathy Atherosclerotic cardiovascular disease Hypertension Hypercholesteremia Diabetes mellitus, type 2 Myocardial infarction CVA (cerebral vascular accident) Surgical History H/O coronary artery bypass surgery (~04/27/20) Family History Father No problems noted. Mother No problems noted. Social History Household Members: None Housing: Apartment Do you presently have visiting nurse or other home services: Yes (SENIOR DIRECTOR OF GLOBAL [employer]ER[employer] TECHN[employer]Y SOLUTIONS daily) Alcohol intake: never Patient Tobacco Use Status: Former Tobacco user Substance Use Type: Crack/Cocaine Advance Directives Date on File: 03/14/21 service: No Current occupational status: unemployed Office Procedures Cardiac Device Check Cardiac Device Check Details: Date of service- 12/20/2024; based on impedance data and physiological variables, there is no evidence of worsening congestive heart failure. [id number] Cardiac Device Interrogation, cardio physiologic monitor Procedure code (CPT) selection complete Assessment & Plan Assessment & Plan (1) ICD (implantable cardioverter-defibrillator) in place: Code(s): Z95.810 - Presence of automatic (implantable) cardiac defibrillator Category: Medical (2) Ischemic cardiomyopathy: Code(s): I25.5 - Ischemic cardiomyopathy Category: Medical Plan x Coding Level of Care Code Procedure Only Diagnoses ICD (implantable cardioverter-defibrillator) in place Z95.810 Ischemic cardiomyopathy I25.5 CPT Codes Cardiac Device Check - Cardiac Device 15: [id number] Cardiac Device Interrogation, cardio physiologic monitor ([id number])
== END ==
PROVIDERS: PCP Internal Medicine; Visit Provider Internal Medicine
DX: I25.5 Ischemic cardiomyopathy (principal); Z95.810 Presence of automatic (implantable) cardiac defibrillator
CPT/HCPCS: 93297

== ENCOUNTER 2024-12-21 08:09 | Outpatient (REF) | payer OTHER, SELFPAY ==
--- OUTSIDE RECORDS SUMMARY | 2024-12-21 08:18 | XMS_ITS | Clinical Summary ---
Author Organization [facility] [address] [place] [address] [place] [phone] Phone Care Team Providers Care Games Manager Name Role Phone Russ Parikh MD Primary Care Provider [phone] Allergies No known active allergies Medications acetaminophen [...] OR TWICE A DAY. 03/11/20 24 Active insulin lispro (HumaLOG KwikPen [...] same meal every day. 03/31/20 24 Active furosemide (LASIX) 40 mg tablet [...] DAY 90 tablet 1 12/01/19 25 Active blood sugar diagnostic (FreeStyle Lite Strips) test strip USE TO TEST 2 TIMES DAILY 200 strip 3 12/09/19 25 Active Farxiga 10 mg tablet TAKE 1 TABLET BY MOUTH EVERY DAY 90 tablet 1 12/09/19 25 Active blood sugar diagnostic (FreeStyle Lite Strips) test strip USE TO TEST 2 TIMES DAILY. 03/11/20 24 025 Discontinued isosorbide mononitrate (IMDUR) 30 mg 24 hr tablet TAKE 1 TABLET BY MOUTH EVERY DAY 05/27/20 24 025 Discontinued metFORMIN (GLUCOPHAGE) 1,000 mg tablet TAKE 1 TABLET BY MOUTH TWICE A DAY 05/27/20 24 025 Discontinued(Re order) Farxiga 10 mg tablet TAKE 1 TABLET BY MOUTH EVERY DAY 90 tablet 1 07/13/20 24 025 Discontinued Active Problems Problem Noted [...] le cardioverter-defibrillator) in place 11/17/2021 Pulmonary embolism ([facility] V24, [facility] V28) Overview (06/23/2024): Last Assessment & Plan: [...] to the hematology clinic. Complete heart block ([facility] V24, [facility] V28) 10/20/2021 Systolic congestive heart fa ilure ([facility] V24, [facility] V28) 10/20/2021 Ischemic heart disease 06/16/2020 Microalbuminuria 03/26/2019 Type 2 diabetes mellitus wit h cataract ([facility] V24, [facility] V28) 03/26/2019 Type 2 diabetes mellitus wit h renal manifestations ([facility] V24, [facility] V28) 03/26/2019 Bilateral carotid artery stenosis 01/12/2019 Overview (06/23/2024): doppler US 02/21/23:Findings consistent with a 0-49% ICA stenosis on the right, and a 50-69% stenosis on the left. Diabetic neuropathy ([facility] V24, [facility] V28) 0 10/29/2018 Elevated blood protein 10/29/2018 Benign prostatic hyperplasia with lower urinary tract symptoms 05/27/2017 Elevated PSA 04/07/2015 Cataract 07/07/2013 DM type 2 with diabetic agapito pheral neuropathy ([facility] V24, [facility] V28) 07/07/2013 Overview (06/23/2024): Neuropathy related to CVA ETOH abuse 07/07/2013 Overview (06/23/2024): Polysubstance abuse prior to CVA Hemiparesis affecting right side as late effect of stroke ([facility] V24, [facility] V28) 07/07/2013 Overview (06/23/2024): 11/05, left hemisphere. [...] 10:00 AM EDT Office Visit Endocrinology - [address] [phone] Jennifer Partida PA Type 2 diabetes mellitus with other diabetic kidney complication, with long-term current use of insulin ([facility] V24, [facility] V28) (Primary Dx); Primary hypertension; Pure hypertriglyceridemia 11/24/2024 Telephone Adult Medicine [address] [phone] Domingo Barajas NP Lab Results (Routine lab [...] in blood Hypercalcemia DX:Hypercalcemia Left pontine CVA (CMS/HCC V2 4, [facility] V28) 12/2017 DX:Left pontine CVA (HCC) Hemiparesis due to recent [facility] [place] ([facility]/HCC V24, [facility] V28) 12/2017 DX:Hemiparesis due to recen t stroke (HCC); COMMENT: Right-sided hemiparesis; asa and plavix Carotid artery stenosis DX:Carot id artery stenosis Vertebral artery stenosis DX:Chanelle tebral artery stenosis Cataract DX:Cataract Diabetic neuropathy ([facility] V24, [facility] V28) 10/29/2018 DX:Diabetic neuropathy (HCC) Microalbuminuria 03/26/2019 DX:Microalbumin uria Type 2 diabetes mellitus wit h renal manifestations ([facility]/HCC V24, [facility] V28) 03/26/2019 DX:Type 2 diabetes mellitus with renal manifestations (HCC) Hyperlipidemia DX:Hyperlipidemi a Type 2 diabetes mellitus wit h cataract ([facility] V24, [facility] V28) 03/26/2019 DX:Type 2 diabetes mellitus with cataract (HCC) DM type 2 with diabetic agapito pheral neuropathy ([facility] V24, [facility] V28) 07/07/2013 DX:DM type 2 wit h diabetic peripheral neuropathy (HCC); COMMENT: Neuropathy related to CVA History of tobacco use DX:Histor y of tobacco use Heart block DX:Heart block Heart attack (CMS/HCC V24, [facility] V28) DX:Heart attack (HCC) Abdominal pain DX:Abdominal [...] 1:00 PM EDT Office Visit Adult Medicine [address] [phone] Russ Parikh MD [address] [place] [id number] 06/25/2025 10:40 AM EDT Office Visit Endocrinology [address] [phone] Jennifer Partida PA [address] [place] [address] Health Maintenance Due Date Last Done Comments [...] DM type 2 with diabetic peripheral neuropathy (CMS/HCC V24, CMS/HCC V28) Chronic systolic congestive heart failure (CMS/HCC V24, CMS/HCC V28) Primary hypertension Pure hypertriglyceridemia Benign prostatic hyperplasia with lower urinary tract symptoms, symptom details unspecified HEMOGLOBIN A1C Routine 11/24/2024 10:11 AM EDT Type 2 diabetes mellitus with other diabetic kidney complication, with long-term current use of insulin (CMS/HCC V24, CMS/HCC V28) URINE ALBUMIN CREATININE RATIO Routine 03/31/2024 [...] * Hemoglobin A1c (11/24/2024 10:11 AM EDT) Pathologist [facility] Hemoglobin A1C 6.4 <6.5 % LAB CHEMISTRY METHOD 11/24/2024 2:34 PM EDT [facility] Mean Bld Glu Estim. 137 mg/dL LAB CHEMISTRY METHOD 11/24/2024 2:34 PM EDT [facility] Blood Venous blood specimen / Unknown Venipuncture / Unknown 11/24/2024 10:11 AM EDT 11/24/2024 10:11 AM EDT us Jennifer WASSERMAN LAB BLOOD ORDERABLES Final Resul t [facility] [address] [place] [address], * (ABNORMAL) Basic metabolic panel (11/24/2024 10:11 AM EDT) Pathologist [facility] Sodium 131(L) 133 - 145 mmol/L LAB CHEMISTRY METHOD 11/24/2024 2:37 PM EDT [facility] Potassium 5.2 3.5 - 5.5 mmol/L LAB CHEMISTRY METHOD 11/24/2024 2:37 PM EDT [facility] Chloride 98 96 - 110 mmol/L LAB CHEMISTRY METHOD 11/24/2024 2:37 PM EDT [facility] CO2 25 21 - 32 mmol/L LAB CHEMISTRY METHOD 11/24/2024 2:37 PM EDT [facility] Anion Gap 8 3 - 11 LAB CHEMISTRY METHOD 11/24/2024 2:37 PM EDT [facility] Glucose 127(H) 70 - 100 mg/dL LAB CHEMISTRY METHOD 11/24/2024 2:37 PM EDT [facility] BUN 17 5 - 25 mg/dL LAB CHEMISTRY METHOD 11/24/2024 2:37 PM EDT [facility] Creatinine 1.21 0.70 - 1.30 mg/dL LAB CHEMISTRY METHOD 11/24/2024 2:37 PM EDT [facility] eGFR 68 >=60 mL/min/1. 73m2 LAB CHEMISTRY METHOD 11/24/2024 2:37 PM EDT [facility] Comment:Calculation based on the??Chronic Kidney Disease Epidemiology Collaboration (CKD-EPI) equation refit??without adjustment for race. BUN/Creatinine Ratio 14.0 LAB CHEMISTRY METHOD 11/24/2024 2:37 PM EDT [facility] Calcium 10.6(H) 8.5 - 10.5 mg/dL LAB CHEMISTRY METHOD 11/24/2024 2:37 PM EDT [facility] Blood Venous blood specimen / Unknown Venipuncture / Unknown 11/24/2024 10:11 AM EDT 11/24/2024 10:11 AM EDT Domingo Barajas PRINTER MAINTAINER LAB BLOOD ORDERABLES Final R esult [facility] [address] [place] [address], * Urine Albumin Creatinine Ratio (03/31/2024) Urine Albumin Creatinine Ratio Abstracted Historical Provider HEALTH MAINTENANCE Final Result * Diabetes Foot Exam (03/31/2024) Diabetes: Annual Foot Exam Abstracted Historical Provider HEALTH MAINTENANCE Final Result * CT LUNG SCREENING LOW DOSE (01/21/2024 9:18 AM EDT) Anatomical Region Laterality Modality Computed Tomogra phy 01/16/2024 10:4 4 AM EDT Narrative 01/21/2024 9:18 AM EDT [facility] Diagnostic Imaging Department [address] [place] [id number] Patient: ??BYRONCAM ?/Age/Sex: 1965 - 58 - M Unit#: ??[id number] ? Location/Status: ??SPDICATLS/REG CLI ? Mnemonic/Ordering Site: [...] Procedure Note Santos Dominguez MD - 04/13/2024 [facility] Diagnostic Imaging Department [address] [place] [address] Patient: CAM VERA /Age/Sex: 1965 - 58 - M Unit#: [id number] Location/Status: [facility] Mnemonic/Ordering Site: [facility] Ordering Physician: SARAH RICH MD CT Lung [...] Dic Date/Time: 01/21/24903 Sign date/Time: 01/21/24917 Result [facility] Sarah Rich MD IMG CT PROCEDURES Final Result * Depression Screening (12/30/2023) [facility] Depression Screening Abstracted Result [facility] Provider HEALTH MAINTENANCE Final Result * Diabetes Eye Exam (11/13/2023) [facility] Diabetes: Annual Retina Eye Exam Abstracted Result [facility] HEALTH MAINTENANCE Final Result * (ABNORMAL) Lipid panel (08/29/2023) [facility] LDL/HDL Ratio 3 0 - 4 Triglycerides 85 0 - 150 mg/dL Cholesterol 133 0 - 200 mg/dL HDL 39(A) >=40 mg/dL LDL Cholesterol 77 0 - 100 mg/dL Blood Venous blood specimen / Unknown Result [facility] Provider LAB BLOOD ORDERABLES Shireen l Result * Colonoscopy (12/20/2022) [facility] Colonoscopy No Interpretation , Abstracted Anatomical Region Laterality Modality Other Result [facility] Kristel LOZANO HEALTH MAINTENANCE Final Result * Hepatitis C Screening (10/05/2015) [facility] Hepatitis C Screening Abstracted us Historical Provider HEALTH MAINTENANCE Final Result from Last 3 Months or Most Recently Relevant to Health Maintenance Insurance [facility] Care Teams Games Manager Relationship Specialty Start Date End Date Russ Parikh MD [address] [place] [address] PCP - General Internal Medicine 03/16/21
--- OUTSIDE RECORDS SUMMARY | 2024-12-21 08:19 | XMS_ITS | Clinical Summary ---
Author Organization [facility] Address [address] [place] [address] Care Team Providers Care Plastics Fabricator Or Welder Name Role Phone Russ Parikh MD Primary Care Provider [phone] Allergies No known active allergies Medications Medication [...] age to complete this topic Care Teams Plastics Fabricator Or Welder Relationship Specialty Start Date End Date Russ Parikh MD PCP - General Internal Medicine 01/26/22
[2024-12-21 08:54] LABS: Anion Gap 16 (12-20); Blood Urea Nitrogen 24 mg/dL (9-16); Calcium 9.9 mg/dL (8.4-10.2); Carbon Dioxide 23 mmol/L (22-29); Chloride 102 mmol/L (96-108); Estimated Glomerular Filt Rate > 60; Glucose Random 135 mg/dL (60-115); Potassium 4.8 mmol/L (3.3-5.1); Sodium 136 mmol/L (135-145)
== END 2024-12-21 08:10 | disposition home or self-care (01) ==
LOC: HO.LAB 08:09
PROVIDERS: PCP Internal Medicine; Visit Provider Internal Medicine
DX: I50.9 Heart failure, unspecified (principal)
CPT/HCPCS: 36415; 80048

== ENCOUNTER → 2025-01-20 23:59 | Outpatient (BNV) | payer OTHER, SELFPAY ==
--- NOTE | 2025-01-24 09:23 | MHC.OFFVIS ---
Intake Visit Reasons: Remote HF monitoring- [employer] Allergies No Known Allergies [No Known Allergies*] Allergy (Verified 11/18/24 10:34) PFSH Medical History Pulmonary emboli PAF (paroxysmal atrial fibrillation) Ischemic cardiomyopathy Atherosclerotic cardiovascular disease Hypertension Hypercholesteremia Diabetes mellitus, type 2 Myocardial infarction CVA (cerebral vascular accident) Surgical History H/O coronary artery bypass surgery (~04/27/20) Family History Father No problems noted. Mother No problems noted. Social History Household Members: None Housing: Apartment Do you presently have visiting nurse or other home services: Yes (DIRECTOR OF SOCIAL SERVICES daily) Alcohol intake: never Patient Tobacco Use Status: Former Tobacco user Substance Use Type: Crack/Cocaine Advance Directives Date on File: 03/14/21 service: No Current occupational status: unemployed Office Procedures Cardiac Device Check Cardiac Device Check Details: Date of service- 01/20/2025; based on impedance data and physiological variables, there is no evidence of worsening congestive heart failure. [id number] Cardiac Device Interrogation, cardio physiologic monitor Procedure code (CPT) selection complete Assessment & Plan Assessment & Plan (1) ICD (implantable cardioverter-defibrillator) in place: Code(s): Z95.810 - Presence of automatic (implantable) cardiac defibrillator Category: Medical (2) Ischemic cardiomyopathy: Code(s): I25.5 - Ischemic cardiomyopathy Category: Medical Plan x Coding Level of Care Code Procedure Only Diagnoses ICD (implantable cardioverter-defibrillator) in place Z95.810 Ischemic cardiomyopathy I25.5 CPT Codes Cardiac Device Check - Cardiac Device 15: [id number] Cardiac Device Interrogation, cardio physiologic monitor ([id number])
== END ==
PROVIDERS: PCP Internal Medicine; Visit Provider Internal Medicine
DX: I25.5 Ischemic cardiomyopathy (principal); Z95.810 Presence of automatic (implantable) cardiac defibrillator
CPT/HCPCS: 93297

== ENCOUNTER → 2025-02-20 23:59 | Outpatient (BNV) | payer OTHER, SELFPAY ==
--- NOTE | 2025-03-07 12:31 | A.OFFVIS_ITS ---
Intake Visit Reasons: Remote HF monitoring- [employer] Allergies No Known Allergies (No Known Allergies*) Allergy (Verified 11/18/24 10:34) PFSH Medical History Pulmonary emboli PAF (paroxysmal atrial fibrillation) Ischemic cardiomyopathy Atherosclerotic cardiovascular disease Hypertension Hypercholesteremia Diabetes mellitus, type 2 Myocardial infarction CVA (cerebral vascular accident) Surgical History H/O coronary artery bypass surgery (~04/27/20) Family History Father No problems noted. Mother No problems noted. Social History Household Members: None Housing: Apartment Do you presently have visiting nurse or other home services: Yes (CYBER SECURITY INSTRUCTOR daily) Alcohol intake: never Patient Tobacco Use Status: Former Tobacco user Substance Use Type: Crack/Cocaine Advance Directives Date on File: 03/14/21 service: No Current occupational status: unemployed Office Procedures Cardiac Device Check Cardiac Device Check Details: Date of service- 02/20/2025; based on impedance data and physiological variables, there is no evidence of worsening congestive heart failure. [id number]-[id number] Cardiac Device Interrogation, cardio physiologic monitor Procedure code (CPT) selection complete Assessment & Plan Assessment & Plan (1) ICD (implantable cardioverter-defibrillator) in place: Code(s): Z95.810 - Presence of automatic (implantable) cardiac defibrillator Category: Medical (2) Ischemic cardiomyopathy: Code(s): I25.5 - Ischemic cardiomyopathy Category: Medical Plan x Coding Level of Care Code Procedure Only Diagnoses ICD (implantable cardioverter-defibrillator) in place Z95.810 Ischemic cardiomyopathy I25.5 CPT Codes Cardiac Device Check - Cardiac Device 15: [id number] Cardiac Device Interrogation, cardio physiologic monitor ([id number])
== END ==
PROVIDERS: PCP Internal Medicine; Visit Provider Internal Medicine
DX: I25.5 Ischemic cardiomyopathy (principal); Z95.810 Presence of automatic (implantable) cardiac defibrillator
CPT/HCPCS: 93297

== ENCOUNTER → 2025-03-23 23:59 | Outpatient (BNV) | payer OTHER, SELFPAY ==
--- NOTE | 2025-04-03 16:53 | A.OFFVIS_ITS ---
Intake Visit Reasons: Remote ICD check- [employer] Allergies No Known Allergies (No Known Allergies*) Allergy (Verified 11/18/24 10:34) PFS Medical History Pulmonary emboli PAF (paroxysmal atrial fibrillation) Ischemic cardiomyopathy Atherosclerotic cardiovascular disease Hypertension Hypercholesteremia Diabetes mellitus, type 2 Myocardial infarction CVA (cerebral vascular accident) Surgical History H/O coronary artery bypass surgery (~04/27/20) Family History Father No problems noted. Mother No problems noted. Social History Household Members: None Housing: Apartment Do you presently have visiting nurse or other home services: Yes (COMPUTER FORENSIC SPECIALIST daily) Alcohol intake: never Patient Tobacco Use Status: Former Tobacco user Substance Use Type: Crack/Cocaine Advance Directives Date on File: 03/14/21 service: No Current occupational status: unemployed Office Procedures Cardiac Device Check Cardiac Device Check Details: Date of service 03/23/2025; Battery life 3 years; normal lead parameters; no treated VT/VF; effective V pacing >99%; normal ICD function. [id number] Cardiac Interrogation, implant defibrillator w/interim Procedure code (CPT) selection complete Assessment & Plan Assessment & Plan (1) ICD (implantable cardioverter-defibrillator) in place: Code(s): Z95.810 - Presence of automatic (implantable) cardiac defibrillator Category: Medical (2) Ischemic cardiomyopathy: Code(s): I25.5 - Ischemic cardiomyopathy Category: Medical Plan x Coding Level of Care Code Procedure Only Diagnoses ICD (implantable cardioverter-defibrillator) in place Z95.810 Ischemic cardiomyopathy I25.5 CPT Codes Cardiac Device Check - Cardiac Device 13: [id number] Cardiac Interrogation, implant defibrillator w/interim ([id number])
== END ==
PROVIDERS: PCP Internal Medicine; Visit Provider Internal Medicine
DX: I25.5 Ischemic cardiomyopathy (principal); Z95.810 Presence of automatic (implantable) cardiac defibrillator
CPT/HCPCS: 93295

== ENCOUNTER → 2025-03-23 23:59 | Outpatient (BNV) | payer OTHER, SELFPAY ==
--- NOTE | 2025-04-03 16:51 | A.OFFVIS_ITS ---
Intake Visit Reasons: Remote HF monitoring- [employer] Allergies No Known Allergies (No Known Allergies*) Allergy (Verified 11/18/24 10:34) PFSH Medical History Pulmonary emboli PAF (paroxysmal atrial fibrillation) Ischemic cardiomyopathy Atherosclerotic cardiovascular disease Hypertension Hypercholesteremia Diabetes mellitus, type 2 Myocardial infarction CVA (cerebral vascular accident) Surgical History H/O coronary artery bypass surgery (~04/27/20) Family History Father No problems noted. Mother No problems noted. Social History Household Members: None Housing: Apartment Do you presently have visiting nurse or other home services: Yes (MANUFACTURING MANAGEMENT ASSOCIATE daily) Alcohol intake: never Patient Tobacco Use Status: Former Tobacco user Substance Use Type: Crack/Cocaine Advance Directives Date on File: 03/14/21 service: No Current occupational status: unemployed Office Procedures Cardiac Device Check Cardiac Device Check Details: Date of service- 03/23/2025; based on impedance data and physiological variables, there is no evidence of worsening congestive heart failure. [id number] Cardiac Device Interrogation, cardio physiologic monitor Procedure code (CPT) selection complete Assessment & Plan Assessment & Plan (1) ICD (implantable cardioverter-defibrillator) in place: Code(s): Z95.810 - Presence of automatic (implantable) cardiac defibrillator Category: Medical (2) Ischemic cardiomyopathy: Code(s): I25.5 - Ischemic cardiomyopathy Category: Medical Plan x Coding Level of Care Code Procedure Only Diagnoses ICD (implantable cardioverter-defibrillator) in place Z95.810 Ischemic cardiomyopathy I25.5 CPT Codes Cardiac Device Check - Cardiac Device 15: 25036-Qptyis Cardiac Device Interrogation, cardio physiologic monitor ([id number])
== END ==
PROVIDERS: PCP Internal Medicine; Visit Provider Internal Medicine
DX: I25.5 Ischemic cardiomyopathy (principal); Z95.810 Presence of automatic (implantable) cardiac defibrillator
CPT/HCPCS: 93297

== ENCOUNTER → 2025-04-23 23:59 | Outpatient (BNV) | payer OTHER, SELFPAY ==
--- NOTE | 2025-04-28 09:17 | MHC.OFFVIS ---
Intake Visit Reasons: REmote HF check- [employer] Allergies No Known Allergies (No Known Allergies*) Allergy (Verified 11/18/24 10:34) PFSH Medical History Pulmonary emboli PAF (paroxysmal atrial fibrillation) Ischemic cardiomyopathy Atherosclerotic cardiovascular disease Hypertension Hypercholesteremia Diabetes mellitus, type 2 Myocardial infarction CVA (cerebral vascular accident) Surgical History H/O coronary artery bypass surgery (~04/27/20) Family History Father No problems noted. Mother No problems noted. Social History Household Members: None Housing: Apartment Do you presently have visiting nurse or other home services: Yes (RENT AND MISCELLANEOUS REMITTANCE CLERK daily) Alcohol intake: never Patient Tobacco Use Status: Former Tobacco user Substance Use Type: Crack/Cocaine Advance Directives Date on File: 03/14/21 service: No Current occupational status: unemployed Office Procedures Cardiac Device Check Cardiac Device Check Details: Date of service- 04/23/2025; based on impedance data and physiological variables, there is no evidence of worsening congestive heart failure. [id number] Cardiac Device Interrogation, cardio physiologic monitor Procedure code (CPT) selection complete Assessment & Plan Assessment & Plan (1) ICD (implantable cardioverter-defibrillator) in place: Code(s): Z95.810 - Presence of automatic (implantable) cardiac defibrillator Category: Medical (2) Complete heart block: Code(s): I44.2 - Atrioventricular block, complete Category: Medical (3) Ischemic cardiomyopathy: Code(s): I25.5 - Ischemic cardiomyopathy Category: Medical Plan x Coding Level of Care Code Procedure Only Diagnoses ICD (implantable cardioverter-defibrillator) in place Z95.810 Complete heart block I44.2 Ischemic cardiomyopathy I25.5 CPT Codes Cardiac Device Check - Cardiac Device 15: [id number] Cardiac Device Interrogation, cardio physiologic monitor ([id number])
== END ==
PROVIDERS: PCP Internal Medicine; Visit Provider Internal Medicine
DX: I44.2 Atrioventricular block, complete (principal); Z95.810 Presence of automatic (implantable) cardiac defibrillator; I25.5 Ischemic cardiomyopathy
CPT/HCPCS: 93297

== ENCOUNTER 2025-05-20 10:37 | Outpatient (REF) | payer OTHER, SELFPAY ==
--- OUTSIDE RECORDS SUMMARY | 2025-05-20 15:51 | XMS_ITS | Clinical Summary ---
Author Organization [facility] Address [address] [place] [address] Care Team Providers Care Boring Machine Operator Helper Name Role Phone Russ Parikh MD Primary Care Provider [phone] Allergies No known active allergies Medications Medication [...] 87 03/21/2022 10:34 AM EDT Temperature 36.9 C (98.4 F) 03/21/2022 10:34 AM EDT Respiratory Rate - - Oxygen [...] years 1-dose series) 2023 Influenza Vaccine (#1) 2025 , 06/16/2020, 05/19/2018, Additional history exists Pneumococcal Vaccine (3 of 3 - PPSV23 or PCV20) 11/22/2028 06/05/2016, 11/21/2012 Hepatitis B Vaccines Aged Out No long er eligible based on patient's age to complete this topic RSV Ped < 20 months Aged Out No longe r eligible based on patient's age to complete this topic Care Teams Boring Machine Operator Helper Relationship Specialty Start Date End Date Russ Parikh MD PCP - General Internal Medicine 01/26/22
--- OUTSIDE RECORDS SUMMARY | 2025-05-20 15:52 | XMS_ITS | Patient Health Record ---
Author Organization [facility] Address [address] [place] [id number] Care Team Providers Care Dye And Chemical Coordinator Name Role Phone Chika Mercado Primary Care Provid er Unavailable Richardson Bertrand Unavailable [phone] Reason For Referral No Information Medications Medication SIG (Take, Route, Frequency, Duration) Notes Start Date End Date Status Omeprazole 20 MG 1 Orally BID for 30 day(s) 2019 Active Omeprazole 20 MG TK 1 C PO D Oral for 90 Active Fenofibrate 54 MG TK 1 T PO D Oral for 30 Active Atorvastatin Calcium 20 MG TK 1 T PO D Oral for 30 Active Aspirin Low Dose 81 MG TK 1 T PO BID Oral for 30 Active Metoprolol Succinate ER 25 MG TK 1 T PO D Oral for 30 Acti ve Fish Oil 1000 MG TK 1 C PO TID Oral for 30 Active DULoxetine HCl 60 MG TK 1 C PO D Oral for 30 Active Basaglar KwikPen 100 UNIT/ML ADM 18 UNI SC HS Subcutaneous for 30 Active Lisinopril 30 MG TK 1 T PO D Oral for 30 Active Admelog SoloStar 100 UNIT/ML Subcutaneous for 30 Active metFORMIN HCl 1000 MG TK 1 T PO BID Oral for 90 Active Isosorbide Mononitrate ER 30 MG TK 1 T PO QD IN THE MORNING Oral for 90 Active Tamsulosin HCl 0.4 MG TK 1 C PO QD Oral for 30 Active Immunizations Vaccine Route Administration Date Status Comme nts Influenza Unknown 04/26/2019 Administered Social History Tobacco Use: Social History Observation Description Date Details (start date - stop date) Former Smoker NA - NA Tobacco Use/Smoking Question Answer Notes Patient is a former smoker When did you stop smoking? 2 years ago How long has it been since you last smoked? 1-5 years Alcohol Screen Question Answer Notes Did you have a drink contain ing alcohol in the past year? Yes How often did you have a dri nk containing alcohol in the past year? Never (0 point) How many drinks did you have on a typical day when you were drinking in the past year? 1 or 2 drinks (0 point) How often did you have 6 or more drinks on one occasion in the past year? Never (0 point) Points 0 Interpretation Negative Section Notes: Nonsmoker; no sig alcohol Problems Problem Type SNOMED Code ICD Code Onset Dates Problem Status W/U Status Risk Notes Problem 87876459 Heartburn (R12) Active confirmed Problem 312650549 Gastroesophageal reflux disease, esophagitis presence not specified (K21.9) Active confirmed Problem [id number] Chest pain, unspecified type (R07.9) Active confirmed Plan Of Treatment Future Test Test Name Order Date UPPER GI ENDOSCOPY 02/03/2020 Insurance Providers Payer Name Payer Address Payer Phone Subscriber Number Group Number Insured Name Patient Relationship to Insured Coverage Start Date Coverage End Date [facility] [employer] [email or web address] [facility] [address] [address] [place], [place] [id number] GABRIELLE MATTHEWS Self - patient is the insured Medical (General) History Medical History History ICD Code CVA x 2-weakness on the righ t side--uses a cane and braces on his legs--2015 and 2017 IDDM Hypertension Elevated cholesterol. Describes a colonoscopy at [facility] at age approx. 52--told of polyps and need for a colonoscopy in 5 years Denies [place],Lung disease,renal disease BPH Surgical History Surgery Date(Month/Year) Cataracts
--- OUTSIDE RECORDS SUMMARY | 2025-05-20 15:52 | XMS_ITS ---
[facility] Organization [facility] Care Team Organization Name Specialty Phone Email Start Date End Da te [facility] Parikh Primary Care 07/03/2022 04/13/2024
== END 2025-05-20 10:38 | disposition home or self-care (01) ==
LOC: HO.LAB 10:37
PROVIDERS: PCP Internal Medicine; Visit Provider Nurse Practitioner Family
DX: N40.1 Benign prostatic hyperplasia with lower urinary tract symptoms (principal); R33.9 Retention of urine, unspecified; R35.1 Nocturia; R97.20 Elevated prostate specific antigen [PSA]; N32.0 Bladder-neck obstruction; R31.29 Other microscopic hematuria; Z79.899 Other long term (current) drug therapy; Z79.82 Long term (current) use of aspirin
CPT/HCPCS: 51798; 81003; 88112; 99212

== ENCOUNTER 2025-05-20 10:37 | Outpatient (AMB) | payer OTHER, SELFPAY ==
--- NOTE | 2025-05-20 10:53 | A.OFFVIS_ITS ---
Intake Visit Reasons: 6m/PVR Intake Note: Patient is present for 6M/PVR Urology Medication:TAMSULOSIN,BETHANCHLOL CHLORIDE Antibiotic Allergy:NONE Blood Thinner:ASPIRIN Last PVR:51ML'S Todays PVR:20ML'S Administrative Support Manager Required: No Allergies No Known Allergies (No Known Allergies*) Allergy (Verified 05/20/25 11:30) Medication List - Last Reconciled 05/20/25 by LUIS Castaneda- acetaminophen (Tylenol Extra Strength) 1,000 mg (2 x 500 mg) PO QID PRN aspirin 81 mg PO DAILY atorvastatin 80 mg PO DAILY 90 days bethanechol chloride 50 mg PO BID 90 days blood sugar diagnostic (FreeStyle Lite Strips) As directed clopidogrel 75 mg PO DAILY Held on 07/10/21. Instructions: Resume on 07/15/21. Resume anticoagulation Saturday duloxetine 20 mg PO DAILY famotidine 20 mg PO BID Farxiga (dapagliflozin propanediol) 10 mg PO DAILY NS fenofibrate 54 mg PO DAILY finasteride 5 mg PO DAILY 90 days furosemide 40 mg PO DAILY hydroxyzine HCl 25 mg PO TID PRN insulin lispro (Admelog SoloStar U-100 Insulin lispro) 2 units subcut DAILY insulin lispro (Admelog SoloStar U-100 Insulin lispro) 6 units subcut DAILY@1800 insulin lispro (Admelog SoloStar U-100 Insulin lispro) 4 units subcut DAILY@1200 isosorbide mononitrate ER 30 mg PO DAILY lancets As directed lorazepam (Ativan) 1 mg PO BEDTIME PRN metformin 1,000 mg PO BID metoprolol succinate ER 50 mg PO DAILY nitroglycerin 0.4 mg sublingual omega-3 fatty acids-fish oil 340-1,000 mg 1 cap PO TID pen needle, diabetic (BD Kelli 2nd Gen Pen Needle) As directed sacubitril-valsartan 49-51 mg (Entresto) 1 tab PO BID 90 days spironolactone 25 mg PO DAILY tamsulosin 0.4 mg PO DAILY 90 days tramadol 50 mg PO Q6H PRN HPI Comments Details: Cam is a very pleasant 59-year-old male patient of Dr. Parikh. He has a past medical history of paroxysmal AFib, ischemic cardiomyopathy, ACD, hypertension, hypercholesteremia, diabetes type 2, CA, and CVA. He presents to the office today for follow-up of his lower urinary tract symptoms, hematuria, and history of urinary retention. He reports compliance with bethanechol, Flomax, and Finasteride as prescribed. He currently denies any bothersome urinary issues or concerns. In office urinalysis results reviewed with the patient today. Microscopic hematuria noted. We did discussed potential causes of microscopic hematuria as well as further workup in risks and benefits of these interventions. Previous urine cytology results were reviewed with the patient today. As noted and trended below. PVR 20 mL. When asked he denies incontinence, nocturia, gross/visible hematuria, dysuria, foul smelling urine, changes to urinary stream, flank pain, fever, and or chills. He does report episodes of urinary urgency and frequency however feels they are manageable. He is happy with his current voiding parameters on urological medications. Recent PSA results reviewed with the patient today 11/17 2.2. Urine cytology 11/17 Negative for high-grade urothelial carcinoma. All questions were answered. He otherwise offers no other issues or concerns at this time. PREVIOUS OFFICE NOTE HISTORY: Lower urinary tract symptoms Feeling of incomplete emptying and weakness of stream Background diabetic on insulin Takes Lasix tablets Current prostate therapy includes finasteride and tamsulosin Cystoscopy 09/15 left prominent prostate lobe, open right lobe Prostate intervention 08/15 GreenLight laser PSA - prior negative biopsy 2019 - 04/14 5.9, 09/15 9.2, 06/15 3.99, 03/16 5.3 Urinary retention with Vaughan catheter 03/16 Hematuria was diagnosed during - cristopher urine went to emergency room June 2020 They are here for the - further evaluation evaluation - discussion of results and cystoscopy Since the last visit the patient has - does not test positive for microscopic hematuria. Relevant medical history for no pertinent medical history - anticoagulation therapy - prior stroke - kidney stones Radiographic imaging: none completed - CT KUB June 2020 7 mm right stone, normal bladder Other investigations - cytology, normal. [facility] Medical History Pulmonary emboli PAF (paroxysmal atrial fibrillation) Ischemic cardiomyopathy Atherosclerotic cardiovascular disease Hypertension Hypercholesteremia Diabetes mellitus, type 2 Myocardial infarction CVA (cerebral vascular accident) Surgical History H/O coronary artery bypass surgery (~04/27/20) Family History Father No problems noted. Mother No problems noted. Social History Household Members: None Housing: Apartment Do you presently have visiting nurse or other home services: Yes (WELDING MACHINE OPERATOR THERMIT daily) Alcohol intake: never Patient Tobacco Use Status: Former Tobacco user Substance Use Type: Crack/Cocaine Advance Directives Date on File: 03/14/21 service: No Current occupational status: unemployed Review of Systems Const Reports no additional complaints Eyes Reports no additional complaints ENT Reports no additional complaints Card Reports as per HPI Resp Reports no additional complaints GI Reports no additional complaints Reports as per HPI Musc Reports as per HPI Neuro Reports as per HPI Psych Reports no additional complaints Endo Reports as per HPI Kevin/Lymph Reports no additional complaints Aller/Immun Reports no additional complaints Physical Exam Const General: cooperative, healthy appearing, comfortable, no acute distress, well developed, alert and awake Orientation/consciousness: patient oriented x3 Limitations: ambulation with cane HEENT Head: Yes normal to inspection, Yes normocephalic and Yes atraumatic Ears: hearing grossly normal bilaterally Eyes General: appearance normal, both eyes and all related structures Neck Neck: Yes normal visual inspection and Yes trachea midline Chest Chest palpation & inspection: normal inspection of the chest Resp Effort & Inspection: normal respiratory effort and able to speak in complete sentences Cardio Rate: regular rate GI Inspection: Yes normal to inspection General: Yes no CVA tenderness Back/Spine/Pelvis Back: no CVA tenderness Skin General skin exam: no rashes or lesions noted Neuro General: patient oriented x3 Extrem General: Yes normal to inspection Psych Appearance: grossly normal and well kempt Mental Status: mental status grossly normal Speech and movement: Normal speech and movement present and Clear speech present Affect: normal affect Attitude: cooperative Thought process: Normal thought process present Thought content: Normal thought content present Insight: Fair insight present (Psych) Judgement: Fair judgement present (Psych) Office Procedures Post Void Residual Post Residual Void Post Void Residual (PVR): 20 [id number] Void Residual by ultrasound Results AMB Urinalysis, Automated UA Leukoctes 0 Beatrice/uL Last Edit by NAIBAL Ledesma on 05/20/25 11:32 UA Nitrite Negative Last Edit by ANIBAL Ledesma on 05/20/25 11:32 UA Urobilinogen 0.2 mg/dL Last Edit by [facility]hyam [facility] on 05/20/25 11:3 2 UA Protein 0 mg/dL Last Edit by ANIBAL Ledesma on 05/20/25 11:32 UA pH 6.0 Last Edit by Ghanshyam Richard [facility] on 05/20/25 11:32 UA Blood 200 Denys/uL Last Edit by Ghanshyam Richard [facility] on 05/20/25 11:32 UA Specific [place] 1.010 Last Edit by Ghanshyam [facility] on 05/20/25 11: 32 UA Ketone Negative Last Edit by Ghanshyam Richard [facility] on 05/20/25 11:32 UA Bilirubin 0 mg/dL Last Edit by Ghanshyam Richard [facility] on 05/20/25 11:32 UA Glucose 500 mg/dL Last Edit by Ghanshyam Richard [facility] on 05/20/25 11:32 Assessment & Plan Assessment & Plan (1) BPH w urinary obs/LUTS: Code(s): N40.1 - Benign prostatic hyperplasia with lower urinary tract symptoms; N13.8 - Other obstructive and reflux uropathy Category: Medical (2) Elevated PSA: Code(s): R97.20 - Elevated prostate specific antigen [PSA] Category: Medical (3) Urinary retention with incomplete bladder emptying: Code(s): R33.9 - Retention of urine, unspecified Category: Medical (4) Nocturia more than twice per night: Code(s): R35.1 - Nocturia Category: Medical (5) Bladder outlet obstruction: Code(s): N32.0 - Bladder-neck obstruction Category: Medical (6) Microscopic hematuria: Code(s): R31.29 - Other microscopic hematuria Category: Medical Plan In office urinalysis results reviewed with the patient today; as noted above. PVR 20 mL. He currently denies any bothersome urinary issues or concerns. He reports be happy with current voiding parameters. Will continue with surveillance monitoring. Continue bethanechol, Flomax and finasteride as prescribed. All questions were answered. Will obtain PSA in 6 months. Follow-up in 6 months with PSA and PVR; or sooner with any issues, concerns, and or questions. Orders: Orders AMB Urinalysis Automated Today Z13.9 - Encounter for screening, unspecified Prostate Specific Antigen 6 Months N13.8 - Other obstructive and reflux uropathy, N32.0 - Bladder-neck obstruction, N40.1 - Benign prostatic hyperplasia with lower urinary tract symptoms, R31.29 - Other microscopic hematuria, R33.9 - Retention of urine, unspecified, R35.1 - Nocturia, R97.20 - Elevated prostate specific antigen [PSA] Urine Cytology Today R31.29 - Other microscopic hematuria Patient Instructions: The patient had an opportunity to ask questions regarding the treatment plan. All questions were answered. Physical exam, labs, and imaging were discussed and reviewed in detail. As well as risks, benefits, and discussion of treatment choices. No major barriers to understanding were identified. The patient expressed understanding and agreement with the above treatment plan. The patient was made aware they should contact our office by phone for worsening of their current condition, the appearance of new symptoms, or with any questions or concerns. Compliance is encouraged with any medications and follow up testing that is ordered. It is a privilege to be allowed the opportunity to participate in? your urological care.? Again, if you have any questions or concerns If you have any questions or concerns please do not hesitate to contact me. The office is [phone]. This note is constructed using voice recognition software. While every effort has been made to ensure accuracy pharmacy manager errors may have been included. Yours sincerely, BRIGIDO Castaneda Coding Level of Care Code Est Pt Level 3 (07936) Complex EM visit Add On G2211 Diagnoses BPH w urinary obs/LUTS N40.1; N13.8 Elevated PSA R97.20 Urinary retention with incomplete bladder emptying R33.9 Nocturia more than twice per night R35.1 Bladder outlet obstruction N32.0 Microscopic hematuria R31.29 CPT Codes Post Residual Void - PVR CPT Code: [id number] Void Residual by ultrasound ([id number])
== END 2025-05-20 11:32 | disposition home or self-care (01) ==
LOC: HO.HUSH 10:37
PROVIDERS: PCP Internal Medicine; Visit Provider Nurse Practitioner Family
DX: N40.1 Benign prostatic hyperplasia with lower urinary tract symptoms (principal); N13.8 Other obstructive and reflux uropathy; R97.20 Elevated prostate specific antigen [PSA]; R33.9 Retention of urine, unspecified; R35.1 Nocturia; N32.0 Bladder-neck obstruction; R31.29 Other microscopic hematuria; Z13.9 Encounter for screening, unspecified
CPT/HCPCS: 99213

== ENCOUNTER → 2025-05-24 23:59 | Outpatient (BNV) | payer OTHER, SELFPAY ==
--- NOTE | 2025-05-27 13:51 | A.OFFVIS_ITS ---
Intake Visit Reasons: Remote HF monitoring- [employer] Allergies No Known Allergies (No Known Allergies*) Allergy (Verified 05/20/25 11:30) PFSH Medical History Pulmonary emboli PAF (paroxysmal atrial fibrillation) Ischemic cardiomyopathy Atherosclerotic cardiovascular disease Hypertension Hypercholesteremia Diabetes mellitus, type 2 Myocardial infarction CVA (cerebral vascular accident) Surgical History H/O coronary artery bypass surgery (~04/27/20) Family History Father No problems noted. Mother No problems noted. 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 [id number] Cardiac Device Interrogation, cardio physiologic monitor Procedure code (CPT) selection complete Assessment & Plan Assessment & Plan (1) ICD (implantable cardioverter-defibrillator) in place: Code(s): Z95.810 - Presence of automatic (implantable) cardiac defibrillator Category: Medical (2) Ischemic cardiomyopathy: Code(s): I25.5 - Ischemic cardiomyopathy Category: Medical Plan x Coding Level of Care Code Procedure Only Diagnoses ICD (implantable cardioverter-defibrillator) in place Z95.810 Ischemic cardiomyopathy I25.5 CPT Codes Cardiac Device Check - Cardiac Device 15: [id number] Cardiac Device Interrogation, cardio physiologic monitor ([id number])
== END ==
PROVIDERS: PCP Internal Medicine; Visit Provider Internal Medicine
DX: I25.5 Ischemic cardiomyopathy (principal); Z95.810 Presence of automatic (implantable) cardiac defibrillator
CPT/HCPCS: 93297

== ENCOUNTER → 2025-06-24 23:59 | Outpatient (BNV) | payer OTHER, SELFPAY ==
--- NOTE | 2025-07-06 12:26 | MHC.OFFVIS ---
Intake Visit Reasons: Remote ICD check- [employer] Allergies No Known Allergies (No Known Allergies*) Allergy (Verified 05/20/25 11:30) PFS Medical History Pulmonary emboli PAF (paroxysmal atrial fibrillation) Ischemic cardiomyopathy Atherosclerotic cardiovascular disease Hypertension Hypercholesteremia Diabetes mellitus, type 2 Myocardial infarction CVA (cerebral vascular accident) Surgical History H/O coronary artery bypass surgery (~04/27/20) Family History Father No problems noted. Mother No problems noted. Social History Household Members: None Housing: Apartment Do you presently have visiting nurse or other home services: Yes ([employer]MENT daily) Alcohol intake: never Patient Tobacco Use Status: Former Tobacco user Substance Use Type: Crack/Cocaine Advance Directives Date on File: 03/14/21 service: No Current occupational status: unemployed Office Procedures Cardiac Device Check Cardiac Device Check Details: Date of service 06/24/2025; Battery life >2 years; normal lead parameters; no treated VT/VF; effective V pacing 99%; normal ICD function. [id number] Cardiac Interrogation, implant defibrillator w/interim Procedure code (CPT) selection complete Assessment & Plan Assessment & Plan (1) ICD (implantable cardioverter-defibrillator) in place: Code(s): Z95.810 - Presence of automatic (implantable) cardiac defibrillator Category: Medical (2) Ischemic cardiomyopathy: Code(s): I25.5 - Ischemic cardiomyopathy Category: Medical Plan x Coding Level of Care Code Procedure Only Diagnoses ICD (implantable cardioverter-defibrillator) in place Z95.810 Ischemic cardiomyopathy I25.5 CPT Codes Cardiac Device Check - Cardiac Device 13: [id number] Cardiac Interrogation, implant defibrillator w/interim ([id number])
== END ==
PROVIDERS: PCP Internal Medicine; Visit Provider Internal Medicine
DX: I25.5 Ischemic cardiomyopathy (principal); Z95.810 Presence of automatic (implantable) cardiac defibrillator
CPT/HCPCS: 93295

== ENCOUNTER 2025-06-30 10:50 | Outpatient (AMB) | payer OTHER, SELFPAY ==
[2025-06-30 11:20] VITALS: BP 128/68; PULSE 76
--- NOTE | 2025-06-30 11:20 | MHC.OFFVIS ---
Vital Signs 06/30/25 11:20 Height 5 ft 5 in BMI Reason not done Patient refused/unable BP 128/68 Blood Pressure Location Lt brachial Position Sitting Pulse 76 Pulse Source Monitor Intake Visit Reasons: 6 mth fu Allergies No Known Allergies (No Known Allergies*) Allergy (Verified 05/20/25 11:30) Medication List - Last Reconciled 06/30/25 by [place] MD acetaminophen (Tylenol Extra Strength) 1,000 mg (2 x 500 mg) PO QID PRN aspirin 81 mg PO DAILY atorvastatin 80 mg PO DAILY 90 days bethanechol chloride 50 mg PO BID 90 days blood sugar diagnostic (FreeStyle Lite Strips) As directed clopidogrel 75 mg PO DAILY Held on 07/10/21. Instructions: Resume on 07/15/21. Resume anticoagulation Saturday duloxetine 20 mg PO DAILY famotidine 20 mg PO BID Farxiga (dapagliflozin propanediol) 10 mg PO DAILY NS fenofibrate 54 mg PO DAILY finasteride 5 mg PO DAILY 90 days furosemide 40 mg PO DAILY hydroxyzine HCl 25 mg PO TID PRN insulin lispro (Admelog SoloStar U-100 Insulin lispro) 2 units subcut DAILY insulin lispro (Admelog SoloStar U-100 Insulin lispro) 6 units subcut DAILY@1800 insulin lispro (Admelog SoloStar U-100 Insulin lispro) 4 units subcut DAILY@1200 isosorbide mononitrate ER 30 mg PO DAILY lancets As directed lorazepam (Ativan) 1 mg PO BEDTIME PRN metformin 1,000 mg PO BID metoprolol succinate ER 50 mg PO DAILY nitroglycerin 0.4 mg sublingual omega-3 fatty acids-fish oil 340-1,000 mg 1 cap PO TID pen needle, diabetic (BD Kelli 2nd Gen Pen Needle) As directed sacubitril-valsartan 49-51 mg (Entresto) 1 tab PO BID 90 days spironolactone 25 mg PO DAILY tamsulosin 0.4 mg PO DAILY 90 days tramadol 50 mg PO Q6H PRN HPI Comments Details: Cam returns for follow-up regarding coronary disease and several other issues. He has a fairly long and complex cardiovascular history, summarized as below. 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 Multiple risk factors including diabetes, hypertension, dyslipidemia, history of cocaine use. From the cardiac standpoint, he states he has been fine. He has got no new symptoms. Otherwise, it seems that he has been diagnosed with some kind of cancer in his right leg but details are not clear. He is apparently awaiting another biopsy. Since last seen, for the most part he is doing good. No concerning symptoms. No angina. Nonspecific musculoskeletal pains. [facility] Medical History Pulmonary emboli PAF (paroxysmal atrial fibrillation) Ischemic cardiomyopathy Atherosclerotic cardiovascular disease Hypertension Hypercholesteremia Diabetes mellitus, type 2 Myocardial infarction CVA (cerebral vascular accident) Surgical History H/O coronary artery bypass surgery (~04/27/20) Family History Father No problems noted. Mother No problems noted. Social History Household Members: None Housing: Apartment Do you presently have visiting nurse or other home services: Yes ([employer] daily) Alcohol intake: never Patient Tobacco Use Status: Former Tobacco user Substance Use Type: Crack/Cocaine Advance Directives Date on File: 03/14/21 service: No Current occupational status: unemployed Review of Systems Const Denies weakness ENT Denies dizziness Card Denies chest pain, Denies chest pain with activity, Denies syncope, Denies rapid heart rate, Denies pedal edema, Denies edema, Denies leg edema, Denies lightheadedness, Denies palpitations, Denies dyspnea, Denies dyspnea on exertion and Denies orthopnea Resp Denies cough, Denies dyspnea and Denies dyspnea on exertion GI Denies hematochezia and Denies change in stool character Musc Denies abnormal gait, Denies muscle cramps, Denies muscle weakness, Denies numbness, Denies radiating pain into limb and Denies tingling Neuro Denies abnormal gait, Denies dizziness, Denies syncope, Denies numbness, Denies tingling and Denies weakness Endo Denies palpitations Physical Exam Vital Signs: Last Vital Signs Pulse 76 11/05/25 11:20 BP 128/68 06/30/25 11:20 Const General: comfortable and no acute distress Orientation/consciousness: patient oriented x3 HEENT Other: Unremarkable Head: Yes normal to inspection Neck Neck: Yes normal visual inspection Chest Chest palpation & inspection: normal inspection of the chest Resp Auscultation: clear to auscultation bilaterally Cardio Palpation: normal PMI Heart sounds: S1 normal heart sound present, S2 normal heart sound present, no gallops, no murmurs and no rubs GI Palpation (GI): Soft to palpation Back/Spine/Pelvis Other: unremarkable Skin General skin exam: no rashes or lesions noted Neuro General: patient oriented x3 Extrem General: Yes normal to inspection Psych Mental Status: mental status grossly normal Office Procedures EKG Details: EKG with underlying sinus rhythm and biventricular pacing. 76/min. [id number], Complete Assessment & Plan Assessment & Plan (1) Atherosclerotic cardiovascular disease: Code(s): I25.10 - Atherosclerotic heart disease of [place] coronary artery without angina pectoris Category: Medical Plan: Most recent cardiac catheterization shows patent grafts. Stable. Plan to continue long-term dual antiplatelet therapy considering numerous vascular issues. (2) Ischemic cardiomyopathy: Code(s): I25.5 - Ischemic cardiomyopathy Category: Medical Plan: In the last echocardiogram, LVEF 30-35%. His medical regimen includes metoprolol ER, Entresto, Farxiga, diuretics, spironolactone. If he is going to start chemotherapy, recommend repeat echocardiogram. (3) Atrial tachycardia: Code(s): I47.1 - Supraventricular tachycardia Category: Medical Plan: In the past, noted on device check, not clear if it is atrial tachycardia or slow flutter. No recent issues. (4) PAF (paroxysmal atrial fibrillation): Code(s): I48.0 - Paroxysmal atrial fibrillation Category: Medical Plan: Postoperative episode. Was on short-term amiodarone but now off. He was on Eliquis for the pulmonary embolism but that seems to have been stopped as well. (5) CVA (cerebral vascular accident): Code(s): I63.9 - Cerebral infarction, unspecified Category: Medical Plan: Based on vascular consultation from 2017, he had right-sided carotid occlusion. This is apparently chronic. In the most recent carotid ultrasound from 2023, moderate stenosis, 50-79% on the left side and minimal on the right side. No change when compared to 2022. Severe stenosis in the right external carotid. (6) Other and unspecified hyperlipidemia: Code(s): E78.5 - Hyperlipidemia, unspecified Category: Medical Plan: On high dose statins/fenofibrate. Last LDL 90 mg/dL. Less than optimal but he has so many medical issues and more recently, diagnosis of cancer and hence no changes made. (7) Pulmonary emboli: Code(s): I26.99 - Other pulmonary embolism without acute cor pulmonale Category: Medical Plan: Per [facility] documentation, left lower lobe pulmonary embolism from [facility] 10/2021. Off Eliquis. Coding Level of Care Code Est Pt Level 4 (73740) Complex EM visit Add On G2211 Diagnoses Atherosclerotic cardiovascular disease I25.10 Ischemic cardiomyopathy I25.5 Atrial tachycardia I47.1 PAF (paroxysmal atrial fibrillation) I48.0 Cerebrovascular accident (CVA) due to other mechanism I63.9 Other and unspecified hyperlipidemia E78.5 Pulmonary emboli I26.99 CPT Codes EKG - CPT: 34405-[id number], Complete ([id number])
--- OUTSIDE RECORDS SUMMARY | 2025-06-30 12:46 | XMS_ITS | Clinical Summary ---
Author Organization [facility] Address [address] [place] [address] Care Team Providers Care Vp Cardiovascular Name Role Phone Russ Parikh MD Primary Care Provider [phone] Allergies No known active allergies Medications Medication [...] age to complete this topic Care Teams Vp Cardiovascular Relationship Specialty Start Date End Date Russ Parikh MD PCP - General Internal Medicine 01/26/22
== END 2025-06-30 11:48 | disposition home or self-care (01) ==
LOC: HO.HCS 10:51
PROVIDERS: PCP Internal Medicine; Visit Provider Internal Medicine
DX: I25.10 Atherosclerotic heart disease of native coronary artery without angina pectoris (principal); I25.5 Ischemic cardiomyopathy; I47.10 Supraventricular tachycardia, unspecified; I48.0 Paroxysmal atrial fibrillation; I63.9 Cerebral infarction, unspecified; E78.5 Hyperlipidemia, unspecified; I26.99 Other pulmonary embolism without acute cor pulmonale
CPT/HCPCS: 93010; 99214

== ENCOUNTER → 2025-06-30 10:50 | Outpatient (BNVA) | payer OTHER, SELFPAY | PROVIDERS: PCP Internal Medicine; Visit Provider Internal Medicine | DX: I25.10 Atherosclerotic heart disease of native coronary artery without angina pectoris (principal); I25.5 Ischemic cardiomyopathy; E78.5 Hyperlipidemia, unspecified; I26.99 Other pulmonary embolism without acute cor pulmonale; I48.0 Paroxysmal atrial fibrillation; I47.10 Supraventricular tachycardia, unspecified; I63.9 Cerebral infarction, unspecified | CPT/HCPCS: 93005; 99212 ==

== ENCOUNTER → 2025-07-27 09:23 | Outpatient (BNV) | payer OTHER, SELFPAY | PROVIDERS: PCP Internal Medicine; Visit Provider Internal Medicine | DX: I44.2 Atrioventricular block, complete (principal); I25.5 Ischemic cardiomyopathy; Z95.810 Presence of automatic (implantable) cardiac defibrillator | CPT/HCPCS: 93295 ==

== ENCOUNTER → 2025-08-01 14:21 | Outpatient (BNV) | payer OTHER, SELFPAY | PROVIDERS: PCP Internal Medicine; Visit Provider Internal Medicine | DX: Z45.02 Encounter for adjustment and management of automatic implantable cardiac defibrillator (principal) | CPT/HCPCS: 93297 ==